=== PATIENT | male | born 1965 | race Caucasian/White ===

== ENCOUNTER 2022-10-05 07:34 | Outpatient (OUT) | payer OTHER, SELFPAY ==
--- NOTE | 2022-10-05 08:23 | CA_ITS ---
Patient: CONOR LEE Exam Date: 10/05/2022 : 1965 Gender:M Ordering : JESSICA ALLAN Admission #: [id number] Family : DR. HARPREET LIM . 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 DESCRIPTION: COMPLETE ECHOCARDIOGRAM Real-time transthoracic echocardiography with 2D, M-mode, spectral and color flow Doppler performed. QUALITY: Technical quality was good. LEFT VENTRICLE: Normal chamber size. Moderate concentric left ventricular hypertrophy. LV EF: Normal left ventricular ejection fraction, (>55%). DIASTOLIC: Diastolic function is indeterminate. ATRIAL SEPTUM: Visually appears intact. LEFT ATRIUM: Normal chamber size. RIGHT ATRIUM: Normal chamber size. RIGHT VENTRICLE: Normal chamber size. Normal right ventricular systolic function. TRICUSPID VALVE: Normal mobility and thickness. No stenosis with no regurgitation. MITRAL VALVE: Mildly thickened with normal mobility. Mild mitral annular calcification. Mild mitral regurgitation. AORTIC VALVE: Bio-Prosthetic valve appears well seated in the aortic position with abnormal Doppler flow. Severe, prostatic aortic valve stenosis. Severely restricted valve leaflet motion. DVI 0.17. Moderately calcified aortic valve. No aortic regurgitation. AORTIC ROOT: Normal diameter and appearance. PULMONIC VALVE: Normal thickness and mobility. No stenosis. No regurgitation. PERICARDIUM: No evidence of pericardial effusion. IVC: Collapses with inspirations. CONCLUSION: 1. Global left ventricular systolic function is normal; visually estimated ejection fraction is 60 to 65%. No significant wall motion abnormalities. 2. Moderate left ventricular hypertrophy. 3. Diastolic function is indeterminate. 4. The right ventricle is normal in size and systolic function. 5. Mild mitral regurgitation. 6. 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 DVI is 0.17 Adult Echocardiography Procedure Report Left Ventricle LVEDD (3.7 - 5.6 cm): 5.02 cm LVESD (2.2 - 4.0 cm): 3.71 cm LVIVS thickness (0.6 - 1.2 cm): 1.16 cm LVPW thickness (0.5 - 1.0 cm): 1.15 cm e': 0.08 m/s E - e': 14.68 LVOT Max Gradient: 2.77 mm[Hg] LVOT Area (cm2): 0.83 m/s Peak Velocity (LVOT): 0.83 m/s Mean Velocity (LVOT): 0.60 m/s LVOT Diameter 1.75 cm Left Atrium LA Volume Index (2D A2C): 32.18 ml/m2 Left Atrium Systolic Dimension: 5.42 cm Mitral Valve MV E to A Ratio: 1.36 Mitral Valve A-Wave Peak Velocity: 0.83 m/s Mitral Valve E-Wave Peak Velocity: 1.13 m/s Right Ventricle Aorta AO Root Diam: 3.31 cm Aortic Valve AoV Area (Peak Jairo): 0.42 cm2, 0.42 cm2 AoV Area (VTI): 0.50 cm2, 0.50 cm2 Peak Velocity(Antegrade Flow): 4.71 m/s Peak Gradient(Antegrade Flow): 88.66 mm[Hg] Mean Velocity(Antegrade Flow): 3.50 m/s Mean Gradient(Antegrade Flow): 53.90 mm[Hg] Velocity Time Integral: 115.79 cm Tricuspid Valve Pulmonic Valve Mean Gradient: 2.05 mm[Hg], 1.76 mm[Hg], 2.43 mm[Hg] Mean Velocity: 0.68 m/s, 0.63 m/s, 0.73 m/s Peak Velocity: 0.94 m/s Peak Gradient: 3.47 mm[Hg], 2.90 mm[Hg], 4.39 mm[Hg] Right Atrium Right Atrium Systolic Pressure: 48.45 ml, 48.45 ml Dictated by: Arvin Ledesma M.D. on 10/05/2022 at 12:43 Approved by: Arvin Ledesma M.D. on 10/05/2022 at 12:54
== END 2022-10-05 07:35 | disposition home or self-care (01) ==
LOC: CARD 07:36
PROVIDERS: PCP Family Medicine; Visit Provider Nurse Practitioner
DX: I35.0 Nonrheumatic aortic (valve) stenosis (principal)
CPT/HCPCS: 93306

== ENCOUNTER 2022-10-11 09:08 | Outpatient (OUT) | payer OTHER, SELFPAY ==
[2022-10-11 09:33] LABS: Basophils Absolute Auto 0.1 10^3/uL (0.0-0.1); Basophils Percent Auto 1.1 % (0.2-2.0); Eosinophils Absolute Auto 0.4 10^3/uL (0.0-0.7); Eosinophils Percent Auto 3.2 % (0.9-7.0); Hematocrit 53.9 % (42.0-54.0); Hemoglobin 19.1 g/dL (14.0-18.0); Immature Granulocytes Abs Auto 0.03 10^3/uL (0.00-0.03); Immature Granulocytes Pct Auto 0.3 % (0.0-0.5); Lymphocytes Percent Auto 17.9 % (20.5-60.0); Mean Corpuscular HGB Conc 35.4 g/dL (29.9-35.2); Mean Corpuscular Hemoglobin 37.2 pg (25.9-34.0); Mean Platelet Volume 10.5 fL (9.5-13.5); Monocytes Absolute Auto 0.7 10^3/uL (0.3-0.8); Monocytes Percent Auto 6.8 % (1.7-12.0); Neutrophils Absolute Auto 7.7 10^3/uL (1.4-6.5); Neutrophils Percent Auto 70.7 % (43.0-75.0); Platelet Count 157 10^3/uL (150-450); Red Blood Count 5.13 10^6/uL (4.70-6.10); Red Cell Distribution Width 13.6 % (11.0-15.0); White Blood Count 10.9 10^3/uL (4.0-11.0)
[2022-10-11 09:52] LABS: Mean Corpuscular Volume 105.1 fL (80.0-94.0)
[2022-10-11 12:02] LABS: Alanine Aminotransferase 29 U/L (16-63); Albumin Globulin Ratio 0.9; Albumin Level 3.7 g/dL (3.4-5.0); Alkaline Phosphatase 74 U/L (46-116); Anion Gap 15.2; Aspartate Amino Transferase 22 U/L (15-37); BUN Creatinine Ratio 11.8; Calcium 9.5 mg/dL (8.5-10.1); Carbon Dioxide 28.8 mmol/L (21.0-32.0); Chloride 98 mmol/L (98-107); Chol HDL Ratio 6.8; Cholesterol 266 mg/dL (<=200); Estimated GFR (African America >60 (>=60); Estimated GFR (Non-African Ame >60 (>=60); Globulin 4.3 g/dL; Glucose 136 mg/dL (74-106); HDL Cholesterol 39 mg/dL (40-60); Sodium 138 mmol/L (136-145); Triglycerides 331 mg/dL (<=150); VLDL CHOLESTEROL 66.2 mg/dL
== END 2022-10-11 09:09 | disposition home or self-care (01) ==
LOC: LAB 09:10
PROVIDERS: PCP Family Medicine; Visit Provider Nurse Practitioner
DX: I73.9 Peripheral vascular disease, unspecified (principal); I11.9 Hypertensive heart disease without heart failure; I35.9 Nonrheumatic aortic valve disorder, unspecified
CPT/HCPCS: 36415; 80053; 80061; 85025

== ENCOUNTER 2022-11-12 21:24 | Emergency (ER) | payer OTHER, SELFPAY ==
[2022-11-12] VITALS (17 sets, daily range): BP systolic 91–130; BP diastolic 56–89; PULSE 64–77; RESP 16–30; TEMP 36.6; O2SAT 92–100; BMI 27.5
--- NOTE | 2022-11-12 21:45 | XR_ITS ---
The [address] [address] Patient Name: CONOR LEE MRN: [id number] date: 1965 Sex: M Assigned Patient Location: ER Current Patient Location: ER Accession/Order Number: [id number] Exam Date: 11/12/2022 22:00 Report Date: 11/12/2022 22:52 At the request of: JESSICA MARKER Procedure: XR chest 1V EXAM: XR chest 1V HISTORY: SOB COMPARISON: Chest radiographs dated 05/22/2021. TECHNIQUE: One view of the chest was obtained. FINDINGS: There are postsurgical changes of the chest with median sternotomy wires in place. The cardiac silhouette is stable in size. There is stable nonspecific elevation of the left hemidiaphragm with likely left basilar atelectasis. There is a possible small left pleural effusion. There is no significant pneumothorax or right pleural effusion. No acute osseous abnormality is seen. XR/XR chest 1V IMPRESSION: 1. Stable nonspecific elevation of the left hemidiaphragm with a small left pleural effusion and likely left basilar atelectasis. Electronically authenticated by: Royce TRAN Date: 11/12/2022 22:52
--- NOTE | 2022-11-12 21:48 | ED.SOB1 ---
HPI - SOB/Dyspnea General Chief Complaint: Shortness of Breath/Dyspnea Stated Complaint: shortness of breath Time Seen by Provider: 11/12/22 21:32 History of Present Illness HPI Narrative: This 57-year-old male with a history of hypertension, coronary artery disease, likely chronic obstructive pulmonary disease as he has a 2 pack per day smoker and daily use presents for evaluation of shortness of breath. The patient states that he typically takes his blood pressure medication after waking up. He drinks to help him sleep. He states that today he thinks he took his blood pressure medication before he took a nap and then again after he woke up. 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 He denies any chest pain. He was feeling short of breath prior to arrival but denies any particular shortness of breath at this time. He denies any dizziness or syncope. He denies any chest pain. He has not passed out. He has no abdominal pain or back pain. He denies any lower extremity pain or swelling. Related Data Home Medications Medication Instructions Recorded Confirmed aspirin 81 mg tablet,delayed 81 mg PO DAILY 11/12/22 11/12/22 release carvedilol 25 mg tablet 37.5 mg PO BID 11/12/22 11/12/22 lisinopril 20 mg tablet 20 mg PO BID 11/12/22 11/12/22 Allergies Allergy/AdvReac Type Severity Reaction Status Date / Time No Known Drug Allergies Allergy Verified 11/12/22 21:36 Review of Systems ROS Status of ROS 10 or more systems reviewed and unremarkable except as noted in history and below Exam Narrative Exam Narrative: Nurses note and vital signs reviewed and patient is not hypoxic. General: Mildly intoxicated adult male, he is speaking in complete sentences, no respiratory distress noted Skin: Warm, dry, no pallor noted. There is no rash noted. Head: Normocephalic, atraumatic Eye: Normal conjunctiva, no drainage, EOMI. PERRL. No scleral icterus noted Ears, Nose, Mouth, and Throat: oral mucosa is moist. Cardiovascular: Regular Rate and RhythmS1 and S2 with occasional PVCs Respiratory: Patient is in no distress, no accessory muscle use, Bilateral expiratory wheezing noted, there is no accessory muscle use, patient speaking in complete sentences no rhonchi or rales appreciated Back: non-tender, no CVA tenderness bilaterally to percussion. GI: Normal bowel sounds, no tenderness to palpation, no masses appreciated. No rebound, guarding, or rigidity noted. Healed midline abdominal wall incision with non-tender, soft umbilical hernia Musculoskeletal: The patient has no evidence of calf tenderness, no pitting edema, symmetrical pulses noted bilaterally Neurological: A&O x4, normal speech, mildly intoxicated but cooperative Psychiatric: Cooperative Constitutional Vital Signs, click to edit/add: Last Vital Signs Temp 97.9 F 11/12/22 21:28 Pulse 64 11/12/22 22:13 Resp 18 11/12/22 22:13 BP 107/70 11/12/22 21:28 Pulse Ox 95 11/12/22 22:13 O2 Del Method Room Air 11/12/22 22:13 Course Vital Signs Vital signs: Vital Signs Temperature 97.9 F 11/12/22 21:28 Pulse Rate 77 11/12/22 21:28 Respiratory Rate 16 11/12/22 21:28 Blood Pressure 107/70 11/12/22 21:28 Pulse Oximetry 95 11/12/22 21:28 Temperature 97.9 F 11/12/22 21:28 Pulse Rate 64 11/12/22 22:13 Respiratory Rate 18 11/12/22 22:13 Blood Pressure 107/70 11/12/22 21:28 Pulse Oximetry 95 11/12/22 22:13 Oxygen Delivery Method Room Air 11/12/22 22:13 MDM - SOB/Dyspnea MDM Narrative Medical decision making narrative: This 57-year-old male with a history of tobacco use as much as 2 packs per day according to his female partner/ as well as daily alcohol use and a history of cardiac disease including bypass surgery in the past results for evaluation of shortness of breath. The patient typically takes his nighttime medications after waking up from a nap but earlier today he took his nighttime medications after having several cocktails. He states that when he woke up he does not remember if he had taken his medications so he took them again. He then somewhat remembered that he had taken them early. His blood pressure was low and he was feeling short of breath. He denies any chest pain dizziness or syncope. His blood pressure was moderately low upon arrival. He had bilateral expiratory wheezing without any rhonchi or rales. He was not hypoxic with pulse ox of 95 percent on room air.EKG done upon arrival was a sinus rhythm with occasional PVCs and left ventricular hypertrophy with strain. An IV was placed and he was given IV fluids and a nebulizer treatment was 125 mg of IV Solu-Medrol. Routine labs are reviewed. He has a normal white count and hemoglobin is concentrated likely related to his tobacco use, MCV And MCH is high consistent with his chronic alcohol use. He has a normal troponin and a mildly elevated BNP without signs of heart failure on his CXR or EKG. On re-evaluation, he is feeling better, his lungs are now clear. He declined to stay for a second troponin. He is hemodynamically stable for discharge and will be discharged home with his female four corner stayer machine operator/. Encouraged to drink in moderation so that he does not forget when he takes his medications as well as try to smoke less than an attempt to discontinue smoking. Medical Records Medical records narrative: CONOR FLOODSu Exam Date: 10/05/2022 : 1965 Gender :M Ordering : LILLI ALLAN Admission # : [id number] Family : DR. HARPREET LIM . Order # : [id number] CLICK HERE TO VIEW EXAM ECHOCARDIOGRAM REPORT PROCEDURE: CA ECHO DOPPLER COMPLETE INDICATIONS: Nonrheumatic aortic valve stenosis - 23mm Magna pericardial valve, hypertension, smoker COMPARISON: None. DESCRIPTION: COMPLETE ECHOCARDIOGRAM Real-time transthoracic echocardiography with 2D, M-mode, spectral and color flow Doppler performed. QUALITY: Technical quality was good. LEFT VENTRICLE: Normal chamber size. Moderate concentric left ventricular hypertrophy. LV EF: Normal left ventricular ejection fraction, (>55%). DIASTOLIC: Diastolic function is indeterminate. ATRIAL SEPTUM: Visually appears intact. LEFT ATRIUM: Normal chamber size. RIGHT ATRIUM: Normal chamber size. RIGHT VENTRICLE: Normal chamber size. Normal right ventricular systolic function. TRICUSPID VALVE: Normal mobility and thickness. No stenosis with no regurgitation. MITRAL VALVE: Mildly thickened with normal mobility. Mild mitral annular calcification. Mild mitral regurgitation. AORTIC VALVE: Bio-Prosthetic valve appears well seated in the aortic position with abnormal Doppler flow. Severe, prostatic aortic valve stenosis. Severely restricted valve leaflet motion. DVI 0.17. Moderately calcified aortic valve. No aortic regurgitation. AORTIC ROOT: Normal diameter and appearance. PULMONIC VALVE: Normal thickness and mobility. No stenosis. No regurgitation. PERICARDIUM: No evidence of pericardial effusion. IVC: Collapses with inspirations. CONCLUSION: 1. Global left ventricular systolic function is normal; visually estimated ejection fraction is 60 to 65%. No significant wall motion abnormalities. 2. Moderate left ventricular hypertrophy. 3. Diastolic function is indeterminate. 4. The right ventricle is normal in size and systolic function. 5. Mild mitral regurgitation. [email or web address] Continued Report - Page 2 of 2 Patient: CONOR LEE Exam Date: 10/05/2022 : 1965 Gender :M Ordering : LILLI ALLAN Admission # : [id number] Family : DR. HAPRREET LIM . Order # : [id number] CLICK HERE TO VIEW EXAM 6. 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 DVI is 0.17 Adult Echocardiography Procedure Report Left Ventricle LVEDD (3.7 - 5.6 cm): 5.02 cm LVESD (2.2 - 4.0 cm): 3.71 cm LVIVS thickness (0.6 - 1.2 cm): 1.16 cm LVPW thickness (0.5 - 1.0 cm): 1.15 cm e': 0.08 m/s E - e': 14.68 LVOT Max Gradient: 2.77 mm[Hg] LVOT Area (cm2): 0.83 m/s Peak Velocity (LVOT): 0.83 m/s Mean Velocity (LVOT): 0.60 m/s LVOT Diameter 1.75 cm Left Atrium LA Volume Index (2D A2C): 32.18 ml/m2 Left Atrium Systolic Dimension: 5.42 cm Mitral Valve MV E to A Ratio: 1.36 Mitral Valve A-Wave Peak Velocity: 0.83 m/s Mitral Valve E-Wave Peak Velocity: 1.13 m/s Right Ventricle Aorta AO Root Diam: 3.31 cm Aortic Valve AoV Area (Peak Jairo): 0.42 cm2, 0.42 cm2 AoV Area (VTI): 0.50 cm2, 0.50 cm2 Peak Velocity(Antegrade Flow): 4.71 m/s Peak Gradient(Antegrade Flow): 88.66 mm[Hg] Mean Velocity(Antegrade Flow): 3.50 m/s Mean Gradient(Antegrade Flow): 53.90 mm[Hg] Velocity Time Integral: 115.79 cm Tricuspid Valve Pulmonic Valve Mean Gradient: 2.05 mm[Hg], 1.76 mm[Hg], 2.43 mm[Hg] Mean Velocity: 0.68 m/s, 0.63 m/s, 0.73 m/s Peak Velocity: 0.94 m/s Peak Gradient: 3.47 mm[Hg], 2.90 mm[Hg], 4.39 mm[Hg] Right Atrium Right Atrium Systolic Pressure: 48.45 ml, 48.45 ml Dictated by: Arvin Ledesma M.D. on 10/05/2022 at 12:43 Approved by: Arvin Ledesma M.D. on 10/05/2022 at 12:54 Lab Data Labs: Lab Results 11/12/22 Range/Units 21:54 WBC 7.8 (4.0-11.0) 10^3/uL RBC 4.49 L (4.70-6.10) 10^6/uL Hgb 16.9 (14.0-18.0) g/dL Hct 48.3 (42.0-54.0) % MCV 107.6 H (80.0-94.0) fL MCH 37.6 H (25.9-34.0) pg MCHC 35.0 (29.9-35.2) g/dL RDW 12.2 (11.0-15.0) % Plt Count 175 (150-450) 10^3/uL MPV 10.5 (9.5-13.5) fL Neut % (Auto) 52.3 (43.0-75.0) % Lymph % (Auto) 34.8 (20.5-60.0) % Keith % (Auto) 6.4 (1.7-12.0) % Eos % (Auto) 5.0 (0.9-7.0) % Baso % (Auto) 1.2 (0.2-2.0) % Neut # (Auto) 4.1 (1.4-6.5) 10^3/uL Lymph # (Auto) 2.7 (1.2-3.8) 10^3/uL Keith # (Auto) 0.5 (0.3-0.8) 10^3/uL Eos # (Auto) 0.4 (0.0-0.7) 10^3/uL Baso # (Auto) 0.1 (0.0-0.1) 10^3/uL Abs Immat Gran (auto) 0.02 (0.00-0.03) 10^3/uL Imm/Tot Granulo (auto) 0.3 (0.0-0.5) % Sodium 134 L (136-145) mmol/L Potassium 3.3 L (3.5-5.1) mmol/L Chloride 98 (98-107) mmol/L Carbon Dioxide 29.9 (21.0-32.0) mmol/L Anion Gap 9.4 BUN 13.0 (7.0-18.0) mg/dL Creatinine 1.27 (0.70-1.30) mg/dL Est GFR ( Amer) >60 (>=60) Est GFR (Non-Af Amer) 59 L (>=60) BUN/Creatinine Ratio 10.2 Glucose 138 H (74-106) mg/dL Lactate 1.3 (0.4-2.0) mmol/L Calcium 8.2 L (8.5-10.1) mg/dL Total Bilirubin 0.4 (0.2-1.0) mg/dL AST 18 (15-37) U/L ALT 31 (16-63) U/L Alkaline Phosphatase 72 (46-116) U/L Troponin I High Sens 28.7 (4.0-76.1) pg/mL NT-Pro-B Natriuret Pep 1303.0 H* (<=900.0) pg/mL Total Protein 7.0 (6.4-8.2) g/dL Albumin 3.3 L (3.4-5.0) g/dL Globulin 3.7 g/dL Albumin/Globulin Ratio 0.9 ABG Data Interpretation: The [address] [address] XRay Report Signed Patient: CONOR LEE MR#: [id number] : 1965 Acct:[id number] Age/Sex: 57 / M ADM Date: 11/12/22 Loc: ER Attending Dr: Ordering Physician: Lilli David Date of Service: 11/12/22 Procedure(s): XR chest 1V Accession Number(s): [id number] cc: Lilli David; HARPREET LIM ~ The [address] [address] Patient Name: CONOR LEE MRN: [facility]:[id number] date: 1965 Sex: M Assigned Patient Location: ER Current Patient Location: ER Accession/Order Number: [id number] Exam Date: 11/12/2022 22:00 Report Date: 11/12/2022 22:52 At the request of: LILLI DAVID Procedure: XR chest 1V EXAM: XR chest 1V HISTORY: SOB COMPARISON: Chest radiographs dated 05/22/2021. TECHNIQUE: One view of the chest was obtained. FINDINGS: There are postsurgical changes of the chest with median sternotomy wires in place. The cardiac silhouette is stable in size. There is stable nonspecific elevation of the left hemidiaphragm with likely left basilar atelectasis. There is a possible small left pleural effusion. There is no significant pneumothorax or right pleural effusion. No acute osseous abnormality is seen. XR/XR chest 1V IMPRESSION: 1. Stable nonspecific elevation of the left hemidiaphragm with a small left pleural effusion and likely left basilar atelectasis. ECG Data Attestation: I personally reviewed and interpreted this ECG as follows: (Sinus rhythm at 72 bpm with occasional PVCs, left ventricular hypertrophy with strain pattern, no acute ST segment elevation, inverted T waves are noted in leads one, 2, aVL, V4 V5 and V6) Prior ECG tracings: not available for review Discharge Plan Discharge Chief Complaint: Shortness of Breath/Dyspnea Clinical Impression: Shortness of breath, Medication administered in error Patient Disposition: Home, Self-Care Time of Disposition Decision: 23:26 Prescriptions / Home Meds: No Action aspirin 81 mg tablet,delayed release (DR/EC) 81 mg PO DAILY carvedilol 25 mg tablet 37.5 mg PO BID lisinopril 20 mg tablet 20 mg PO BID Instructions: How to Use a Metered-Dose Inhaler and a Spacer (ED), Wheezing (ED), Shortness of Breath (ED) Stand Alone Forms: Portal Instructions Referrals: HARPREET LIM [Primary Care Provider] - 1 week
[2022-11-12 22:04] LABS: Basophils Absolute Auto 0.1 10^3/uL (0.0-0.1); Basophils Percent Auto 1.2 % (0.2-2.0); Eosinophils Absolute Auto 0.4 10^3/uL (0.0-0.7); Hematocrit 48.3 % (42.0-54.0); Hemoglobin 16.9 g/dL (14.0-18.0); Immature Granulocytes Abs Auto 0.02 10^3/uL (0.00-0.03); Immature Granulocytes Pct Auto 0.3 % (0.0-0.5); Lymphocytes Absolute Auto 2.7 10^3/uL (1.2-3.8); Lymphocytes Percent Auto 34.8 % (20.5-60.0); Mean Corpuscular Hemoglobin 37.6 pg (25.9-34.0); Mean Corpuscular Volume 107.6 fL (80.0-94.0); Mean Platelet Volume 10.5 fL (9.5-13.5); Monocytes Absolute Auto 0.5 10^3/uL (0.3-0.8); Monocytes Percent Auto 6.4 % (1.7-12.0); Neutrophils Absolute Auto 4.1 10^3/uL (1.4-6.5); Neutrophils Percent Auto 52.3 % (43.0-75.0); Platelet Count 175 10^3/uL (150-450); Red Blood Count 4.49 10^6/uL (4.70-6.10); Red Cell Distribution Width 12.2 % (11.0-15.0); White Blood Count 7.8 10^3/uL (4.0-11.0)
[2022-11-12] MEDS: METHYLPREDNISOLONE SOD SUCC PF 125 MG/2 ML VIAL IVP (22:05)
[2022-11-12] MEDS: 0.9 % SODIUM CHLORIDE 1,000 ML 1000 ML IV (22:05)
[2022-11-12] MEDS: IPRATROPIUM/ALBUTEROL SULFATE 3 ML AMPUL.NEB IH (22:13)
[2022-11-12 22:15] LABS: Alanine Aminotransferase 31 U/L (16-63); Albumin Globulin Ratio 0.9; Albumin Level 3.3 g/dL (3.4-5.0); Alkaline Phosphatase 72 U/L (46-116); Anion Gap 9.4; Aspartate Amino Transferase 18 U/L (15-37); BUN Creatinine Ratio 10.2; Bilirubin Total 0.4 mg/dL (0.2-1.0); Calcium 8.2 mg/dL (8.5-10.1); Carbon Dioxide 29.9 mmol/L (21.0-32.0); Chloride 98 mmol/L (98-107); Estimated GFR (African America >60 (>=60); Estimated GFR (Non-African Ame 59 (>=60); Globulin 3.7 g/dL; Glucose 138 mg/dL (74-106); Potassium 3.3 mmol/L (3.5-5.1); Sodium 134 mmol/L (136-145)
[2022-11-12 22:17] LABS: Lactate/Lactic Acid 1.3 mmol/L (0.4-2.0)
[2022-11-12 22:23] LABS: Troponin I High Sensitivity 28.7 pg/mL (4.0-76.1)
--- NOTE | 2022-11-13 21:34 | ECG_ITS ---
The [facility] Test Date: 2022-11-12 Pat Name: CONOR LEE Department: Room: - Gender: Male Occup Ther: : 1965 Requested By: [id number] Order Number: [id number] Reading MD: TUYET SURESH Measurements Intervals [place] Rate: 72 P: 40 NH: 148 QRS: -4 QRSD: 104 T: 177 QT: 416 QTc: 440 Interpretive Statements 1100 Sinus rhythm 00319 with occasional ventricular premature complexes (Unreliable analysis due to noise) Incomplete LBBB 5234 Left ventricular hypertrophy with repolarization abnormality 0102 ARTIFACT PRESENT 9150 abnormal ECG No previous ECG available for comparison Electronically Signed On 11-13-2022 7:08:11 EDT by TUYET SURESH
== END 2022-11-12 23:38 | disposition home or self-care (01) ==
PROVIDERS: Emergency Provider Emergency Medicine; PCP Family Medicine
DX: R06.02 Shortness of breath (principal); Z91.148 Patient's other noncompliance with medication regimen for other reason; I10 Essential (primary) hypertension; I25.10 Atherosclerotic heart disease of native coronary artery without angina pectoris; F17.210 Nicotine dependence, cigarettes, uncomplicated; Z79.82 Long term (current) use of aspirin; Z79.899 Other long term (current) drug therapy; F10.90 Alcohol use, unspecified, uncomplicated
CPT/HCPCS: 36415; 71045; 80053; 83605; 83880; 84484; 85025; 93005; 94640; 96374; 99285; J2930

== ENCOUNTER 2023-02-06 07:38 | Emergency (ER) | payer OTHER, SELFPAY ==
[2023-02-06] VITALS (18 sets, daily range): BP systolic 91–121; BP diastolic 57–65; PULSE 71–77; RESP 17–26; O2SAT 48–100; BMI 32.9
--- NOTE | 2023-02-06 07:56 | ECG_ITS ---
The [facility] Test Date: 2023-02-06 Pat Name: CONOR LEE Department: Room: - Gender: Male Manual Tester: : 1965 Requested By: HARPREET LIM Order Number: [id number] Reading MD: TUYET SURESH Measurements Intervals [place] Rate: 72 P: 32 DE: 156 QRS: -1 QRSD: 104 T: 166 QT: 400 QTc: 424 Interpretive Statements 1100 Sinus rhythm 5234 Left ventricular hypertrophy with repolarization abnormality 9150 abnormal ECG Compared to ECG 11/12/2022 no change Electronically Signed On 02-07-2023 6:49:17 EST by TUYET SURESH
--- NOTE | 2023-02-06 07:58 | CT_ITS ---
The [address] [address] Patient Name: CONOR LEE MRN: [id number] date: 1965 Sex: M Assigned Patient Location: ER Current Patient Location: Accession/Order Number: [id number] Exam Date: 02/06/2023 08:20 Report Date: 02/06/2023 08:54 At the request of: JUAN CHATMAN Procedure: CT angio chest EXAM: CT angio chest HISTORY: Shortness of breath. Recent diagnosis of a lung mass 3 weeks ago at [facility]. That exam is not available for comparison. COMPARISON: Chest x-ray dated 11/12/2022. TECHNIQUE: A contrast-enhanced CTA protocol scan was performed. Sagittal and coronal reformatted images were produced. Shaded 3-D surface map rotating images were also produced. Dose reduction techniques were achieved by using automated exposure control and/or adjustment of mA and/or kV according to patient size and/or use of iterative reconstruction technique. FINDINGS: The thyroid gland is normal. There are number of nonenlarged nodes in the mediastinum and eliud. There is a right hilar mass showing at least mild spiculation of the margins. This shows relatively uniform enhancement. The mass measures approximately 3 cm in diameter. The heart and great vessels are normal in size and configuration. There are surgical changes in the aortic valve. Calcified plaque is seen in the aorta and coronary arteries. Evaluation of lungs is limited due to breathing motion artifact. The lungs show mild chronic changes. There is a large left diaphragmatic hernia. No endobronchial or endotracheal lesions are seen. No suspicious or destructive bone lesions are seen. Limited evaluation of the upper abdomen is unremarkable. CT/CT angio chest IMPRESSION: Suspicious 3 cm mass at the right hilum. This is large enough to be amenable to further evaluation with PET/CT the No clear evidence of an acute process in the lungs, although evaluation of lungs is limited due to breathing motion artifact. There are mild chronic changes in the lungs, and there is a large left diaphragmatic hernia. Atherosclerotic disease and coronary artery disease with surgical changes at the aortic valve. Electronically authenticated by: LAZARO GARRETT Date: 02/06/2023 08:54
[2023-02-06 08:04] LABS: Basophils Absolute Auto 0.2 10^3/uL (0.0-0.1); Basophils Percent Auto 1.6 % (0.2-2.0); Eosinophils Absolute Auto 0.6 10^3/uL (0.0-0.7); Eosinophils Percent Auto 4.9 % (0.9-7.0); Hematocrit 44.1 % (42.0-54.0); Hemoglobin 15.1 g/dL (14.0-18.0); Immature Granulocytes Abs Auto 0.04 10^3/uL (0.00-0.03); Immature Granulocytes Pct Auto 0.3 % (0.0-0.5); Lymphocytes Absolute Auto 2.8 10^3/uL (1.2-3.8); Mean Corpuscular HGB Conc 34.2 g/dL (29.9-35.2); Mean Corpuscular Hemoglobin 36.7 pg (25.9-34.0); Mean Platelet Volume 10.2 fL (9.5-13.5); Monocytes Absolute Auto 0.8 10^3/uL (0.3-0.8); Monocytes Percent Auto 6.9 % (1.7-12.0); Neutrophils Absolute Auto 7.2 10^3/uL (1.4-6.5); Neutrophils Percent Auto 62.3 % (43.0-75.0); Platelet Count 281 10^3/uL (150-450); Red Blood Count 4.12 10^6/uL (4.70-6.10); Red Cell Distribution Width 13.2 % (11.0-15.0); White Blood Count 11.5 10^3/uL (4.0-11.0)
[2023-02-06 08:27] LABS: Alanine Aminotransferase 27 U/L (16-63); Albumin Globulin Ratio 0.9; Albumin Level 3.5 g/dL (3.4-5.0); Alkaline Phosphatase 65 U/L (46-116); Anion Gap 12.6; Aspartate Amino Transferase 17 U/L (15-37); BUN Creatinine Ratio 20.6; Bilirubin Total 0.3 mg/dL (0.2-1.0); Calcium 9.8 mg/dL (8.5-10.1); Carbon Dioxide 28.6 mmol/L (21.0-32.0); Chloride 94 mmol/L (98-107); Estimated GFR (African America >60 (>=60); Estimated GFR (Non-African Ame >60 (>=60); Glucose 127 mg/dL (74-106); Potassium 4.2 mmol/L (3.5-5.1); Sodium 131 mmol/L (136-145); Total Protein 7.5 g/dL (6.4-8.2); Troponin I High Sensitivity 23.7 pg/mL (4.0-76.1)
--- NOTE | 2023-02-06 08:44 | ED_ITS ---
HPI - General Adult General Chief complaint: Shortness of Breath/Dyspnea Stated complaint: GENERAL WEAKNESS Time Seen by Provider: 02/06/23 07:57 Source: patient Mode of arrival: walk-in History of Present Illness HPI narrative: Patient is a 57-year-old male who is presenting to the Emergency Room today with chief complaint of shortness of breath, chest tightness, cough that has resolved. Patient was just in the [facility] for large workup. Patient was found to have a right lung mass, patient currently and middle of getting biopsy and further testing. Patient also has a leaky valve in his heart and has to blockages in his heart that he needs to have surgery and to be fixed before they can do anything with his right lung base of undergoing right lung treatment as well. Patient was admitted to the hospital at the [facility]. Patient's had PET scans, CAT scans of his heart similar testing. Patient was smoking 2 packs a day for a long time. Patient is under one pack a day. Patient was on Trelegy but he was in the hospital, his insurance, pain for this is currently not using it. Patient has no history of VT or PE that is aware of. Patient's fianc?e is at bedside. . All systems are negative except as noted/marked. All systems reviewed and otherwise negative. . Nurses note and vital signs reviewed and patient is not hypoxic. General: The patient appears well and in no apparent distress. Patient is resting comfortably on cart. Patient is not toxic, lethargic, or listless. Patient slightly agitated with testing it was recommended to be done because he just had a lot of tests in the [facility], education was done . Patient smells of tobacco products. Skin: Warm, dry, no pallor noted. There is no rash noted. No petechiae, purpura. Head: Normocephalic, atraumatic Eye: Normal conjunctiva, no drainage, EOMI. PERRL Ears, Nose, Mouth, and Throat: oral mucosa is moist. Nares patent. Mouth without vesicles. Cardiovascular: Regular Rate and Rhythm, Positive holosystolic murmur, gallop, rub Respiratory: Patient is in no distress, no accessory muscle use, lungs are clear to auscultation, no wheezing, rales or rhonchi Back: non-tender, no CVA tenderness bilaterally to percussion. No CT LS midline pain GI: soft, no tenderness to palpation, no masses appreciated. No rebound, guarding, or rigidity noted. No flank pain bilateral, No distention Musculoskeletal: Patient has full range of motion of all of the extremities, no motor, sensory, or focal neurological deficits Neurological: A&O x3, normal speech Psychiatric: Cooperative Related Data Home Medications Medication Instructions Recorded Confirmed aspirin 81 mg tablet,delayed 81 mg PO DAILY 11/12/22 11/12/22 release carvedilol 25 mg tablet 37.5 mg PO BID 11/12/22 11/12/22 lisinopril 20 mg tablet 20 mg PO BID 11/12/22 11/12/22 Allergies Allergy/AdvReac Type Severity Reaction Status Date / Time No Known Drug Allergies Allergy Verified 11/12/22 21:36 PFSH [facility] Social History Smoking status: Current every day smoker Exam Constitutional Vital Signs, click to edit/add: Last Vital Signs Pulse 71 02/06/23 09:30 Resp 26 H 02/06/23 08:10 BP 91/59 02/06/23 09:30 Pulse Ox 99 02/06/23 09:30 O2 Del Method Room Air 02/06/23 07:52 Course Vital Signs Vital signs: Vital Signs Pulse Rate 77 02/06/23 07:41 Respiratory Rate 18 02/06/23 07:41 Blood Pressure 121/65 02/06/23 07:41 Pulse Oximetry 88 L 02/06/23 07:41 Oxygen Delivery Method Room Air 02/06/23 07:41 Pulse Rate 71 02/06/23 09:30 Respiratory Rate 26 H 02/06/23 08:10 Blood Pressure 91/59 02/06/23 09:30 Pulse Oximetry 99 02/06/23 09:30 Oxygen Delivery Method Room Air 02/06/23 07:52 Medical Decision Making [facility] Narrative Medical decision making narrative: Patient CTA of the chest showed no PE, pneumonia, edema, no other acute findings besides the 3 cm mass to the right upper hilum. Patient is aware of this. Patient will continue falling up with his oncologist, housing counselor and director of food and nutrition services from the [facility].Patient will conntinue medications. Patient has been asymptomatic since he has been in the Emergency Room. No chest pain or shortness of breath at discharge. Patient does not want to be admitted to the hospital for any reason at this time, especially since he was just in the hospital recently the [facility]. Education on smoking done as well, no questions at discharge. Lab Data Labs: Lab Results 02/06/23 Range/Units 07:50 WBC 11.5 H (4.0-11.0) 10^3/uL RBC 4.12 L (4.70-6.10) 10^6/uL Hgb 15.1 (14.0-18.0) g/dL Hct 44.1 (42.0-54.0) % MCV 107.0 H (80.0-94.0) fL MCH 36.7 H (25.9-34.0) pg MCHC 34.2 (29.9-35.2) g/dL RDW 13.2 (11.0-15.0) % Plt Count 281 (150-450) 10^3/uL MPV 10.2 (9.5-13.5) fL Neut % (Auto) 62.3 (43.0-75.0) % Lymph % (Auto) 24.0 (20.5-60.0) % Hardin % (Auto) 6.9 (1.7-12.0) % Eos % (Auto) 4.9 (0.9-7.0) % Baso % (Auto) 1.6 (0.2-2.0) % Neut # (Auto) 7.2 H (1.4-6.5) 10^3/uL Lymph # (Auto) 2.8 (1.2-3.8) 10^3/uL Hardin # (Auto) 0.8 (0.3-0.8) 10^3/uL Eos # (Auto) 0.6 (0.0-0.7) 10^3/uL Baso # (Auto) 0.2 H (0.0-0.1) 10^3/uL Abs Immat Gran (auto) 0.04 H (0.00-0.03) 10^3/uL Imm/Tot Granulo (auto) 0.3 (0.0-0.5) % Sodium 131 L (136-145) mmol/L Potassium 4.2 (3.5-5.1) mmol/L Chloride 94 L (98-107) mmol/L Carbon Dioxide 28.6 (21.0-32.0) mmol/L Anion Gap 12.6 BUN 20.0 H (7.0-18.0) mg/dL Creatinine 0.97 (0.70-1.30) mg/dL Est GFR ( Amer) >60 (>=60) Est GFR (Non-Af Amer) >60 (>=60) BUN/Creatinine Ratio 20.6 Glucose 127 H (74-106) mg/dL Calcium 9.8 (8.5-10.1) mg/dL Total Bilirubin 0.3 (0.2-1.0) mg/dL AST 17 (15-37) U/L ALT 27 (16-63) U/L Alkaline Phosphatase 65 (46-116) U/L Troponin I High Sens 23.7 (4.0-76.1) pg/mL NT-Pro-B Natriuret Pep 1508.0 H* (<=900.0) pg/mL Total Protein 7.5 (6.4-8.2) g/dL Albumin 3.5 (3.4-5.0) g/dL Globulin 4.0 g/dL Albumin/Globulin Ratio 0.9 ECG Data Attestation: I personally reviewed and interpreted this ECG as follows: (EKG interpretation.I normal sinus rhythm at 72 beats a minute. Normal axis deviation. Left ventricular hypertrophy noted. Diffuse T-wave inversion, nonspecific ST changes. No acute ST elevation. Compared to EKG in 11/12/2022, patient has similar changes on today's EKG.) Discharge Plan Discharge Chief Complaint: Shortness of Breath/Dyspnea Clinical Impression: Shortness of breath, Continuous tobacco abuse, Lung mass Patient Disposition: Home, Self-Care Condition: Fair Prescriptions / Home Meds: No Action aspirin 81 mg tablet,delayed release (DR/EC) 81 mg PO DAILY carvedilol 25 mg tablet 37.5 mg PO BID lisinopril 20 mg tablet 20 mg PO BID Instructions: Chest Pain (ED), How to Stop Smoking (ED), Dyspnea (ED) Additional Instructions: . Patient is to follow-up and continue with treatment to his housing counselor and director of food and nutrition services and oncologist to the [facility]. A copy of her CAT scan report has been given to you Continue trying to quit smoking. Stand Alone Forms: Portal Instructions Referrals: HARPREET LIM [Primary Care Provider] - 1 week Discharge Date/Time: 02/06/23 09:43
== END 2023-02-06 09:43 | disposition home or self-care (01) ==
PROVIDERS: Emergency Provider Emergency Medicine; PCP Family Medicine
DX: R06.02 Shortness of breath (principal); R91.8 Other nonspecific abnormal finding of lung field; F17.210 Nicotine dependence, cigarettes, uncomplicated; Z79.82 Long term (current) use of aspirin; Z79.899 Other long term (current) drug therapy
CPT/HCPCS: 36415; 71275; 80053; 83880; 84484; 85025; 93005; 99285; Q9967

== ENCOUNTER 2023-02-07 00:19 | Emergency (ER) | payer OTHER, SELFPAY ==
[2023-02-07] VITALS (8 sets, daily range): BP systolic 125; BP diastolic 67; PULSE 71–73; RESP 18–20; TEMP 36.6; O2SAT 97–100
[2023-02-07] MEDS: LORAZEPAM 0.5 MG TABLET 1 MG PO ×2 (01:13→02:45)
--- NOTE | 2023-02-07 01:46 | ED_ITS ---
HPI - SOB/Dyspnea General Chief Complaint: Shortness of Breath/Dyspnea Stated Complaint: shortness of breath Time Seen by Provider: 02/07/23 00:27 Source: patient Mode of arrival: walk-in Limitations: no limitations History of Present Illness HPI Narrative: This 57-year-old male who was recently diagnosed with a lung mass and also has cardiac issues and had an extensive workup at [facility] and was seen here earlier today for shortness of breath returns for evaluation of shortness of breath. The patient states that he has episodes when he tries to lay down where he feels like he is choking. He has a follow-up appointment later today with his family physician for oxygen. He is not having any chest pain or fever. There is been no recent change in his symptoms. He does admit that when he was at [facility] and [facility] for his workup he had to have Ativan at times for anxiety and shortness of breath. He does continue to smoke. Is adamant that he needs oxygen. Related Data Home Medications Medication Instructions Recorded Confirmed aspirin 81 mg tablet,delayed 81 mg PO DAILY 11/12/22 02/07/23 release carvedilol 25 mg tablet 37.5 mg PO BID 11/12/22 02/07/23 lisinopril 20 mg tablet 20 mg PO BID 11/12/22 02/07/23 Allergies Allergy/AdvReac Type Severity Reaction Status Date / Time No Known Drug Allergies Allergy Verified 02/07/23 00:31 Review of Systems ROS Status of ROS 10 or more systems reviewed and unremark able except as noted in history and below [facility] Social History Smoking status: Current every day smoker Exam Narrative Exam Narrative: Vital signs reviewed, the patient is afebrile with a normal pulse, normal blood pressure, he is not hypoxic with pulse ox of 99 percent on room air General: Alert, pale, nontoxic male, he appears anxious, no respirato ry distress, he is speaking in complete sentences Skin: Pale, [place] Head: Normocephalic, atraumatic Eye: Normal conjunctiva, no drainage, EOMI. PERRL Ears, Nose, Mouth, and Throat: oral mucosa is moist. Lung of the tongue, uvula or pharyngeal soft tissues Cardiovascular: Regular Rate and Rhythm S1 and S2, no murmurs rubs or gallops appreciated Respiratory: Coarse breath sounds with right upper lobe rhonchi, no rales appreciated, no accessory muscle use, Back: non-tender, no CVA tenderness bilaterally to percussion. GI: Normal bowel sounds, no tenderness to palpation, no masses appreciated. No rebound, guarding, or rigidity noted. Musculoskeletal: The patient has no evidence of calf tenderness, no pitting edema, symmetrical pulses noted bilaterally Neurological: A&O x4, normal speech Psychiatric: Cooperative Constitutional Vital Signs, click to edit/add: Last Vital Signs Temp 97.8 F 02/07/23 00:27 Pulse 71 02/07/23 01:33 Resp 18 02/07/23 01:33 BP 125/67 02/07/23 00:27 Pulse Ox 99 02/07/23 02:30 O2 Del Method Nasal Cannula 02/07/23 00:51 O2 Flow Rate 1 02/07/23 00:51 Course Vital Signs Vital signs: Vital Signs Temperature 97.8 F 02/07/23 00:27 Pulse Rate 73 02/07/23 00:27 Respiratory Rate 20 02/07/23 00:27 Blood Pressure 125/67 02/07/23 00:27 Pulse Oximetry 99 02/07/23 00:27 Oxygen Delivery Method Room Air 02/07/23 00:27 Temperature 97.8 F 02/07/23 00:27 Pulse Rate 71 02/07/23 01:33 Respiratory Rate 18 02/07/23 01:33 Blood Pressure 125/67 02/07/23 00:27 Pulse Oximetry 99 02/07/23 02:30 Oxygen Delivery Method Nasal Cannula 02/07/23 00:51 Oxygen Delivery Flow Rate 1 02/07/23 00:51 MDM - SOB/Dyspnea MDM Narrative Medical decision making narrative: 57-year-old male with a history of tobacco use, alcohol use, congestive heart failure and a recent diagnosis of a lung mass presents for evaluation of shortness of breath. The patient states when he tries to lie down at night he is having episodes of shortness of breath. He is scheduled to see his family physician tomorrow morning. The patient was seen here yesterday for similar symptoms and had a CT scan done of the chest that did not show any new findings or fluid overload. Labs were performed. He did have a mild elevation in his BNP. He is not having any lower extremity swelling at this time. Upon arrival the patient appeared very anxious and demanded that oxygen be placed on his nose to help him breathe. His pulse ox was normal despite his demand for supplemental oxygen. He was put on 1 L nasal cannula to help relax him and given a dose of Ativan. His physical exam is fairly normal with rhonchi in the right upper lobe. The patient states that he is supposed to get his lung tumor biopsy but they feel that he needs to be put to sleep for that and he needs a valve replacement or cardiac surgery prior to being put to sleep for the lung surgery or biopsy. He was also recently admitted to [facility] in [facility] for congestive heart failure exacerbation. He was placed on Lasix and diuresis. He was also recently at [facility] and had an extensive workup. He is scheduled for follow-up with [facility], oncology and his family physician. He does admit that when he was a [facility] he had to have Ativan for anxiety. He states this helps him quite a bit. I reviewed his labs and CT scan from yesterday's Emergency Room visit. I did not repeat any of these labs. After the Ativan he was calm, was able to lie it is approximately 45 degree angle which is where he states he lies at home with 3 pillows behind his head and was comfortable without dyspnea or anxiety. He was continually monitor and the pulse ox during this period of time and his pulse ox did not get to low 98 percent. The patient has /girlfriend was in the room for this and saw that his pulse ox did not drop and he did not become dyspneic or anxious and feels comfortable taking him home. I did send him home with an additional dose of ativan and Rx for a short course of Ativan to use as needed for ongoing anxiety. Medical Records Medical records narrative: [place] [address] CT Scan Report Signed Patient: CONOR LEE MR#: [id number] : 1965 Acct:[id number] Age/Sex: 57 / M ADM Date: 02/06/23 Loc: ER Attending Dr: Ordering Physician: Juan Valeznuela Date of Service: 02/06/23 Procedure(s): CT angio chest Accession Number(s): [id number] cc: HARPREET LIM ~ The [address] [address] Patient Name: CONOR LEE MRN: [id number] date: 1965 Sex: M Assigned Patient Location: ER Current Patient Location: ER Accession/Order Number: [id number] Exam Date: 02/06/2023 08:20 Report Date: 02/06/2023 08:54 At the request of: JUAN VALENZUELA Procedure: CT angio chest EXAM: CT angio chest HISTORY: Shortness of breath. Recent diagnosis of a lung mass 3 weeks ago at [facility]. That exam is not available for comparison. COMPARISON: Chest x-ray dated 11/12/2022. TECHNIQUE: A contrast-enhanced CTA protocol scan was performed. Sagittal and coronal reformatted images were produced. Shaded 3-D surface map rotating images were also produced. Dose reduction techniques were achieved by using automated exposure control and/or adjustment of mA and/or kV according to patient size and/or use of iterative reconstruction technique. FINDINGS: The thyroid gland is normal. There are number of nonenlarged nodes in the mediastinum and eliud. There is a right hilar mass showing at least mild spiculation of the margins. This shows relatively uniform enhancement. The mass measures approximately 3 cm in diameter. The heart and great vessels are normal in size and configuration. There are surgical changes in the aortic valve. Calcified plaque is seen in the aorta and coronary arteries. Evaluation of lungs is limited due to breathing motion artifact. The lungs show mild chronic changes. There is a large left diaphragmatic hernia. No endobronchial or endotracheal lesions are seen. No suspicious or destructive bone lesions are seen. Limited evaluation of the upper abdomen is unremarkable. CT/CT angio chest IMPRESSION: Suspicious 3 cm mass at the right hilum. This is large enough to be amenable to further evaluation with PET/CT the No clear evidence of an acute process in the lungs, although evaluation of lungs is limited due to breathing motion artifact. There are mild chronic changes in the lungs, and there is a large left diaphragmatic hernia. Atherosclerotic disease and coronary artery disease with surgical changes at the aortic valve. Electronically authenticated by: LAZARO GARRETT Date: 02/06/2023 08:54 Discharge Plan Discharge Chief Complaint: Shortness of Breath/Dyspnea Clinical Impression: Situational anxiety, Lung mass Patient Disposition: Home, Self-Care Time of Disposition Decision: 02:36 Condition: Good Prescriptions / Home Meds: No Action aspirin 81 mg tablet,delayed release (DR/EC) 81 mg PO DAILY carvedilol 25 mg tablet 37.5 mg PO BID lisinopril 20 mg tablet 20 mg PO BID Instructions: Panic Disorder (ED) Stand Alone Forms: Portal Instructions Referrals: HARPREET LIM [Primary Care Provider] - 1 week
--- OUTSIDE RECORDS SUMMARY | 2023-02-07 10:20 | XMS_ITS | CCD ---
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 Rfl: chlorthalidone (HYGROTON) 25 mg tabletTake 1 tablet by mouth once daily.Disp: Rfl: metoprolol tartrate, short acting, (LOPRESSOR) 25 mg tabletTake 1 tablet by mouth every 12 hours.Disp: Rfl: ALLERGIES No Known Allergies Review of the Systems: (positives in bold) Constitutional: denies fevers, chills, fatigue, loss of appetite Head: denies headache Ears: tinnitus Eyes: denies blurry vision, diplopia Mouth: denies sore throat Nose: denies congestion, rhinorrhea CV: denies CP, palpitations, leg swelling, orthopnea Pulm: denies dyspnea, cough, wheezing GI: denies nausea, vomiting, diarrhea, constipation, abdominal pain, hematochezia : denies dysuria, hematuria MSK: denies arthralgias Neuro: denies numbness, paresthesias Psych: denies depression, anxiety OBJECTIVE: VITALS: BP 126/64 Pulse 62 Temp 36.4 ?C (97.5 ?F) (Oral) Resp 16 Ht 177.8 cm (5' 10 ) Wt 84.6 kg (186 lb 8 oz) SpO2 97% BMI 26.76 kg/m? PHYSICAL EXAM: General: Appears in no acute distress, resting comfortably in bed Neuro: Alert and oriented x3. Skin: No jaundice, rash or skin breakdown. Eyes: No conjunctivitis. No scleral icterus. HENT: Atraumatic and normocephalic. Neck: Grossly normal. Lungs: Clear to auscultation in all lobes. CV: RRR. 3/6 systolic ejection murmur at right and left upper sternal border Abd: No tenderness to palpation MSK: No gross deformity. Extremitites: No edema. Radial pulses +2 bilaterally. Psych: Well groomed, affect congruent with mood and good eye contact Recent lab studies: Reviewed in Chart. I/Os: Int (more content not included)... Normal [facility] HbA1c (Bld) [Mass fraction]O rdered By: Aracely Foote on 01-17-2023 Average glucose Estimated from glycated hemoglobin (Bld) [Mass/Vol] 123 mg/dL High 68 - 114 mg/dL [facility] Interpretation and review of laboratory results Abnormal [facility] Normal: 4.0% - 5.6% Increased risk for diabetes: 5.7% - 6.4% Diabetes: >= 6.5% Pediatrics: No established reference range Estimated average glucose: 68-114 mg/dL [facility] Hemoglobin [id number] By: Ashley Foote on 01-17-2023 HbA1c (Bld) [Mass fraction] 5.9 % High 4.0 - 5.6 % [facility] Magnesiumon 01-17-2023 Magnesium [Mass/Vol] 2.6 mg/dL High 1.6 - 2.4 mg/dL [facility] No Panel Informationon 01-17 Interpretation and review of laboratory results Abnormal [facility] Renal function 2000 panelon 01-17-2023 Albumin [Mass/Vol] 3.2 g/dL 3.2 - 5.2 g/dL [facility] Anion gap [Moles/Vol] 9 mmol/L Low 10 - 20 mmol/L [facility] Calcium [Mass/Vol] 9.0 mg/dL 8.4 - 10.2 mg/dL [facility] Chloride [Moles/Vol] 101 mmol/L 98 - 108 mmol/L [facility] Creatinine [Mass/Vol] 0.86 mg/dL 0.50 - 1.30 mg/dL [facility] GFR/1.73 sq M.predicted CKD-EPI (S/P/Bld) [Vol rate/Area] 102 - PINF [facility] Comment on above: Estimated GFR was ca lculated using the 2020 CKD-EPI creatinine equation. Glucose [Mass/Vol] 167 mg/dL High 65 - 99 mg/dL [facility] HCO3 [Moles/Vol] 32 mmol/L 21 - 32 mmol/L [facility] Phosphate [Mass/Vol] 5.2 mg/dL High 2.7 - 4.5 mg/dL [facility] Potassium [Moles/Vol] 4.5 mmol/L 3.5 - 5.1 mmol/L [facility] Sodium [Moles/Vol] 137 mmol/L 135 - 145 mmol/L [facility] Urea nitrogen [Mass/Vol] 16 mg/dL 8 - 25 mg/dL [facility] Urea nitrogen/Creatinine [Mass ratio] 18.6 mg/mg 10.0 - 20.0 [facility] Laborator y Services has implemented the eGFR calculation approach that does not have a coefficient for race that conforms to the NKF-ASN Task Force Recommendations. [facility] TSH DL <= 0.005 mIU/L Qnon 1 03-19-2022 Interpretation and review of laboratory results Normal [facility] TSH Qn 0.28 m[IU]/L [facility] ECG 12 Leadon 01-16-2023 Wilmer Davidson Jr., PA-C 01/16/2023 3:44 AM ECG 12 Lead Date/Time: 01/16/2023 3:43 AM Performed by: Wilmer Davidson Jr., PA-C Authorized by: Sharon Madrid MD Interpreted by ED attending physician Rhythm: sinus rhythm BPM: 93 Conduction: incomplete LBBB MS Interval: 144 QRS Interval: 110 QT Interval: 370 Other findings: LVH and LAE Clinical impression: non-specific ECG Comments: No STEMI [facility] EKGon 01-16-2023 [facility] CBC Auto Differentialon 12-20 Basophils (Bld) [#/Vol] 0.17 10*3/uL [facility] Basophils/100 WBC (Bld) 1.4 % [facility] Eosinophils (Bld) [#/Vol] 0.30 10*3/uL [facility] Eosinophils/100 WBC (Bld) 2.4 % [facility] Erythrocyte distribution width (RBC) [Entitic vol] 15.0 % High 11.6 - 14.8 % [facility] Hematocrit (Bld) [Volume fraction] 49.5 % 41.0 - 53.0 % [facility] Hemoglobin (Bld) [Mass/Vol] 16.9 g/dL 13.5 - 17.5 g/dL [facility] Immature granulocytes (Bld) [#/Vol] 0.06 10*3/uL [facility] Immature granulocytes/100 WBC (Bld) 0.50 % [facility] Comment on above: The IG parameter is the percentage of metamyelocytes, myelocytes and promyelocytes. An immature granulocyte count (IG) of 1% or more suggests the possibility of infection, an IG count of 3% is very likely related to an infection. Interpretation and review of laboratory results Abnormal [facility] Lymphocytes (Bld) [#/Vol] 2.11 10*3/uL [facility] Lymphocytes/100 WBC (Bld) 17.1 % [facility] MCH (RBC) [Entitic mass] 37.4 pg High 26.0 - 34.0 pg [facility] MCHC (RBC) [Mass/Vol] 34.1 g/dL 31.0 - 37.0 g/dL [facility] MCV (RBC) [Entitic vol] 109.5 fL High 80.0 - 100.0 fL [facility] Monocytes (Bld) [#/Vol] 0.49 10*3/uL [facility] Monocytes/100 WBC (Bld) 4.0 % [facility] Neutrophils (Bld) [#/Vol] 9.21 10*3/uL High [facility] Neutrophils/100 WBC (Bld) 74.6 % [facility] Nucleated RBC (Bld) [#/Vol] 0.00 10*3/uL [facility] Nucleated RBC/100 WBC (Bld) [Ratio] 0.0 % [facility] Platelet mean volume (Bld) [Entitic vol] 10.3 fL 9.4 - 12.4 fL [facility] Platelets (Bld) [#/Vol] 178 10*3/uL [facility] RBC (Bld) [#/Vol] 4.52 10*6/uL [facility] WBC (Bld) [#/Vol] 12.34 10*3/uL [facility] COVID-19/INFLUENZA A,B MOLEC ARon 01-15-2023 SARS-CoV-2 (COVID-19) Ab IA Ql SARS-COV-2 (MAG): Not Detected INFLUENZA A (MAG): Not Detected INFLUENZA B (MAG): Not Detected Normal Not Detected [facility] Comment on above: Order Comment: This test was performed under the FDA's Emergency Use Authorization (EUA). Testing was performed using the [employer] SARS-CoV-2 RT-PCR AND Influenza A/B Nucleic Acid Test on the Semaj Mag System. This test has not been approved for use in asymptomatic patients and its performance in this patient population has not been evaluated. Negative results do not rule out the presence of SARS-CoV-2, influenza A, and/or influenza B. Fact sheets for the EUA can be found at the following links: For Healthcare Providers: https://www.fda.gov/media/684451/download For Patients: https://www.fda.gov/media/224784/download Performed By: #### L [id number] #### [facility] [address], [place] [address] Gamal Garcia M.D. [id number] CT PULMONARY ARTERIESon 12-20 CT PULMONARY ARTERIES EXAMINATION: CT SCAN OF THE CHEST WITH CONTRAST FOR CT PULMONARY ANGIOGRAPHY, 01/15/2023 COMPARISON: None. HISTORY: Injury/Trauma or Illness?:Injury/Traum a How long have you had these symptoms (acute/chronic)?:Acut e Pulmonary embolism (PE) suspected, high prob TECHNIQUE: 2.5 mm axial images performed through the chest following the intravenous administration of 75 mL of Isovue-370. 3 mm sagittal and coronal MPR reconstructions. 10 mm coronal and sagittal MIP (maximum intensity projection) CTA reconstructions performed through the chest. Dose reduction techniques were achieved by using automated exposure control and/or adjustment of mA and/or kV according to patient size and/or use of iterative reconstruction technique. FINDINGS: No acute PE is identified. Main pulmonary artery slightly distended measuring 3.3 cm in largest diameter (image number 54, series 301). Mild cardiomegaly with some left ventricular hypertrophy. Severe atherosclerotic ossific changes of coronary arterial vasculature. Patient has had aortic valvular replacement. Ectasia of the ascending aorta measuring 4.1 cm in largest diameter. 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 Some scattered nonenlarged and mildly enlarged mediastinal adenopathy. Two of the largest in the right paratracheal region measures 1.4 cm and in the subcarinal region measuring 1.7 cm in short axis diameter (image number 48 and 55, series 301). Anterior segment of the right upper lobe bronchus appears to be obstructed by right anterior suprahilar masslike opacity measuring approximately 3.6 x 2.3 x 3.7 cm (image number 52, series 602 and image number 48-51, series 302). The more distal bronchi are also occluded (image number 38-45, series 302). Bronchial wall thickening seen bilaterally. Small left pleural effusion with partial consolidation of the left lower lobe. Elevation of the left hemidiaphragm. Tiny right pleural effusion with minimal atelectasis in the right lung base. Some mild mosaic perfusion seen bilaterally. Prior splenectomy. Some prominent splenules in the anterior aspect of the left upper abdomen ranging in size from 3 cm to 5.6 cm (image number 112-125, series 301). No adrenal mass. Nonenhanced upper abdomen is otherwise unremarkable. No acute osseous abnormality. Degenerative changes of the visualized spine. IMPRESSION: 1. No acute PE is identified. Main pulmonary artery is slightly distended raising possibility of pulmonary arterial hypertension. 2. The anterior segment of the right upper lobe bronchus appears obstructed by right anterior suprahilar masslike opacity measuring 3.6 x 2.3 x 3.7 cm. The more distal bronchi also occluded and may be due to some mucoid impaction or some additional soft tissue. Malignancy cannot be excluded and further correlation with bronchoscopy recommended. 3. Some mild nonenlarged and mildly enlarged mediastinal lymph nodes may be reactive or metastatic. 4. Small left pleural effusion with mild atelectasis in the left lower lobe with elevation of the left hemidiaphragm. 5. Some mosaic perfusion seen bilaterally may be due to some mild air trapping in conjunction with some small airway disease. Some bronchial wall thickening is also seen bilaterally image may be bronchitis/reactive airway disease. Tiny right pleural effusion minimal atelectasis in the right lung base. 6. Cardiomegaly with left ventricular hypertrophy severe atherosclerotic ossific changes of coronary arterial vasculature. Patient has had aortic valvular replacement. 7. 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 8. 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 GJT/mjr Workstation ID: [id number] Dictated by: WILVER KERR on SatJan 15, 2023 8:11:32 PM EST Transcribed by: KHURRAM MACEDO on SatJan 15, 2023 8:30:10 PM EST Finalized by: WILVER KERR on SatJan 15, 2023 10:01:24 PM EST Normal [facility] Comment on above: Order Comment: Injur y/Trauma or Illness?:Injury/Trauma How long have you had these symptoms (acute/chronic)?:Acute Reason for exam?:sudden onset chest tightness that started while driving, sob Type of Exam?:Initial Mechanism of injury?:. CT Pulmonary arteries for pu lmonary emboluson 01-15-2023 1. No acute PE is identified. Main pulmonary artery is slightly distended raising possibility of pulmonary arterial hypertension. 2. The anterior segment of the right upper lobe bronchus appears obstructed by right anterior suprahilar masslike opacity measuring 3.6 x 2.3 x 3.7 cm. The more distal bronchi also occluded and may be due to some mucoid impaction or some additional soft tissue. Malignancy cannot be excluded and further correlation with bronchoscopy recommended. 3. Some mild nonenlarged and mildly enlarged mediastinal lymph nodes may be reactive or metastatic. 4. Small left pleural effusion with mild atelectasis in the left lower lobe with elevation of the left hemidiaphragm. 5. Some mosaic perfusion seen bilaterally may be due to some mild air trapping in conjunction with some small airway disease. Some bronchial wall thickening is also seen bilaterally image may be bronchitis/reactive airway disease. Tiny right pleural effusion minimal atelectasis in the right lung base. 6. Cardiomegaly with left ventricular hypertrophy severe atherosclerotic ossific changes of coronary arterial vasculature. Patient has had aortic valvular replacement. 7. 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 8. 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 [employer] Workstation ID: [id number] [employer] [facility] EXAMINATION: CT SCAN OF THE CHEST WITH CONTRAST FOR CT PULMONARY ANGIOGRAPHY, 01/15/2023 COMPARISON: None. HISTORY: Injury/Trauma or Illness?:Injury/Traum a How long have you had these symptoms (acute/chronic)?:Acut e Pulmonary embolism (PE) suspected, high prob TECHNIQUE: 2.5 mm axial images performed through the chest following the intravenous administration of 75 mL of Isovue-370. 3 mm sagittal and coronal MPR reconstructions. 10 mm coronal and sagittal MIP (maximum intensity projection) CTA reconstructions performed through the chest. Dose reduction techniques were achieved by using automated exposure control and/or adjustment of mA and/or kV according to patient size and/or use of iterative reconstruction technique. FINDINGS: No acute PE is identified. Main pulmonary artery slightly distended measuring 3.3 cm in largest diameter (image number 54, series 301). Mild cardiomegaly with some left ventricular hypertrophy. Severe atherosclerotic ossific changes of coronary arterial vasculature. Patient has had aortic valvular replacement. Ectasia of the ascending aorta measuring 4.1 cm in largest diameter. 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 Some scattered nonenlarged and mildly enlarged mediastinal adenopathy. Two of the largest in the right paratracheal region measures 1.4 cm and in the subcarinal region measuring 1.7 cm in short axis diameter (image number 48 and 55, series 301). Anterior segment of the right upper lobe bronchus appears to be obstructed by right anterior suprahilar masslike opacity measuring approximately 3.6 x 2.3 x 3.7 cm (image number 52, series 602 and image number 48-51, series 302). The more distal bronchi are also occluded (image number 38-45, series 302). Bronchial wall thickening seen bilaterally. Small left pleural effusion with partial consolidation of the left lower lobe. Elevation of the left hemidiaphragm. Tiny right pleural effusion with minimal atelectasis in the right lung base. Some mild mosaic perfusion seen bilaterally. Prior splenectomy. Some prominent splenules in the anterior aspect of the left upper abdomen ranging in size from 3 cm to 5.6 cm (image number 112-125, series 301). No adrenal mass. Nonenhanced upper abdomen is otherwise unremarkable. No acute osseous abnormality. Degenerative changes of the visualized spine. [employer] Wilver Morfin MD - 01/15/2023 EXAMINATION: CT SCAN OF THE CHEST WITH CONTRAST FOR CT PULMONARY ANGIOGRAPHY, 01/15/2023 COMPARISON: None. HISTORY: Injury/Trauma or Illness?:Injury/Traum a How long have you had these symptoms (acute/chronic)?:Acut e Pulmonary embolism (PE) suspected, high prob TECHNIQUE: 2.5 mm axial images performed through the chest following the intravenous administration of 75 mL of Isovue-370. 3 mm sagittal and coronal MPR reconstructions. 10 mm coronal and sagittal MIP (maximum intensity projection) CTA reconstructions performed through the chest. Dose reduction techniques were achieved by using automated exposure control and/or adjustment of mA and/or kV according to patient size and/or use of iterative reconstruction technique. FINDINGS: No acute PE is identified. Main pulmonary artery slightly distended measuring 3.3 cm in largest diameter (image number 54, series 301). Mild cardiomegaly with some left ventricular hypertrophy. Severe atherosclerotic ossific changes of coronary arterial vasculature. Patient has had aortic valvular replacement. Ectasia of the ascending aorta measuring 4.1 cm in largest diameter. 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 Some scattered nonenlarged and mildly enlarged mediastinal adenopathy. Two of the largest in the right paratracheal region measures 1.4 cm and in the subcarinal region measuring 1.7 cm in short axis diameter (image number 48 and 55, series 301). Anterior segment of the right upper lobe bronchus appears to be obstructed by right anterior suprahilar masslike opacity measuring approximately 3.6 x 2.3 x 3.7 cm (image number 52, series 602 and image number 48-51, series 302). The more distal bronchi are also occluded (image number 38-45, series 302). Bronchial wall thickening seen bilaterally. Small left pleural effusion with partial consolidation of the left lower lobe. Elevation of the left hemidiaphragm. Tiny right pleural effusion with minimal atelectasis in the right lung base. Some mild mosaic perfusion seen bilaterally. Prior splenectomy. Some prominent splenules in the anterior aspect of the left upper abdomen ranging in size from 3 cm to 5.6 cm (image number 112-125, series 301). No adrenal mass. Nonenhanced upper abdomen is otherwise unremarkable. No acute osseous abnormality. Degenerative changes of the visualized spine. IMPRESSION: 1. No acute PE is identified. Main pulmonary artery is slightly distended raising possibility of pulmonary arterial hypertension. 2. The anterior segment of the right upper lobe bronchus appears obstructed by right anterior suprahilar masslike opacity measuring 3.6 x 2.3 x 3.7 cm. The more distal bronchi also occluded and may be due to some mucoid impaction or some additional soft tissue. Malignancy cannot be excluded and further correlation with bronchoscopy recommended. 3. Some mild nonenlarged and mildly enlarged mediastinal lymph nodes may be reactive or metastatic. 4. Small left pleural effusion with mild atelectasis in the left lower lobe with elevation of the left hemidiaphragm. 5. Some mosaic perfusion seen bilaterally may be due to some mild air trapping in conjunction with some small airway disease. Some bronchial wall thickening is also seen bilaterally image may be bronchitis/reactive airway disease. Tiny right pleural effusion minimal atelectasis in the right lung base. 6. Cardiomegaly with left ventricular hypertrophy severe atherosclerotic ossific changes of coronary arterial vasculature. Patient has had aortic valvular replacement. 7. 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 8. 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 GJT/mjr Workstation ID: [id number] [facility] Radiology Study observation (narrative) [facility] CT Pulmonary arteries for pu lmonary embolusOrdered By: Wilver Kerr on 01-15-2023 [facility] Work Phone: Comprehensive metabolic 2000 panelon 01-15-2023 Albumin [Mass/Vol] 3.9 g/dL 3.2 - 5.2 g/dL [facility] ALP [Catalytic activity/Vol] 92 U/L 40 - 150 U/L [facility] ALT [Catalytic activity/Vol] 26 U/L 14 - 65 U/L [facility] Anion gap [Moles/Vol] 9 mmol/L Low 10 - 20 mmol/L [facility] AST [Catalytic activity/Vol] 22 U/L 0-50 U/L [facility] Bilirubin [Mass/Vol] 1.2 mg/dL 0.0 - 1.3 mg/dL [facility] Calcium [Mass/Vol] 8.9 mg/dL 8.4 - 10.2 mg/dL [facility] Chloride [Moles/Vol] 103 mmol/L 98 - 108 mmol/L [facility] Creatinine [Mass/Vol] 1.05 mg/dL 0.50 - 1.30 mg/dL [facility] GFR/1.73 sq M.predicted CKD-EPI (S/P/Bld) [Vol rate/Area] 83 - PINF [facility] Comment on above: Estimated GFR was ca lculated using the 2020 CKD-EPI creatinine equation. Glucose [Mass/Vol] 184 mg/dL High 65 - 99 mg/dL [facility] HCO3 [Moles/Vol] 29 mmol/L 21 - 32 mmol/L [facility] Potassium [Moles/Vol] 3.8 mmol/L 3.5 - 5.1 mmol/L [facility] Protein [Mass/Vol] 8.2 g/dL High 6.0 - 8.0 g/dL [facility] Sodium [Moles/Vol] 137 mmol/L 135 - 145 mmol/L [facility] Urea nitrogen [Mass/Vol] 12 mg/dL 8 - 25 mg/dL [facility] Urea nitrogen/Creatinine [Mass ratio] 11.4 mg/mg 10.0 - 20.0 [facility] has implemented the eGFR calculation approach that does not have a coefficient for race that conforms to the NKF-ASN Task Force Recommendations. [facility] EKG 12-leadon 01-15-2023 Atrial Rate 93 BPM [facility] P [place] 41 degrees [facility] P-R Interval 144 ms [facility] Q-T Interval 370 ms [facility] QRS Duration 110 ms [facility] QTC Calculation (Bezet) 460 ms [facility] R [place] 15 degrees [facility] T [place] -167 degrees [facility] Ventricular Rate 93 BPM [facility] sinus rhythm Possible Left atrial enlargement Incomplete left bundle branch block Left ventricular hypertrophy with repolarization abnormality ( R in aVL , Sokolow-Shannon , [place] product , Romhilt-Costa ) Abnormal ECG ECG Cart Interpretation see physician note for interpretation. Confirmed by Zee Maria ([id number]) on 01/15/2023 8:06:58 PM MUSE [facility] Allan Topon 01-15-2023 Extra Tube Hold for add-ons. [facility] Comment on above: Auto resulted. [facility] Influenza virus A and B RNA and SARS-CoV-2 (COVID-19) N gene panel JARROD+probe (Resp)Ordered By: Rut Zabala on 01-15-2023 FLUAV RNA JARROD+probe Ql (Unsp spec) Not detected Not Detected [facility] FLUBV RNA JARROD+probe Ql (Unsp spec) Not detected Not Detected [facility] Interpretation and review of laboratory results Normal [facility] SARS-CoV-2 (COVID-19) RNA JARROD+probe Ql (Resp) Not detected Not Detected [facility] This test was performed under the FDA's Emergency Use Authorization (EUA). Testing was performed using the [employer] SARS-CoV-2 RT-PCR & Influenza A/B Nucleic Acid Test on the [employer] Mag System. This test has not been approved for use in asymptomatic patients and its performance in this patient population has not been evaluated. Negative results do not rule out the presence of SARS-CoV-2, influenza A, and/or influenza B. Fact sheets for the EUA can be found at the following links: For Healthcare Providers: https://www.fda.gov/m edia/463857/download For Patients: https://www.fda.gov/m edia/942379/download [facility] Lipaseon 01-15-2023 Lipase [Catalytic activity/Vol] 52 U/L 13-75 U/L [facility] Lipase [Catalytic activity/V ol]on 01-15-2023 Interpretation and review of laboratory results Normal [facility] NT Pro BNPon 01-15-2023 Natriuretic peptide.B prohormone N-Terminal [Mass/Vol] 5377 pg/mL High 0 - 300 pg/mL [facility] Natriuretic peptide.B prohor scotty N-Terminal [Mass/Vol]on 01-15-2023 Pride Study Cut-offs Rule In: < /= 50 Years >450 pg/mL 51 Years - 75 Years >900 pg/mL 76 Years - 99 Years >1800 pg/mL Rule Out: All patients <300 pg/mL [facility] No Panel Informationon 01-15 Extra Tube Hold for add-ons. [facility] Comment on above: Auto resulted. [facility] Interpretation and review of laboratory results Abnormal [facility] Troponinon 01-15-2023 Troponin I 42 ng/L NINF - 59 ng/L [facility] Troponin I Interpretation Normal [facility] XR CHEST PA/APon 01-15-2023 XR CHEST PA/AP EXAMINATION: XR CHEST PA/AP 01/15/2023 6:28 pm HISTORY: ORDERING SYSTEM PROVIDED HISTORY: chest pain, TECHNOLOGIST PROVIDED HISTORY: Illness/Other Reason for exam: chest pain Cancer History: n Surgery, RadiationHistory: n Encounter Type: Initial Additional signs and symptoms: n ORDERING SYSTEM PROVIDED DIAGNOSIS CODES: COMPARISON: Portable chest from 11/12/2022. FINDINGS: Trachea is midline. Mediastinum is not widened. Heart size is mildly prominent. Sternal wires indicate prior surgery. There is aoec-rq-[id number] elevation of left hemidiaphragm. Chronic markings noted bilaterally perhaps with slight interstitial congestion. Mild bibasilar atelectasis is noted. IMPRESSION: 1. Mild cardiomegaly. 2. Chronic lung markings perhaps with slight interstitial congestion. Mild bibasilar atelectasis noted. Workstation ID: [id number] Dictated by: JHONNY TORRES on SatJan 15, 2023 7:06:27 PM EST Transcribed by: JHONNY TORRES on SatJan 15, 2023 7:06:27 PM EST Finalized by: JHONNY TORRES on SatJan 15, 2023 7:06:27 PM EST Normal [facility] Comment on above: Order Comment: Injur y/Trauma or Illness?:Illness/Other How long have you had these symptoms (acute/chronic)?:Acute Reason for exam?:chest pain History of cancer?:n Surgeries, chemotherapy, or radiation?:n Type of Exam?:Initial Additional signs and symptoms?:n XR Chest PA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 mild FDG uptake, likely splenules. The largest is measuring 5.5 x 4.7 cm with max SUV 3.2. Extremities/Skeleton: No evidence of focal uptake to suggest FDG avid neoplastic process. Degenerative arthritic change. IMPRESSION: 1. HEAD and NECK: No evidence of focal uptake to suggest FDG avid neoplastic process.. 2. CHEST: FDG avid right upper lobe lung masses consistent with neoplastic process. Mediastinal and right hilar metastatic lymphadenopathy. 3. ABDOMEN/PELVIS: No evidence of focal uptake to suggest FDG avid neoplastic process. Multiple splenules. 4. EXTREMITIES/SKELETON: No evidence of focal uptake to suggest FDG avid neoplastic process.. Transcribe Date/Time: Jan 01 2023 9:05P Dictated by: GEETA RUSSELL MD This examination was interpreted and the report reviewed and electronically signed by: GEETA RUSSELL MD on Jan 01 2023 9:18PM EST Thank you for allowing us to participate in the care of your patient. Should there be any questions regarding this interpretation, please call [phone]. If you are unable to reach us at the number above, please feel free to contact [facility] at [phone]. [id number] [id number] YANCYCONOR LEE ([id number]) 1965 M Date Time Provider Department 12/14/22 ARIANA BREWER [id number] During your visit today, we recorded the following information about you: Ariana Brewer RN 12/17/2022 1:55 PM Addendum New Patient Consult Request PATIENT HAS BEEN IDENTIFED BY NAME AND Patient Name: Conor Lee Patient : 1965 PREVISIT INFO SOURCE: CHART CHIEF COMPLAINT: CARD PRE-OP CLEARANCE PREVIOUS CARE/FILMS/RECORDS: [facility] [place],[facility] [place], [place], [place], HISTORY OF CANCER: NO RADIOLOGY RESULTS: 10/18/22 EKG [facility]: Abnormal ECG When compared with ECG of 06-APR-2019 08:02, ST now depressed in Lateral T wave inversion more evident in Lateral Confirmed by Wolfgang Ramirez ([id number]) on 10/18/2022 11:57:15 AM CXR: CT: YES 12/06/22 CTA CHEST OK There is a well defined soft tissue density mass lesion, with irregular spiculated margins, seen in the right perihilar region. It measures approximately 2.8 x 2.7 cm (anteroposterior x transverse) with a cranio-caudal span of 3.1 cm. -SPLENECTOMY NM: NO PET: NO ORDERED PER OK DR. MEAD PFTs: YES 12/05/22 LUNG BIOPSY: NO CHEST SURGERY: YES HEART VALVE Heme/RAD Onc: NO ANTI-COAGULANTS: YES ASA 81mg DAILY PULMONARY HX: YES SMOKER LUNG NODULES LUNG MASS GERD PULMONARY MEDS: NO PEPCID 40mg DAILY FAMILY MALIGNANCY: NONE NOTED ARIANA BREWER RN December 14, 2022 4:33 PM Allergies As of Date: 12/14/2022 (No Known Allergies) Date Reviewed: 12/06/2022 Reviewed by: Eileen Rose RN - Fully Assessed Reason for Visit: PV HX PULM PRE-OP CONSULT [Other] Prescriptions as of 12/17/2022 - aspirin, enteric coated (ASPIRIN, ENTERIC COATED) 81 mg EC tablet Take 1 tablet by mouth once daily. - famotidine (PEPCID) 40 mg tablet Take 1 tablet by mouth once daily. - cyclobenzaprine (FLEXERIL) 10 mg tablet Take 10 mg by mouth. - lisinopril (ZESTRIL) 40 mg tablet Take 1 tablet by mouth once daily. - spironolactone (ALDACTONE) 25 mg tablet Take 1 tablet by mouth every morning. - chlorthalidone (HYGROTON) 25 mg tablet Take 1 tablet by mouth once daily. - metoprolol tartrate, short acting, (LOPRESSOR) 25 mg tablet Take 1 tablet by mouth every 12 hours. Problem List As Of Date: 12/14/2022 (None) Encounter Status:Closed by ARIANA BREWER on 12/17/22 [facility] [facility] Ambulatory Visit Summaryon 1 Ambulatory Visit Summary CONOR LEE :1965 Visit Date:12/11/2022 Ambulatory Visit Instructions Your Diagnosis Cough Acute URI Heart murmur Lung nodule Overweight BMI 28.0-28.9,adult Your Care Team Attending Physician - Harpreet Lim MD Primary Care Physician - Harpreet Lim MD This Is Your Medications List azithromycin (Azithromycin 3 Day Dose Pack 500 mg oral tablet) methylPREDNISolone (Medrol Dosepack 4 mg Tab) Contact prescribing physician if questions or concerns albuterol (albuterol 90 mcg/inh inhalation powder) aspirin (aspirin 81 mg Oral EC Tab) cyclobenzaprine (cyclobenzaprine 10 mg Tab) famotidine (famotidine 40 mg Tab) lisinopril (lisinopril 20 mg Tab) metoprolol (Metoprolol tartrate 25 mg Tab) spironolactone (spironolactone 25 mg Tab) Procedures Performed Aortic valve replacement and replacement of ascending aorta (09/07/2011), Phlebectomy, Splenectomy. Discharge Vitals Temperature (Temporal Artery) 37.0 ?C Heart Rate (Peripheral) 66 Respiratory Rate 16 Blood Pressure 138/80 Height 175.2 cm Height 69 in Weight 87.2 kg Weight 191.84 lb BMI 28.41 What to do next Scheduled Follow-Up Appointments Saturday 4:40 PM EST With: Harpreet Lim MD Where: [address] \.br\ Medications\.br\ What How Much When Why Instructions\.br\ New azithromycin (Azithromycin 3 Day Dose Pack 500 mg oral tablet) 1 Tablets By Mouth Every day BMI 28.0-28.9,adult Overweight Pickup at [facility]\.br\ New methylPREDNISolone (Medrol Dosepack 4 mg Tab) 1 Packets By Mouth As Directed BMI 28.0-28.9,adult Overweight Duration: 6 Days as directed on package labeling Pickup at [facility]\.br\ Unchanged albuterol (albuterol 90 mcg/ inh inhalation powder) 2 Puffs Inhalation Every 4 hours as needed for for wheezing or SOB Contact prescribing physician if questions or concerns \.br\ Unchanged aspirin (aspirin 81 mg Oral EC Tab) 1 Tablets By Mouth Every day Contact prescribing physician if questions or concerns \.br\ Unchanged cyclobenzaprine (cyclobenzaprine 10 mg Tab) 1 Tablets By Mouth Once a day (in the evening) as needed for for spasm Contact prescribing physician if questions or concerns \.br\ Unchanged famotidine (famotidine 40 mg Tab) 1 Tablets By Mouth Every day Contact prescribing physician if questions or concerns \.br\ Unchanged lisinopril (lisinopril 20 mg Tab) See instructions TAKE 1 TABLET BY MOUTH TWICE DAILY Contact prescribing physician if questions or concerns \.br\ Unchanged metoprolol (Metoprolol tartrate 25 mg Tab) 1 Tablets By Mouth 2 times a day Contact prescribing physician if questions or concerns \.br\ Unchanged spironolactone (spironolactone 25 mg Tab) 1 Tablets By Mouth Every day Contact prescribing physician if questions or concerns \.br\ Pharmacy Information\.br\ [facility]: [address] [place], [place] [id number] [phone]\.br\ Allergies\.br\ No Known Allergies\.br\ Problems\.br\ Ongoing - Any problem that you are currently receiving treatment for.\.br\ Acute URI\.br\ Atherosclerosis of [place] artery of extremity\.br\ Carpal tunnel syndrome\.br\ Chronic obstructive bronchitis\.br\ Disorder of diaphragm\.br\ Endocarditis\.br\ Essential hypertension\.br\ Heart murmur\.br\ Hemiparesis\.br\ Illiteracy\.br\ Lumbosacral spondylosis without myelopathy\.br\ Lung nodule\.br\ Neuralgia\.br\ Neuritis\.br\ Peripheral vascular disease\.br\ Primary hypercholesterolemi a\.br\ PVD (pulmonary valve disease)\.br\ Spasm of back muscles\.br\ Thoracic spondylosis without myelopathy\.br\ Patient Survey\.br\ You may receive a survey via text or e-mail asking about your office visit. Please share your experience with us by completing your survey. We appreciate your feedback and thank you for choosing us for your care.\.br\ \.br\ [facility] Auth for Release of Medical Recordson 12-11-2022 Auth for Release of Medical Records [id number] .00TIFF Normal [facility] Family Medicine Office/Clini c Noteon 12-11-2022 Family Medicine Office/Clinic Note HPI Staff Conor is a 57 year old male presenting for acute visit Acute: sinus congestion _Respiratory C/O: Duration: couple weeks Body aches: yes Chest congestion: yes Chills: no Cough: yes Ear complaints: no Eye itching/watering: no Fever: no Headache: yes Nasal congestion: yes Nasal discharge: yes Poor appetite: no Reduced activity: yes Sinus pain/pressure: no Sneezing: no Sputum production: no Wheezing: yes Ill contacts: no Remedies tried: nothing _ _ flu: refused for the season questions/concerns: needs his inhaler refilled At [facility] had labs, EKGs, US, MRI, segmental pressures lots of things, we do not have any of those results, will need Conro to sign a release. Ended up finding a mass in middle right lung just shy of the size of a golf ball. Did a scope and has a valve that needs replaced and bypass History of Present Illness See staff HPI. Review of Systems PHQ Score Initial Depression Screen Score: 0 Physical Exam Vitals & Measurements T: 37.0 ?C(Temporal Artery) HR: 66(Peripheral) RR: 16 BP: 138/80 SpO2: 98% HT: 69 in HT: 175.2 cm WT: 87.2 kg WT: 191.84 lb BMI: 28.41 General: alert, no acute distress ENMT: oral mucosa moist, Cardiovascular: regular rate and rhythm, normal peripheral perfusion, Loud systolic murmur present Respiratory: Lungs CTA, respirations non labored, Very Diminished Extremities: no deformity, no trauma Neurological: oriented x 4, LOC appropriate for age, CN II-XII intact, motor strength equal & normal bilaterally, speech normal Abdomen: Soft, Nontender, Non-distended, + BS Assessment/Plan 1. Cough (R05.9: Cough, unspecified) - Covid is Negative - Flue Negative - Possible allergic - Will do medrol/Azithromycin Ordered: Rapid COVID POC 05411 2. Acute URI (J06.9: Acute upper respiratory infection, unspecified) - As above 3. Heart murmur (R01.1: Cardiac murmur, unspecified) - Seeing [facility] - Needs a valve replacement 4. CAD in [place] artery (I25.10: Atherosclerotic heart disease of [place] coronary artery without angina pectoris) - Seeing [facility] - Needs Bypass 5. Lung nodule (R91.1: Solitary pulmonary nodule) - Seeing [facility] 6. Overweight (E66.3: Overweight) - Diet and exercise advised. Ordered: azithromycin, 500 mg = 1 tab(s), Oral, Daily, # 3 tab(s), Refills(s) 0, Pharmacy: [facility], 175.2, cm, 12/11/22 13:15:00 EDT, Height/Length Dosing, 87.2, kg, 12/11/22 13:15:00 EDT, Weight Dosing methylPREDNISolone, = 1 packet(s), Oral, As Directed, as directed on package labeling, X 6 day(s), # 21 tab(s), Refills(s) 0, Pharmacy: [facility], 175.2, cm, 12/11/22 13:15:00 EDT, Height/Length Dosing, 87.2, kg, 12/11/22 13:15:00 EDT, Weight Dosing Influenza Type A&B POC 82434 Rapid COVID POC 03393 7. BMI 28.0-28.9,adult (Z68.28: Body mass index [BMI] 28.0-28.9, adult) - BMI education given Ordered: azithromycin, 500 mg = 1 tab(s), Oral, Daily, # 3 tab(s), Refills(s) 0, Pharmacy: [facility], 175.2, cm, 12/11/22 13:15:00 EDT, Height/Length Dosing, 87.2, kg, 12/11/22 13:15:00 EDT, Weight Dosing methylPREDNISolone, = 1 packet(s), Oral, As Directed, as directed on package labeling, X 6 day(s), # 21 tab(s), Refills(s) 0, Pharmacy: [facility], 175.2, cm, 12/11/22 13:15:00 EDT, Height/Length Dosing, 87.2, kg, 12/11/22 13:15:00 EDT, Weight Dosing Influenza Type A&B POC 92040 Rapid COVID POC 33202 8. Smoking (F17.200: Nicotine dependence, unspecified, uncomplicated) - Please stop smoking. - Pt states he is trying. - If patient needs any smoking cessation aids, Please reach out. Follow-up No qualifying data available Problem List/Past Medical History Ongoing Acute URI Atherosclerosis of [place] artery of extremity CAD in [place] artery Carpal tunnel syndrome Chronic obstructive bronchitis Disorder of diaphragm Endocarditis Essential hypertension Heart murmur Hemiparesis Illiteracy Lumbosacral spondylosis without myelopathy Lung nodule Neuralgia Neuritis Peripheral vascular disease Primary hypercholesterolemia PVD (pulmonary valve disease) Smoking Spasm of back muscles Thoracic spondylosis without myelopathy Historical No qualifying data Procedure/Surgical History Aortic valve replacement and replacement of ascending aorta (09/07/2011), Phlebectomy, Splenectomy. Medications albuterol 90 mcg/inh inhalation powder, 180 mcg= 2 puff(s), Inhalation, q4hr, PRN, 11 refills aspirin 81 mg Oral EC Tab, 81 mg= 1 tab(s), Oral, Daily, 3 refills Azithromycin 3 Day Dose Pack 500 mg oral tablet, 500 mg= 1 tab(s), Oral, Daily cyclobenzaprine 10 mg Tab, 10 mg= 1 tab(s), Oral, qPM, PRN, 1 refills famotidine 40 mg Tab, 40 mg= 1 tab(s), Oral, Daily, 3 refills lisinopril 20 mg Tab, See Instructions Medrol Dosepack 4 mg Tab, 1 packet(s), Oral, As Directed Metoprolol tartrate 25 mg Tab, 25 mg= 1 tab(s), Oral, BID, 3 refills spironolact (more content not included)... Normal [facility] Comment on above: Result Comment: Elec tronically Signed By: Brandon MOMIN, Harpreet Payan.[email or web address]\Date and Time Signed: 12/11/22 14:09 EDT Shahana 12-07-2022 [facility] Telephone ([facility]) COONR LEE ([id number]) 1965 M Date Time Provider Department 12/07/[address] [facility] During your visit today, we recorded the following information about you: Shu Morataya RN 12/07/2022 7:14 AM Signed Expedite evals -Needs Pulm (Dr. Mead) and [facility] Surgery Needs Pulmonology (Dr. Rmia Mead) and Vascular Surgery consults Dr. Mckinney met with patient and would like him referred to Dr. Mead in Pulmonology for his R Hilar region mass. He also needs a referral to Vascular surgery for PVD. Shu Morataya RN Allergies As of Date: 12/07/2022 (No Known Allergies) Date Reviewed: 12/06/2022 Reviewed by: Eileen Rose RN - Fully Assessed Reason for Visit: Consult [173] Primary Visit Diagnosis:Lung mass [R91.8] Other Visit Diagnosis:PVD (peripheral vascular disease) (HCC) [I73.9] Order(s):CONSULT TO PULM/CRITICAL CARE [725718] Order #: [id number]: 1 FUTURE CONSULT TO VASCULAR SURGERY [9042] Order #: [id number]: 1 FUTURE Prescriptions as of 12/07/2022 - aspirin, enteric coated (ASPIRIN, ENTERIC COATED) 81 mg EC tablet Take 1 tablet by mouth once daily. - famotidine (PEPCID) 40 mg tablet Take 1 tablet by mouth once daily. - cyclobenzaprine (FLEXERIL) 10 mg tablet Take 10 mg by mouth. - lisinopril (ZESTRIL) 40 mg tablet Take 1 tablet by mouth once daily. - spironolactone (ALDACTONE) 25 mg tablet Take 1 tablet by mouth every morning. - chlorthalidone (HYGROTON) 25 mg tablet Take 1 tablet by mouth once daily. - metoprolol tartrate, short acting, (LOPRESSOR) 25 mg tablet Take 1 tablet by mouth every 12 hours. Problem List As Of Date: 12/07/2022 (None) Encounter Status:Closed by SHU MORATAYA RN on 12/07/22 [facility] CNOVon 12-06-2022 [facility] CONOR LEE ([id number]) 1965 M Date Time Provider Department 12/06/22 11:00 AM MIMI MCKINNEY [facility] During your visit today, we recorded the following information about you: Mimi Mckinney MD 12/11/2022 6:23 PM Signed [facility] [place] DEPARTMENT OF CARDIAC SURGERY OUTPATIENT VISIT DATE December 06, 2022 OUTPATIENT VISIT SERVICE DATE: 12/06/2022 SERVICE TIME: 11:59 AM PCP: Naomie Bermudez [address] [place] [address] Referring Physician: Mimi Mckinney [id number] [facility] [address] Patient Type: New Visit to Determine Surgery: Yes HPI: Mr. Conor Lee is a 57 year old male seen regarding candidacy for cardiac surgery. He is currently symptomatic and complains of shortness of breath and decrease exercise capacity. Comorbidities include HTN and ETOH abuse, smoking 60 pack years. I have personally reviewed and analyzed all records that pertain to the patient's prior course in addition to the following studies: CT scan. Last CT Result Conclusion CTA CHEST (GATED) W IVCON Exam End: 12/06/2022 8:53 AM (Final result) Impression: IMPRESSION: - Well seated bioprosthetic valve with severe leaflet calcification consistent with prosthetic aortic valve stenosis. - The thoracic aorta is normal in course and caliber. There is no acute aortic pathology, such as dissection, intramural hematoma, or contained rupture. - Spiculated well defined heterogenously enhancing soft tissue density mass lesion in the right perihilar region with associated abrupt narrowing of caliber of right upper lobe bronchus, encasement of the right upper lobe segmental pulmonary arteries with reduced caliber and abutment of adjacent pulmonary veins as described. Additionally, multiple discrete cluster of small sub-6mm nodules in right upper lobe as well as significant mediastinal lymphadenopathy. Overall constellation of findings represent a neoplastic etiology which warrants clinical correlation, dedicated imaging for further evaluation and definitive management. - S/p Splenectomy - Raised left hemidiaphragm. Patent Searcher: NAVEEN Transcribe Date/Time: Dec 06 2022 9:20A Dictated by : ZELALEM VACA MD This examination was interpreted and the report reviewed and electronically signed by: NILAY SEARS MD on Dec 06 2022 11:36AM EST Last ECHO Result Conclusion ECHO Collected: 12/05/2022 12:38 PM (Final result) Impression: CONCLUSIONS: - Exam indication: Initial postoperative evaluation of prosthetic valve (baseline) - The left ventricle is mildly dilated. There is mild left ventricular hypertrophy. Left ventricular systolic function is mildly decreased. EF = 48 ? 5% (2D 4-ch.) Grade I left ventricular diastolic dysfunction. - The right ventricle is small. Right ventricular systolic function is normal. - Magna prosthetic aortic valve (size #23). There is trace aortic valve regurgitation. There is severe aortic valve stenosis caused by prosthetic thickening/calcificat ion. The peak gradient is 87 mmHg, the mean gradient is 55 mmHg and the dimensionless valve index is 0.21. - The patient has not had a prior CC echocardiographic exam for comparison. * * * Final * * * Impression: Prosthetic valve stenosis, cad, PVD. CT today revealed a right hilar lesion suspicious for lung cancer. His FEV1 is 38% predicted. Plan: Operative: will send to pulmonary medicine for evaluation of the lung mass prior to establishing treatment plan and timing for redo avr. The risks, benefits and anticipated outcomes of the procedure, the risks and benefits of the alternatives to the procedure, and the roles and tasks of the personnel to be involved, were discussed with the patient, and the patient consents to the procedure and agrees to proceed. We discussed the possibility that there could be two patients undergoing surgery in two separate rooms (concurrent surgery) and that I would be present for the critical components of all operations. We also discussed that in an emergency situation, a qualified backup surgeon is available and in the rare event of such a serious situation, that colleague might take over the operation. These findings will be communicated back to the requesting physician via electronic medical record Mimi Mckinney MD Referring Provider: MIMI MCKINNEY [[id number]] Allergies As of Date: 12/06/2022 (No Known Allergies) Date Reviewed: 12/06/2022 Reviewed by: Eileen Rose RN - Fully Assessed Visit Diagnoses:Encounter for preprocedural cardiovascular examination [Z01.810] Aortic valve disorder [I35.9] Atherosclerosis of [place] coronary artery of [place] heart with other form of angina pec (more content not included)... Normal [facility] CTA CHEST (GATED) W IVCONon 12-06-2022 CTA CHEST (GATED) W IVCON * * *Final Report* * * DATE OF EXAM: Dec 06 2022 8:53AM JQC 0125 - CTA CHEST (GATED) W IVCON / PROCEDURE REASON: multiple diagnoses * * * * Physician Interpretation * * * * CTA Aorta chest Direct Image Comparison: HISTORY: 57 years old Male with h/o: - BAV severe : s/p ?AVR #23 Magna pericardial [09/07/11] Complains of :?PASTRANA, intermittent CP, 3 pillow orthopnea, B/L LE claudication? -PMHx of :?significant PAD/PVD-occluded Right SFA and bypass, HTN, HLD, Chronic Obstructive Bronchitis ? Evaluation for interval change. There is request to define thoracic and aortic anatomy TECHNIQUE: SCANNER: out-patient Siemens Naeotom Alpha photon-counting dual-source scanner PROTOCOL: Prospectively triggered helical high-pitch acquisitions ( triggered Flash-mode ) was performed following the intravenous administration of contrast material. Scan Range: thoracic inlet to the diaphragm CT Dose-Length Product (DLP): 169 mGy*cm CT Dose Reduction Employed: Automated exposure control(AEC) and iterative recon CONTRAST: IV administration of 80 ml Omnipaque 350 Scan acquisition: uncomplicated Macro Version: MQ:[id number]_2 For optimization of anatomic evaluation, advanced 3-D off-line postprocessing was performed on a dedicated workstation by the interpreting physician. STUDY LIMITATIONS: None.. RESULT: LINES, TUBES and DEVICES: None CHEST: Chest wall anatomy: evidence of median sternotomy with sternal wires in place. Raised left hemidiaphragm. LUNGS: - There is a well defined soft tissue density mass lesion, with irregular spiculated margins, seen in the right perihilar region. It measures approximately 2.8 x 2.7 cm (anteroposterior x transverse) with a cranio-caudal span of 3.1 cm. It shows heterogenous enhancement with a few non-enhancing areas within (which may represent a necrotic component). No evidence of calcification or cavitation is seen within. There is associated abrupt narrowing of caliber of right upper lobe bronchus. Additionally, the mass lesion is encasing few of the right upper lobe segmental pulmonary arteries, causing attenuation in their caliber, as well as abutting the adjacent pulmonary veins, which show normal contrast opacification. - Multiple discrete cluster of small sub-6mm nodules is seen in right upper lobe. - Linear atelectasis/ scars seen in right upper, middle lobe as well as lingula. - Nodular pleural thickening of left diaphragmatic pleura. MEDIASTINUM: mildly enlarged mediastinal lymph nodes (particularly right paratracheal, paraesophageal). Clinical correlation is recommended. Small hiatal hernia PERICARDIUM: Suspicion of retrosternal tethering anteriorly, otherwise unremarkable CENTRAL PULMONARY ARTERY: normal dimensions, assessment is limited due to limited contrast enhancement CARDIAC CHAMBERS: LEFT VENTRICLE: normal size Right ventricle: normal size Left atrium: normal size. Small linear structure at the interatrial septum, most consistent with the foramen ovale or a left atrial septal pouch. KAT: normal Right atrium: normal size CENTRAL VENOUS and PULMONARY VENOUS RETURN: normal veno-atrial connections. Rest as described above. Coronary Sinus: normal size MITRAL and TRICUSPID VALVE: assessment is limited in the current study - no leaflet calcification. Minimal mitral annular calcification PULMONIC VALVE: assessment is limited in the current study. No leaflet calcification CORONARY ANATOMY: Normal origin of the coronary arteries. Diffuse, calcified atherosclerotic changes of the coronary arteries, precluding precise assessment with CT. AORTIC VALVE: AVR with BIOPROSTHETIC VALVE. Severe leaflet calcification. AORTA: Size: Normal size thoracic aorta. Pathology: No acute aortic pathology. Intervention: None STJ: maintained Wall Changes: scattered mild predominantly calcified wall changes. Mild predominantly calcified wall changes ascending aorta and arch. Mild predominantly calcified wall changes aortic arch. Mild partially calcified wall changes descending thoracic aorta. Arch Branch Vessels: Patent, normal size proximal segments of the arch branch vessels, with mild proximal calcification. Separate origin of the left vertebral artery. AORTIC DIMENSIONS: AORTIC ROOT: 3 cm measured [id number] mid ASCENDING THORACIC AORTA: 3.7 cm mid AORTIC ARCH: 2.6 cm mid DESCENDING THORACIC AORTA: 2.7 cm limited upper ABDOMEN: s/p Splenectomy. BONES: degenerative changes of the thoracic spine [employer] (topogram) images: No additional findings. 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 - The thoracic aorta is normal in course and caliber. There is no acute aortic pathology, such as dissection, intramural hematoma, or contained rupture. - Spiculated well defined heterogenously enhancing soft tissue (more content not included)... Normal [facility] CBC W Auto Differential pane l (Bld)on 12-05-2022 Basophils (Bld) [#/Vol] 0.13 10*3/uL High <0.11 [facility] Comment on above: Order Comment: Speci men Type: BLOOD SPECIMENOrdering Facility: [facility] Address: [address] [place] [address] Performed By: #### 5 7021-8 ####[facility] LABCLIA [id number] [place] [address] [place] Basophils/100 WBC (Bld) 1.2 % Normal [facility] Comment on above: Order Comment: Speci men Type: BLOOD SPECIMENOrdering Facility: [facility] Address: [address] [place] [address] Performed By: #### 5 7021-8 ####[facility] LABCLIA [id number] [place] [address] [place] Differential cell count method Nom (Bld) Auto Normal [facility] Comment on above: Order Comment: Speci men Type: BLOOD SPECIMENOrdering Facility: [facility] Address: [address] [place] [address] Performed By: #### 5 7021-8 ####[facility] LABCLIA [id number] [place] [address] [place] Eosinophils (Bld) [#/Vol] 0.69 10*3/uL High <0.46 [facility] Comment on above: Order Comment: Speci men Type: BLOOD SPECIMENOrdering Facility: [facility] Address: [address] [place] [address] Performed By: #### 5 7021-8 ####[facility] LABCLIA [id number] [place] [address] [place] Eosinophils/100 WBC (Bld) 6.2 % Normal [facility] Comment on above: Order Comment: Speci men Type: BLOOD SPECIMENOrdering Facility: [facility] Address: [address] [place] [address] Performed By: #### 5 7021-8 ####[facility] LABCLIA [id number] [place] [address] [place] Erythrocyte distribution width (RBC) [Ratio] 11.7 % Normal 11.5-15.0 [facility] Comment on above: Order Comment: Speci men Type: BLOOD SPECIMENOrdering Facility: [facility] Address: [address] [place] [address] Performed By: #### 5 7021-8 ####[facility] LABCLIA [id number] [place] [address] [place] Hematocrit (Bld) [Volume fraction] 49.3 % Normal 39.0-51.0 [facility] Comment on above: Order Comment: Speci men Type: BLOOD SPECIMENOrdering Facility: [facility] Address: [address] [place] [address] Performed By: #### 5 7021-8 ####[facility] LABCLIA [id number] [place] [address] [place] Hemoglobin (Bld) [Mass/Vol] 17.3 g/dL High 13.0-17.0 [facility] Comment on above: Order Comment: Speci men Type: BLOOD SPECIMENOrdering Facility: [facility] Address: [address] [place] [address] Performed By: #### 5 7021-8 ####[facility] LABCLIA [id number] [place] [address] [place] Immature granulocytes (Bld) [#/Vol] 0.05 10*3/uL Normal <0.10 [facility] Comment on above: Order Comment: Speci men Type: BLOOD SPECIMENOrdering Facility: [facility] Address: [address] [place] [address] Performed By: #### 5 7021-8 ####[facility] LABCLIA [id number] [place] [address] [place] Immature granulocytes/100 WBC (Bld) 0.4 % Normal [facility] [facility] Comment on above: Order Comment: Speci men Type: BLOOD SPECIMENOrdering Facility: [facility] Address: [address] [place] [address] Performed By: #### 5 7021-8 ####[facility] LABIA [id number] [place] [address] [place] Lymphocytes (Bld) [#/Vol] 1.97 10*3/uL Normal 1.00-4.00 [facility] Comment on above: Order Comment: Speci men Type: BLOOD SPECIMENOrdering Facility: [facility] Address: [address] [place] [address] Performed By: #### 5 7021-8 ####[facility] LABCLIA [id number] [place] [address] [place] Lymphocytes/100 WBC (Bld) 17.6 % Normal [facility] Comment on above: Order Comment: Speci men Type: BLOOD SPECIMENOrdering Facility: [facility] Address: [address] [place] [address] Performed By: #### 5 7021-8 ####[facility] LABCLIA [id number] [place] [address] [place] MCH (RBC) [Entitic mass] 36.8 pg High 26.0-34.0 [facility] Comment on above: Order Comment: Speci men Type: BLOOD SPECIMENOrdering Facility: [facility] Address: [address] [place] [address] Performed By: #### 5 7021-8 ####[facility] LABCLIA [id number] [place] [address] [place] MCHC (RBC) [Mass/Vol] 35.1 g/dL Normal 30.5-36.0 [facility] Comment on above: Order Comment: Speci men Type: BLOOD SPECIMENOrdering Facility: [facility] Address: [address] [place] [address] Performed By: #### 5 7021-8 ####[facility] LABCLIA [id number] [place] [address] [place] MCV (RBC) [Entitic vol] 104.9 fL High 80.0-100.0 [facility] Comment on above: Order Comment: Speci men Type: BLOOD SPECIMENOrdering Facility: [facility] Address: [address] [place] [address] Performed By: #### 5 7021-8 ####[facility] LABIA [id number] [place] [address] [place] Monocytes (Bld) [#/Vol] 0.70 10*3/uL Normal <0.87 [facility] Comment on above: Order Comment: Speci men Type: BLOOD SPECIMENOrdering Facility: [facility] Address: [address] [place] [address] Performed By: #### 5 7021-8 ####[facility] LABIA [id number] [place] [address] [place] Monocytes/100 WBC (Bld) 6.3 % Normal [facility] Comment on above: Order Comment: Speci men Type: BLOOD SPECIMENOrdering Facility: [facility] Address: [address] [place] [address] Performed By: #### 5 7021-8 ####[facility] LABCLIA [id number] [place] [address] [place] Neutrophils (Bld) [#/Vol] 7.63 10*3/uL High 1.45-7.50 [facility] Comment on above: Order Comment: Speci men Type: BLOOD SPECIMENOrdering Facility: [facility] Address: [address] [place] [address] Performed By: #### 5 7021-8 ####[facility] LABIA [id number] [place] [address] [place] Neutrophils/100 WBC (Bld) 68.3 % Normal [facility] Comment on above: Order Comment: Speci men Type: BLOOD SPECIMENOrdering Facility: [facility] Address: [address] [place] [address] Performed By: #### 5 7021-8 ####[facility] LABIA [id number] [place] [address] [place] Nucleated RBC (Bld) [#/Vol] 10*3/uL Normal <0.01 [facility] Comment on above: Order Comment: Speci men Type: BLOOD SPECIMENOrdering Facility: [facility] Address: [address] [place] [address] Performed By: #### 5 7021-8 ####[facility] LABIA [id number] [place] [address] [place] Nucleated RBC/100 WBC (Bld) [Ratio] 0.0 /100 WBC Normal [facility] Comment on above: Order Comment: Speci men Type: BLOOD SPECIMENOrdering Facility: [facility] Address: [address] [place] [address] Performed By: #### 5 7021-8 ####[facility] LABIA [id number] [place] [address] [place] Platelet mean volume (Bld) [Entitic vol] 10.2 fL Normal 9.0-12.7 [facility] Comment on above: Order Comment: Speci men Type: BLOOD SPECIMENOrdering Facility: [facility] Address: [address] [place] [address] Performed By: #### 5 7021-8 ####[facility] LABCLIA [id number] [place] [address] [place] Platelets (Bld) [#/Vol] 191 10*3/uL Normal 150-400 [facility] Comment on above: Order Comment: Speci men Type: BLOOD SPECIMENOrdering Facility: [facility] Address: [address] [place] [address] Performed By: #### 5 7021-8 ####[facility] LABIA [id number] [place] [address] [place] RBC (Bld) [#/Vol] 4.70 10*6/uL Normal 4.20-6.00 [facility] Comment on above: Order Comment: Speci men Type: BLOOD SPECIMENOrdering Facility: [facility] Address: [address] [place] [address] Performed By: #### 5 7021-8 ####[facility] LABIA [id number] [place] [address] [place] WBC (Bld) [#/Vol] 11.17 10*3/uL High 3.70-11.00 [facility] Comment on above: Order Comment: Speci men Type: BLOOD SPECIMENOrdering Facility: [facility] Address: [address] [place] [address] Performed By: #### 5 7021-8 ####[facility] LABIA [id number] [place] [address] [place] CNOVon 12-05-2022 CNOV Office Visit (CARCMN ) CONOR LEE ([id number]) 1965 M Date Time Provider Department 12/05/22 8:45 AM LEX ANDERSON CARCMARLENE During your visit today, we recorded the following information about you: Pulse Respiration Blood pressure Weight 67/minute 12/minute 165/96 84.8 kg Height 1.778 m Lex Anderson MD 12/20/2022 6:54 AM [facility] [place] Christelle Rodriguez Department of Cardiovascular Medicine SECTION OF CLINICAL CARDIOLOGY OUTPATIENT VISIT DATE December 05, 2022 OUTPATIENT VISIT TYPE NEW PRIMARY CARE PHYSICIAN: Naomie Bermudez [address] [place] [address] REFERRING PHYSICIAN: Mimi Mckinney [address] [facility] [address] CHIEF COMPLAINT: Preopertive cardiac evaluation HISTORY OF PRESENT ILLNESS: NURSING INTAKE: Mr. Lee is a 57 year old male from [place], [place] here today for preop evaluation. Patient following with Dr. Mckinney for consideration of aortic valve surgery in his setting of bicuspid aortic valve. Conor has a significant medical history of AoV stenosis (bicuspid aortic valve) s/p Bioprosthetic aortic valve, HTN, Current Smoker, CAD. He reports the following symptoms not much different from baseline ; though thinks a bit more than usual baseline more recently -[place] -chest pain -palpitations -lightheadedness/dizz iness Echocardiogram performed by new chief engineer research reported severe prosthetic AV prompting evaluation for a redo AVR. Source Note - Jessica Shook MA - 10/08/2022 9:15 AM EDT Images from the original note were not included. [facility] Cardiology Clinic Note Chief Complaint: Patient here for 6 mo follow up aortic valve disorder, PVD, and hypertension. Had echo last week. Lab work ordered at last visit was not completed. Sera Allan CNP increased his carvedilol to 37.5mg bid at last visit in Mar 2022. Says his symptoms remain unchanged - still has chest pain, SOB, and claudication. Continues to smoke about 1 PPD. HPI: Conor Lee is a 57 y.o. male with h/o AoV stenosis s/p Bioprosthetic aortic valve approximately 11 years ago; at that time, the decision to avoid the mechanical valve was related to the desire to avoid anticoagulation given drop requirements. He has been having exertional shortness of breath and chest pain for the past several months. He has significant lightheadedness and dizziness but denies syncope. No orthopnea, no paroxysmal external dyspnea. He has longstanding, chronic, bilateral lower extremity discomfort with ambulation and walking. This is related to severe peripheral arterial disease with a history of prior surgical bypass. He has had a failed attempt at peripheral revascularization in the past. He admits to me that he drinks excessively Assessment: History of aortic valve stenosis s/p bioprosthetic aortic valve replacement #23 magna pericardial valve Severe, bioprosthetic aortic valve stenosis Essential hypertension - Uncontrolled Chest pain Dyspnea on exertion Bilateral claudication with history of peripheral arterial disease History of surgical bypass; 100% occluded right SFA with collaterals Lower back pain Plan: I emphasized the importance of abstinence from alcohol and the associated cardiovascular problems related to alcohol including cardiomyopathy He is to restart medications he has stopped; optimal medical therapy should include aspirin, beta-beryl, and angiotensin-convertin g enzyme inhibitor and for resistant hypertension he was on diuretics Given his echocardiogram results, and his symptoms I recommended proceeding with cardiac catheterization including right heart catheterization, coronary angiography, and aortic valve study If this confirms the presence of severe bioprosthetic aortic valve stenosis, will refer to CT surgery to discuss a potential redo valve surgery. Given his age, a mechanical valve would be highly recommended. I would not recommend proceeding transcatheter aortic valve implantation given the lifespan of bioprosthetic valves. Further recommendations pending the above Arvin Ledesma MD, MPH, [facility], [facility], [facility] Interventional Cardiology Pager Email: [email or web address] FINAL IMPRESSIONS: Severe, bioprosthetic, aortic valve stenosis by invasive hemodynamic study Severe, two-vessel coronary artery disease including a chronic total occlusion ([place]) of the right coronary artery Normal global left ventricular systolic function by noninvasive imaging Moderately elevated right-sided heart pressures and mildly elevated pulmonary capillary wedge pressure Elevated transpulmonary gradient along with the mildly elevated wedge consistent with pre- and postcapillary pulmonary hypertensi (more content not included)... Normal [facility] metabolic 2000 panelon 10-18-2023 Albumin [Mass/Vol] 4.2 g/dL Normal 3.9-4.9 [facility] Comment on above: Order Comment: Speci men Type: BLOOD SPECIMENOrdering Facility: [facility] Address: [address] [place] [address] Performed By: #### 2 4323-8, 2531-0 ####[facility] LABCLIA [id number] [place] [address] [place] ALP [Catalytic activity/Vol] 72 U/L Normal 38-113 [facility] Comment on above: Order Comment: Speci men Type: BLOOD SPECIMENOrdering Facility: [facility] Address: [address] [place] [address] Performed By: #### 2 4323-8, 2531-0 ####[facility] LABCLIA [id number] [place] [address] [place] ALT [Catalytic activity/Vol] 27 U/L Normal 10-54 [facility] Comment on above: Order Comment: Speci men Type: BLOOD SPECIMENOrdering Facility: [facility] Address: [address] [place] [address] Performed By: #### 2 432-8, 2531-0 ####[facility] LABCLIA [id number] [place] [address] [place] Anion gap [Moles/Vol] 12 mmol/L Normal 9-18 [facility] Comment on above: Order Comment: Speci men Type: BLOOD SPECIMENOrdering Facility: [facility] Address: [address] [place] [address] Performed By: #### 2 4323-8, 253-0 ####[facility] LABCLIA [id number] [place] [address] [place] AST [Catalytic activity/Vol] 20 U/L Normal 14-40 [facility] Comment on above: Order Comment: Speci men Type: BLOOD SPECIMENOrdering Facility: [facility] Address: [address] [place] [address] Performed By: #### 2 4328, 2531-0 ####[facility] LABCLIA [id number] [place] [address] [place] Bilirubin [Mass/Vol] 0.6 mg/dL Normal 0.2-1.3 [facility] Comment on above: Order Comment: Speci men Type: BLOOD SPECIMENOrdering Facility: [facility] Address: [address] [place] [address] Performed By: #### 2 4328, 2531-0 ####[facility] LABCLIA [id number] [place] [address] [place] Calcium [Mass/Vol] 9.3 mg/dL Normal 8.5-10.2 [facility] Comment on above: Order Comment: Speci men Type: BLOOD SPECIMENOrdering Facility: [facility] Address: [address] [place] [address] Performed By: #### 2 43204-25, 0 ####[facility] LABCLIA [id number] [place] [address] [place] Chloride [Moles/Vol] 98 mmol/L Normal 97-105 [facility] Comment on above: Order Comment: Speci men Type: BLOOD SPECIMENOrdering Facility: [facility] Address: [address] [place] [id number] Performed By: #### 2 43204-25, 0 ####[facility] LABCLIA [id number] [place] [address] [place] CO2 [Moles/Vol] 28 mmol/L Normal 22-30 [facility] Comment on above: Order Comment: Speci men Type: BLOOD SPECIMENOrdering Facility: [facility] Address: [address] [place] [id number] Performed By: #### 2 4328, 2531-0 ####[facility] LABCLIA [id number] [address] [place] [facility] Creatinine [Mass/Vol] 0.90 mg/dL Normal 0.73-1.22 [facility] Comment on above: Order Comment: Sylvie hammer Type: BLOOD SPECIMENOrdering Facility: [facility] Address: [address] [place] [address] Performed By: #### 2 4323-8, 253-0 ####[facility] [id number] [address] Creatinine and Glomerular filtration rate.predicted panel (S/P/Bld) 100 mL/min/1.73m??? Normal >=60 [facility] Comment on above: Order Comment: Sylvie hammer Type: BLOOD SPECIMENOrdering Facility: [facility] Address: [address] [place] [address] Result Comment: Aditi mated Glomerular Filtration Rate (eGFR) is calculated using the 2020 CKD-EPI creatinine equation. This equation utilizes serum creatinine, sex, and age as parameters. The creatinine assay has traceable calibration to isotope dilution-mass spectrometry. Refer to KDIGO guidelines for clinical interpretation. In patients with unstable renal function, e.g. those with acute kidney injury, the eGFR may not accurately reflect actual GFR. Performed By: #### 2 4323-8, 2531-0 ####[facility] LABIA [id number] [place] [address] [place] Glucose [Mass/Vol] 113 mg/dL High 74-99 [facility] Comment on above: Order Comment: Sylvie hammer Type: BLOOD SPECIMENOrdering Facility: [facility] Address: [address] [place] [address] Result Comment: The [place] Diabetes Association (ADA) provides guidance for cutoff values for fasting glucose and random glucose. The ADA defines fasting as no caloric intake for at least 8 hours. Fasting plasma glucose results between 100 to 125 mg/dL indicate increased risk for diabetes (prediabetes). Fasting plasma glucose results greater than or equal to 126 mg/dL meet the criteria for diagnosis of diabetes. In the absence of unequivocal hyperglycemia, results should be confirmed by repeat testing. In a patient with classic symptoms of hyperglycemia or hyperglycemic crisis, random plasma glucose results greater than or equal to 200 mg/dL meet the criteria for diagnosis of diabetes. Reference: Standards of Medical Care in Diabetes 2016, [place] [employer] Association. Diabetes Care. 2016.39(Suppl 1). Performed By: #### 2 43204-25, ####[facility] LABCLIA [id number] [place] [address] [place] Potassium [Moles/Vol] 4.6 mmol/L Normal 3.7-5.1 [facility] Comment on above: Order Comment: Speci men Type: BLOOD SPECIMENOrdering Facility: [facility] Address: [address] [place] [address] Performed By: #### 2 43204-25, ####[facility] LABCLIA [id number] [place] [address] [place] Protein [Mass/Vol] 6.8 g/dL Normal 6.3-8.0 [facility] Comment on above: Order Comment: Speci men Type: BLOOD SPECIMENOrdering Facility: [facility] Address: [address] [place] [address] Performed By: #### 2 43204-25, ####[facility] LABCLIA [id number] [place] [address] [place] Sodium [Moles/Vol] 138 mmol/L Normal 136-144 [facility] Comment on above: Order Comment: Speci men Type: BLOOD SPECIMENOrdering Facility: [facility] Address: [address] [place] [address] Performed By: #### 2 43204-25, 0 ####[facility] LABCLIA [id number] [place] [address] [place] Urea nitrogen [Mass/Vol] 8 mg/dL Low 9-24 [facility] Comment on above: Order Comment: Speci men Type: BLOOD SPECIMENOrdering Facility: [facility] Address: [address] [place] [address] Performed By: #### 2 4323-8, 2532-0 ####[facility] LABDARYA [id number] [facility] [id number] [id number] [place] ECG COMPLETEon 12-05-2022 ECG COMPLETE Ventricular Rate : 7 2 BPM Atrial Rate : 72 BPM P-R Interval : 146 ms QRS Duration : 102 ms Q-T Interval : 404 ms QTC Calculation(Bazett) : 442 ms Calculated P [place] : 30 degrees Calculated R [place] : -9 degrees Calculated T [place] : 148 degrees NORMAL SINUS RHYTHM LEFT VENTRICULAR HYPERTROPHY WITH REPOLARIZATION ABNORMALITY ABNORMAL ECG Confirmed by MD DANIA, PhD, LUL ([id number]) on 12/14/2022 5:15:54 AM NAME : CONOR LEE PID : [id number] : 1965 Gender : Male Race : ORD : [id number] Procedure Date : Dec 05 2022 08:48:34 Edit Date : Dec 14 2022 05:15:59 Diagnosis: NORMAL SINUS RHYTHM LEFT VENTRICULAR HYPERTROPHY WITH REPOLARIZATION ABNORMALITY ABNORMAL ECG Confirmed by MD DANIA, PhD, LUL ([id number]) on 12/14/2022 5:15:54 AM Test Reason : Location : 314 : J14 Overread By : MD DANIA, PhD,LUL Edited By : MD DANIA, PhD,LUL Referred By : MIMI MCKINNEY Acquired by : LIANA GIPSON [facility] ECHOon 12-05-2022 Echocardiography Echocardiography Report: Transthoracic Echo [facility] J35 Date of service: 12/05/2022 12:38:16 PM MANAGER Ordering physician: MIMI MCKINNEY Indication: Initial postoperative evaluation of prosthetic valve (baseline) Technologist: Mercy Vargas Interpreting physician: Himanshu Guillory MD PATIENT: Name: CONOR LEE : 1965 Age: 57 years Gender: M Primary rhythm: sinus. Height: 177.80 cm BSA: 2.06 m Weight: 85.73 kg BMI: 27.1 kg/m Heart rate 75 bpm Blood pressure 165/96 mmHg Color Doppler was utilized to interrogate the cardiac valves assessed and spectral Doppler was utilized to determine the flow velocities and pressure gradients reported in this exam. MEASUREMENTS: Value Indexed Normal Max aortic dimension 3.5 cm Ao < 3.8 Left atrial volume 56 ml (biplane A-L) 27 ml/m Pura <= 34 LV ID (diastole) 4.5 cm (2D) 2.17 cm/m LV ID (systole) 3.4 cm (2D) 1.65 cm/m IVS, leaflet tips 0.8 cm (2D) Posterior wall thickness 1.4 cm (2D) Left ventricular mass 175 g (2D) 85 g/m LV stroke volume 75 ml (2D 4-ch.) LV end diastolic volume 156 ml (2D 4-ch.) 75.8 ml/m 34<=EDVi<75 LV end systolic volume 81 ml (2D 4-ch.) 39.3 ml/m Ejection Fraction 48 % (2D 4-ch.) EF > 52 FINDINGS: LEFT VENTRICLE The left ventricle is mildly dilated. There is mild left ventricular hypertrophy. Left ventricular systolic function is mildly decreased. Grade I left ventricular diastolic dysfunction. Mitral annular lateral E/e': 13.9. Mitral annular septal E/e': 16.7. Wall Motion: The basal inferior segment and basal inferoseptal segment are mildly hypokinetic. All remaining scored segments are normal. RIGHT VENTRICLE The right ventricle is small. Right ventricular systolic function is normal. RV systolic tissue Doppler velocity is 8.0 cm/s. Tricuspid annular displacement is 1.4 cm. Estimated right ventricular systolic pressure is not reported due to an insufficient tricuspid regurgitation signal. Estimated right atrial pressure is 3 mmHg based on IVC assessment. LEFT ATRIUM The left atrial cavity is normal in size. RIGHT ATRIUM The right atrial cavity is normal in size. Inferior Vena Cava: The inferior vena cava appears normal measuring 2.0 cm. The vessel decreases greater than 50 percent with inspiration. MITRAL VALVE There is trace mitral valve regurgitation. There is mild thickening. The pressure half time is 94 msec. The peak mitral E/A ratio is 0.77. The average mitral E/e' ratio is 15.3. The mitral flow deceleration time is 323 msec. TRICUSPID VALVE There is trace tricuspid valve regurgitation. There is no thickening. AORTIC VALVE Magna prosthetic valve size #23. There is severe aortic valve stenosis caused by prosthetic thickening/calcificat ion. There is trace aortic valve regurgitation. The peak gradient is 87 mmHg (peak velocity = 465.3 cm/s). The mean gradient is 55 mmHg. The LVOT mean velocity is 66.4 cm/s. The aortic VTI is 104.1 cm. The mean velocity in the aortic valve is 350.8 cm/s. The dimensionless valve index is 0.21. PULMONIC VALVE The pulmonic valve cusps are structurally normal. There is no pulmonic valve regurgitation. There is no thickening. AORTA The visualized aorta is normal in size. Measurements - Mid ascending aorta 3.5 cm. PULMONARY ARTERIES The pulmonary arteries are normal. INTERATRIAL SEPTUM There is no evidence of intracardiac shunting as detected by Doppler. INTERVENTRICULAR SEPTUM There is no flow through the interventricular septum as detected by Doppler. PERICARDIUM There is no pericardial effusion. There is an epicardial fat pad. CONCLUSIONS: - Exam indication: Initial postoperative evaluation of prosthetic valve (baseline) - The left ventricle is mildly dilated. There is mild left ventricular hypertrophy. Left ventricular systolic function is mildly decreased. EF = 48 5% (2D 4-ch.) Grade I left ventricular diastolic dysfunction. - The right ventricle is small. Right ventricular systolic function is normal. - Magna prosthetic aortic valve (size #23). There is trace aortic valve regurgitation. There is severe aortic valve stenosis caused by prosthetic thickening/calcificat ion. The peak gradient is 87 mmHg, the mean gradient is 55 mmHg and the dimensionless valve index is 0.21. - The patient has not had a prior CC echocardiographic exam for comparison. * * * Final * * * [facility] [employer] [facility] : [id number] [id number] Normal [facility] LDH SerPl-cCncon 12-05-2022 LDH [Catalytic activity/Vol] 294 U/L High 135-225 [facility] Comment on above: Order Comment: Speci men Type: BLOOD SPECIMENOrdering Facility: [facility] Address: [address] [place] [address] Performed By: #### 2 4323-8, 2532-0 ####[facility] LABCLIA [id number] [place] [address] [place] PT panel Coag (PPP)on 2022 INR Coag (PPP) [Relative time] 1.0 {INR} Normal 0.9-1.3 [facility] Comment on above: Order Comment: Speci men Type: BLOOD SPECIMENOrdering Facility: [facility] Address: [address] [place] [address] Result Comment: Brianna min K Antagonist (VKA) Therapeutic Range: INR 2 to 3 (Target INR of 2.5) Note: For patients treated with VKA drugs, such as warfarin, the [employer] 2012 Guideline recommends a therapeutic INR range of 2 to 3 (target INR of 2.5). This recommendation includes high-risk patients with antiphospholipid syndrome with previous arterial or venous thromboembolism, current-generation mechanical or bioprosthetic aortic heart valve replacement. Note: Patients with mechanical aortic valve replacement and additional risk factors for thromboembolic events (atrial fibrillation, previous thromboembolism, LV dysfunction, hypercoagulable conditions) or an older generation mechanical AVR (i.e., ball in-Cage) or any mechanical MVR should have a INR therapeutic range of 2.5 to 3.5 (target INR of 3). Ria GH, et al. Chest 2012, 141:7S-47S Pat RA et al. [facility] 2017, 70: 252-289 Performed By: #### 3 4528-0, 01935-2 ####[facility] LABCLIA [id number] [place] [id number] [place] PT Coag (PPP) [Time] 10.3 s Normal 9.7-13.0 [facility] Comment on above: Order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 Neurological: oriented x 4, LOC appropriate for age, CN II-XII intact, motor strength equal & normal bilaterally, speech normal. Skin: surgical scar noted from his sternum down to his mid abdomen. Assessment/Plan 1. Essential hypertension (I10: Essential (primary) hypertension) The patient is at goal. Patient is on lisinopril and metoprolol. There are some questions about his medications, so I have reached out to [facility] to see if they can give me clarification on this. 2. Heart murmur (R01.1: Cardiac murmur, unspecified) There is no heart murmur at this time. He has had an aortic valve replacement back in 2011. No other issues at this time. 3. Endocarditis (I38: Endocarditis, valve unspecified) This is all documented on the patient's chart, but I do not see, and the patient is unsure about this. We will again get records from [facility] cardiology. 4. Illiteracy (Z55.0: Illiteracy and low-level literacy) See no issues. No further issues with this. 5. Chronic obstructive bronchitis (J44.9: Chronic obstructive pulmonary disease, unspecified) Patients use an inhaler as needed. Encouraged the patient to stop smoking. 6. Peripheral vascular disease (I73.9: Peripheral vascular disease, unspecified) Sees cardiology for this as well. Patient is not wanting to get his right side fixed at this time. Patient states he handles the pain well. 7. Primary hypercholesterolemia (E78.00: Pure hypercholesterolemia, unspecified) Please continue on a statin. 8. BMI 29.0-29.9,adult (Z68.29: Body mass index [BMI] 29.0-29.9, adult) BMI education given. 9. Overweight (E66.3: Overweight) As above. 10. Smoker (F17.200: Nicotine dependence, unspecified, uncomplicated) I encouraged the patient to stop smoking. We will look at ordering a CT lung cancer screening at the next visit and move forward with the screening for cancer. We will see the patient back in 5 months. Portions of this record may have been created with voice recognition artificial intelligence software, specifically [employer], [employer] and or [employer]. Substitutions may have occurred due to the inherent limitations of voice recognition and artificial intelligence software. ATTESTATION: Documentation services were performed after patient or guardian consented to allow flatev to record this visit. CHAN audio specialist and provider reviewed before signing. CHAN: Chary Tomas Follow-up No qualifying data available Problem List/Past Medical History Ongoing Atherosclerosis of [place] artery of extremity Carpal tunnel syndrome Chronic obstructive bronchitis Disorder of diaphragm Endocarditis Essential hypertension Heart murmur Hemiparesis Illiteracy Lumbosacral spondylosis without myelopathy Neuralgia Neuritis Peripheral vascular disease Primary hypercholesterolemia PVD (pulmonary valve disease) Spasm of back muscles Thoracic spondylosis without myelopathy Historical No qualifying data Procedure/Surgical History Aortic valve replacement and replacement of ascending aorta ( (more content not included)... Normal [facility] Comment on above: Result Comment: Elec tronically Signed By: Harpreet Lim MD\.br\Date and Time Signed: 09/10/22 11:15 EDT\.br\Electronically Co-Signed By: Chary Tomas B\.br\Date and Time Co-Signed: 09/06/22 14:37 EDT Ambulatory Visit Summaryon 0 09-06-2022 Ambulatory Visit Summary CONOR LEE :1965 Visit Date:09/06/2022 Ambulatory Visit Instructions Your Diagnosis Essential hypertension Heart murmur Endocarditis Illiteracy Chronic obstructive bronchitis Peripheral vascular disease Primary hypercholesterolemia BMI 29.0-29.9,adult Overweight Smoker Your Care Team Attending Physician - Harpreet Lim MD Primary Care Physician - Harpreet Lim MD This Is Your Medications List albuterol (albuterol 90 mcg/inh inhalation powder) aspirin (aspirin 81 mg Oral EC Tab) carvedilol (carvedilol 25 mg Tab) cilostazol (cilostazol 50 mg Tab) cyclobenzaprine (cyclobenzaprine 10 mg Tab) famotidine (famotidine 40 mg Tab) lisinopril (lisinopril 20 mg Tab) metoprolol (Metoprolol tartrate 25 mg Tab) spironolactone (spironolactone 25 mg Tab) Procedures Performed Aortic valve replacement and replacement of ascending aorta (09/07/2011), Phlebectomy, Splenectomy. Discharge Vitals Temperature (Oral) 36.8 ?C Heart Rate (Peripheral) 68 Respiratory Rate 16 Blood Pressure 128/82 Height 175.20 cm Height 69 in Weight 89.5 kg Weight 196.9 lb BMI 29.16 What to do next Scheduled Follow-Up Appointments 2022 7:40 AM EST With: Brandon MOMIN, Harpreet Roland Where: [facility] Family Medicine Office/Clini c Noteon 09-06-2022 Family Medicine Office/Clinic Note Chief Complaint establish care, meds check HPI Staff establish care, check up and refills Establish Care: History: HTN, neuralgia, endocarditis,PVD Last provider: Aidan Any recent labs: none Health Maintenance UTD: Colonoscopy: never, refuses PSA: none covid: (2) Acute: Current issues/complaints: needs refills cyclobenzaprine History of Present Illness Conor Lee is a 57-year-old male who presents today for a well-adult examination and medication refills. The patient has a history of hypertension. He is prescribed with lisinopril 40 mg for his hypertension. He is currently taking lisinopril 20 mg, one tablet in the morning and evening. He states that he feels a lot better when he is taking 20 mg tablet in the morning and evening, than taking 40 mg in the morning. The patient has a history of endocarditis. He takes aspirin daily. The patient has a history of peripheral vascular disease. He had stents placed on his left leg by Dr. Ledesma. He states that his right leg is blocked. He states that he does not want to do anything about it. He states that the pain gets worse when he walks and moves. The patient has a history of aortic valve replacement in 2011 at [facility]. The patient smokes about a pack of cigarettes a day. He has tried quitting in the past. He quit for 8 months when he had his surgery, but then started back up again. He does not have a correctional treatment specialist. Review of Systems PHQ Score Initial Depression Screen Score: 0 Physical Exam Vitals & Measurements T: 36.8 ?C(Oral) HR: 68(Peripheral) RR: 16 BP: 128/82 SpO2: 97% HT: 69 in HT: 175.20 cm WT: 89.5 kg WT: 196.9 lb BMI: 29.16 General: alert, no acute distress Cardiovascular: regular rate and rhythm, normal peripheral perfusion. Respiratory: diminished breath sounds bilaterally, no wheezing. Extremities: no deformity, no trauma. Neurological: oriented x 4, LOC appropriate for age, CN II-XII intact, motor strength equal & normal bilaterally, speech normal. Skin: surgical scar noted from his sternum down to his mid abdomen. Assessment/Plan 1. Essential hypertension (I10: Essential (primary) hypertension) The patient is at goal. Patient is on lisinopril and metoprolol. There are some questions about his medications, so I have reached out to [facility] to see if they can give me clarification on this. 2. Heart murmur (R01.1: Cardiac murmur, unspecified) There is no heart murmur at this time. He has had an aortic valve replacement back in 2011. No other issues at this time. 3. Endocarditis (I38: Endocarditis, valve unspecified) his is all documented on the patient's chart, but I do not see and the patient is unsure about this. We will again get records from [facility] cardiology. 4. Illiteracy (Z55.0: Illiteracy and low-level literacy) See no issues. No further issues with this. 5. Chronic obstructive bronchitis (J44.9: Chronic obstructive pulmonary disease, unspecified) Patients use an inhaler as needed. Encouraged the patient to stop smoking 6. Peripheral vascular disease (I73.9: Peripheral vascular disease, unspecified) Sees cardiology for this as well. Patient is not wanting to get his right side fixed at this time. Patient states he handles the pain well. 7. Primary hypercholesterolemia (E78.00: Pure hypercholesterolemia, unspecified) Please continue on a statin 8. BMI 29.0-29.9,adult (Z68.29: Body mass index [BMI] 29.0-29.9, adult) BMI education given. 9. Overweight (E66.3: Overweight) As above. 10. Smoker (F17.200: Nicotine dependence, unspecified, uncomplicated) I encouraged the patient to stop smoking. We will look at ordering a CT lung cancer screening at the next visit and move forward with the screening for cancer. We will see the patient back in 5 months. Portions of this record may have been created with voice recognition artificial intelligence software, specifically [employer], [employer] and or [employer]. Substitutions may have occurred due to the inherent limitations of voice recognition and artificial intelligence software. ATTESTATION: Documentation services were performed after patient or guardian consented to allow flatev to record this visit. CHAN audio specialist and provider reviewed before signing. CHAN: Chary Tomas Follow-up No qualifying data available Problem List/Past Medical History Ongoing Atherosclerosis of [place] artery of extremity Carpal tunnel syndrome Chronic obstructive bronchitis Disorder of diaphragm Endocarditis Essential hypertension Heart murmur Hemiparesis Illiteracy Lumbosacral spondylosis without myelopathy Neuralgia Neuritis Peripheral vascular disease Primary hypercholesterolemia PVD (pulmonary valve disease) Spasm of back muscles Thoracic spondylosis without myelopathy Historical No qualifying data Procedure/Surgical History Aortic valve replacement and replacement of ascending aorta (09/06 (more content not included)... Normal [facility] Comment on above: Result Comment: Elec tronically Signed By: Chary Tomas\.br\Date and Time Signed: 09/06/22 11:27 EDT\.br\Electronically Co-Signed By: Chary Tomas\.br\Date and Time Co-Signed: 09/06/22 12:04 EDT\.br\Electronically Co-Signed By: Harpreet Lim MD Ambulatory Visit Summaryon 0 06-13-2022 Ambulatory Visit Summary CONOR LEE :1965 Visit Date:06/13/2022 Ambulatory Visit Instructions Your Diagnosis Atherosclerosis of [place] artery of extremity Carpal tunnel syndrome Chronic obstructive bronchitis Disorder of diaphragm Endocarditis Essential hypertension Hemiparesis Illiteracy Lumbosacral spondylosis without myelopathy Neuralgia, Neuritis Peripheral vascular disease Primary hypercholesterolemia Spasm of back muscles Thoracic spondylosis without myelopathy Heart murmur PVD (pulmonary valve disease) BMI 29.0-29.9,adult Over weight Smoker Your Care Team Attending Physician - NAOMIE BERMUDEZ MD Primary Care Physician - Harpreet Lim MD This Is Your Medications List albuterol (albuterol 90 mcg/inh inhalation powder) aspirin (aspirin 81 mg Oral EC Tab) cilostazol (cilostazol 50 mg Tab) cyclobenzaprine (cyclobenzaprine 10 mg Tab) famotidine (famotidine 40 mg Tab) lisinopril (lisinopril 10 mg Tab) metoprolol (Metoprolol tartrate 25 mg Tab) [Image Removed: STOP]Stop taking these medications lansoprazole (lansoprazole 30 mg Cap-DR) spironolactone (spironolactone 25 mg Tab) sucralfate (sucralfate 1 g Tab) Procedures Performed Aortic valve replacement and replacement of ascending aorta (09/07/2011), Phlebectomy, Splenectomy. Discharge Vitals Heart Rate (Peripheral) 66 Respiratory Rate 20 Blood Pressure 138/80 Height 175.20 cm Height 69 in Weight 91.6 kg Weight 201.52 lb BMI 29.84 Medications What How Much When Instructions Changed albuterol (albuterol 90 mcg/ inh inhalation powder) 2 Puffs Inhalation Every 4 hours as needed for for wheezing or SOB Pickup at [facility] Changed aspirin (aspirin 81 mg Oral EC Tab) 1 Tablets By Mouth Every day Pickup at [facility] Changed cilostazol (cilostazol 50 mg Tab) 1 Tablets By Mouth 2 times a day Pickup at [facility] Changed cyclobenzaprine (cyclobenzaprine 10 mg Tab) 1 Tablets By Mouth Once a day (in the evening) as needed for for spasm Pickup at [facility] Changed famotidine (famotidine 40 mg Tab) 1 Tablets By Mouth Every day Pickup at [facility] Changed lisinopril (lisinopril 10 mg Tab) 1 Tablets By Mouth 2 times a day Pickup at [facility] Changed metoprolol (Metoprolol tartrate 25 mg Tab) 1 Tablets By Mouth 2 times a day Pickup at [facility] Pharmacy Information [facility]: [address] [place], [place] [id number] [phone] What How Much When Comments Stop Taking lansoprazole (lansoprazole 30 mg Cap-DR) 1 Capsules By Mouth Every day Duration: 30 Days Stop Taking spironolactone (spironolactone 25 mg Tab) 1 Tablets By Mouth Every day Duration: 30 Days Stop Taking sucralfate (sucralfate 1 g Tab) 1 Tablets By Mouth 4 times a day Duration: 30 Days Allergies No Known Allergies Problems Ongoing - Any problem that you are currently receiving treatment for. Atherosclerosis of [place] artery of extremity Carpal tunnel syndrome Chronic obstructive bronchitis Disorder of diaphragm Endocarditis Essential hypertension Heart murmur Hemiparesis Illiteracy Lumbosacral spondylosis without myelopathy Neuralgia Neuritis Peripheral vascular disease Primary hypercholesterolemia PVD (pulmonary valve disease) Spasm of back muscles Thoracic spondylosis without myelopathy Normal [facility] Medicine Office/Clini c Noteon 06-13-2022 Family Medicine Office/Clinic Note Chief Complaint med refill HPI Staff Here for chronic follow up and meds check Health Maintenance: Colonoscopy: never refused PSA: due Last Labs: 6 mos ago covid: UTD (2) questions/concerns: needs his omeprazole refilled hasn't had any for a month and been eating alot of tums History of Present Illness HTN PVD HYEPRCHOLESTEROLEMIA SMOKER Review of Systems PHQ Score Initial Depression Screen Score: 0 Constitutional: no fever, no chills, no sweats, no weakness Respiratory: no shortness of breath, no cough, no orthopnea, no wheezing Cardiovascular: no chest pain, no palpitations, no edema Additional ROS info: Except as noted in the above Review of Systems and in the History of Present Illness all other systems have been reviewed and are negative or noncontributory. Physical Exam Vitals & Measurements HR: 66(Peripheral) RR: 20 BP: 138/80 SpO2: 90% HT: 69 in HT: 175.20 cm WT: 91.6 kg WT: 201.52 lb BMI: 29.84 General: alert, no acute distress Skin: warm, dry Head: no trauma, normocephalic Neck: Trachea midline, no adenopathy, no tenderness Eye: normal conjunctiva, sclera clear ENMT: TM's clear, oral mucosa moist, no pharyngeal erythema or exudate Cardiovascular: regular rate and rhythm, POOR PULSES IN LEGS, MURUMUR OF 2/6\ \ Respiratory: Lungs CTA, respirations non labored Chest wall: no deformity. Gastrointestinal: soft, non distended, no tenderness, no guarding. Back: No tenderness, Normal ROM, Normal alignment. Extremities: no deformity, no trauma Neurological: oriented x 4, LOC appropriate for age, CN II-XII intact, motor strength equal & normal bilaterally, sensation equal & normal bilaterally, speech normal Psychiatric: cooperative, affect appropriate for age, normal judgement, normal psychiatric thoughts. Assessment/Plan DOING WELL MEDS REVIEWD AND EXPLAINED DIET AND EXERCISE EXPLAINED RTO PRN EXPLAINED. 1. Atherosclerosis of [place] artery of extremity (I70.209: Unspecified atherosclerosis of [place] arteries of extremities, unspecified extremity) 2. Carpal tunnel syndrome (G56.00: Carpal tunnel syndrome, unspecified upper limb) 3. Chronic obstructive bronchitis (J44.9: Chronic obstructive pulmonary disease, unspecified) 4. 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 Endocarditis (I38: Endocarditis, valve unspecified) 6. Essential hypertension (I10: Essential (primary) hypertension) 7. Hemiparesis (G81.90: Hemiplegia, unspecified affecting unspecified side) 8. Illiteracy (Z55.0: Illiteracy and low-level literacy) 9. Lumbosacral spondylosis without myelopathy (M47.817: Spondylosis without myelopathy or radiculopathy, lumbosacral region) 10. Neuralgia, (M79.2: Neuralgia and neuritis, unspecified)Neuritis 12. Peripheral vascular disease (I73.9: Peripheral vascular disease, unspecified) 13. Primary hypercholesterolemia (E78.00: Pure hypercholesterolemia, unspecified) 14. Spasm of back muscles (M62.830: Muscle spasm of back) 15. Thoracic spondylosis without myelopathy (M47.814: Spondylosis without myelopathy or radiculopathy, thoracic region) 16. Heart murmur (R01.1: Cardiac murmur, unspecified) 17. PVD (pulmonary valve disease) (I37.9: Nonrheumatic pulmonary valve disorder, unspecified) 18. BMI 29.0-29.9,adult (Z68.29: Body mass index [BMI] 29.0-29.9, adult) 19. Over weight (E66.3: Overweight) 20. Smoker (F17.200: Nicotine dependence, unspecified, uncomplicated) Orders: albuterol, 180 mcg, 2 puff(s), Inhalation, q4hr for wheezing or SOB, 1 EA, Refill(s) 11, [facility], 175.2, cm, 06/13/22 14:44:00 EDT, Height/Length Dosing, 91.6, kg, 06/13/22 14:44:00 EDT, Weight Dosing aspirin, 81 mg = 1 tab(s), Oral, Daily, # 90 tab(s), Refills(s) 3, Pharmacy: [facility], 175.2, cm, 06/13/22 14:44:00 EDT, Height/Length Dosing, 91.6, kg, 06/13/22 14:44:00 EDT, Weight Dosing cilostazol, 50 mg = 1 tab(s), Oral, BID, # 180 tab(s), Refills(s) 3, Pharmacy: [facility], 175.2, cm, 06/13/22 14:44:00 EDT, Height/Length Dosing, 91.6, kg, 06/13/22 14:44:00 EDT, Weight Dosing cyclobenzaprine, 10 mg = 1 tab(s), Oral, qPM, PRN for spasm, # 30 tab(s), Refills(s) 11, Pharmacy: [facility], 175.2, cm, 06/13/22 14:44:00 EDT, Height/Length Dosing, 91.6, kg, 06/13/22 14:44:00 EDT, Weight Dosing famotidine, 40 mg = 1 tab(s), Oral, Daily, # 9 tab(s), Refills(s) 3, Pharmacy: [facility], 175.2, cm, 06/13/22 14:44:00 EDT, Height/Length Dosing, 91.6, kg, 06/13/22 14:44:00 EDT, Weight Dosing lisinopril, 10 mg = 1 tab(s), Oral, BID, # 180 tab(s), Refills(s) 3, Pharmacy: [facility], 175.2, cm, 06/13/22 14:44:00 EDT, Height/Length Dosing, 91.6, kg, 06/13/22 14:44:00 EDT, Weight Dosing metoprolol, 25 mg = 1 tab(s), Oral, BID, # 180 tab(s), Refills(s) 3, Pharmacy: [facility], 175.2, cm, 06/13/22 14:44:00 EDT, Height/Length Dosing, 91.6, kg, 06/13/22 14:44:00 EDT, Weight Dosing Follow- (more content not included)... Normal [facility] Comment on above: Result Comment: Elec tronically Signed By: AIDAN MOMIN, NAOMIE Hanna\.br\Date and Time Signed: 06/13/22 15:13 EDT 37on 04-13-2022 37 Increase Coreg/Carvedilol to 37.5 mg twice daily for blood pressure Normal [facility] Office Visiton 04-13-2022 Follow-up visit [id number] Conor Lee 1965 M Date Provider Department Center 04/13/2022 JESSICA CHOU [facility] Family History Problem Relation Age of Onset Diabetes Other Hypertension Other Family Status - Relation Status Age at Other Level of Service:24520 MS OFFICE/OUTPATIENT ESTABLISHED MOD MDM 30-39 MIN Reason for Visit and Comments: Valve Disorder [3372] Hypertension [652391] Peripheral Vascular Disease [458] Normal [facility] ECHOCARDIO M/2D COMPLETEon 1 ECHOCARDIO M/2D COMPLETE Patient: CONOR LEE Exam Date: 12/06/2021 : 1965 Gender:M Ordering : DR ARVIN LEDESMA M.D. Admission #: [id number] Family : DR NAOMIE BERMUDEZ . Order #: [id number] CLICK HERE TO VIEW EXAM ECHOCARDIOGRAM REPORT PROCEDURE: CARDIO PULMONARY ECHOCARDIO M/2D COMP INDICATIONS: Aortic valve disorder, H/O AVR: 23 mm Magna Bovine pericardial, Smoker COMPARISON: None. DESCRIPTION: COMPLETE ECHOCARDIOGRAM Real-time transthoracic echocardiography with 2D, M-mode, spectral and color flow Doppler performed. QUALITY: Technical quality was adequate. 70 208# HR 74 190/118 - asymptomatic, to take BP meds w/ breakfast LEFT VENTRICLE: Normal chamber size. Proximal septal hypertrophy (sigmoid septum). LV EF: Global left ventricular systolic function is normal. Visual estimation of left ventricular ejection fraction is 65%. No regional wall motion abnormality. Mild left ventricular hypertrophy. DIASTOLIC: Diastolic function is indeterminate. ATRIAL SEPTUM: Inadequately seen. LEFT ATRIUM: Normal chamber size. RIGHT ATRIUM: Normal chamber size. RIGHT VENTRICLE: Normal chamber size. Normal right ventricular systolic function. TRICUSPID VALVE: Normal mobility and thickness. No stenosis with trivial regurgitation. No evidence of pulmonary hypertension. RVSP 19 mmHg MITRAL VALVE: Normal mobility and thickness. No evidence of mitral valve stenosis. Moderate mitral annular calcification. Trivial mitral regurgitation. AORTIC VALVE: Bioprosthetic valve appears well seated in the aortic position with abnormally high Doppler flows. DVI 0.41. Moderate focal aortic valve calcification. No aortic regurgitation. AORTIC ROOT: Normal diameter and appearance. Ascending aorta is at upper normal limits in size. PULMONIC VALVE: Normal thickness and mobility. No stenosis. Trivial regurgitation. PERICARDIUM: No evidence of pericardial effusion. IVC: Collapses with inspirations. IVC is normal in size. CONCLUSION: Global left ventricular systolic function is normal; visually estimated ejection fraction is 60 to 65%. No significant wall motion abnormalities. Mild left ventriculography. Diastolic function is indeterminate. The right ventricle is normal in size and systolic function. A bioprosthetic aortic valve is seen; flows across the valve are mildly elevated. Adult Echocardiography Procedure Report Left Ventricle Left Atrium Mitral Valve Right Ventricle Aorta Aortic Valve Tricuspid Valve Pulmonic Valve Right Atrium Dictated by: Arvin Ledesma M.D. on 12/11/2021 at 11:53 Approved by: Arvin Ledesma M.D. on 12/11/2021 at 11:58 Normal [facility] PROF CHEM 8 (BAS METB)on Anion gap [Moles/Vol] 9.7 mmol/L Normal [facility] Comment on above: Performed By: #### B MP #### [facility] [address] [place], [place] [address] Dr. Flavio Horn Calcium [Mass/Vol] 8.7 mg/dL Normal 8.5-10.1 [facility] Comment on above: Performed By: #### B MP #### [facility] [address] [place], [place] [address] Dr. Flavio Horn Chloride [Moles/Vol] 103 mmol/L Normal 98-107 [facility] Comment on above: Performed By: #### B MP #### [facility] [address] [place] [address] [address] Flavio Horn CO2 [Moles/Vol] 31.3 mmol/L Normal 21.0-32.0 [facility] Comment on above: Performed By: #### B MP #### [facility] [address] [place] [address] [address] Flavio Hron Creatinine [Mass/Vol] 0.97 mg/dL Normal 0.70-1.30 [facility] Comment on above: Performed By: #### B MP #### [facility] [address] [place] [address] [address] Flavio Horn EGFR-AF NIGERIAN >60 Normal >=60 [facility] Comment on above: Performed By: #### B MP #### [facility] [address] [place] [address] [address] Flavio Horn EGFR-NON AF NIGERIAN >60 Normal >=60 [facility] Comment on above: Performed By: #### B MP #### [facility] [address] [place] [address] [address] Flavio Horn Glucose [Mass/Vol] 112 mg/dL Critically high 74-106 [facility] Comment on above: Performed By: #### B MP #### [facility] [address] [place] [address] Dr. Flavio Horn Potassium [Moles/Vol] 3.6 mmol/L Normal 3.5-5.1 [facility] Comment on above: Performed By: #### B MP #### [facility] [address] [place] [address] [address] Flavio Horn Sodium [Moles/Vol] 141 mmol/L Normal 136-145 [facility] Comment on above: Performed By: #### B MP #### [facility] [address] [place] [address] [address] Flavio Horn Urea nitrogen [Mass/Vol] 10.0 mg/dL Normal 7.0-18.0 [facility] Comment on above: Performed By: #### B MP #### [facility] [address] [place] [address] [address] Flavio Horn Urea nitrogen/Creatinine [Mass ratio] 10.3 mg/mg Normal [facility] Comment on above: Performed By: #### B MP #### [facility] [address] [address] [address] Flavio Horn PROF CHEM 8 (BAS METB)on Anion gap [Moles/Vol] 10.7 mmol/L Normal [facility] Comment on above: Performed By: #### B MP #### [facility] [address] [address] [address] Flavio Horn Calcium [Mass/Vol] 9.3 mg/dL Normal 8.5-10.1 [facility] Comment on above: Performed By: #### B MP #### [facility] [address] [place] [address] Dr. Flavio Horn Chloride [Moles/Vol] 101 mmol/L Normal 98-107 [facility] Comment on above: Performed By: #### B MP #### [facility] [address] [address] [address] Flavio Horn CO2 [Moles/Vol] 31.8 mmol/L Normal 21.0-32.0 [facility] Comment on above: Performed By: #### B MP #### [facility] [address] [address] [address] Flavio Horn Creatinine [Mass/Vol] 1.03 mg/dL Normal 0.70-1.30 [facility] Comment on above: Performed By: #### B MP #### [facility] [address] [address] [address] Flavio Horn EGFR-AF NIGERIAN >60 Normal >=60 [facility] Comment on above: Performed By: #### B MP #### [facility] [address] [address] [address] Flavio Horn EGFR-NON AF NIGERIAN >60 Normal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 cardiovascular examination Aortic valve disorder 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) Expected: 11/20/2022, Expires: 01/20/2023 [facility] Work Phone: Comment on above: Expected: 11/20/2022 , Expires: 01/20/2023 Start: 11-20-2022 End: 01-20-2023 Comprehensive metabolic 2000 panel - Serum or Plasma COMP METABOLIC PANEL Lab Routine Encounter for preprocedural cardiovascular examination Aortic valve disorder 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) Expected: 11/20/2022, Expires: 01/20/2023 [facility] Work Phone: Comment on above: Expected: 11/20/2022 , Expires: 01/20/2023 Start: 11-20-2022 End: 01-20-2023 Lactate dehydrogenase [Enzymatic activity/volume] in Serum or Plasma LD LACTATE DEHYDRO Lab Routine Encounter for preprocedural cardiovascular examination Aortic valve disorder 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) Expected: 11/20/2022, Expires: 01/20/2023 [facility] Work Phone: Comment on above: Expected: 11/20/2022 , Expires: 01/20/2023 Start: 11-20-2022 End: 01-20-2023 PT panel - Platelet poor plasma by Coagulation assay PROTHROMBIN TIME/PT Lab Routine Encounter for preprocedural cardiovascular examination Aortic valve disorder 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) Expected: 11/20/2022 (Approximate), Expires: 01/20/2023 [facility] Work Phone: Comment on above: Expected: 11/20/2022 (Approximate), Expires: 01/20/2023 Start: 10-19-2022 Covid-19 Vaccine () Covid-19 Vaccine () [facility] Start: 10-19-2022 Influenza vaccination Influenza Vacc ine (#1) [facility] Start: 02-18-2022 Depression Assessment Depression Ass essment [facility] Start: 2021 Prostate Cancer Scre ening Discussion Prostate Cancer Screening Discussion [facility] Start: 2021 Prostate specific an tigen measurement Prostate Cancer Screening Discussion [facility] Start: 10-20-2019 Influenza vaccinatio n given Sequential Influenza Vaccine (#1) [facility] Start: 2016 Administration of he rpes zoster vaccine Zoster Vaccines (1 of 2) [facility] Start: 2016 Screening for malign ant neoplasm of colon [facility] Start: 2016 Shingrix Vaccine (1 of 2) Acuna grix Vaccine (1 of 2) [facility] Start: 05-20-2011 Cologuard (FIT-DNA) Cologuard (FIT-D NA) [facility] Start: 05-20-2011 Colonoscopy Colonoscopy [facility] Start: 05-20-2011 Colorectal Cancer Screening Colorectal Cancer Screening [facility] Start: 05-20-[address] COLONOGRAPHY [facility] Start: 05-20-2011 Diabetes Screening Diabetes Screenin g [facility] Start: 05-20-2011 Fecal Occult Blood Fecal Occult Bloo d [facility] Start: 05-20-2011 Screening for malign ant neoplasm of colon [facility] Start: 05-20-2011 SIGMOIDOSCOPY [facility] Start: 2001 Lipid 1996 panel - S yusuf or Plasma Lipid Screening [facility] Start: 2001 Lipid panel Lipid Screening [facility] Start: 1996 Zoledronic acid therapy Alpha- 1 Antitrypsin Deficiency Screening [facility] Start: 1985 Urine microalbumin profile DTaP,Tdap,Td Vaccine (1 - Tdap) [facility] Start: 1984 Annual PCP Team [employer] jannette Disease Visit Annual PCP Team Chronic Disease Visit [facility] Start: 1984 BP Controlled (<130/80) BP Controlle d (<130/80) [facility] Start: 1984 Hepatitis B surface antibody level LDL Cholesterol [facility] Start: 1984 Hepatitis C antibody , confirmatory test Hepatitis C Screening [facility] Start: 1984 Hepatitis C Screening Hepatitis C [facility] Start: 1984 Hepatitis C screening Hepatitis C [facility] Start: 1984 HIV Screening HIV Screening [facility] Start: 1984 HIV screening HIV Screening [facility] Start: 1982 COVID-19 Vaccine (1 of 2) COVI D-19 Vaccine (1 of 2) [facility] Start: 1981 HIV screening HIV Screening [facility] Start: 1978 Adolescent depressio n screening assessment Depression Screening (PHQ9) [facility] Start: 1972 Pneumococcal vaccination [facility] Start: 1969 History and physical examination, annual for health maintenance Wellness Visit [facility] Start: 1966 Covid-19 Vaccine (#1) Covid-19 Vacci ne (#1) [facility] Start: 1966 Hepatitis B Vaccine (1 of 3 - 3-dose series) Hepatitis B Vaccine (1 of 3 - 3-dose series) [facility] Start: 1966 Prostate specific an tigen measurement PSA Level [facility] Start: 1966 Tetanus vaccination Tetanus: Every 1 0yrs [facility] End: 12-20-2023 Ct angiography chest w/contrast/noncontrast CTA CHEST (GATED) W IVCON Radiology Routine Encounter for preprocedural cardiovascular examination Aortic valve disorder 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) 1 Occurrences starting 11/20/2022 until 12/20/2023 [facility] Work Phone: Comment on above: 1 Occurrences starti ng 11/20/2022 until 12/20/2023 End: 02-01-2024 CTA CHEST/ABD/PEL (GATED) W IVCON CTA CHEST/ABD/PEL (GATED) W IVCON Radiology Routine Stenosis of prosthetic aortic valve, subsequent encounter Encounter for preprocedural cardiovascular examination Aortic valve disorder 1 Occurrences starting 01/02/2023 until 02/01/2024 [facility] Work Phone: Comment on above: 1 Occurrences starti ng 01/02/2023 until 02/01/2024 CTA CHEST/ABD/PEL (G ATED) W IVCON CTA CHEST/ABD/PEL (GATED) W IVCON Radiology Routine Stenosis of prosthetic aortic valve, subsequent encounter Encounter for preprocedural cardiovascular examination Aortic valve disorder 02/01/2023 1:00 PM EST [facility] Work Phone: End: 11-21-2023 ECG COMPLETE ECG COMPLETE ECG Routine Encounter for preprocedural cardiovascular examination Aortic valve disorder 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) 1 Occurrences starting 11/20/2022 until 11/21/2023 [facility] Work Phone: Comment on above: 1 Occurrences starti ng 11/20/2022 until 11/21/2023 End: 01-03-2024 ECG COMPLETE ECG COMPLETE ECG Routine Stenosis of prosthetic aortic valve, subsequent encounter Encounter for preprocedural cardiovascular examination Aortic valve disorder 1 Occurrences starting 01/02/2023 until 01/03/2024 [facility] Work Phone: Comment on above: 1 Occurrences starti ng 01/02/2023 until 01/03/2024 End: 11-21-2023 Echocardiography ECHO Cardiology Routine Encounter for preprocedural cardiovascular examination Aortic valve disorder 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) 1 Occurrences starting 11/20/2022 until 11/21/2023 [facility] Work Phone: Comment on above: 1 Occurrences starti ng 11/20/2022 until 11/21/2023 End: 12-20-2023 LUNG DIFFUSION CAPACITY (DLCO) LUNG DIFFUSION CAPACITY (DLCO) PFT Routine Encounter for preprocedural cardiovascular examination Aortic valve disorder 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) 1 Occurrences starting 11/20/2022 until 12/20/2023 [facility] Work Phone: Comment on above: 1 Occurrences starti ng 11/20/2022 until 12/20/2023 LUNG DIFFUSION CAPAC ITY (DLCO) LUNG DIFFUSION CAPACITY (DLCO) PFT Routine Encounter for preprocedural cardiovascular examination Aortic valve disorder 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) 12/05/2022 2:49 PM EDT [facility] Work Phone: End: 01-16-[address] attenuation skull base mid-thigh NM PET/CT SKULL-THIGH INITIAL Radiology Routine Lung mass Mediastinal adenopathy 1 Occurrences starting 12/17/2022 until 01/16/2024 [facility] Work Phone: Comment on above: 1 Occurrences starti ng 12/17/2022 until 01/16/2024 PVR ANK PRESS [facility] PVR AN K PRESS [facility] Vascular Lab Routine Encounter for preprocedural cardiovascular examination Aortic valve disorder 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) Ordered: 11/20/2022 [facility] Work Phone: Comment on above: Ordered: 11/20/2022 End: 12-05-2023 PVR ANK PRESS [facility] PVR ANK PRESS [facility] Vascular Lab Routine PAD (peripheral artery disease) (HCC) 1 Occurrences starting 12/04/2022 until 12/05/2023 [facility] Work Phone: Comment on above: 1 Occurrences starti ng 12/04/2022 until 12/05/2023 PVR LEG [facility] PVR LEG [facility] Vascular Lab Routine PVD (peripheral vascular disease) (HCC) Ordered: 12/07/2022 [facility] Work Phone: Comment on above: Ordered: 12/07/2022 End: 02-01-2024 Radiologic exam chest 2 views XR CHEST 2V FRONTAL/LAT Radiology Routine Stenosis of prosthetic aortic valve, subsequent encounter Encounter for preprocedural cardiovascular examination Aortic valve disorder 1 Occurrences starting 01/02/2023 until 02/01/2024 [facility] Work Phone: Comment on above: 1 Occurrences starti ng 01/02/2023 until 02/01/2024 Radiologic exam ches t 2 views XR CHEST 2V FRONTAL/LAT Radiology Routine Stenosis of prosthetic aortic valve, subsequent encounter Encounter for preprocedural cardiovascular examination Aortic valve disorder 02/01/2023 12:11 PM EST [facility] Work Phone: End: 12-20-2023 SPIROMETRY BASELINE ONLY SPIROMETRY BASELINE ONLY PFT Routine Encounter for preprocedural cardiovascular examination Aortic valve disorder 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) 1 Occurrences starting 11/20/2022 until 12/20/2023 [facility] Work Phone: Comment on above: 1 Occurrences starti ng 11/20/2022 until 12/20/2023 SPIROMETRY BASELINE ONLY SPIROME TRY BASELINE ONLY PFT Routine Encounter for preprocedural cardiovascular examination Aortic valve disorder 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) 12/05/2022 2:49 PM EDT [facility] Work Phone: End: 12-20-2023 US ABDOMEN COMPLETE US ABDOMEN COMPLETE Radiology Routine Encounter for preprocedural cardiovascular examination Aortic valve disorder 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) 1 Occurrences starting 11/20/2022 until 12/20/2023 [facility] Work Phone: Comment on above: 1 Occurrences starti ng 11/20/2022 until 12/20/2023 End: 12-05-2023 US CAROTID ARTERIES [facility] US CAROTID ARTERIES [facility] Vascular Lab Routine Bilateral carotid bruits 1 Occurrences starting 12/04/2022 until 12/05/2023 [facility] Work Phone: Comment on above: 1 Occurrences starti ng 12/04/2022 until 12/05/2023 End: 12-05-2023 US LEG ARTERIAL PERIPH [facility] US LEG ARTERIAL PERIPH [facility] Vascular Lab Routine PAD (peripheral artery disease) (HCC) 1 Occurrences starting 12/04/2022 until 12/05/2023 [facility] Work Phone: Comment on above: 1 Occurrences starti ng 12/04/2022 until 12/05/2023 [facility] Payers Date Payer Category Payer Medicaid [id number] 2013 Medicaid [id number] 2013 Medicaid [id number] 1966 Unknown [id number] 2.16.84 [id number] 1966 Unknown [id number] 2.16.84 [id number] 1966 Unknown [id number] 2.16.84 [id number] 1966 Unknown [id number] 2.16.84 [id number] 1966 Unknown [id number] 2.16.84 [id number] 1966 Unknown [id number] 2.16. [id number] 1966 Unknown [id number] 2.16.8 [id number] 1966 Unknown [id number] 2.16.8 [id number] 1966 Unknown [id number] 2.16.8 [id number] 1966 Unknown [id number] 2.16.8 [id number] 1966 Unknown [id number] 2.16.8 [id number] 1966 Unknown [id number] 2.16.8 [id number] 1959 Unknown [id number] Medicaid [id number] 1. [id number] Social History Date Type Detail Facility Tobacco smoking stat [facility] Unknown if ever smoked [facility] Start: 1965 Sex Assigned At Not on file [facility] Tobacco smoking stat [facility] Tobacco smoking consumption unknown [facility] Start: 12-04-2022 End: 01-18-2023 Gender identity Not on file [facility] Start: 12-04-2022 End: 02-01-2023 Tobacco smoking status NHIS Smokes tobacco daily [facility] History of tobacco use Cigarette Smoker C [facility] Start: 12-04-2022 End: 01-18-2023 Cigarettes smoked current (pack per day) - Reported 1.5 [facility] Start: 12-04-2022 End: 02-01-2023 Tobacco use and exposure Smokeless tobacco non-user [facility] National Score (1-10 0), lower number is lower risk 78 [facility] Start: 12-05-2022 End: 01-03-2023 Alcohol intake Current drinker of alcohol (finding) [facility] Start: 01-15-2023 Alcohol Comment daily [facility] Start: 07-18-2017 Gender identity Identifies as male gender (finding) [facility] Start: 07-18-2017 Sexual orientation Heterosexual (fin ding) [facility] How hard is it for y ou to pay for the very basics like food, housing, medical care, and heating Somewhat hard [facility] (I/We) worried wheth er (my/our) food would run out before (I/we) got money to buy more. Never true [facility] In the past 12 month s, was there a time when you were not able to pay the mortgage or rent on time? No [facility] Start: 02-01-2023 Alcohol intake Ex-drinker (finding) [facility] Start: 02-01-2023 Tobacco Comment Smoking 3/4-1 pack per day [facility] Start: 02-01-2023 Alcohol Comment hx of ETOH abu se, stopped drinking 3 weeks ago [facility] Clinical Notes 04-13-2022 to 02-04-2023 Patient InstructionsNatividad Moore APRN.AISSATOU - 02/01/2023 1:15 PM Pretty Posadas RN - 02/01/2023 12:45 PM Jennie Bill, RT(R) - 02/01/2023 12:45 PM EST Note Date & Type Note Facility 02-04-2023 Note HNO ID: [id number] Author: Natividad Moore APRN.CNP Service: ? Author Type: Nurse Practitioner Type: Progress Notes Filed: 02/04/2023 3:59 PM Note Text: After further discussion, will proceed with L TF TAVR as surgery is not an option. Will consult to vascular surgery for extensive PAD prior to valve intervention. Consult order placed. I spoke with patient on the phone about above plan. He verbalized understanding. He also stated that he has a dentist appointment this week and will follow up with us after. Natividad Moore APRN.CNP [facility] 02-04-2023 Note HNO ID: [id number] Author: Natividad Moore APRN.CNP Service: ? Author Type: Nurse Practitioner Type: Progress Notes Filed: 02/04/2023 3:49 PM Note Text: [facility] [place] [facility] Department of Cardiovascular Medicine SECTION OF INTERVENTIONAL CARDIOLOGY Date February 04, 2023 MULTI DISCIPLINARY TAVR TEAM MEETING [employer] Teams Meeting Team members: Dr. Guerra, Dr. Loya, Dr. Vaughan, Dr. Schuster, Dr. Aviles, Dr. Banda, Dr. Strickland, Dr. Bo, Dr. Khan, Dr. Quiroz, Dr. Rodas, Dr. Cox, Dr. Tejada, Shay Moore CNP, Roel Kapadia CNP, Roel Earl [facility], Marnie Barnes CNP and Rosana Whitlock RN PATIENT NAME: Conor Lee DATE: 02/04/2023 Presenting Physician: Dr. Schuster Outcome: Conor Lee history and imaging were reviewed by the physicians in attendance. CT reviewed. Magna23 prosthetic valve. Stenosed. R lung mass, CAD. Difficult access, L side with angioplasty to facilitate. Would have to consider basilica or stephanie. Could cause torrential AR with stephanie. Cath reviewed. The collaborative recommendation: rediscuss with Dr. Mckinney regarding surgical options as TAVR is not straight forward. Natividad Moore APRN.CNP [facility] 02-01-2023 Note HNO ID: [id number] Author: Natividad Moore APRN.CNP Service: ? Author Type: Nurse Practitioner Type: Progress Notes Filed: 02/01/2023 3:44 PM Note Text: [facility] [place] [facility] Department of Cardiovascular Medicine SECTION OF INTERVENTIONAL CARDIOLOGY OUTPATIENT VISIT DATE February 01, 2023 OUTPATIENT VISIT TYPE ESTABLISHED FOLLOW UP Primary Care Physician: Harpreet Lim MD Chief Complaint: Patient is here today for cardiac evaluation follow up. History of Present Illness: Conor Lee is a 57 year old male who presents for follow up visit today to discuss the evaluation process for aortic valve disease and treatment options which include TAVR. Conor Lee was last seen by Dr. Schuster and saw Dr. Mckinney back in November. Conor Lee is from [place] where he lives with his significant other. He reports shortness of breath but states he feels that he has had this since his AVR in 2011. Also endorses chest tightness on exertion for the past 5 years. He is independent in his ADLs and maintaining his home. He is still driving. Denies orthopnea, PND, palpitations, lightheadedness, syncope, and leg swelling CARDIOVASCULAR MEDICINE TESTING: Echocardiogram 01/18/2023: The left ventricle is mildly dilated. There is mild concentric left ventricular hypertrophy. Left ventricular systolic function is mildly decreased. EF = 49 ? 5% (2D biplane) Grade II left ventricular diastolic dysfunction. The right ventricle is normal in size. Right ventricular systolic function is normal. MITRAL VALVE There is mild mitral annular calcification observed anterior. There is trace mitral valve regurgitation. There is mild thickening. The pressure half time is 57 msec. The peak mitral E/A ratio is 1.13. The average mitral E/e' ratio is 8.0. The mitral flow deceleration time is 197 msec. TRICUSPID VALVE The tricuspid valve leaflets are structurally normal. There is trace tricuspid valve regurgitation. AORTIC VALVE Magna prosthetic valve size #23. There is severe aortic valve stenosis caused by prosthetic thickening/calcification. There is trace aortic valve regurgitation. The peak gradient is 96 mmHg (peak velocity = 489.0 cm/s). The mean gradient is 57 mmHg. The LVOT mean velocity is 70.5 cm/s. The aortic VTI is 128.0 cm. The mean velocity in the aortic valve is 355.0 cm/s. The dimensionless valve index is 0.21. [facility] Cardiac Catheterization 10/18/2022: Images in [facility] FINAL IMPRESSIONS: Severe, bioprosthetic, aortic valve stenosis by invasive hemodynamic study Severe, two-vessel coronary artery disease including a chronic total occlusion ([place]) of the right coronary artery Normal global left ventricular systolic function by noninvasive imaging Moderately elevated right-sided heart pressures and mildly elevated pulmonary capillary wedge pressure Elevated transpulmonary gradient along with the mildly elevated wedge consistent with pre- and postcapillary pulmonary hypertension High normal cardiac output/cardiac index Resting arterial hypoxemia Severe peripheral arterial disease evidenced angiographically Hemoglobin (g/dL) Date Value 02/01/2023 15.9 Hematocrit (%) Date Value 02/01/2023 46.1 WBC (k/uL) Date Value 02/01/2023 11.73 Glucose (mg/dL) Date Value 02/01/2023 120 Potassium (mmol/L) Date Value 02/01/2023 5.0 Sodium (mmol/L) Date Value 02/01/2023 132 Chloride (mmol/L) Date Value 02/01/2023 97 CO2 (mmol/L) Date Value 02/01/2023 27 Creatinine (mg/dL) Date Value 02/01/2023 0.99 BUN (mg/dL) Date Value 02/01/2023 18 Anion Gap (mmol/L) Date Value 02/01/2023 8 Calcium, Total (mg/dL) Date Value 02/01/2023 10.0 Protein, Total (g/dL) Date Value 02/01/2023 7.0 Albumin (g/dL) Date Value 02/01/2023 4.2 Bilirubin, Total (mg/dL) Date Value 02/01/2023 0.3 Alkaline Phosphatase (U/L) Date Value 02/01/2023 67 AST (U/L) Date Value 02/01/2023 17 ALT (U/L) Date Value 02/01/2023 25 I have personally reviewed all of the above testing. [place] CARDIOMYOPATHY QUESTIONNAIRE (KCCQ-12) Activity: A. Showering/bathing: Extremely limited Quite a bit limited Moderately limited Slightly limited Not at all limited Limited for other reasons or did not do the activity B. Walking 1 block on level ground: Extremely limited Quite a bit limited Moderately limited Slightly limited Not at all limited Limited for other reasons or did not do the activity C.Hurrying or jogging (as if to catch a bus): Extremely limited Quite a bit limited Moderately limited Slightly limited Not at all limited Limited for other reasons or did not do the activity 2. Over the past 2 weeks, how many times did you have swelling in your feet, ankles or legs when you woke up in the morning? Every morning 3 or more times per week but not every day 1-2 times per w (more content not included)... [facility] 02-01-2023 Note HNO ID: [id number] Author: Jennie Mayes RT(R) Service: Radiology Author Type: Technologist Type: Progress Notes Filed: 02/01/2023 1:01 PM Note Text: Radiology Service Progress Note PATIENT NAME: Conor Lee DATE OF SERVICE: February 01, 2023 TIME: 1:00 PM PATIENT IDENTITY VERIFICATION COMPLETED USING TWO (2) IDENTIFIERS: Name and Date of confirmed by patient verbally and Name and Date of confirmed by identification band. FALL SCREENING: Has the patient had 2 falls in the last year or 1 fall with injury or currently using an Ambulatory Assistive Device (Walker, Cane, Wheelchair, Crutches, etc.)? No PATIENT GENDER DATA: Male PATIENT RELEVANT IMPLANT DATA REVIEWED: Yes RADIOLOGY DEPARTMENT: CT; Exam(s) Completed: Cardiac PERIPHERAL IV DATA: Site assessment: Clean,Dry and Intact, Site disposition Discontinued SIGNED BY: RT Nicol(R) February 01, 2023 1:00 PM [facility] 02-01-2023 Note HNO ID: [id number] Author: Pretty Schafer RN Service: ? Author Type: Registered Nurse Type: Progress Notes Filed: 02/01/2023 12:35 PM Note Text: Radiology Service Progress Note DATE OF SERVICE: February 01, 2023 TIME: 12:06 PM PATIENT WEIGHT: 185LBS PATIENT IDENTITY VERIFICATION COMPLETED USING TWO (2) STANDARD IDENTIFIERS: Name and Date of confirmed by patient verbally and Name and Date of confirmed by identification band. FALL SCREENING: Has the patient had 2 falls in the last year or 1 fall with injury or currently using an Ambulatory Assistive Device (Walker, Cane, Wheelchair, Crutches, etc.)? No PATIENT GENDER DATA: Male ALLERGIES: Reviewed and unchanged CONTRAST ALLERGY: No EXAM: CT -CONTRAST INDUCED NEPHROPATHY RISK FACTORS: Congestive Heart Failure (CHF) CREATININE: Creatinine Date Value Ref Range Status 01/28/2023 1.06 0.73 - 1.22 mg/dL Final 01/20/2023 1.01 0.73 - 1.22 mg/dL Final 01/19/2023 1.07 0.73 - 1.22 mg/dL Final Estimated Glomerular Filtration Rate Date Value Ref Range Status 01/28/2023 82 >=60 mL/min/1.73m? Final Comment: Estimated Glomerular Filtration Rate (eGFR) is calculated using the 2020 CKD-EPI creatinine equation. This equation utilizes serum creatinine, sex, and age as parameters. The creatinine assay has traceable calibration to isotope dilution-mass spectrometry. Refer to KDIGO guidelines for clinical interpretation. In patients with unstable renal function, e.g. those with acute kidney injury, the eGFR may not accurately reflect actual GFR. P.O.C.T. RESULTS: N/A February 01, 2023 TREATMENT: No Hydration needed. IV SITE: Ambulatory: A peripheral IV was started in the Right forearm with a Angio cath: 20 gauge. and A Saline lock was inserted per protocol IV SITE APPEARANCE: Clean,Dry and Intact SIGNATURE: Pretty Schafer RN PATIENT NAME: Conor Lee DATE: February 01, 2023 TIME: 12:06 PM [facility] 02-01-2023 Instructions Natividad Moore APRN.POWERHOUSE ATTENDANT - 02/01/2023 1:50 PM EST Your case will be discussed with the valve team on Saturday02/04/2023. You will be contacted in about 2-3 weeks after the meeting to discuss the recommendations. If you have not heard from our office after that time, please feel free to contact Dr. Loya office: [phone] Reminder: Please obtain dental clearance [place]. Have the completed form faxed to our office. Keep the hard copy with you and bring it to your next appointment. We discussed pre-op planning which includes the need to come 1-2 days prior to surgery to have the following: An updated H&P with a provider in our office; pre-surgical labs/testing and to meet with anesthesia. The duration of the procedure is about 2 hours. Hospital stay following TF-TAVR is generally 1 day. Some patients may even be discharged the same day. Discharge time around 10:00 AM. Activity restriction is no heavy lifting of more than 10 pounds for 1 week following TAVR and no extensive walking. Also, post procedure no driving for up to 1-2 weeks. Additional information for post TAVR care: Activity Restrictions post procedure. Do not strain during bowel movements for 3 to 4 days after the procedure. This helps prevent bleeding from the catheter-insertion site. Do not lift anything that weighs more than 10 pounds or push or pull heavy objects for the first 10 to 14 days after the procedure. Do not do any strenuous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 and EMS noted that oxygen saturation was in the 70s. Patient was given 4 aspirin and nitro tab which helped a little bit but patient states that he continued to be significantly short of breath and having some chest pressure. Patient also explains that he has a history of lower extremity vascular occlusions and is not currently on a blood thinner. He also was recently rohini gnosed with a lung mass in the last couple weeks and has been following up with [facility] pulmonology group. Past Medical History Past Medical History: Diagnosis Date COPD (chronic obstructive pulmonary disease) (HCC) Hyperlipidemia Hypertension Past Surgical History Past Surgical History: Procedure Laterality Date ABDOMINAL SURGERY CARDIAC SURGERY Family History History reviewed. No pertinent family history. Social History Social History Tobacco Use Smoking Status Every Day Packs/day: 2 Types: Cigarettes Smokeless Tobacco Never Social History Substance and Sexual Activity Alcohol Use Yes Comment: daily Social History Substance and Sexual Activity Drug Use Never Allergy Information I have reviewed the patient's allergies. Patient has no known allergies. Home Medications Home medications were reviewed. Review Of Systems All relevant systems have been reviewed and are negative except as noted in HPI or below Physical Examination BP (!) 127/94 Pulse 76 Temp 97.6 F (36.4 C) Resp (!) 23 Ht 5' 10 Wt 87.5 kg (193 lb) SpO2 93% BMI 27.69 kg/m General Appearance: alert; acutely ill appearing; in no acute distress HEENT: Head- normocephalic; Eyes- EOMI, sclera anicteric; Throat- mucous membranes moist Cardiovascular: regular rate and rhythm; normal S1, S2; no murmurs, rubs, clicks or gallops; peripheral edema absent Respiratory: Decreased air entry to the right side to auscultation; without wheezes, rales or rhonchi; on nasal cannula Abdomen: soft, non-tender, non-distended Neurological: oriented x 3; normal speech; no focal findings or movement disorder noted Musculoskeletal: no significant deformity or tenderness to palpation Skin: normal coloration Psych: normal mood and affect documented in this [id number] Emergency department Note* Carmel Murphy RN - 01/16/2023 3:00 PM EST Hourly rounding assessment completed on the patient. [] Patient updated on plan of care [x] All comfort needs addressed [] Patient updated on duration of visit All questions answered, patient denies further needs. Call light within reach. [id number] Emergency department Note* Carmel Murphy RN - 01/16/2023 3:00 PM EST Hourly rounding assessment completed on the patient. [] Patient updated on plan of care [x] All comfort needs addressed [] Patient updated on duration of visit All questions answered, patient denies further needs. Call light within reach. * Carmel Murphy RN - 01/16/2023 2:04 PM EST Hourly rounding assessment completed on the patient. [x] Patient updated on plan of care [x] All comfort needs addressed [x] Patient updated on duration of visit All questions answered, patient denies further needs. Call light within reach. * Carmel Murphy RN - 01/16/2023 1:38 PM EST Meal tray delivered * Carmel Murphy RN - 01/16/2023 12:41 PM EST Hourly rounding assessment completed on the patient. [x] Patient updated on plan of care [x] All comfort needs addressed [x] Patient updated on duration of visit All questions answered, meal tray ordered by PSA, patient denies further needs. Call light within reach. * Carmel Murphy RN - 01/16/2023 11:45 AM EST Hourly rounding assessment completed on the patient. [] Patient updated on plan of care [x] All comfort needs addressed [] Patient updated on duration of visit All questions answered, pt given menu per request, patient denies further needs. Call light within reach. * Ronda Owens RN - 01/16/2023 11:31 AM EST Bed: 36 Expected date: Expected time: Means of arrival: Comments: [id number] * Dang Pierce RN - 01/16/2023 7:12 AM EST Report given to NADEEM Altamirano. * Dang Pierce RN - 01/16/2023 6:48 AM EST PT PROVIDED WITH NEW CUP OF WATER PER REQUEST, O2 TURNED TO 6L NC D/T O2 BEING 89%. PT DENIES ANY FURTHER NEEDS AT THIS TIME, CALL LIGHT WITHIN REACH. * Dang Pierce RN - 01/16/2023 5:37 AM EST Hourly rounding assessment completed on the patient. [] Patient updated on plan of care [x] All comfort needs addressed [] Patient updated on duration of visit All questions answered, patient denies further needs. Call light within reach. * Dang Pierce RN - 01/16/2023 4:16 AM EST Hourly rounding assessment completed on the patient. [] Patient updated on plan of care [x] All comfort needs addressed [] Patient updated on duration of visit All questions answered, patient denies further needs. Call light within reach. * Dang Pierce RN - 01/16/2023 3:57 AM EST RN answered pts call light. Pt stating he overfilled his bedside urinal. RN emptied urinal and cleaned floor up. Pt provided 2 new bedside urinals. RN readjusted pts bed to pts likings. Pt denies further needs at this time, call light within reach. * Wilmer Davidson Jr., PA-C - 01/16/2023 3:35 AM EST [facility] [place] NOTE: NAME: Conor Lee CSN: [id number] 57 y.o. PCP: No, Physician History: Chief Complaint: Chest Pain HPI: The history was obtained from the patient. Conor is a 57 y.o. male who presents with a chief complaint of Chest Pain. Patient comes the emergency room with chief complaint of shortness of breathand chest pain that started suddenly today. He did call EMS and EMS noted that oxygen saturation was in the 70s. Patient was given 4 aspirin and nitro tab which helped a little bit but patient statesthat he continued to be significantly short of breath and having some chest pressure. Patient also explains that he has a history of lower extremity vascular occlusions and is not currently on a blood thinner. He also was recently diagnosed with a lung mass in the last couple weeks and has been foll owing up with [facility] pulmonology group. PMHx: Past Medical History: Diagnosis Date COPD (chronic obstructive pulmonary disease) (HCC) Hyperlipidemia Hypertension PMSx: Past Surgical History: Procedure Laterality Date ABDOMINAL SURGERY CARDIAC SURGERY FAM. Hx: History reviewed. No pertinent family history. SOC. Hx: Social History Socioeconomic History Marital status: Tobacco Use Smoking status: Every Day Packs/day: 2 Types: Cigarettes Smokeless tobacco: Never Substance and Sexual Activity Alcohol use: Yes Comment: daily Drug use: Never MEDs: No current outpatient medications on file prior to encounter. ALL: No Known Allergies ROS: Review of Systems Constitutional: Negative. HENT: Negative. Respiratory: Positive for shortness of breath. Negative for choking and stridor. Cardiovascular: Positive for chest pain. Negative for palpitations and leg swelling. Gastrointestinal: Negative for abdominal pain, nausea and vomiting. Skin: Negative. Negative for rash. Neurological: Negative. All other systems reviewed and are negative. Positives and pertinent negatives as per HPI. All other systems were reviewed and are negative. Physical Exam: Patient Vitals for the past 24 hrs: BP Temp Pulse Resp SpO2 Height Weight 01/16/23 0100 (!) 156/80 -- 69 (!) 22 92 % -- -- 01/15/23 2315 (!) 154/90 -- 70 (!) 22 91 % -- -- 01/15/23 2200 138/79 -- 74 (!) 21 92 % -- -- 01/15/23 2030 (!) 176/99 -- 93 (!) 22 (!) 89 % -- -- 01/15/23 1900 (!) 173/96 -- 93 (!) 25 90 % -- -- 01/15/23 1831 -- 97.6 F (36.4 C) -- -- -- -- -- 01/15/23 1827 (!) 183/112 -- -- -- -- -- -- 01/15/23 1823 -- -- 95 (!) 30 91 % 5' 10 87.5 kg (193 lb) Physical Exam Vitals and nursing note reviewed. Constitutional: General: He is in acute distress. Appearance: He is well-developed. He is not toxic-appearing. HENT: Head: Normocephalic and atraumatic. Eyes: Extraocular Movements: Extraocular movements intact. Pupils: Pupils are equal, round, and reactive to light. Cardiovascular: Rate and Rhythm: Tachycardia present. Heart sounds: Normal heart sounds. Musculoskeletal: Right lower leg: Tenderness present. Left lower leg: Tenderness present. Pulmonary: Effort: Tachypnea present. No accessory muscle usage or respiratory distress. Breath sounds: Decreased breath sounds present. No wheezing or rhonchi. Chest: Chest wall: No mass or tenderness. Abdominal: General: Bowel sounds are normal. Palpations: Abdomen is soft. Skin: General: Skin is warm. Capillary Refill: Capillary refill takes less than 2 seconds. Coloration: Skin is not cyanotic or pale. Findings: No erythema. Neurological: General: No focal deficit present. Mental Status: He is alert and oriented to person, place, and time. Laboratory & Radiological Imaging (if done): Labs Reviewed COMPREHENSIVE METABOLIC PANEL - Abnormal; Notable for the following components: Result Value Anion Gap 9 (*) Glucose 184 (*) Total Protein 8.2 (*) All other components within normal limits Narrative: [facility] has implemented the eGFR calculation approach that does not have a coefficient for race that conforms to the NKF-ASN Task Force Recommendations. NT PRO BNP - Abnormal; Notable for the following components: NT-Pro BNP 5,377 (*) All other components within normal limits Narrative: Pride Study Cut-offs Rule In: < /= 50 Years >450 pg/mL 51 Years - 75 Years >900 pg/mL 76 Years - 99 Years >1800 pg/mL Rule Out: All patients <300 pg/mL CBC WITH AUTO DIFFERENTIAL - Abnormal; Notable for the following components: WBC 12.34 (*) MCV 109.5 (*) MCH 37.4 (*) RDW - CV 15.0 (*) Neutrophils Abs 9.21 (*) All other components within normal limits COVID-19/INFLUENZA A,B MOLECULAR - Normal Narrative: This test was performed under the FDA's Emergency Use Authorization (EUA). Testing was performed using the [employer] SARS-CoV-2 RT-PCR & Influenza A/B Nucleic Acid Teston the [employer] Mag System. This test has not been approved for use in asymptomatic patients and its performance in this patient population has not been evaluated. Negative results do not rule out the presence of SARS-CoV-2, influenza A, and/or influenza B. Fact sheets for the EUA can be found at the following links: For Healthcare Providers: https://www.fda.gov/media/250978/download For Patients: https://www.fda.gov/media/365503/download LIPASE - Normal TROPONIN CBC AND DIFFERENTIAL Narrative: The following orders were created for panel order CBC w/ Diff. Procedure Abnormality Status --------- ------ CBC Auto Differential[[id number]] Abnormal Final result Please view results for these tests on the individual orders. CT Pulmonary Arteries Final Result 1. No acute PE is identified. Main pulmonary artery is slightly distended raising possibility of pulmonary arterial hypertension. 2. The anterior segment of the right upper lobe bronchus appears obstructed by right anterior suprahilar masslike opacity measuring 3.6 x 2.3 x 3.7 cm. The more distal bronchi also occluded and may be due to some mucoid impaction or some additional soft tissue. Malignancy cannot be excluded and further correlation with bronchoscopy recommended. 3. Some mild nonenlarged and mildly enlarged mediastinal lymph nodes may be reactive or metastatic. 4. Small left pleural effusion with mild atelectasis in the left lower lobe with elevation of the left hemidiaphragm. 5. Some mosaic perfusion seen bilaterally may be due to some mild air trapping in conjunction with some small airway disease. Some bronchial wall thickening is also seen bilaterally image may be bronchitis/reactive airway disease. Tiny right pleural effusion minimal atelectasis in the right lung base. 6. Cardiomegaly with left ventricular hypertrophy severe atherosclerotic ossific changes of coronary arterial vasculature. Patient has had aortic valvular replacement. 7. 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 8. 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 GJT/r Workstation ID: [id number] XR Chest 1 View Final Result 1. Mild cardiomegaly. 2. Chronic lung markings perhaps with slight interstitial congestion. Mild bibasilar atelectasis noted. Workstation ID: [id number] ED Course / Medical Decision Making: I did personally review Conor's past medical history, surgical history, social history, as well as family history (when relevant). In this case, I also oversaw the his drug management by reviewing his medication list, allergy list, as well as the medications that I prescribed during the ED course and/or recommended as an out-patient (including possible OTC medications such as acetaminophen, NSAIDs , etc). His past medical problem list included: Active Ambulatory Problems Diagnosis Date Noted No Active Ambulatory Problems Resolved Ambulatory Problems Diagnosis Date Noted No Resolved Ambulatory Problems Past Medical History: Diagnosis Date COPD (chronic obstructive pulmonary disease) (HCC) Hyperlipidemia Hypertension ED MEDICATIONS GIVEN: Medications lisinopriL (PRINIVIL,ZESTRIL) tablet 20 mg (20 mg Oral Given 01/15/232047) carvediloL (COREG) tablet 37.5 mg (37.5 mg Oral Given 01/15/232047) diazePAM (VALIUM) tablet 5-15 mg (has no administration in time range) Or LORazepam (ATIVAN) injection 4 mg (has no administration in time range) Or LORazepam (ATIVAN) tablet 4 mg (has no administration in time range) Or LORazepam (ATIVAN) injection 4 mg (has no administration in time range) sodium chloride (PF) (NS) 0.9 % contrast line flush 10 mL (10 mL Intravenous Given 01/15/231941) And sodium chloride (PF) (NS) 0.9 % contrast line flush 80 mL (80 mL Intravenous Given 01/15/231940) iopamidoL (ISOVUE-370) 370 mg iodine /mL (76 %) injection 75 mL (75 mL Intravenous Contrast Administered 01/15/231940) dexAMETHasone (DECADRON) injection 10 mg (10 mg Intravenous Given 01/15/232046) racEPINEPHrine 2.25 % nebulizer solution 0.5 mL (0.5 mL Nebulization Given 01/15/232157) furosemide (LASIX) injection 40 mg (40 mg Intravenous Given 01/16/23212) After reviewing the items above, I did look at previous medical documentation, such as recent hospitalizations, office visits, and/or recent consultations with PCP/specialist. SDOH: Another factor that I considered in Conor's care was his Social Determinants of Health (SDOH). During this ED encounter, he did NOT appear to have any significant issues identified. LAB TESTING: Ancillary lab testing: BNP of 5300. Troponin of 42. White blood cell count of 12.3. RADIOLOGY: I did consider radiological studies for Conor's care today: CT scan demonstrates right anterior suprahilar mass is obstructing right upper lobe bronchus. No acute infiltration is seen. Small left-sided pleural effusion with atelectasis on the left lower lobe. Mild aneurysmal dilation of the aortic arch measuring 3.2. No pulmonary embolism seen on image study. ED COURSE: Patient evaluated emergency room for chest pain and shortness of breath. Patient was hypoxic upon EMS arrival into the 70s. Patient also very uncomfortable with laying flat as this will exacerbate his shortness of breath. He was placed on 5 L of nasal cannula oxygen which is brought oxygen saturation between 89 to 92%. Patient troponin is within normal limits. Image study demonstrates no acute pulmonary embolism however he does have a masslike lesion that is causing obstruction to the right upper lobe bronchus. I spoke with the hospitalist who is advised the patient should be transferred to [facility] as we do not have interventional pulmonology and because the patient already follows with pulmonology in their services. I spoke with who has excepted the patient to pulmonary and is currently awaiting bed placement. . Clinical Impression: 1. Lung mass 2. Hypoxia 3. Chest pain, unspecified type Disposition: ED Disposition ED Disposition Transfer to Another Facility Condition -- Comment Conor Lee to be transferred to [facility]. Wilmer Davidson Jr., PA-C ED Advanced Practice Provider [facility] Wilmer Davidson Jr., PA-C 01/16/23 0342 * Dang Pierce RN - 01/16/2023 3:03 AM EST Report received from NADEEM Santos. Care resumed at this time. * Jennifer Adames - 01/16/2023 12:43 AM EST Called [facility] and spoke to Suzanne. Per Adriana Alaniz accepting pt. Still waiting onthe bed assignment at this time. States unlikely for bed placement tonight, but possibly tomorrow. * Ronal Cordero - 01/15/2023 8:52 PM EST Called [facility] transfer center and gave info for possible transfer. Faxed face sheet. Berny pires Dr call and talk with our provider. * Danielle Werner RN - 01/15/2023 6:20 PM EST Pt arrives to ED c/o sudden onset chest tightness that started while driving. Associated shortness of breath. Per EMS O2 sats in 70s upon their arrival, improved with nasal cannula. Pt received 4ASA and Nitrotab which helped pain. RR are labored. Skin warm and dry. PA in room during triage * Soledad Guevara RN - 01/15/2023 6:13 PM EST Bed: 11 Expected date: Expected time: Means of arrival: Comments: INCOMING EMS documented in this [id number] Emergency department Note* Carmel Murphy RN - 01/16/2023 2:04 PM EST Hourly rounding assessment completed on the patient. [x] Patient updated on plan of care [x] All comfort needs addressed [x] Patient updated on duration of visit All questions answered, patient denies further needs. Call light within reach. [id number] Emergency department Note* Carmel Murphy RN - 01/16/2023 1:38 PM EST Meal tray delivered [id number] Emergency department Note* Carmel Murphy RN - 01/16/2023 12:41 PM EST Hourly rounding assessment completed on the patient. [x] Patient updated on plan of care [x] All comfort needs addressed [x] Patient updated on duration of visit All questions answered, meal tray ordered by PSA, patient denies further needs. Call light within reach. [id number] Emergency department Note* Carmel Murphy RN - 01/16/2023 11:45 AM EST Hourly rounding assessment completed on the patient. [] Patient updated on plan of care [x] All comfort needs addressed [] Patient updated on duration of visit All questions answered, pt given menu per request, patient denies further needs. Call light within reach. [address]2023 Emergency department Note* Ronda Owens RN - 01/16/2023 11:31 AM EST Bed: 36 Expected date: Expected time: Means of arrival: Comments: RM11 [id number] Emergency department Note* Dang Pierce RN - 01/16/2023 7:12 AM EST Report given to NADEEM Altamirano. [id number] Emergency department Note* Dang Pierce RN - 01/16/2023 6:48 AM EST PT PROVIDED WITH NEW CUP OF WATER PER REQUEST, O2 TURNED TO 6L NC D/T O2 BEING 89%. PT DENIES ANY FURTHER NEEDS AT THIS TIME, CALL LIGHT WITHIN REACH. [id number] Emergency department Note* Dang Pierce RN - 01/16/2023 5:37 AM EST Hourly rounding assessment completed on the patient. [] Patient updated on plan of care [x] All comfort needs addressed [] Patient updated on duration of visit All questions answered, patient denies further needs. Call light within reach. [address]2023 Emergency department Note* Dang Pierce RN - 01/16/2023 4:16 AM EST Hourly rounding assessment completed on the patient. [] Patient updated on plan of care [x] All comfort needs addressed [] Patient updated on duration of visit All questions answered, patient denies further needs. Call light within reach. [id number] Emergency department Note* Dang Pierce RN - 01/16/2023 3:57 AM EST RN answered pts call light. Pt stating he overfilled his bedside urinal. RN emptied urinal and cleaned floor up. Pt provided 2 new bedside urinals. RN readjusted pts bed to pts likings. Pt denies further needs at this time, call light within reach. [id number] Note* ED Procedure Note - Wilmer Davidson Jr., PA- C - 01/16/2023 3:42 AM ESTAssociated Order(s): ECG 12 Lead ECG 12 Lead Date/Time: 01/16/2023 3:43 AM Performed by: Wilmer Davidson Jr., PA-C Authorized by: Sharon Madrid MD Interpreted by ED attending physician Rhythm: sinus rhythm BPM: 93 Conduction: incomplete LBBB MS Interval: 144 QRS Interval: 110 QT Interval: 370 Other findings: LVH and LAE Clinical impression: non-specific ECG Comments: No STEMI [id number] Physician Emergency department Note* Wilmer Davidson Jr., PA-C - 01/16/2023 3:35 AM EST [facility] GEOVANNI NOTE: NAME: Conor Lee CSN: [id number] 57 y.o. PCP: No, Physician History: Chief Complaint: Chest Pain HPI: The history was obtained from the patient. Conor is a 57 y.o. male who presents with a chief complaint of Chest Pain. Patient comes the emergency room with chief complaint of shortness of breathand chest pain that started suddenly today. He did call EMS and EMS noted that oxygen saturation was in the 70s. Patient was given 4 aspirin and nitro tab which helped a little bit but patient statesthat he continued to be significantly short of breath and having some chest pressure. Patient also explains that he has a history of lower extremity vascular occlusions and is not currently on a blood thinner. He also was recently diagnosed with a lung mass in the last couple weeks and has been foll owing up with [facility] pulmonology group. PMHx: Past Medical History: Diagnosis Date COPD (chronic obstructive pulmonary disease) (HCC) Hyperlipidemia Hypertension PMSx: Past Surgical History: Procedure Laterality Date ABDOMINAL SURGERY CARDIAC SURGERY FAM. Hx: History reviewed. No pertinent family history. SOC. Hx: Social History Socioeconomic History Marital status: Tobacco Use Smoking status: Every Day Packs/day: 2 Types: Cigarettes Smokeless tobacco: Never Substance and Sexual Activity Alcohol use: Yes Comment: daily Drug use: Never MEDs: No current outpatient medications on file prior to encounter. ALL: No Known Allergies ROS: Review of Systems Constitutional: Negative. HENT: Negative. Respiratory: Positive for shortness of breath. Negative for choking and stridor. Cardiovascular: Positive for chest pain. Negative for palpitations and leg swelling. Gastrointestinal: Negative for abdominal pain, nausea and vomiting. Skin: Negative. Negative for rash. Neurological: Negative. All other systems reviewed and are negative. Positives and pertinent negatives as per HPI. All other systems were reviewed and are negative. Physical Exam: Patient Vitals for the past 24 hrs: BP Temp Pulse Resp SpO2 Height Weight 01/16/23 0100 (!) 156/80 -- 69 (!) 22 92 % -- -- 01/15/23 2315 (!) 154/90 -- 70 (!) 22 91 % -- -- 01/15/23 2200 138/79 -- 74 (!) 21 92 % -- -- 01/15/23 2030 (!) 176/99 -- 93 (!) 22 (!) 89 % -- -- 01/15/23 1900 (!) 173/96 -- 93 (!) 25 90 % -- -- 01/15/23 1831 -- 97.6 F (36.4 C) -- -- -- -- -- 01/15/23 1827 (!) 183/112 -- -- -- -- -- -- 01/15/23 1823 -- -- 95 (!) 30 91 % 5' 10 87.5 kg (193 lb) Physical Exam Vitals and nursing note reviewed. Constitutional: General: He is in acute distress. Appearance: He is well-developed. He is not toxic-appearing. HENT: Head: Normocephalic and atraumatic. Eyes: Extraocular Movements: Extraocular movements intact. Pupils: Pupils are equal, round, and reactive to light. Cardiovascular: Rate and Rhythm: Tachycardia present. Heart sounds: Normal heart sounds. Musculoskeletal: Right lower leg: Tenderness present. Left lower leg: Tenderness present. Pulmonary: Effort: Tachypnea present. No accessory muscle usage or respiratory distress. Breath sounds: Decreased breath sounds present. No wheezing or rhonchi. Chest: Chest wall: No mass or tenderness. Abdominal: General: Bowel sounds are normal. Palpations: Abdomen is soft. Skin: General: Skin is warm. Capillary Refill: Capillary refill takes less than 2 seconds. Coloration: Skin is not cyanotic or pale. Findings: No erythema. Neurological: General: No focal deficit present. Mental Status: He is alert and oriented to person, place, and time. Laboratory & Radiological Imaging (if done): Labs Reviewed COMPREHENSIVE METABOLIC PANEL - Abnormal; Notable for the following components: Result Value Anion Gap 9 (*) Glucose 184 (*) Total Protein 8.2 (*) All other components within normal limits Narrative: [facility] has implemented the eGFR calculation approach that does not have a coefficient for race that conforms to the NKF-ASN Task Force Recommendations. NT PRO BNP - Abnormal; Notable for the following components: NT-Pro BNP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 valve (size #23). There is trace aortic valve regurgitation. There is severe aortic valve stenosis caused by prosthetic thickening/calcification. The peak gradient is 87 mmHg, the mean gradient is 55 mmHg and the dimensionless valve index is 0.21. - The patient has not had a prior CC echocardiographic exam for comparison. * * * Final * * * Impression: Prosthetic valve stenosis, cad, PVD. CT today revealed a right hilar lesion suspicious for lung cancer. His FEV1 is 38% predicted. Plan: Operative: will send to pulmonary medicine for evaluation of the lung mass prior to establishing treatment plan and timing for redo avr. The risks, benefits and anticipated outcomes of the procedure, the risks and benefits of the alternatives to the procedure, and the roles and tasks of the personnel to be involved, were discussed with the patient, and the patient consents to the procedure and agrees to proceed. We discussed the possibility that there could be two patients undergoing surgery in two separate rooms (concurrent surgery) and that I would be present for the critical components of all operations. We also discussed that in an emergency situation, a qualified backup surgeon is available and in the rare event of such a serious situation, that colleague might take over the operation. These findings will be communicated back to the requesting physician via electronic medical record Mimi Mckinney, [facility]10-19-2023 History of Present illness Narrative* Mimi Mckinney MD - 12/06/2022 11:59 AM EDT Images from the original note were not included. Heart, V[facility] [place] DEPARTMENT OF CARDIAC SURGERY OUTPATIENT VISIT DATE December 06, 2022 OUTPATIENT VISIT SERVICE DATE: 12/06/2022 SERVICE TIME: 11:59 AM PCP: Naomie Constantino[address] [place] [address] Referring Physician: Mimi Mckinney [facility] [id number] Patient Type: New Visit to Determine Surgery: Yes HPI: Mr. Conor Lee is a 57 year old male seen regarding candidacy for cardiac surgery. He is currently symptomatic and complains of shortness of breath and decrease exercise capacity. Comorbidities include HTN and ETOH abuse, smoking 60 pack years. I have personally reviewed and analyzed all records that pertain to the patient's prior course in addition to the following studies: CT scan. Last CT Result Conclusion CTA CHEST (GATED) W IVCON Exam End: 12/06/2022 8:53 AM (Final result) Impression: IMPRESSION: - Well seated bioprosthetic valve with severe leaflet calcification consistent with prosthetic aortic valve stenosis. - The thoracic aorta is normal in course and caliber. There is no acute aortic pathology, such as dissection, intramural hematoma, or contained rupture. - Spiculated well defined heterogenously enhancing soft tissue density mass lesion in the right perihilar region with associated abrupt narrowing of caliber of right upper lobe bronchus, encasement of the right upper lobe segmental pulmonary arteries with reduced caliber and abutment of adjacent pulmonary veins as described. Additionally, multiple discrete cluster of small sub-6mm nodules in right upper lobe as well as significant mediastinal lymphadenopathy. Overall constellation of findings represent a neoplastic etiology which warrants clinical correlation, dedicated imaging for further evaluation and definitive management. - S/p Splenectomy - Raised left hemidiaphragm. Patent Searcher: [facility]ITAL[facility] Marie Transcribe Date/Time: Dec 06 2022 9:20A Dictated by : ZELALEM VACA MD This examination was interpreted and the report reviewed and electronically signed by: NILAY SEARS MD on Dec 06 2022 11:36AM EST Last ECHO Result Conclusion ECHO Collected: 12/05/2022 12:38 PM (Final result) Impression: CONCLUSIONS: - Exam indication: Initial postoperative evaluation of prosthetic valve (baseline) - The left ventricle is mildly dilated. There is mild left ventricular hypertrophy. Left ventricular systolic function is mildly decreased. EF = 48 5% (2D 4-ch.) Grade I left ventricular diastolic dysfunction. - The right ventricle is small. Right ventricular systolic function is normal. - Magna prosthetic aortic valve (size #23). There is trace aortic valve regurgitation. There is severe aortic valve stenosis caused by prosthetic thickening/calcification. The peak gradient is 87 mmHg, the mean gradient is 55 mmHg and the dimensionless valve index is 0.21. - The patient has not had a prior CC echocardiographic exam for comparison. * * * Final * * * Impression: Prosthetic valve stenosis, cad, PVD. CT today revealed a right hilar lesion suspicious for lung cancer. His FEV1 is 38% predicted. Plan: Operative: will send to pulmonary medicine for evaluation of the lung mass prior to establishing treatment plan and timing for redo avr. The risks, benefits and anticipated outcomes of the procedure, the risks and benefits of the alternatives to the procedure, and the roles and tasks of the personnel to be involved, were discussed with the patient, and the patient consents to the procedure and agrees to proceed. We discussed the possibility that there could be two patients undergoing surgery in two separate rooms (concurrent surgery) and that I would be present for the critical components of all operations. We also discussed that in an emergency situation, a qualified backup surgeon is available and in the rare event of such aserious situation, that colleague might take over the operation. These findings will be communicated back to the requesting physician via electronic medical record Mimi Mckinney MD documented in this encounterUk [facility]10-19-2023 NoteHNO ID: [id number] Author: Noble Ferguson RT(R) Service: Radiology Author Type: Technologist Type: Progress Notes Filed: 12/06/2022 9:09 AM Note Text: Radiology Service Progress Note PATIENT NAME: Conor Lee DATE OF SERVICE: December 06, 2022 TIME: 8:48 AM PATIENT IDENTITY VERIFICATION COMPLETED USING TWO (2) IDENTIFIERS: Name and Date of confirmed by patient verbally and Name and Date of confirmed by identification band. FALL SCREENING: Has the patient had 2 falls in the last year or 1 fall with injury or currently using an Ambulatory Assistive Device (Walker, Cane, Wheelchair, Crutches, etc.)? No PATIENT GENDER DATA: Male PATIENT RELEVANT IMPLANT DATA REVIEWED: Yes RADIOLOGY DEPARTMENT: CT; Exam(s) Completed: Cardiac PERIPHERAL IV DATA: Site assessment: Clean,Dry and Intact, Site disposition Discontinued SIGNED BY: RT Altagracia(R) December 06, 2022 8:48 [facility]10-19-2023 NoteHNO ID: [id number] Author: Eileen Rose RN Service: Radiology Author Type: Registered Nurse Type: Progress Notes Filed: 12/06/2022 8:32 AM Note Text: Radiology Service Progress Note DATE OF SERVICE: December 06, 2022 TIME: 8:29 AM PATIENT WEIGHT: 195 LBS PATIENT IDENTITY VERIFICATION COMPLETED USING TWO (2) STANDARD IDENTIFIERS: Name and Date of confirmed by patient verbally and Name and Date of confirmed by identification band. FALL SCREENING: Has the patient had 2 falls in the last year or 1 fall with injury or currently using an Ambulatory Assistive Device (Walker, Cane, Wheelchair, Crutches, etc.)? No PATIENT GENDER DATA: Male ALLERGIES: Reviewed and unchanged CONTRAST ALLERGY: No EXAM: CT -CONTRAST INDUCED NEPHROPATHY RISK FACTORS: Not applicable CREATININE: Creatinine Date Value Ref Range Status 12/05/2022 0.90 0.73 - 1.22 mg/dL Final Estimated Glomerular Filtration Rate Date Value Ref Range Status 12/05/2022 100 >=60 mL/min/1.73m? Final Comment: Estimated Glomerular Filtration Rate (eGFR) is calculated using the 2020 CKD-EPI creatinine equation. This equation utilizes serum creatinine, sex, and age as parameters. The creatinine assay has traceable calibration to isotope dilution-mass spectrometry. Refer to KDIGO guidelines for clinical interpretation. In patients with unstable renal function, e.g. those with acute kidney injury, the eGFR may not accurately reflect actual GFR. P.O.C.T. RESULTS: N/A December 06, 2022 TREATMENT: No Hydration needed. IV SITE: Ambulatory: A peripheral IV was started in the Right forearm with a Angio cath: 20 gauge. and A Saline lock was inserted per protocol IV SITE APPEARANCE: Clean,Dry and Intact SIGNATURE: Eileen Rose RN PATIENT NAME: Conor Lee DATE: December 06, 2022 TIME: 8:29 [facility]10-18-2023 NoteHNO ID: [id number] Author: Conor Devi Tech Service: ? Author Type: Receptionist Nurse Type: Progress Notes Filed: 12/05/2022 3:21 PM Note Text: PULM FUNCTION SMARTBLOCK: Provider: Mimi Mckinney MD Spirometry: 1 DLCO: 1 [facility] History of Present illness Narrative * Conor Devi Tech - 12/05/2022 3:07 PM EDT PULM FUNCTION SMARTBLOCK: Provider: Mimi Mckinney MD Spirometry: 1 DLCO: 1 Jlab-1 documented in this encounterUk Healthcare10-18-2023 NoteHNO ID: [id number] Author: Lex Anderson MD Service: ? Author Type: Physician Type: Progress Notes Filed: 12/20/2022 6:54 AM Note Text: [facility] [place] [facility] Department of Cardiovascular Medicine SECTION OF CLINICAL CARDIOLOGY OUTPATIENT VISIT DATE December 05, 2022 OUTPATIENT VISIT TYPE NEW PRIMARY CARE PHYSICIAN: Naomie Bermudez [address] [place] [address] REFERRING PHYSICIAN: Mimi Mckinney [address] [facility] [address] CHIEF COMPLAINT: Preopertive cardiac evaluation HISTORY OF PRESENT ILLNESS: NURSING INTAKE: Mr. Lee is a 57 year old male from [place], [place] here today for preop evaluation. Patient following with Dr. Mckinney for consideration of aortic valve surgery in his setting of bicuspid aortic valve. Conor has a significant medical history of AoV stenosis (bicuspid aortic valve) s/p Bioprosthetic aortic valve, HTN, Current Smoker, CAD. He reports the following symptoms not much different from baseline ; though thinks a bit more than usual baseline more recently -PASTRANA -chest pain -palpitations -lightheadedness/dizziness Echocardiogram performed by new chief engineer research reported severe prosthetic AV prompting evaluation for a redo AVR. Source Note - Jessica Shook MA - 10/08/2022 9:15 AM EDT Images from the original note were not included. [facility] Cardiology Clinic Note Chief Complaint: Patient here for 6 mo follow up aortic valve disorder, PVD, and hypertension. Had echo last week. Lab work ordered at last visit was not completed. Sera Allan CNP increased his carvedilol to 37.5mg bid at last visit in Mar 2022. Says his symptoms remain unchanged - still has chest pain, SOB, and claudication. Continues to smoke about 1 PPD. HPI: Conor Lee is a 57 y.o. male with h/o AoV stenosis s/p Bioprosthetic aortic valve approximately 11 years ago; at that time, the decision to avoid the mechanical valve was related to the desire to avoid anticoagulation given drop requirements. He has been having exertional shortness of breath and chest pain for the past several months. He has significant lightheadedness and dizziness but denies syncope. No orthopnea, no paroxysmal external dyspnea. He has longstanding, chronic, bilateral lower extremity discomfort with ambulation and walking. This is related to severe peripheral arterial disease with a history of prior surgical bypass. He has had a failed attempt at peripheral revascularization in the past. He admits to me that he drinks excessively Assessment: History of aortic valve stenosis s/p bioprosthetic aortic valve replacement #23 magna pericardial valve Severe, bioprosthetic aortic valve stenosis Essential hypertension - Uncontrolled Chest pain Dyspnea on exertion Bilateral claudication with history of peripheral arterial disease History of surgical bypass; 100% occluded right SFA with collaterals Lower back pain Plan: I emphasized the importance of abstinence from alcohol and the associated cardiovascular problems related to alcohol including cardiomyopathy He is to restart medications he has stopped; optimal medical therapy should include aspirin, beta-beryl, and angiotensin-converting enzyme inhibitor and for resistant hypertension he was on diuretics Given his echocardiogram results, and his symptoms I recommended proceeding with cardiac catheterization including right heart catheterization, coronary angiography, and aortic valve study If this confirms the presence of severe bioprosthetic aortic valve stenosis, will refer to CT surgery to discuss a potential redo valve surgery. Given his age, a mechanical valve would be highly recommended. I would not recommend proceeding transcatheter aortic valve implantation given the lifespan of bioprosthetic valves. Further recommendations pending the above Arvin Ledesma MD, MPH, FACC, [facility], [facility] Interventional Cardiology Pager Email: [email or web address] IMPRESSIONS: Severe, bioprosthetic, aortic valve stenosis by invasive hemodynamic study Severe, two-vessel coronary artery disease including a chronic total occlusion ([place]) of the right coronary artery Normal global left ventricular systolic function by noninvasive imaging Moderately elevated right-sided heart pressures and mildly elevated pulmonary capillary wedge pressure Elevated transpulmonary gradient along with the mildly elevated wedge consistent with pre- and postcapillary pulmonary hypertension High normal cardiac output/cardiac index Resting arterial hypoxemia Severe peripheral arterial disease evidenced angiographically RECOMMENDATIONS: Consult cardiothoracic surgery for redo open heart surgery including an aortic valve replacement and coronary artery bypass graft (more content not included)...[facility]10-18-2023 History of Present illness Narrative* Lex Anderson MD - 12/05/2022 10:24 AM EDT Images from the original note were not included. [facility] [place] Department of Cardiovascular Medicine SECTION OF CLINICAL CARDIOLOGY OUTPATIENT VISIT DATE December 05, 2022 OUTPATIENT VISIT TYPE NEW PRIMARY CARE PHYSICIAN: Naomie Bermudez [address] [place] [address] REFERRING PHYSICIAN: Mimi Mckinney [address] [facility] [address] CHIEF COMPLAINT: Preopertive cardiac evaluation HISTORY OF PRESENT ILLNESS: NURSING INTAKE: Mr. Lee is a 57 year old male from [place], [place] here today for preop evaluation. Patient following with Dr. Mckinney for consideration of aortic valve surgery in his setting of bicuspid aortic valve. Conor has a significant medical history of AoV stenosis (bicuspid aortic valve) s/p Bioprosthetic aortic valve, HTN, Current Smoker, CAD. He reports the following symptoms not much different from baseline ; though thinks a bit more than usual baseline more recently -PASTRANA -chest pain -palpitations -lightheadedness/dizziness Echocardiogram performed by new chief engineer research reported severe prosthetic AV prompting evaluation fora redo AVR. Source Note - Jessica Shook MA - 10/08/2022 9:15 AM EDT Images from the original note were not included. [facility] Cardiology Clinic Note Chief Complaint: Patient here for 6 mo follow up aortic valve disorder, PVD, and hypertension. Had echo last week. Lab work ordered at last visit was not completed. Sera AISSATOU Allan increased his carvedilol to 37.5mg bid at last visit in Mar 2022. Says his symptoms remain unchanged - still has chest pain, SOB, and claudication. Continues to smoke about 1 PPD. HPI: Conor Lee is a 57 y.o. male with h/o AoV stenosis s/p Bioprosthetic aortic valve approximately 11 years ago; at that time, the decision to avoid the mechanical valve was related to the desire to avoid anticoagulation given drop requirements. He has been having exertional shortness of breath and chest pain for the past several months. He has significant lightheadedness and dizziness but denies syncope. No orthopnea, no paroxysmal externaldyspnea. He has longstanding, chronic, bilateral lower extremity discomfort with ambulation and walking. This is related to severe peripheral arterial disease with a history of prior surgical bypass. He has had a failed attempt at peripheral revascularization in the past. He admits to me that he drinks excessively Assessment: History of aortic valve stenosis s/p bioprosthetic aortic valve replacement #23 magna pericardial valve Severe, bioprosthetic aortic valve stenosis Essential hypertension - Uncontrolled Chest pain Dyspnea on exertion Bilateral claudication with history of peripheral arterial disease History of surgical bypass; 100% occluded right SFA with collaterals Lower back pain Plan: I emphasized the importance of abstinence from alcohol and the associated cardiovascular problems related to alcohol including cardiomyopathy He is to restart medications he has stopped; optimal medical therapy should include aspirin, beta-beryl, and angiotensin-converting enzyme inhibitor and for resistant hypertension he was on diuretics Given his echocardiogram results, and his symptoms I recommended proceeding with cardiac catheterization including right heart catheterization, coronary angiography, and aortic valve study If this confirms the presence of severe bioprosthetic aortic valve stenosis, will refer to CT surgery to discuss a potential redo valve surgery. Given his age, a mechanical valve would be highly recommended. I would not recommend proceeding transcatheter aortic valve implantation given the lifespanof bioprosthetic valves. Further recommendations pending the above Arvin Ledesma MD, MPH, FACC, [facility], [facility] Interventional Cardiology Pager Email: [email or web address] [email or web address] IMPRESSIONS: Severe, bioprosthetic, aortic valve stenosis by invasive hemodynamic study Severe, two-vessel coronary artery disease including a chronic total occlusion ([place] [place]) of the right coronary artery Normal global left ventricular systolic function by noninvasive imaging Moderately elevated right-sided heart pressures and mildly elevated pulmonary capillary wedge pressure Elevated transpulmonary gradient along with the mildly elevated wedge consistent with pre- and postcapillary pulmonary hypertension High normal cardiac output/cardiac index Resting arterial hypoxemia Severe peripheral arterial disease evidenced angiographically RECOMMENDATIONS: Consult cardiothoracic surgery for redo open heart surgery including an aortic valve replacement and coronary artery bypass graft surgery as feasible Aggressive cardiovascular factor modification Optimal medical therapy for coronary artery disease should include aspirin, high intensity statin therapy, a beta-beryl and an angiotensin-converting enzyme inhibitor/receptor beryl Given severe coronary and peripheral arterial disease, consider Eliquis 2.5 mg p.o. twice daily based on the COMPASS trial. Further investigations and management for the resting hypoxemia with his PCP and/or correctional treatment specialist as clinically appropriate Further investigations and management of his peripheral arterial disease as clinically indicated Follow-up with Dr. Ledesma in the next 2 to 3 months he denies CARDIAC I/C ROS: chest pain, shortness of breath, orthopnea, cough, edema, palpitations, PND, lightheadedness or syncope at this time. Occupation: not working Diet: regular Exercise: none PAST MEDICAL HISTORY Diagnosis Date Coronary artery disease ETOH abuse Hypertension PAD (peripheral artery disease) ([facility]) Bilat LE claudication Peripheral vascular disease ([facility]) Prosthetic aortic valve stenosis s/p AVR #23 Magna pericardial 09/07/11 [place] Smoker PAST SURGICAL HISTORY Procedure Laterality Date HEART VALVE REPLACEMENT 2011 [facility] SOCIAL HISTORY Social History Tobacco Use Smoking status: Every Day Packs/day: 1.5 Types: Cigarettes Smokeless tobacco: Never Vaping Use Vaping Use: Never used Substance Use Topics Alcohol use: Yes Alcohol/week: 10.0 standard drinks of alcohol Types: 10 Standard drinks or equivalent per week Drug use: Never FAMILY HISTORY Problem Relation Age of Onset Hypertension Mother Hyperlipidemia Mother Diabetes Mother Stroke Mother Hypertension Father Hyperlipidemia Father Diabetes Father ALLERGIES: ALLERGIES No Known Allergies MEDICATIONS: aspirin, enteric coated (ASPIRIN, ENTERIC COATED) 81 mg EC tablet Take 1 tablet by mouth once daily. famotidine (PEPCID) 40 mg tablet Take 1 tablet by mouth once daily. cyclobenzaprine (FLEXERIL) 10 mg tablet Take 10 mg by mouth. lisinopril (ZESTRIL) 40 mg tablet Take 1 tablet by mouth once daily. spironolactone (ALDACTONE) 25 mg tablet Take 1 tablet by mouth every morning. chlorthalidone (HYGROTON) 25 mg tablet Take 1 tablet by mouth once daily. metoprolol tartrate, short acting, (LOPRESSOR) 25 mg tablet Take 1 tablet by mouth every 12 hours. REVIEW OF SYSTEMS: GENERAL: Negative for: Weight loss or gain, Fever or Chills, Weakness and Sleep difficulties. HEENT: Negative for: Headache, Impaired Vision, Glasses, Hearing Impairment, Ringing in Ears, Nosebleeds, Poor dental care, Bleeding Gums, Dentures NECK: Negative for: Swelling, Pain, Stiffness RESPIRATORY: Negative for: Cough, Blood in Sputum, Shortness of breath, Wheezing, Apnea GASTROINTESTINAL: Negative for: Trouble swallowing, Heartburn, Change in bowel habits, Blood in stool, Dark black stools MUSCULOSKELETAL: Negative for: Muscle or joint pain, Stiffness , Joint swelling NEUROLOGIC/PSYCHIATRIC: Negative for: Weakness, Paralysis, Numbness, Tingling, Tremor, Nervousness,Depressed mood, Memory loss SKIN: Negative for: Rashes, Itching HEMATOLOGICAL/LYMPHATIC: Negative for: Easy bruising , Easy bleeding ENDOCRINE: Negative for: Heat or cold intolerance, Excessive sweating, Frequent urination, Frequentthirst PHYSICAL EXAMINATION: BP 148/91 (BP Site: Left Arm) Pulse 67 Resp 12 Ht 177.8 cm (5' 10 ) Wt 84.8 kg (187 lb) SpO2 97% BMI 26.83 kg/m General: Well appearing, in no acute distress. Skin: No clubbing, no cyanosis. Eyes: Extra ocular movements intact Oropharynx: Teeth in good repair. Neck: No jugular venous distention, no carotid bruits, carotids have a normal upstroke, no palpablethyromegaly. Lungs: Clear to auscultation bilaterally,+ rhonchi. Heart: Regular rhythm, PMI not displaced, S1, S2 normal, no S3, no S4, no heaves, no rub and+systolic murmur Abdomen: Soft, nontender, bowel sounds normal, no palpable organomegaly, no bruits. Extremities: No peripheral edema . Grade 2/4 distal pulses bilaterally. Neuro: Oriented to person, place and time, alert, cooperative, gait coordinated. CARDIOVASCULAR MEDICINE TESTING: Electrocardiogram: [facility] CARDIAC CATH 10/18/2022 FINAL IMPRESSIONS: Severe, bioprosthetic, aortic valve stenosis by invasive hemodynamic study Severe, two-vessel coronary artery disease including a chronic total occlusion ([place] [place]) of the right coronary artery Normal global left ventricular systolic function by noninvasive imaging Moderately elevated right-sided heart pressures and mildly elevated pulmonary capillary wedge pressure Elevated transpulmonary gradient along with the mildly elevated wedge consistent with pre- and postcapillary pulmonary hypertension High normal cardiac output/cardiac index Resting arterial hypoxemia Severe peripheral arterial disease evidenced angiographically IMPRESSION: Mr. Lee is a 57 year old male from [place], [place] here today for preop evaluation. Patient following with Dr. Mckinney for consideration of aortic valve surgery in his setting of bicuspid aortic valve. Conor has a significant medical history of AoV stenosis (bicuspid aortic valve) s/p Bioprosthetic aortic valve, HTN, Current Smoker, CAD. He reports the following symptoms not much different from baseline ; though thinks a bit more than usual baseline more recently -PASTRANA -chest pain -palpitations -lightheadedness/dizziness Echocardiogram performed by new chief engineer research reported severe prosthetic AV prompting evaluation fora redo AVR. PLAN AND RECOMMENDATIONS: Severe, bioprosthetic, aortic valve stenosis by invasive hemodynamic study Severe, two-vessel coronary artery disease including a chronic total occlusion ([place]) of the right coronary artery Patient is hemodynamically stable with no evidence of decompensated HF. He will benefit from redo AVR and CABG. He meets with CTS Dr Mckinney today. I personally interviewed, confirmed and edited the above information as obtained by others. CONTACT INFORMATION: Lex Anderson M.D, MPH, [facility] Christelle Rodriguez Department of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 IMAGING CT ATTENUATION SKULL BASE MID-THIGH Rima Mead MD [address] [place] [id number] Molecular & Functional Imaging [address] [place] [address] Referral ID Status Reason Start Date Expiration Date Visits Requested Visits Authorized [id number] Pending Review Auto-Generat ed Referral 3 01/16/2024 1 1 [facility] for referral (narrative)* Outpatient Procedure (Routine) - Pending Review Specialty Diagnoses / Procedures Referred By Archie t Referred To Contact [facility] Diagnoses Stenosis of prosthetic aortic valve, subsequent encounter Encounter for preprocedural cardiovascular examination Aortic valve disorder Procedures ECG COMPLETE ECG ROUTINE ECG W/LEAST 12 LDS W/I&R Mayra Kapadia APRN.POWERHOUSE ATTENDANT [address] [place] [address] [place] [address] Referral ID Status Reason Start Date Expiration Date Visits Requested Visits Authorized [id number] Pending Review Auto-Generat ed Referral 3 01/02/2024 1 1 * MRI/CT (Routine) - Pending Review Specialty Diagnoses / Procedures Referred By Archie higgins Referred To Contact CT IMAGING Diagnoses Stenosis of prosthetic aortic valve, subsequent encounter Encounter for preprocedural cardiovascular examination Aortic valve disorder Procedures CTA CHEST/ABD/PEL (GATED) W IVCON CT ANGIOGRAPHY CHEST W/CONTRAST/NONCONTRAST CT ANGIO ABD&PLVIS CNTRST MTRL W/WO CNTRST Mayra Flor APRN.CNP [address] [place] [address] Ct Imaging [place] [address] Referral ID Status Reason Start Date Expiration Date Visits Requested Visits Authorized [id number] Pending Review Auto-Generat ed Referral 3 02/01/2024 1 1 [facility] for visit Narrative* Diagnostic Procedure Only (Routine) - Closed Specialty Diagnoses / Procedures Referred By Archie higgins Referred To Contact US IMAGING Diagnoses Encounter for preprocedural cardiovascular examination Aortic valve disorder 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) Procedures US ABDOMEN COMPLETE US ABDOMINAL REAL TIME W/IMAGE DOCUMENTATION Mimi Mckinney MD [address] [place] [phone] [place] [address] Referral ID Status Reason Start Date Expiration Date V isits Requested Visits Authorized [id number] Closed Auto-Generate d Referral 11/20/2022 12/20/2023 1 1 [facility] Summary Purpose Family History No Family History Records FoundNo Family History Records FoundNo Family History Records FoundNo Family History Records FoundNo Family History Records FoundNo Family History Records Found Advance Directives No Advanced Directives Records FoundLatest Code Status on File Code Status Date Activated Date Inactivated Comments Full Code - Unverified 01/16/2023 3:13 PM 01/17/2023 3 :27 PM Reason for Referral Specialty Diagnoses / Procedures Referred By Contac t Referred To Contact Vascular Surgery Diagnoses PVD (peripheral vascular disease) (HCC) Procedures CONSULT TO VASCULAR SURGERY OFFICE/OUTPATIENT [facility] 60-[place] [address] [place] [address] Referral ID Status Reason Start Date Expiration Date Visits Requested Visits Authorized [id number] Authorized PCP Requested Referral 3 12/07/2023 1 1 Specialty Diagnoses / Procedures Referred By Contac t Referred To Contact Pulmonary and Critical Care Medicine Diagnoses Lung mass Procedures CONSULT TO PULM/CRITICAL CARE OFFICE/OUTPATIENT [facility] 60-74 MINUTES Mimi Mckinney MD [address] [place] [address] Referral ID Status Reason Start Date Expiration Date Visits Requested Visits Authorized [id number] Authorized PCP Requested Referral 3 12/07/2023 1 1 Specialty Diagnoses / Procedures Referred By Contac t Referred To Contact Procedures CARDIOVASCULAR MEDICINE OP FOLLOW UP APPT ORDER Lex Anderson MD [address] [place] [address] Referral ID Status Reason Start Date Expiration Date Visits Requested Visits Authorized [id number] Ref Not Required PCP Requested Referral 12/20/2022 12/20/2023 1 1 Specialty Diagnoses / Procedures Referred By Contac t Referred To Contact Rima Mead MD [address] [place] [address] Referral ID Status Reason Start Date Expiration Date V isits Requested Visits Authorized [id number] Pending Review 1 1 Specialty Diagnoses / Procedures Referred By Contac t Referred To Contact Procedures CARDIOVASCULAR MEDICINE OP FOLLOW UP APPT ORDER Cyndi Schuster MD [address] [place] [id number] Referral ID Status Reason Start Date Expiration Date Visits Requested Visits Authorized [id number] Ref Not Required PCP Requested Referral 3 02/01/2024 1 1 Specialty Diagnoses / Procedures Referred By Contac t Referred To Contact Procedures CARDIOVASCULAR MEDICINE OP FOLLOW UP APPT ORDER Natividad Moore APRN.CNP [address] [place] [id number] Referral ID Status Reason Start Date Expiration Date Visits Requested Visits Authorized [id number] Ref Not Required PCP Requested Referral 3 02/01/2024 1 1 Additional Source Comments (unrecognized sect ion and content) No Status Records FoundNo Status Records FoundNo Status Records FoundNo Status Records FoundNo Status Records FoundNo Status Records Found INFORMATION SOURCE (unrecogn ized section and content) DATE CREATED AUTHOR 12/03/2019 [facility] DATE CREATED AUTHOR AUTHOR'S ORGANIZ ATION 12/12/2021 [facility] DATE CREATED AUTHOR AUTHOR'S ORGANIZ ATION 11/04/2022 [facility] DATE CREATED AUTHOR AUTHOR'S ORGANIZ ATION 01/17/2023 [facility] DATE CREATED AUTHOR AUTHOR'S ORGANIZ ATION 02/05/2023 [facility] DATE CREATED AUTHOR AUTHOR'S ORGANIZ ATION 02/06/2023 [facility] Source Comments (unrecognize d section and content) In the event this informatio n is protected by the Federal Confidentiality of Alcohol and Drug Abuse Patient Records regulations: The Federal rules restrict any use of the information to criminally investigate or prosecute any alcohol or drug abuse patient.[facility] HealthcareIn the event this information is protected by the Federal Confidentiality of Alcohol and Drug Abuse Patient Records regulations: The Federal rules restrict any use of the information to criminally investigate or prosecute any alcohol or drug abuse patient.[facility] HealthcareIn the event this information is protected by the Federal Confidentiality of Alcohol and Drug Abuse Patient Records regulations: The Federal rules restrict any use of the information to criminally investigate or prosecute any alcohol or drug abuse patient.[facility] HealthcareIn the event this information is protected by the Federal Confidentiality of Alcohol and Drug Abuse Patient Records regulations: The Federal rules restrict any use of the information to criminally investigate or prosecute any alcohol or drug abuse patient.[facility] HealthcareIn the event this information is protected by the Federal Confidentiality of Alcohol and Drug Abuse Patient Records regulations: The Federal rules restrict any use of the information to criminally investigate or prosecute any alcohol or drug abuse patient.[facility] HealthcareIn the event this information is protected by the Federal Confidentiality of Alcohol and Drug Abuse Patient Records regulations: The Federal rules restrict any use of the information to criminally investigate or prosecute any alcohol or drug abuse patient.[facility] HealthcareIn the event this information is protected by the Federal Confidentiality of Alcohol and Drug Abuse Patient Records regulations: The Federal rules restrict any use of the information to criminally investigate or prosecute any alcohol or drug abuse patient.[facility] HealthcareIn the event this information is protected by the Federal Confidentiality of Alcohol and Drug Abuse Patient Records regulations: The Federal rules restrict any use of the information to criminally investigate or prosecute any alcohol or drug abuse patient.[facility] HealthcareIn the event this information is protected by the Federal Confidentiality of Alcohol and Drug Abuse Patient Records regulations: The Federal rules restrict any use of the information to criminally investigate or prosecute any alcohol or drug abuse patient.[facility] HealthcareIn the event this information is protected by the Federal Confidentiality of Alcohol and Drug Abuse Patient Records regulations: The Federal rules restrict any use of the information to criminally investigate or prosecute any alcohol or drug abuse patient.[facility] HealthcareIn the event this information is protected by the Federal Confidentiality of Alcohol and Drug Abuse Patient Records regulations: The Federal rules restrict any use of the information to criminally investigate or prosecute any alcohol or drug abuse patient.[facility] HealthcareIn the event this information is protected by the Federal Confidentiality of Alcohol and Drug Abuse Patient Records regulations: The Federal rules restrict any use of the information to criminally investigate or prosecute any alcohol or drug abuse patient.[facility] HealthcareIn the event this information is protected by the Federal Confidentiality of Alcohol and Drug Abuse Patient Records regulations: The Federal rules restrict any use of the information to criminally investigate or prosecute any alcohol or drug abuse patient.[facility] HealthcareIn the event this information is protected by the Federal Confidentiality of Alcohol and Drug Abuse Patient Records regulations: The Federal rules restrict any use of the information to criminally investigate or prosecute any alcohol or drug abuse patient.[facility] HealthcareIn the event this information is protected by the Federal Confidentiality of Alcohol and Drug Abuse Patient Records regulations: The Federal rules restrict any use of the information to criminally investigate or prosecute any alcohol or drug abuse patient.[facility] HealthcareIn the event this information is protected by the Federal Confidentiality of Alcohol and Drug Abuse Patient Records regulations: The Federal rules restrict any use of the information to criminally investigate or prosecute any alcohol or drug abuse patient.[facility] HealthcareIn the event this information is protected by the Federal Confidentiality of Alcohol and Drug Abuse Patient Records regulations: The Federal rules restrict any use of the information to criminally investigate or prosecute any alcohol or drug abuse patient.[facility] HealthcareIn the event this information is protected by the Federal Confidentiality of Alcohol and Drug Abuse Patient Records regulations: The Federal rules restrict any use of the information to criminally investigate or prosecute any alcohol or drug abuse patient.[facility] HealthcareIn the event this information is protected by the Federal Confidentiality of Alcohol and Drug Abuse Patient Records regulations: The Federal rules restrict any use of the information to criminally investigate or prosecute any alcohol or drug abuse patient.[facility] Reason for Visit (unrecogniz ed section and content) Reason Comments Insurance Inquiry Reason Comments Referral Information Initial Consult Reason Comments New Patient Reason Comments Spirometry Specialty Diagnoses / Procedures Referred By Contac t Referred To Contact [facility] Diagnoses Encounter for preprocedural cardiovascular examination Aortic valve disorder 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) Procedures LUNG DIFFUSION CAPACITY (DLCO) DIFFUSING CAPACITY Mimi Mckinney MD [address] [place] [address] [place] [address] Referral ID Status Reason Start Date Expiration Date V isits Requested Visits Authorized [id number] Closed Auto-Generate d Referral 11/20/2022 12/20/2023 1 1 Specialty Diagnoses / Procedures Referred By Contac t Referred To Contact [facility] Diagnoses Encounter for preprocedural cardiovascular examination Aortic valve disorder 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) Procedures SPIROMETRY BASELINE ONLY SPMTRY W/VC EXPIRATORY HARESH W/WO MXML VOL VNTJ Mimi Mckinney MD [address] [place] [address] [place] [address] Referral ID Status Reason Start Date Expiration Date V isits Requested Visits Authorized [id number] Closed Auto-Generate d Referral 11/20/2022 12/20/2023 1 1 Reason Comments Consult Specialty Diagnoses / Procedures Referred By Contac t Referred To Contact Cardiac Surg Diagnoses Encounter for preprocedural cardiovascular examination Aortic valve disorder 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) Procedures CARDIOTHORACIC PREOP EVALUATION OFFICE/OUTPATIENT [facility] 60-[place] [address] [place] [address] Referral ID Status Reason Start Date Expiration Date V isits Requested Visits Authorized [id number] Closed PCP Requested Referral 11/20/2022 11/20/2023 1 1 Reason Comments TAVR Consult Reason Comments Consult Specialty Diagnoses / Procedures Referred By Contac t Referred To Contact Vascular Surgery Diagnoses PVD (peripheral vascular disease) (HCC) Procedures CONSULT TO VASCULAR SURGERY OFFICE/OUTPATIENT [facility] MDM 60-[place] [address] [place], [place] [id number] Referral ID Status Reason Start Date Expiration Date V isits Requested Visits Authorized [id number] Closed PCP Requested Referral 12/07/2022 12/07/2023 1 1 Reason Comments Lung Mass Specialty Diagnoses / Procedures Referred By Contac t Referred To Contact Pulmonary and Critical Care Medicine Diagnoses Lung mass Procedures CONSULT TO PULM/CRITICAL CARE OFFICE/OUTPATIENT [facility] 60-74 MINUTES Mimi Mckinney MD [address] [place] [address] Referral ID Status Reason Start Date Expiration Date V isits Requested Visits Authorized [id number] Closed PCP Requested Referral 12/07/2022 12/07/2023 1 1 Reason Comments Chest Pain Specialty Diagnoses / Procedures Referred By Contac t Referred To Contact Diagnoses Lung mass Hypoxia Chest pain, unspecified type Referral ID Status Reason Start Date Expiration Date Visits Re quested Visits Authorized [id number] 1 1 Reason Comments Benefits Authorization Reason Comments New Patient Reason Comments Aortic Stenosis Reason Comments Radiology CT Specialty Diagnoses / Procedures Referred By Contac t Referred To Contact CT IMAGING Diagnoses Stenosis of prosthetic aortic valve, subsequent encounter Encounter for preprocedural cardiovascular examination Aortic valve disorder Procedures CTA CHEST/ABD/PEL (GATED) W IVCON CT ANGIOGRAPHY CHEST W/CONTRAST/NONCONTRAST CT ANGIO ABD&PLVIS CNTRST MTRL W/WO CNTRST Mayra Flor, JERROD.POWERHOUSE ATTENDANT [facility] [place] [address] [facility] [place] [address] Referral ID Status Reason Start Date Expiration Date V isits Requested Visits Authorized [id number] Closed Auto-Generate d Referral 01/04/2023 03/05/2023 1 1 Reason Comments Radio Main J1 Care Teams (unrecognized sec tion and content) Head Of Research & Insights Relationship Specialty Start Date End Date Naomie Bermudez MD [address] [place] [address] PCP - General Family Medicine 07/18/11 Mimi Mckinney MD [address] [place] [id number] Surgeon Cardiac Surg 11/07/22 Head Of Research & Insights Relationship Specialty Start Date End Date Naomie Bermudez MD [address] [place] [address] PCP - General Family Medicine 07/18/11 Mimi Mckinney MD [address] [place] [address] Surgeon Cardiac Surg 11/07/22 Head Of Research & Insights Relationship Specialty Start Date End Date Naomie Bermudez MD [address] [place] [address] PCP - General [facility] Medicine 07/18/11 Mimi Mckinney MD [address] [place] [address] Surgeon Cardiac Surg 11/07/22 Lex Anderson MD [address] [place] [address] Aircraft Refueller Cardiology 11/22/22 Head Of Research & Insights Relationship Specialty Start Date End Date Naomie Bermudez MD [address] [place] [address] PCP - General Family Medicine 07/18/11 Mimi Mckinney MD [address] [place] [address] Surgeon Cardiac Surg 11/07/22 Lex Anderson MD [address] [place] [address] Aircraft Refueller Cardiology 11/22/22 Lex Anderson MD [address] [place] [address] Primary Staff Physician Cardiology 12/05/22 Head Of Research & Insights Relationship Specialty Start Date End Date Naomie Bermudez MD [address] [place] [address] PCP - General Family Medicine 07/18/11 Mimi Mckinney MD [address] [place] [address] Surgeon Cardiac Surg 11/07/22 Lex Anderson MD [address] [place] [address] Aircraft Refueller Cardiology 11/22/22 Lex Anderson MD [address] [place] [address] Primary Staff Physician Cardiology 12/05/22 Head Of Research & Insights Relationship Specialty Start Date End Date Naomie Bermudez MD [address] [place] [address] PCP - General Family Medicine 07/18/11 Mimi Mckinney MD [address] [place] [address] Surgeon Cardiac Surg 11/07/22 Lex Anderson MD [address] [place] [address] Aircraft Refueller Cardiology 11/22/22 Lex Anderson MD [address] [place] [address] Primary Staff Physician Cardiology 12/05/22 Head Of Research & Insights Relationship Specialty Start Date End Date Naomie Bermudez MD [address] [place] [address] PCP - General Family Medicine 07/18/11 Mimi Mckinney MD [address] [place] [address] Surgeon Cardiac Surg 11/07/22 Lex Anderson MD [address] [place] [address] Aircraft Refueller Cardiology 11/22/22 Lex Anderson MD [address] [place] [address] Primary Staff Physician Cardiology 12/05/22 Head Of Research & Insights Relationship Specialty Start Date End Date Naomie Bermudez MD [address] [place] [address] PCP - General Family Medicine 07/18/11 Mimi Mckinney MD [address] [place] [address] Surgeon Cardiac Surg 11/07/22 Lex Anderson MD [address] [place] [address] Aircraft Refueller Cardiology 11/22/22 Lex Anderson MD [address] [place] [address] Primary Staff Physician Cardiology 12/05/22 Head Of Research & Insights Relationship Specialty Start Date End Date Naomie Bermudez MD [address] [place] [address] PCP - General Family Medicine 07/18/11 Mimi Mckinney MD [address] [place] [address] Surgeon Cardiac Surg 11/07/22 Lex Anderson MD [address] [place] [address] Aircraft Refueller Cardiology 11/22/22 Lex Anderson MD [address] [place] [address] Primary Staff Physician Cardiology 12/05/22 Head Of Research & Insights Relationship Specialty Start Date End Date Naomie Bermudez MD [address] [place] [address] PCP - General Family Medicine 07/18/11 Mimi Mckinney MD [address] [place] [address] Surgeon Cardiac Surg 11/07/22 Lex Anderson MD [address] [place] [address] Aircraft Refueller Cardiology 11/22/22 Lex Anderson MD [address] [place] [address] Primary Staff Physician Cardiology 12/05/22 Head Of Research & Insights Relationship Specialty Start Date End Date Harpreet Lim MD [address] [place] [address] PCP - General Family Medicine 01/01/23 Mimi Mckinney MD [address] [place] [address] Surgeon Cardiac Surg 11/07/22 Lex Anderson MD [address] [place] [address] Aircraft Refueller Cardiology 11/22/22 Lex Anderson MD [address] [place] [address] Primary Staff Physician Cardiology 12/05/22 Head Of Research & Insights Relationship Specialty Start Date End Date Harpreet Lim MD [address] [place] [id number] PCP - General Family Medicine 01/01/23 Mimi Mckinney MD [address] [place] [address] Surgeon Cardiac Surg 11/07/22 Lex Anderson MD [address] [place] [address] Aircraft Refueller Cardiology 11/22/22 Lex Anderson MD [address] [place] [address] Primary Staff Physician Cardiology 12/05/22 Head Of Research & Insights Relationship Specialty Start Date End Date Harpreet Lim MD [address] [place] [address] PCP - General Family Medicine 01/01/23 Mimi Mckinney MD [address] [place] [address] Surgeon Cardiac Surg 11/07/22 Lex Anderson MD [address] [place] [address] Aircraft Refueller Cardiology 11/22/22 Lex Anderson MD [address] [place] [address] Primary Staff Physician Cardiology 12/05/22 Head Of Research & Insights Relationship Specialty Start Date End Date No, Physician [facility] PCP - General 01/15/23 Head Of Research & Insights Relationship Specialty Start Date End Date Harpreet Lim MD [address] [place] [address] PCP - General Family Medicine 01/01/23 Mimi Mckinney MD [address] [place] [address] Surgeon Cardiac Surg 11/07/22 Lex Anderson MD [address] [place] [address] Aircraft Refueller Cardiology 11/22/22 eLx Anderson MD [address] [place] [address] Primary Staff Physician Cardiology 12/05/22 Head Of Research & Insights Relationship Specialty Start Date End Date Harpreet Lim MD [address] [place] [address] PCP - General Family Medicine 01/01/23 Mimi Mckinney MD [address] [place] [address] Surgeon Cardiac Surg 11/07/22 Lex Anderson MD [address] [place] [address] Aircraft Refueller Cardiology 11/22/22 Lex Anderson MD [address] [place] [address] Primary Staff Physician Cardiology 12/05/22 Head Of Research & Insights Relationship Specialty Start Date End Date Harpreet Lim MD [address] [place] [id number] PCP - General Family Medicine 01/01/23 Mimi Mckinney MD [address] [place] [address] Surgeon Cardiac Surg 11/07/22 Lex Anderson MD [address] [place] [address] Aircraft Refueller Cardiology 11/22/22 Lex Anderson MD [address] [place] [address] Primary Staff Physician Cardiology 12/05/22 Head Of Research & Insights Relationship Specialty Start Date End Date Harpreet Lim MD [address] [place] [address] PCP - General Family Medicine 01/01/23 Mimi Mckinney MD [address] [place] [address] Surgeon Cardiac Surg 11/07/22 Lex Anderson MD [address] [place] [address] Aircraft Refueller Cardiology 11/22/22 eLx Anderson MD [address] [place] [address] Primary Staff Physician Cardiology 12/05/22 Scheduled Active and Recently Administ ered Medications (unrecognized section and content) Medication Order 01/15/2023 01/16/2023 01/17/2023 aspirin EC tablet 81 mg 81 mg, Oral, Daily, First dose on Sat01/17/23 at 0900, DO NOT CRUSH OR CHEW. 0903 (Given - Provider: Wendy Culp RN) carvediloL (COREG) tablet 37.5 mg (CANCELED) 37.5 mg, Oral, 2 times daily with meals, First dose on Sat01/15/23 at 2040, Give carvedilol with food to reduce risk of hypotension / dizziness. Separate from admin of SAMANTHA inhibitors by two hours. 2047 (Given - Provider: Danielle Werner RN) 111 (Given - Provider: Indy Nicolas RN)1700 (Canceled Entry - Provider: Wendy Culp RN) carvediloL (COREG) tablet 37.5 mg 37.5 mg, Oral, 2 times daily, First dose on Sat01/16/23 at 2100, Give carvedilol with food to reduce risk of hypotension / dizziness. Separate from admin of SAMANTHA inhibitors by two hours. 2100 (Given - Provider: Salud Rasmussen RN) 902 (Given - Provider: Wendy Culp, RN) chlorthalidone (HYGROTON) tablet 25 mg 25 mg, Oral, Daily, First dose on Sat01/16/23 at 1900 1950 (Given - Provider: Salud Rasmussen RN) 902 (Given - Provider: Wendy Culp, RN) dexAMETHasone (DECADRON) injection 10 mg (COMPLETED) 10 mg, Intravenous, Once, On Sat01/15/23 at 2030, For 1 dose 2046 (Given - Provider: Danielle Werner, NADEEM) furosemide (LASIX) injection 40 mg (COMPLETED) 40 mg, Intravenous, Once, On Sat01/16/23 at 0140, For 1 dose, Administer IV push at 20 mg per minute (doses higher than 100 mg require IVPB) 212 (Given - Provider: Danielle Werner, NADEEM) heparin (porcine) injection 5,000 Units 5,000 Units, Subcutaneous, Every 8 hours scheduled, First dose on Sat01/16/23 at 2200, Notify physician if patient refuses. 2100 (Given - Provider: Salud Rasmussen RN) 0548 (Given - Provider: Salud Rasmussen RN) ipratropium-albuteroL (DUO-NEB) 0.5-2.5 mg/3 ml nebulizer solution 3 mL 3 mL, Inhalation, Every 4 hours scheduled (RT), First dose on Sat01/16/23 at 1600 1626 (Given - Provider: Tahira Larkin, SECTION GANG)1958 (Given - Provider: Sonia Madrid, TONY) 0000 (Not Given - Provider: Sonia Madrid RRT - Reason: Patient/family refused - Comment: Pt request not to be woken up for treatment)0416 (Not Given - Provider: Sonia Madrid RRT - Reason: Patient/family refused - Comment: Pt request not to be woken up)0828 (Given - Provider: Kristina Florence, TONY)1251 (Given - Provider: Kristina Ludivina, SECTION GANG) lisinopriL (PRINIVIL,ZESTRIL) tablet 20 mg 20 mg, Oral, 2 times daily, First dose on Sat01/15/23 at 2100 2048 (Given - Provider: Danielle Wenrer, NADEEM) 1111 (Given - Provider: Indy Nicolas RN)210 (Given - Provider: Salud Rasmussen, NADEEM) 0903 (Given - Provider: Wendy Culp, RN) methylPREDNISolone sod suc(PF) (SOLU-medrol) 40 mg 40 mg, Intravenous, Every 6 hours, First dose on Sat01/16/23 at 1530 1550 (Given - Provider: Carmel Murphy, RN)2100 (Given - Provider: Salud Rasmussen, NADEEM) 033 (Given - Provider: Salud Rasmussen RN)09 (Given - Provider: Wendy Culp, RN) racEPINEPHrine 2.25 % nebulizer solution 0.5 mL (COMPLETED) 0.5 mL, Nebulization, Once, On Sat01/15/23 at 2045, For 1 dose, Dilute to 3 mL NS. If using handheld rubber bulb nebulizer, dilution is not required 2157 (Given - Provider: Danielle Werner, NADEEM) sodium chloride (PF) (NS) flush 5 mL(Linked Group 1) 5 mL, Intravenous, Every 8 hours scheduled, First dose on Sat01/16/23 at 2200, Saline lock 2100 (Given - Provider: Salud Rasmussen RN) 0548 (Given - Provider: Salud Rasmussen, NADEEM) spironolactone (ALDACTONE) tablet 25 mg 25 mg, Oral, Daily, First dose on Sat01/16/23 at 1900, CATEGORY C HAZARDOUS DRUG use safe handling precautions. Use reference link to view PPE guidelines. Minimize crushing/splitting only to situations where clinically necessary. 1950 (Given - Provider: Salud Rasmussen RN) 905 (Given - Provider: Wendy Culp, RN) PRN Medication Order 01/15/2023 01/16/2023 01/17/2023 diazePAM (VALIUM) tablet 5-15 mg(Linked Group 2) 5-15 mg, Oral, Every 1 hour prn, CIWA score 8-25. See admin instructions for dosing details., Starting on Sat01/16/23 at 0221, CIWA less than 8: No medical intervention: Assess Vital Signs/Pulse Oximeter/CIWA in 4 hours. CIWA 8-10: Give diazepam (VALIUM) 5 mg orally: Assess Vital Signs/Pulse Oximeter/CIWA in 4 hours. CIWA 11-14: Give diazepam (VALIUM) 10 mg orally: Assess Vital Signs/Pulse Oximeter/CIWA in 2 hours. CIWA 15-25: Give diazepam (VALIUM) 15 mg orally: Assess Vital Signs/Pulse Oximeter/CIWA in 1 hour. CIWA greater than 25: Give LORazepam (ATIVAN) 4 mg PO/IV/IM and notify Physician. Assess Vital Signs/Pulse Oximeter/CIWA in 15 minutes. [] Discontinue CIWA protocol if patient is started on IV infusion of Benzodiazepines, Dexmedetomidine or Propofol. iopamidoL (ISOVUE-370) 370 mg iodine /mL (76 %) injection 75 mL (COMPLETED) 75 mL, Intravenous, Once in imaging, contrast, Starting on Sat01/15/23 at 1923, For 1 dose 1941 (Contrast Administered - Provider: Maria Elena Hammer, TECHNOLOGIST) ipratropium-albuteroL (DUO-NEB) 0.5-2.5 mg/3 ml nebulizer solution 3 mL 3 mL, Inhalation, Every 3 hours PRN (RT), shortness of breath, Starting on Sat01/16/23 at 1523 LORazepam (ATIVAN) injection 4 mg(Linked Group 2) 4 mg, Intravenous, Every 15 min PRN, For CIWA score greater than 25, Starting on Sat01/16/23 at 0221, Notify physician after administering dose. Assess Vital Signs/Pulse Oximeter/CIWA in 15 minutes. Give oral route if tolerated. If oral not tolerated give IV. If IV route not available give IM. [] Discontinue CIWA protocol if patient is started on IV infusion of Benzodiazepines, Dexmedetomidine or Propofol. VESICANT LORazepam (ATIVAN) injection 4 mg(Linked Group 2) 4 mg, Intramuscular, Every 15 min PRN, For CIWA score greater than 25., Starting on Sat01/16/23 at 0221, Notify physician after administering dose. Assess Vital Signs/Pulse Oximeter/CIWA in 15 minutes. Give oral route if tolerated. If oral not tolerated give IV. If IV route not available give IM. [] Discontinue CIWA protocol if patient is started on IV infusion of Benzodiazepines, Dexmedetomidine or Propofol. VESICANT LORazepam (ATIVAN) tablet 4 mg(Linked Group 2) 4 mg, Oral, Every 15 min PRN, For CIWA score Greater than 25., Starting on Sat01/16/23 at 0221, Notify physician after administering dose. Assess Vital Signs/Pulse Oximeter/CIWA in 15 minutes. Give oral route if tolerated. If oral not tolerated give IV. If IV route not available give IM. [] Discontinue CIWA protocol if patient is started on IV infusion of Benzodiazepines, Dexmedetomidine or Propofol. ondansetron (ZOFRAN) injection 4 mg(Linked Group 3) 4 mg, Intravenous, Every 6 hours PRN, nausea, vomiting, Starting on Sat01/16/23 at 1730, Use oral route first, if tolerated. ondansetron (ZOFRAN-ODT) disintegrating tablet 4 mg(Linked Group 3) 4 mg, Oral, Every 6 hours PRN, nausea, vomiting, Starting on Sat01/16/23 at 1730, Use oral route first, if tolerated. Formulation requires tablet remain in sealed package until immediately prior to dose being administered. sodium chloride (PF) (NS) 0.9 % contrast line flush 10 mL (COMPLETED)(Linked Group 4) 10 mL, Intravenous, Once in imaging, contrast, Per rotary engraver (Radiology) for line patency check prior to contrast administration, Starting on Sat01/15/23 at 1923, For 1 dose 1941 (Given - Provider: Maria Elena Hammer, TECHNOLOGIST) sodium chloride (PF) (NS) 0.9 % contrast line flush 80 mL (COMPLETED)(Linked Group 4) 80 mL, Intravenous, Once in imaging, contrast, Per rotary engraver (Radiology), Starting on Sat01/15/23 at 1923, For 1 dose, 30 mL BEFORE contrast administration 50 mL AFTER contrast administration 1940 (Given - Provider: Maria Elena Hammer, TECHNOLOGIST) sodium chloride (PF) (NS) flush 5 mL(Linked Group 1) 5 mL, Intravenous, As needed, line care, Starting on Sat01/16/23 at 1730 sodium chloride 0.9% (NS)(Linked Group 1) 0-150 mL/hr, Intravenous, As needed, To flush line after IV infusions when no maintenance IV ordered or a compatibility issue. Infuse 20ml at the same rate as the secondary infusion, Starting on Sat01/16/23 at 1730, Run as Primary IV. NOT intended for KVO. Linked Groups Order Group 1: Saline lock IV (CANCELED) Routine, Continuous, Starting on Sat01/16/23 at 1731, Until Specified And sodium chloride (PF) (NS) flush 5 mLJump to med 5 mL, Intravenous, As needed, line care, Starting on Sat01/16/23 at 1730 And sodium chloride (PF) (NS) flush 5 mLJump to med 5 mL, Intravenous, Every 8 hours scheduled, First dose on Sat01/16/23 at 2200
Saline lock
And sodium chloride 0.9% (NS)Jump to med 0-150 mL/hr, Intravenous, As needed, To flush line after IV infusions when no maintenance IV ordered or a compatibility issue. Infuse 20ml at the same rate as the secondary infusion, Starting on Sat01/16/23 at 1730
Run as Primary IV. NOT intended for KVO.
Group 2: diazePAM (VALIUM) tablet 5-15 mgJump to med 5-15 mg, Oral, Every 1 hour prn, CIWA score 8-25. See admin instructions for dosing details., Starting on Sat01/16/23 at 0221
CIWA less than 8: No medical intervention: Assess Vital Signs/Pulse Oximeter/CIWA in 4 hours. CIWA 8-10: Give diazepam (VALIUM) 5 mg orally: Assess Vital Signs/Pulse Oximeter/CIWA in 4 hours. CIWA 11-14: Give diazepam (VALIUM) 10 mg orally: Assess Vital Signs/Pulse Oximeter/CIWA in 2 hours. CIWA 15-25: Give diazepam (VALIUM) 15 mg orally: Assess Vital Signs/Pulse Oximeter/CIWA in 1 hour. CIWA greater than 25: Give LORazepam (ATIVAN) 4 mg PO/IV/IM and notify Physician. Assess Vital Signs/Pulse Oximeter/CIWA in 15 minutes. [] Discontinue CIWA protocol if patient is started on IV infusion of Benzodiazepines, Dexmedetomidine or Propofol.
Or LORazepam (ATIVAN) injection 4 mgJump to med 4 mg, Intravenous, Every 15 min PRN, For CIWA score greater than 25, Starting on Sat01/16/23 at 0221
Notify physician after administering dose. Assess Vital Signs/Pulse Oximeter/CIWA in 15 minutes. Give oral route if tolerated. If oral not tolerated give IV. If IV route not available give IM. [] Discontinue CIWA protocol if patient is started on IV infusion of Benzodiazepines, Dexmedetomidine or Propofol. VESICANT
Or LORazepam (ATIVAN) tablet 4 mgJump to med 4 mg, Oral, Every 15 min PRN, For CIWA score Greater than 25., Starting on Sat01/16/23 at 0221
Notify physician after administering dose. Assess Vital Signs/Pulse Oximeter/CIWA in 15 minutes. Give oral route if tolerated. If oral not tolerated give IV. If IV route not available give IM. [] Discontinue CIWA protocol if patient is started on IV infusion of Benzodiazepines, Dexmedetomidine or Propofol.
Or LORazepam (ATIVAN) injection 4 mgJump to med 4 mg, Intramuscular, Every 15 min PRN, For CIWA score greater than 25., Starting on Sat01/16/23 at 0221
Notify physician after administering dose. Assess Vital Signs/Pulse Oximeter/CIWA in 15 minutes. Give oral route if tolerated. If oral not tolerated give IV. If IV route not available give IM. [] Discontinue CIWA protocol if patient is started on IV infusion of Benzodiazepines, Dexmedetomidine or Propofol. VESICANT
Group 3: ondansetron (ZOFRAN-ODT) disintegrating tablet 4 mgJump to med 4 mg, Oral, Every 6 hours PRN, nausea, vomiting, Starting on Sat01/16/23 at 1730
Use oral route first, if tolerated. Formulation requires tablet remain in sealed package until immediately prior to dose being administered.
Or ondansetron (ZOFRAN) injection 4 mgJump to med 4 mg, Intravenous, Every 6 hours PRN, nausea, vomiting, Starting on Sat01/16/23 at 1730
Use oral route first, if tolerated.
Group 4: sodium chloride (PF) (NS) 0.9 % contrast line flush 10 mL (COMPLETED)Jump to med 10 mL, Intravenous, Once in imaging, contrast, Per rotary engraver (Radiology) for line patency check prior to contrast administration, Starting on Sat01/15/23 at 1923, For 1 dose And sodium chloride (PF) (NS) 0.9 % contrast line flush 80 mL (COMPLETED)Jump to med 80 mL, Intravenous, Once in imaging, contrast, Per rotary engraver (Radiology), Starting on Sat01/15/23 at 1923, For 1 dose
30 mL BEFORE contrast administration 50 mL AFTER contrast administration
FOR RECORDS PERTAINING TO PATIENTS WHO ARE OR HAVE BEEN ENROLLED IN A CHEMICAL DEPENDENCY/SUBSTANCEABUSE PROGRAM, SOME INFORMATION MAY BE OMITTED. This clinical summary was aggregated from multiple sources. Caution should be exercised in using it in the provision of clinical care. This summary normalizes information from multiple sources, and as a consequence, information in this document may materially change the coding, format and clinical context of patient data. In addition, data may be omitted in some cases. CLINICAL DECISIONS SHOULD BE BASED ON THE PRIMARY CLINICAL RECORDS. [employer] [facility]. provides no warranty or guarantee of the accuracy or completeness of information in this document.
== END 2023-02-07 03:01 | disposition home or self-care (01) ==
PROVIDERS: Emergency Provider Emergency Medicine; PCP Family Medicine
DX: F41.8 Other specified anxiety disorders (principal); R91.8 Other nonspecific abnormal finding of lung field; F17.200 Nicotine dependence, unspecified, uncomplicated; I50.9 Heart failure, unspecified
CPT/HCPCS: 99283

== ENCOUNTER 2023-02-07 22:27 | Inpatient (IN) | payer OTHER, SELFPAY ==
[2023-02-07] VITALS (11 sets, daily range): BP systolic 120; BP diastolic 78; PULSE 80–103; RESP 18–25; TEMP 36.6; O2SAT 92–98; BMI 26.8
--- OUTSIDE RECORDS SUMMARY | 2023-02-07 22:35 | XMS_ITS | CCD ---
Author Name Unknown Address [address] [place] [address] Organization [facility] Care Team Providers Care Greeter Guest Services Name Role Phone Naomie Bermudez Primary Care Provider AIDAN, DR NAOMIE Hanna Admitting Unavailable AIDAN, DR NAOMIE Hanna Attending Unavailable AIDAN, DR NAOMIE Hanna Consulting Unavailable [place], DR FÉLIX Garcia Consulting Unavailable [place], DR [...] Attending Unavailable JESSICA ALLAN Attending Unavailable BRE LOTT Attending Unavailable [place], [facility]AB Referring Unavailable Naomie Bermudez MD Primary Care Provider [phone] Ghulam MOMIN, Mimi Amador Unavailable [phone] Lex Anderson MD Unavailable [phone] Monica MOMIN, Lex Unavailable Harpreet Lim MD Primary Care Provider No, Physician Primary Care Provider UnavailCHANDA Anderson Attending Unavailable [facility] Consulting [place] NO, PHYSICIAN Primary Care Unavailable AURY GARCIA Admitting Unavail able MIMI MCKINNEY Referring Unavailable BERMUDEZ, NAOMIE EDWARD Primary Care Unavailable MIMI MCKINNEY Referring Unavailable MIMI MCKINNEY Attending Unavailable BERMUDEZ, NAOMIE EDWARD Primary Care Unavailable STEFFI, MAYRA Referring Unavailable ROSS, HARPREET E Primary Care Unavailable STEFFI MAYRA Referring Unavailable ROSS, HARPREET E Primary Care Unavailable MIMI MCKINNEY Referring Unavailable BERMUDEZ, NAOMIE EDWARD Primary Care Unavailable STEFFI, MAYRA Referring Unavailable ROSS, HARPREET E Primary Care Unavailable BERMUDEZ, NAOMIE EDWARD Primary Care Unavailable RIMA MEAD Referring Unavailable STEFFI, MAYRA Referring Unavailable ROSS, HARPREET E Primary Care Unavailable STEFFI MAYRA Referring Unavailable ROSS, HARPREET E Primary [...] Unavailable BERMUDEZ, NAOMIE EDWARD Primary Care Unavailable Cyndi SCHUSTER Attending Unavailable CARINA, HARPREET E Primary Care Unavailable MD Harpreet Lim Attending Unavailable BERMUDEZ, NAOMIE E Attending MD Harpreet Hill Admitting MD Harpreet Hill Attending MD Harpreet Hill Attending Unavailable MD Harpreet Lim Attending Unavailable MD Harpreet Lim Attending Unavailable MD Harpreet Lim Attending MD Harpreet Hill Attending Unavailable Medications Current Medications Medication Drug Class(es) [...] on above: Take 1 tablet by kell once daily. 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 [...] Name Value Interpretation Reference Range Facil ity Ambulatory Visit Summaryon 1 04-10-2022 Ambulatory Visit Summary CONOR LEE :1965 Visit Date:02/07/2023 Ambulatory Visit Instructions Your Diagnosis Primary lung cancer Shortness of breath History of endocarditis Chronic obstructive bronchitis Contact dermatitis Primary hypercholesterolemia Essential hypertension BMI 28.0-28.9,adult Smoker Your Care Team Attending Physician - Harpreet Lim MD Primary Care Physician - Harpreet Lim MD This Is Your Medications List hydrOXYzine (hydrOXYzine hydrochloride 10 mg Tab) methylPREDNISolone (Medrol 4 mg Tab) Contact prescribing physician if questions or concerns albuterol (albuterol 90 mcg/inh inhalation powder) aspirin (aspirin 81 mg Oral EC Tab) chlorthalidone cyclobenzaprine (cyclobenzaprine 10 mg Tab) famotidine (famotidine 40 mg Tab) lisinopril (lisinopril 20 mg Tab) metoprolol (Metoprolol tartrate 25 mg Tab) spironolactone (spironolactone 25 mg Tab) [Image Removed: STOP]Stop taking these medications carvedilol Procedures Performed Aortic valve replacement and replacement of ascending aorta (09/07/2011), Phlebectomy, Splenectomy. Discharge Vitals Temperature (Temporal Artery) 36.5 ?C Heart Rate (Peripheral) 66 Respiratory Rate 16 Blood Pressure 136/82 Height 175.2 cm Height 69 in Weight 86.3 kg Weight 189.86 lb BMI 28.12 What to do next Scheduled Follow-Up Appointments 2023 8:00 AM EST With: Harpreet Lim MD Where: [facility] 02-07-2023 Family Medicine Office/Clinic Note HPI Staff Conor is a 57 year old male presenting for medication check htn At [facility] yesterday morning, sent home and went back later same day and sent him home but narrowed it down to panic attacks Patient is here for follow up on hypertension. How often are you checking your blood pressure? Daily What are your average readings? 111/64 this am_ Yearly BMP: brought labs with him 02/06 cannot get a pulse ox on him, fingers are very cold flu: refused Acute: rash arms and legs, sides started 5 days ago and itches like crazy questions/concerns: Scheduled Mar 25 to fix his valve. and his 2 blockages History of Present Illness Patient presents for follow-up. Patient was recently diagnosed with primary lung cancer. Patient is also having issues with his valve and 2 blockages found by cardiology. Patient is planned for valve replacement and stenting in March. If the valve replacement does not go well patient will undergo open heart surgery. Patient states about that time he will also have biopsy of the lung nodule. Patient also has developed a rash. Please see staff HPI for more. Review of Systems PHQ Score Initial Depression Screen Score: 0 SCORE Physical Exam Vitals & Measurements T: 36.5 ?C(Temporal Artery) HR: 66(Peripheral) RR: 16 BP: 136/82 SpO2: 95% HT: 69 in HT: 175.2 cm WT: 86.3 kg WT: 189.86 lb BMI: 28.12 General: alert, no acute distress ENMT: oral mucosa moist, Cardiovascular: regular rate and rhythm, normal peripheral perfusion, cardiac murmur present however I cannot remember if it was systolic or diastolic. Murmur heard diffusely. Respiratory: Lungs CTA, respirations non labored, very diminished Extremities: no deformity, no trauma Neurological: oriented x 4, LOC appropriate for age, CN II-XII intact, motor strength equal & normal bilaterally, speech normal Abdomen: Soft, Nontender, Non-distended, + BS A diffuse macular papular rash is noted on the patient's arms and underneath his armpits. There are some areas that are so scratched from itching they have some scabbing on them. Assessment/Plan 1. Primary lung cancer (C34.90: Malignant neoplasm of unspecified part of unspecified bronchus or lung) Patient should continue to follow-up with [facility]. Concerned that this rash may be caused by the cancer as patient states he has no other contacts or associations that he believes because this rash. 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 Reviewed records from [facility] and the patient's recent visit to the [place] [facility]. Ordered: Body Mass Index (BMI) documented 3008F Current tobacco smoker 1034F Depression Screening Negative 3352F Influenza immunization status assessed 1030F Most recent diastolic blood pressure 80-89 mm Hg 3079F Systolic BP 130-139 mm Hg (Most Recent) 3075F 2. Shortness of breath (R06.02: Shortness of breath) Patient is feeling better today. Patient was diagnosed with anxiety inducing shortness of breath. Will do hydroxyzine to help. Ordered: Body Mass Index (BMI) documented 3008F Current tobacco smoker 1034F Depression Screening Negative 3352F Influenza immunization status assessed 1030F Most recent diastolic blood pressure 80-89 mm Hg 3079F Systolic BP 130-139 mm Hg (Most Recent) 3075F 3. History of endocarditis (Z86.79: Personal history of other diseases of the circulatory system) Documented for history sake. No symptoms of endocarditis. Ordered: Body Mass Index (BMI) documented 3008F Current tobacco smoker 1034F Depression Screening Negative 3352F Influenza immunization status assessed 1030F Most recent diastolic blood pressure 80-89 mm Hg 3079F Systolic BP 130-139 mm Hg (Most Recent) 3075F 4. Chronic obstructive bronchitis (J44.89: Other specified chronic obstructive pulmonary disease) Patient is struggling to get his Trelegy. We do not have samples today. Will have pulmonary continue to follow patient. Ordered: Body Mass Index (BMI) documented 3008F Current tobacco smoker 1034F Depression Screening Negative 3352F Influenza immunization status assessed 1030F Most recent diastolic blood pressure 80-89 mm Hg 3079F Systolic BP 130-139 mm Hg (Most Recent) 3075F 5. Contact dermatitis (L25.9: Unspecified contact dermatitis, unspecified cause) Will use Medrol to help with the dermatitis. Hydroxyzine to help with anxiety and with itching. 6. Primary hypercholesterolemia (E78.00: Pure hypercholesterolemia, unspecified) Continue medication as before. Will do labs as soon as he does not have labs done somewhere else first. Ordered: Body Mass Index (BMI) documented 3008F Current tobacco smoker 1034F Depression Screening Negative 3352F Influenza immunization status assessed 1030F Most recent diastolic blood pressure 80-89 mm Hg 3079F Systolic BP 130-139 mm Hg (Most Recent) 3075F 7. Essential hypertension (I10: Essential (primary) hypertension) Patient blood pressure is (more content not included)... Normal [facility] Comment on above: Result Comment: Elec tronically Signed By: Carina MOMIN, Harpreet Roland\.br\Date and Time Signed: 02/07/23 08:14 EST Patient Educationon 02-08-20 Patient Education Nutrition BMI for Adults What is BMI? Body mass index (BMI) is a number that is calculated from a person's weight and height. BMI can help estimate how much of a person's weight is composed of fat. BMI does not measure body fat directly. Rather, it is an alternative to procedures that directly measure body fat, which can be difficult and expensive. BMI can help identify people who may be at higher risk for certain medical problems. What are BMI measurements used for? BMI is used as a screening tool to identify possible weight problems. It helps determine whether a person is obese, overweight, a healthy weight, or underweight. BMI is useful for: ? Identifying a weight problem that may be related to a medical condition or may increase the risk for medical problems. ? Promoting changes, such as changes in diet and exercise, to help reach a healthy weight. BMI screening can be repeated to see if these changes are working. How is BMI calculated? BMI involves measuring your weight in relation to your height. Both height and weight are measured, and the BMI is calculated from those numbers. This can be done either in [place] or metric measurements. Note that charts and online BMI calculators are available to help you find your BMI quickly and easily without having to do these calculations yourself. To calculate your BMI in [place] measurements: 1. Measure your weight in pounds (lb). 2. Multiply the number of pounds by 703. ? For example, for a person who weighs 180 lb, multiply that number by 703, which equals 126,540. 3. Measure your height in inches. Then multiply that number by itself to get a measurement called inches squared. ? For example, for a person who is 70 inches tall, the inches squared measurement is 70 inches x 70 inches, which equals 4,900 inches squared. 4. Divide the total from step 2 (number of lb x 703) by the total from step 3 (inches squared): 126,540 ? 4,900 = 25.8. This is your BMI. To calculate your BMI in metric measurements: 1. Measure your weight in kilograms (kg). 2. Measure your height in meters (m). Then multiply that number by itself to get a measurement called meters squared. ? For example, for a person who is 1.75 m tall, the meters squared measurement is 1.75 m x 1.75 m, which is equal to 3.1 meters squared. 3. Divide the number of kilograms (your weight) by the meters squared number. In this example: 70 ? 3.1 = 22.6. This is your BMI. What do the results mean? BMI charts are used to identify whether you are underweight, normal weight, overweight, or obese. The following guidelines will be used: ? Underweight: BMI less than 18.5. ? Normal weight: BMI between 18.5 and 24.9. ? Overweight: BMI between 25 and 29.9. ? Obese: BMI of 30 or above. Keep these notes in mind: ? Weight includes both fat and muscle, so someone with a muscular build, such as an athlete, may have a BMI that is higher than 24.9. In cases like these, BMI is not an accurate measure of body fat. ? To determine if excess body fat is the cause of a BMI of 25 or higher, further assessments may need to be done by a health care provider. ? BMI is usually interpreted in the same way for men and women. Where to find more information For more information about BMI, including tools to quickly calculate your BMI, go to these websites: ? Centers for Disease Control and Prevention: www.cdc.gov ? [place] Heart Association: www.heart.org ? National Heart, Lung, and Blood [place]: www.nhlbi.nih.gov Summary ? Body mass index (BMI) is a number that is calculated from a person's weight and height. ? BMI may help estimate how much of a person's weight is composed of fat. BMI can help identify those who may be at higher risk for certain medical problems. ? BMI can be measured using [place] measurements or metric measurements. ? BMI charts are used to identify whether you are underweight, normal weight, overweight, or obese. This information is not intended to replace advice given to you by your health care provider. Make sure you discuss any questions you have with your health care provider. Document Revised: 10/28/2019 Document Reviewed: 09/04/2019 [employer] Shot Therapy Patient Education ? 2022 [employer]. Pulmonary Medicine Steps to Quit Smoking Smoking tobacco is the leading cause of preventable . It can affect almost every organ in the body. Smoking puts you and those around you at risk for developing many serious chronic diseases. Quitting smoking can be very challenging. Do not get discouraged if you are not successful the first time. Some people need to make many attempts to quit before they achieve long-term success. Do your best to stick to your quit plan, and talk with your health care provider if you have any questions or concerns. How do I get ready to quit? When you decide to quit smoking, create a plan to help you succeed. Before you quit: ? Pick a date to quit. (more content not included)... [facility] Consultation Noteon 02-07-20 Consultation Note [id number] .00TIFF [facility] ED Note-Physicianon 02-07-20 ED Note-Physician [id number] .00TIFF [facility] Case Information Case Priority: None Programs: -- Referral Source: Rigger Supervisor Referral Reason: Care coordination Case Type: High Risk Adult Risk Score: -- Case Status: Enrolled (January 22, 2023) Date Assigned: January 21, 2023 Assigned By: Andres Damico Date Enrolled: January 22, 2023 Assigned Primary Personnel: Andres Damico Assigned Secondary Personnel: -- Case Physician: Harpreet Lim MD Problems Ongoing Acute URI 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 Patient states his pulse ox was very low when he arrived and inquiring on O2 rx (message sent to PCP). Patient states albuterol inhaler does not help with SOB and he is taking medications as prescribed. Patient is now home and states doing much better. Patient does not have a pulse ox at home, states it broke. Patient reports wgt today 185 lbs up from 180 a few days ago. Patient denies any swelling in LE or SOB when laying flat, or lightheadedness/dizzi ness. Patient is scheduled for TAVR procedure on 03/25 with [facility], and will follow up with pulmonary for lung mass after TAVR. Patient has hospital follow up 02/07/[address] Lim at 0740. Patient denies any further questions or concerns. Communication Events Date: February 06, 2023 Method: Phone call Type: Outbound Duration (min): 7 Outcome: Case discussion Contact Type: payroll coordinator Contact Name: Andres Damico Notes: CONTENT MANAGER#4- Returned patient call for CONTENT MANAGER status update, see ft summary note. Created By: Andres Damico Date: February 01, 2023 Method: Phone call Type: Outbound Duration (min): 1 Outcome: Left message-voicemail Contact Type: payroll coordinator Contact Name: Andres Damico Notes: CONTENT MANAGER#3-wgt- Attemtped to reach pt no answer, left vm for return call. Created By: Andres Damico Date: January 29, 2023 Method: Phone call Type: Outbound Duration (min): 1 Outcome: Left message-voicemail Contact Type: payroll coordinator Contact Name: Andres Damico Notes: CONTENT MANAGER#2 and wgt- Attempted to reach pt for CONTENT MANAGER program call status update and wgt check, no answer, left vm for return call. Created By: Andres Damico Date: January 22, 2023 Method: Phone call Type: Outbound Duration (min): 14 Outcome: Case discussion Contact Type: payroll coordinator Contact Name: Andres Damico Notes: CONTENT MANAGER#1- Spoke with patient for initial CONTENT MANAGER program call status update, see ft summary note. Created By: Andres Damico Date: January 21, 2023 Method: Phone call Type: Outbound Duration (min): 1 Outcome: Left message-voicemail Contact Type: payroll coordinator Contact Name: Andres Damico Notes: CONTENT MANAGER#1- Attemtped to contact patient for initial CONTENT MANAGER call status update, no answer, left vm for return call. Created By: Andres Damico Normal [facility] RAD - CT Reporton 02-06-2023 RAD - CT Report [id number] .00TIFF Normal [facility] CBC W Auto Differential pane l (Bld)on 02-01-2023 Basophils (Bld) [#/Vol] 0.17 10*3/uL High <0.11 [facility] Comment on above: Order Comment: Speci men Type: BLOOD SPECIMENOrdering Facility: [facility] Address: [address] [place] [address] Performed By: #### 5 7021-8 ####[facility] LABCLIA [id number] [place] [address] [place] Basophils/100 WBC (Bld) 1.4 % Normal [facility] Comment on above: Order Comment: Speci men Type: BLOOD SPECIMENOrdering Facility: [facility] Address: [address] [place] [address] Performed By: #### 5 7021-8 ####[facility] LABCLIA [id number] [place] [address] [place] Differential cell count method Nom (Bld) Auto Normal [facility] Comment on above: Order Comment: Speci men Type: BLOOD SPECIMENOrdering Facility: [facility] Address: [address] [place] [address] Performed By: #### 5 7021-8 ####[facility] LABCLIA [id number] [place] [address] [place] Eosinophils (Bld) [#/Vol] 0.35 10*3/uL Normal <0.46 [facility] Comment on above: Order Comment: Speci men Type: BLOOD SPECIMENOrdering Facility: [facility] Address: [address] [place] [address] Performed By: #### 5 7021-8 ####[facility] LABCLIA [id number] [place] [address] [place] Eosinophils/100 WBC (Bld) 3.0 % Normal [facility] Comment on above: Order Comment: Speci men Type: BLOOD SPECIMENOrdering Facility: [facility] Address: [address] [place] [address] Performed By: #### 5 7021-8 ####[facility] LABCLIA [id number] [place] [address] [place] Erythrocyte distribution width (RBC) [Ratio] 13.6 % Normal 11.5-15.0 [facility] Comment on above: Order Comment: Speci men Type: BLOOD SPECIMENOrdering Facility: [facility] Address: [address] [place] [address] Performed By: #### 5 7021-8 ####[facility] LABCLIA [id number] [place] [address] [place] Hematocrit (Bld) [Volume fraction] 46.1 % Normal 39.0-51.0 [facility] Comment on above: Order Comment: Speci men Type: BLOOD SPECIMENOrdering Facility: [facility] Address: [address] [place] [address] Performed By: #### 5 7021-8 ####[facility] LABCLIA [id number] [place] [address] [place] Hemoglobin (Bld) [Mass/Vol] 15.9 g/dL Normal 13.0-17.0 [facility] Comment on above: Order Comment: Speci men Type: BLOOD SPECIMENOrdering Facility: [facility] Address: [address] [place] [address] Performed By: #### 5 7021-8 ####[facility] LABCLIA [id number] [place] [address] [place] Immature granulocytes (Bld) [#/Vol] 0.04 10*3/uL Normal <0.10 [facility] Comment on above: Order Comment: Speci men Type: BLOOD SPECIMENOrdering Facility: [facility] Address: [address] [place] [address] Performed By: #### 5 7021-8 ####[facility] LABIA [id number] [place] [address] [place] Immature granulocytes/100 WBC (Bld) 0.3 % Normal [facility] Comment on above: Order Comment: Speci men Type: BLOOD SPECIMENOrdering Facility: [facility] Address: [address] [place] [address] Performed By: #### 5 7021-8 ####[facility] LABIA [id number] [place] [address] [place] Lymphocytes (Bld) [#/Vol] 2.28 10*3/uL Normal 1.00-4.00 [facility] Comment on above: Order Comment: Speci men Type: BLOOD SPECIMENOrdering Facility: [facility] Address: [address] [place] [address] Performed By: #### 5 7021-8 ####[facility] LABIA [id number] [place] [address] [place] Lymphocytes/100 WBC (Bld) 19.4 % Normal [facility] Comment on above: Order Comment: Speci men Type: BLOOD SPECIMENOrdering Facility: [facility] Address: [address] [place] [address] Performed By: #### 5 7021-8 ####[facility] LABIA [id number] [place] [address] [place] MCH (RBC) [Entitic mass] 37.0 pg High 26.0-34.0 [facility] Comment on above: Order Comment: Speci men Type: BLOOD SPECIMENOrdering Facility: [facility] Address: [address] [place] [address] Performed By: #### 5 7021-8 ####[facility] LABIA [id number] [place] [address] [place] MCHC (RBC) [Mass/Vol] 34.5 g/dL Normal 30.5-36.0 [facility] Comment on above: Order Comment: Speci men Type: BLOOD SPECIMENOrdering Facility: [facility] Address: [address] [place] [address] Performed By: #### 5 7021-8 ####[facility] LABCLIA [id number] [place] [address] [place] MCV (RBC) [Entitic vol] 107.2 fL High 80.0-100.0 [facility] Comment on above: Order Comment: Speci men Type: BLOOD SPECIMENOrdering Facility: [facility] Address: [address] [place] [address] Performed By: #### 5 7021-8 ####[facility] LABCLIA [id number] [place] [address] [place] Monocytes (Bld) [#/Vol] 0.62 10*3/uL Normal <0.87 [facility] Comment on above: Order Comment: Speci men Type: BLOOD SPECIMENOrdering Facility: [facility] Address: [address] [place] [address] Performed By: #### 5 7021-8 ####[facility] LABCLIA [id number] [place] [address] [place] Monocytes/100 WBC (Bld) 5.3 % Normal [facility] Comment on above: Order Comment: Speci men Type: BLOOD SPECIMENOrdering Facility: [facility] Address: [address] [place] [address] Performed By: #### 5 7021-8 ####[facility] LABCLIA [id number] [place] [address] [place] Neutrophils (Bld) [#/Vol] 8.27 10*3/uL High 1.45-7.50 [facility] Comment on above: Order Comment: Speci men Type: BLOOD SPECIMENOrdering Facility: [facility] Address: [address] [place] [address] Performed By: #### 5 7021-8 ####[facility] LABIA [id number] [place] [address] [place] Neutrophils/100 WBC (Bld) 70.6 % Normal [facility] Comment on above: Order Comment: Speci men Type: BLOOD SPECIMENOrdering Facility: [facility] Address: [address] [place] [address] Performed By: #### 5 7021-8 ####[facility] LABCLIA [id number] [place] [address] [place] Nucleated RBC (Bld) [#/Vol] 10*3/uL Normal <0.01 [facility] Comment on above: Order Comment: Speci men Type: BLOOD SPECIMENOrdering Facility: [facility] Address: [address] [place] [address] Performed By: #### 5 7021-8 ####[facility] LABIA [id number] [place] [address] [place] Nucleated RBC/100 WBC (Bld) [Ratio] 0.0 /100 WBC Normal [facility] Comment on above: Order Comment: Speci men Type: BLOOD SPECIMENOrdering Facility: [facility] Address: [address] [place] [address] Performed By: #### 5 7021-8 ####[facility] LABIA [id number] [place] [address] [place] Platelet mean volume (Bld) [Entitic vol] 10.0 fL Normal 9.0-12.7 [facility] Comment on above: Order Comment: Speci men Type: BLOOD SPECIMENOrdering Facility: [facility] Address: [address] [place] [address] Performed By: #### 5 7021-8 ####[facility] LABIA [id number] [place] [address] [place] Platelets (Bld) [#/Vol] 277 10*3/uL Normal 150-400 [facility] Comment on above: Order Comment: Speci men Type: BLOOD SPECIMENOrdering Facility: [facility] Address: [address] [place] [address] Performed By: #### 5 7021-8 ####[facility] LABCLIA [id number] [place] [address] [place] RBC (Bld) [#/Vol] 4.30 10*6/uL Normal 4.20-6.00 [facility] Comment on above: Order Comment: Speci men Type: BLOOD SPECIMENOrdering Facility: [facility] Address: [address] [place] [address] Performed By: #### 5 7021-8 ####[facility] LABCLIA [id number] [place] [address] [place] WBC (Bld) [#/Vol] 11.73 10*3/uL High 3.70-11.00 [facility] Comment on above: Order Comment: Speci men Type: BLOOD SPECIMENOrdering Facility: [facility] Address: [address] [place] [address] Performed By: #### 5 7021-8 ####[facility] LABCLIA [id number] [place] [address] [place] CNOVon 02-01-2023 CNOV Office Visit (CATHMN ) CONOR LEE ([id number]) 1965 M Date Time Provider Department 02/01/23 2:00 PM [facility] CATHMN During your visit today, we recorded the following information about you: Natividad Moore APRN.AISSATOU 02/01/2023 3:44 PM Signed [facility] Christelle Rodriguez Department of Cardiovascular Medicine SECTION [...] back in November. Conor Lee is from [place] where he lives with his significant other. [...] cm/s. The dimensionless valve index is 0.21. 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 VERNON CARDIOMYOPATHY QUESTIONNAIRE (KCCQ-12) Activity: A. Showering/bathing: Extremely [...] weeks, ho (more content not included)... Normal [facility] CNOV Office Visit (CATHMN ) CONOR LEE ([id number]) 1965 M Date Time Provider Department 02/01/23 9:45 AM Cyndi SCHUSTER CATHMN During your visit today, we recorded the following information about you: Pulse Respiration Blood pressure Weight 72/minute 18/minute 143/97 83.9 kg Height 1.778 m Cyndi Schuster MD 02/01/2023 11:41 AM Signed [facility] Christelle Rodriguez Department of Cardiovascular Medicine SECTION OF INTERVENTIONAL CARDIOLOGY OUTPATIENT VISIT DATE February 01, 2023 OUTPATIENT VISIT TYPE NEW PRIMARY CARE PHYSICIAN: Harpreet [place] [address] REFERRING PHYSICIAN: No referring provider defined for this encounter. CHIEF COMPLAINT: No chief complaint on file. HISTORY OF PRESENT ILLNESS: Mr. Lee is a 57 year-old male who was referred by Dr. Dr. 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 He was admitted on 01/15/2023 with acute respiratory distress and decompensated heart failure and R hilar mass and discharged on 01/17. PMH is significant for Bicuspid aortic valve s/p AVR (Magna prosthetic valve size #23; Dr. Sheriff at [facility]; 08/2011), CAD 10/18/2022 cath at [facility] showed 100% occluded moderate size RCA with [...] Lee is an 57 year old male ([place]) with pmhx of: bicuspid valve s/p AVR (#23 magna pericardial valve, 2011) [facility] HTN PAD s/p right SFA bypass 1979 [...] to doing biopsy. He was admitted to [facility] on 01/17 for COPD exacerbation. He was [...] It show (more content not included)... Normal [facility] CTA C/A/P (GATED) W IVCONon 02-01-2023 CTA [...] the proximal common iliacs segments. AORTIC DIMENSIONS: port lions AORTIC ROOT: 3.0 cm measured rgksy-ot-fjwnp , with postsurgical changes present STJ: 2.6 [...] right lower (more content not included)... Normal [facility] Comprehensive metabolic 2000 panelon 02-01-2023 Albumin [Mass/Vol] 4.2 g/dL Normal 3.9-4.9 [facility] Comment on above: Order Comment: Speci men Type: BLOOD SPECIMENOrdering Facility: [facility] Address: [address] [place] [address] Performed By: #### 2 4323-8, 32048-3, HSTNT ####[facility] LABCLIA [id number] [place] [address] [place] ALP [Catalytic activity/Vol] 67 U/L Normal 38-113 [facility] Comment on above: Order Comment: Speci men Type: BLOOD SPECIMENOrdering Facility: [facility] Address: [address] [place] [address] Performed By: #### 2 4323-8, 90073-6, HSTNT ####[facility] LABCLIA [id number] [place] [address] [place] ALT [Catalytic activity/Vol] 25 U/L Normal 10-54 [facility] Comment on above: Order Comment: Speci men Type: BLOOD SPECIMENOrdering Facility: [facility] Address: [address] [place] [address] Performed By: #### 2 4323-8, 73868-9, HSTNT ####[facility] LABCLIA [id number] [place] [address] [place] Anion gap [Moles/Vol] 8 mmol/L Low 9-18 [facility] Comment on above: Order Comment: Speci men Type: BLOOD SPECIMENOrdering Facility: [facility] Address: [address] [place] [address] Performed By: #### 2 4323-8, 62866-9, HSTNT ####[facility] LABCLIA [id number] [place] [address] [place] AST [Catalytic activity/Vol] 17 U/L Normal 14-40 [facility] Comment on above: Order Comment: Speci men Type: BLOOD SPECIMENOrdering Facility: [facility] Address: [address] [place] [address] Performed By: #### 2 4323-8, 54249-8, HSTNT ####[facility] LABCLIA [id number] [place] [id number] [place] Bilirubin [Mass/Vol] 0.3 mg/dL Normal 0.2-1.3 [facility] Comment on above: Order Comment: Speci men Type: BLOOD SPECIMENOrdering Facility: [facility] Address: [address] [place] [address] Performed By: #### 2 4323-8, 99455-8, HSTNT ####[facility] LABCLIA [id number] [place] [address] [place] Calcium [Mass/Vol] 10.0 mg/dL Normal 8.5-10.2 [facility] Comment on above: Order Comment: Speci men Type: BLOOD SPECIMENOrdering Facility: [facility] Address: [address] [place] [address] Performed By: #### 2 4323-8, 46258-9, HSTNT ####[facility] LABCLIA [id number] [place] [address] [place] Chloride [Moles/Vol] 97 mmol/L Normal 97-105 [facility] Comment on above: Order Comment: Speci men Type: BLOOD SPECIMENOrdering Facility: [facility] Address: [address] [place] [address] Performed By: #### 2 4323-8, 82153-0, HSTNT ####[facility] LABCLIA [id number] [place] [address] [place] CO2 [Moles/Vol] 27 mmol/L Normal 22-30 [facility] Comment on above: Order Comment: Speci men Type: BLOOD SPECIMENOrdering Facility: [facility] Address: [address] [place] [address] Performed By: #### 2 4323-8, 59051-8, HSTNT ####[facility] LABCLIA [id number] [place] [address] [place] Creatinine [Mass/Vol] 0.99 mg/dL Normal 0.73-1.22 [facility] Comment on above: Order Comment: Speci men Type: BLOOD SPECIMENOrdering Facility: [facility] Address: [address] [place] [address] Performed By: #### 2 4323-8, 22856-4, HSTNT ####[facility] LABCLIA [id number] [place] [address] [place] Creatinine and Glomerular filtration rate.predicted panel (S/P/Bld) 89 mL/min/1.73m??? Normal >=60 [facility] Comment on above: Order Comment: Sylvie hammer Type: BLOOD SPECIMENOrdering Facility: [facility] Address: [address] [place] [address] Result Comment: Aditi mated Glomerular Filtration Rate [...] actual GFR. Performed By: #### 2 4323-8, 61753-1, HSTNT ####[facility] LABIA [id number] [place] [address] [place] Glucose [Mass/Vol] 120 mg/dL High 74-99 [facility] Comment on above: Order Comment: Sylvie hammer Type: BLOOD SPECIMENOrdering Facility: [facility] Address: [address] [place] [address] Result Comment: The [place] Diabetes Association (ADA) provides guidance for cutoff [...] Standards of Medical Care in Diabetes 2016, [place] [employer]. Diabetes Care. 2016.39(Suppl 1). Performed By: #### 2 4323-8, 25446-9, HSTNT ####[facility] LABIA [id number] [place] [address] [place] Potassium [Moles/Vol] 5.0 mmol/L Normal 3.7-5.1 [facility] Comment on above: Order Comment: Speci men Type: BLOOD SPECIMENOrdering Facility: [facility] Address: [address] [place] [address] Performed By: #### 2 4323-8, 75911-4, HSTNT ####[facility] LABCLIA [id number] [place] [address] [place] Protein [Mass/Vol] 7.0 g/dL Normal 6.3-8.0 [facility] Comment on above: Order Comment: Speci men Type: BLOOD SPECIMENOrdering Facility: [facility] Address: [address] [place] [address] Performed By: #### 2 4323-8, 34402-8, HSTNT ####[facility] LABCLIA [id number] [place] [address] [place] Sodium [Moles/Vol] 132 mmol/L Low 136-144 [facility] Comment on above: Order Comment: Speci men Type: BLOOD SPECIMENOrdering Facility: [facility] Address: [address] [place] [address] Performed By: #### 2 4323-8, 97684-7, HSTNT ####[facility] LABCLIA [id number] [place] [address] [place] Urea nitrogen [Mass/Vol] 18 mg/dL Normal 9-24 [facility] Comment on above: Order Comment: Speci men Type: BLOOD SPECIMENOrdering Facility: [facility] Address: [address] [place] [address] Performed By: #### 2 4323-8, 04133-1, HSTNT ####[facility] LABCLIA [id number] [place] [address] [place] HIGH SENSITIVITY TROPONIN To n 02-01-2023 Troponin T.cardiac High sensitivity method [Mass/Vol] 17 ng/L High <12 [facility] Comment on above: Order Comment: Speci men Type: BLOOD SPECIMENOrdering Facility: [facility] Address: [address] [place] [address] Result Comment: When assessing risk for acute [...] day MACE. Performed By: #### 2 4323-8, 07694-0, HSTNT ####[facility] LABIA [id number] [place] [address] [place] LPa SerPl-mCncon 02-01-2023 Lipoprotein a [Mass/Vol] 125 mg/dL High <30 [facility] Comment on above: Order Comment: Speci men Type: BLOOD SPECIMENOrdering Facility: [facility] Address: [address] [place] [address] Performed By: #### 1 0835-7 ####[facility] LABIA [id number] [place] [address] [place] NT-proBNP [facility] Natriuretic peptide.B prohormone N-Terminal [Mass/Vol] 1659 pg/mL High <125 [facility] Comment on above: Order Comment: Speci men Type: BLOOD SPECIMENOrdering Facility: [facility] Address: [address] [place] [address] Performed By: #### 2 4323-8, 04000-7, HSTNT ####[facility] [id number] [place] [address] [place] PT panel Coag (PPP)on 2022 INR Coag (PPP) [Relative time] {INR} Low 0.9-1.3 [facility] Comment on above: Order Comment: Speci men Type: BLOOD SPECIMENOrdering Facility: [facility] Address: [address] [place] [address] Result Comment: Resu lt rechecked. Sample checked for clot. Vitamin K Antagonist (VKA) Therapeutic Range: INR 2 to 3 (Target INR of 2.5) Note: For patients treated with VKA drugs, such as warfarin, the [place] [employer] 2012 Guideline recommends [...] ROSALES, et al. Chest 2012, 141:7S-47S Pat SHAW, et al. [facility] 2017, 70: 252-289 Performed By: #### 3 4528-0 ####[facility] [id number] [place] [address] [place] PT Coag (PPP) [Time] 9.9 s Normal 9.7-13.0 [facility] Comment on above: Order Comment: Speci men Type: BLOOD SPECIMENOrdering Facility: [facility] Address: [address] [place] [address] Performed By: #### 3 4528-0 ####[facility] [id number] [place] [address] [place] XR CHEST 2V FRONTAL/LATon XR CHEST 2V FRONTAL/LAT * * *Final Report* * * DATE OF EXAM: Feb 01 2023 12:02PM FISH [id number] - XR CHEST 2V FRONTAL/LAT / [...] soft tissues: Median sternotomy. IMPRESSION: See result Primer Inserting Machine Adjuster: PSCAnne Marie Transcribe Date/Time: Feb 02 2023 2:01P Dictated by : JOSE DIEZ MD This examination was interpreted and the report reviewed and electronically signed by: JOSE DIEZ MD on Feb 02 2023 2:04PM EST [id number] Normal [facility] CNCOon 01-31-2023 CNCO Letter Text Normal [facility] Basic metabolic 2000 panelon 01-28-2023 Anion gap [Moles/Vol] 12 mmol/L Normal 9-18 [facility] Comment on above: Order Comment: Speci men Type: BLOOD SPECIMENOrdering Facility: [facility] Address: [address] [place] [address] Performed By: #### 2 4321-2 ####[facility] LABCLIA [id number] [place] [address] Calcium [Mass/Vol] 9.7 mg/dL Normal 8.5-10.2 [facility] Comment on above: Order Comment: Speci men Type: BLOOD SPECIMENOrdering Facility: [facility] Address: [address] [place] [address] Performed By: #### 2 4321-2 ####[facility] LABCLIA [id number] [place] [address] Chloride [Moles/Vol] 93 mmol/L Low 97-105 [facility] Comment on above: Order Comment: Speci men Type: BLOOD SPECIMENOrdering Facility: [facility] Address: [address] [place] [address] Performed By: #### 2 4321-2 ####[facility] LABCLIA [id number] [place] [address] CO2 [Moles/Vol] 26 mmol/L Normal 22-30 [facility] Comment on above: Order Comment: Speci men Type: BLOOD SPECIMENOrdering Facility: [facility] Address: [address] [place] [address] Performed By: #### 2 4321-2 ####[facility] LABCLIA [id number] [place] [address] Creatinine [Mass/Vol] 1.06 mg/dL Normal 0.73-1.22 [facility] Comment on above: Order Comment: Speci men Type: BLOOD SPECIMENOrdering Facility: [facility] Address: [address] [place] [address] Performed By: #### 2 4321-2 ####[facility] LABCLIA [id number] [place] [address] Creatinine and Glomerular filtration rate.predicted panel (S/P/Bld) 82 mL/min/1.73m??? Normal >=60 [facility] Comment on above: Order Comment: Speci men Type: BLOOD SPECIMENOrdering Facility: [facility] Address: [address] [place] [address] Result Comment: Aditi mated Glomerular Filtration Rate [...] actual GFR. Performed By: #### 2 4321-2 ####[facility] LABCLIA [id number] [place] [address] Glucose [Mass/Vol] 199 mg/dL High 74-99 [facility] Comment on above: Order Comment: Speci men Type: BLOOD SPECIMENOrdering Facility: [facility] Address: [address] [place] [address] Result Comment: The [place] Diabetes Association (ADA) provides guidance for cutoff [...] Standards of Medical Care in Diabetes 2016, [place] [employer]. Diabetes Care. 2016.39(Suppl 1). Performed By: #### 2 4321-2 ####[facility] LABCLIA [id number] [place] [address] Potassium [Moles/Vol] 4.7 mmol/L Normal 3.7-5.1 [facility] Comment on above: Order Comment: Speci men Type: BLOOD SPECIMENOrdering Facility: [facility] Address: [address] [place] [address] Performed By: #### 2 4321-2 ####[facility] LABCLIA [id number] [place] [address] Sodium [Moles/Vol] 131 mmol/L Low 136-144 [facility] Comment on above: Order Comment: Speci men Type: BLOOD SPECIMENOrdering Facility: [facility] Address: [address] [place] [address] Performed By: #### 2 4321-2 ####[facility] LABCLIA [id number] [place] [address] Urea nitrogen [Mass/Vol] 22 mg/dL Normal 9-24 [facility] Comment on above: Order Comment: Speci men Type: BLOOD SPECIMENOrdering Facility: [facility] Address: [address] [place] [address] Performed By: #### 2 4321-2 ####[facility] LABCLIA [id number] [place] [address] [facility] 01-25-20 [facility] Case Information Case Priority: None Programs: -- Referral Source: Rigger Supervisor Referral Reason: Care coordination Case Type: High Risk Adult Risk Score: -- Case Status: Enrolled (January 22, 2023) Date Assigned: January 21, 2023 Assigned By: Andres Damico Date Enrolled: January 22, 2023 Assigned Primary Personnel: Andres Damico Assigned Secondary Personnel: -- Case Physician: Harpreet Lim MD Ongoing Acute URI Atherosclerosis of port lions artery of extremity CAD in port lions artery Carpal tunnel syndrome Chronic obstructive bronchitis [...] name, street address and date of verified Program Enrollment Provides verbal consent for enrollment Goals and Interventions Care Plan Progress Note CONTENT MANAGER- wgt check- Patient reports his weight is holding at 180lbs. Reports BP 124/85 HR 80 SPO2 94-97%. Patient denies any further questions or concerns at this time. Communication Events Date: January 22, 2023 Method: Phone call Type: Outbound Duration (min): 14 Outcome: Case discussion Contact Type: payroll coordinator Contact Name: Andres Damico Notes: CONTENT MANAGER#1- Spoke with patient for initial [facility] program call status update, see ft summary note. Created By: Andres Damico Date: January 21, 2023 Method: Phone call Type: Outbound Duration (min): 1 Outcome: Left message-voicemail Contact Type: payroll coordinator Contact Name: Andres Damico Notes: CONTENT MANAGER#1- Attemtped to contact patient for initial [facility] call status update, no answer, left vm for return call. Created By: Andres Damico [facility] 01-23-20 [facility] Case Information Case Priority: None Programs: -- Referral Source: Rigger Supervisor Referral Reason: Care coordination Case Type: Complex Case Management Risk Score: -- Case Status: Enrolled (January 22, 2023) Date Assigned: January 21, 2023 Assigned By: Andres Damico Date Enrolled: January 22, 2023 Assigned Primary Personnel: Andres Damico Assigned Secondary Personnel: -- Case Physician: Harpreet Lim MD Ongoing Acute URI Atherosclerosis of port lions artery of extremity CAD in port lions artery Carpal tunnel syndrome Chronic obstructive bronchitis [...] not as prescribed: decreased while inpt at [facility] to 10 mg QD, 01/17-01/20 Metoprolol tartrate [...] scheduled? yes, PCP Dr. Lim 02/05 at [facility] Did you understand your discharge instructions? yes [...] (min): 1 Outcome: Left message-voicemail Contact Type: payroll coordinator Contact Name: Andres Damico Notes: CONTENT MANAGER#1- Attemtped to contact patient for initial CONTENT MANAGER call status update, no answer, left vm for return call. Created By: Andres Damico [facility] Admission Noteon 01-21-2023 Admission Note 104.. 2 [id number] .00TIFF [facility] Admission Note 104.170.. 1 [id number] .00TIFF [facility] CBC panel Auto (Bld)on 01-20 Erythrocyte distribution width (RBC) [Ratio] 13.7 % Normal 11.5-15.0 [facility] Comment on above: Order Comment: Speci men Type: BLOOD SPECIMENOrdering Facility: [facility] Address: [address] [place] [address] Performed By: #### 5 8410-2 ####[facility] LABIA [id number] [place] [address] [place] [place] Hematocrit (Bld) [Volume fraction] 49.9 % Normal 39.0-51.0 [facility] Comment on above: Order Comment: Speci men Type: BLOOD SPECIMENOrdering Facility: [facility] Address: [address] [place] [address] Performed By: #### 5 8410-2 ####[facility] LABIA [id number] [place] [address] [place] Hemoglobin (Bld) [Mass/Vol] 17.7 g/dL High 13.0-17.0 [facility] Comment on above: Order Comment: Speci men Type: BLOOD SPECIMENOrdering Facility: [facility] Address: [address] [place] [address] Performed By: #### 5 8410-2 ####[facility] LABIA [id number] [place] [address] [place] MCH (RBC) [Entitic mass] 37.1 pg High 26.0-34.0 [facility] Comment on above: Order Comment: Speci men Type: BLOOD SPECIMENOrdering Facility: [facility] Address: [address] [place] [address] Performed By: #### 5 8410-2 ####[facility] LABIA [id number] [place] [address] [place] MCHC (RBC) [Mass/Vol] 35.5 g/dL Normal 30.5-36.0 [facility] Comment on above: Order Comment: Speci men Type: BLOOD SPECIMENOrdering Facility: [facility] Address: [address] [place] [address] Performed By: #### 5 8410-2 ####[facility] LABIA [id number] [place] [address] [place] MCV (RBC) [Entitic vol] 104.6 fL High 80.0-100.0 [facility] Comment on above: Order Comment: Speci men Type: BLOOD SPECIMENOrdering Facility: [facility] Address: [address] [place] [address] Performed By: #### 5 8410-2 ####[facility] LABIA [id number] [place] [address] [place] Nucleated RBC (Bld) [#/Vol] 10*3/uL Normal <0.01 [facility] Comment on above: Order Comment: Speci men Type: BLOOD SPECIMENOrdering Facility: [facility] Address: [address] [place] [address] Performed By: #### 5 8410-2 ####[facility] LABIA [id number] [place] [address] [place] Platelet mean volume (Bld) [Entitic vol] 11.5 fL Normal 9.0-12.7 [facility] Comment on above: Order Comment: Speci men Type: BLOOD SPECIMENOrdering Facility: [facility] Address: [address] [place] [address] Performed By: #### 5 8410-2 ####[facility] [id number] [place] [address] [place] Platelets (Bld) [#/Vol] 153 10*3/uL Normal 150-400 [facility] Comment on above: Order Comment: Speci men Type: BLOOD SPECIMENOrdering Facility: [facility] Address: [address] [place] [address] Performed By: #### 5 8410-2 ####[facility] LABCLIA [id number] [place] [address] [place] RBC (Bld) [#/Vol] 4.77 10*6/uL Normal 4.20-6.00 [facility] Comment on above: Order Comment: Speci men Type: BLOOD SPECIMENOrdering Facility: [facility] Address: [address] [place] [address] Performed By: #### 5 8410-2 ####[facility] LABCLIA [id number] [place] [address] [place] WBC (Bld) [#/Vol] 10.11 10*3/uL Normal 3.70-11.00 [facility] Comment on above: Order Comment: Speci men Type: BLOOD SPECIMENOrdering Facility: [facility] Address: [address] [place] [address] Performed By: #### 5 8410-2 ####[facility] LABCLIA [id number] [address] OF [place] CNDSon 01-20-2023 CNDS HNO ID: [id number] Author: Farheen Cruz MD Service: Pulmonary Disease [...] Center 02/01/2023 9:45 AM Cyndi Schuster MD [facility] 02/01/2023 11:30 AM LBJ1-4 MAIN LBJ1-4 Mn [facility] 02/01/2023 11:45 AM XR CHEST MAIN J1 RADMNJ [facility] 02/01/2023 12:00 PM EKGJ1-4 MAIN [id number] [facility] 02/01/2023 12:[address] MAIN J (I-STAT) RCTMJ [facility] 02/01/2023 2:00 PM [facility] 02/04/2023 To Be Determined Barbra Nevarez MD [facility] REASON FOR HOSPITALIZATION: Acute Decompensated [...] 12/10), 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 Sheriff at [facility]; 08/2011) c/b severe stenosis d/t prostatic thickening [...] 10/18/22 showed severe bioprosthetic aortic valve stenosis, RANGE EXAMINER RCA and LCX 80% stenosis. Patient following with Dr. Mckinney for consideration of aortic valve surgery. At OSH, patient was treated for COPD exacerbation with dexamethasone, solumedrol, and duonebs, and acute decompensated heart failure with lasix. Patient was diuresed to dry weight (178lbs). [facility] imaging requested for transfer to F ([facility]: [phone]). Plan: -Continue TAVR assessment outpatient -Decrease Coreg 37.5mg BID to 25mg BID -Decrease Lisinopril 20mg BID to 10mg Daily -Start Chlorthalidone 25mg, Spironolactone 25mg -ASA81 (more content not included)... Normal [facility] Renal function 2000 panelon 01-20-2023 Albumin [Mass/Vol] 4.0 g/dL Normal 3.9-4.9 [facility] Comment on above: Order Comment: Speci men Type: BLOOD SPECIMENOrdering Facility: [facility] Address: [address] [place] [address] Performed By: #### 2 4362-6 ####[facility] LABCLIA [id number] [place] [address] [place] Anion gap [Moles/Vol] 15 mmol/L Normal 9-18 [facility] Comment on above: Order Comment: Speci men Type: BLOOD SPECIMENOrdering Facility: [facility] Address: [address] [place] [address] Performed By: #### 2 4362-6 ####[facility] LABCLIA [id number] [place] [address] [place] Calcium [Mass/Vol] 9.0 mg/dL Normal 8.5-10.2 [facility] Comment on above: Order Comment: Speci men Type: BLOOD SPECIMENOrdering Facility: [facility] Address: [address] [place] [address] Performed By: #### 2 4362-6 ####[facility] LABCLIA [id number] [place] [address] [place] Chloride [Moles/Vol] 93 mmol/L Low 97-105 [facility] Comment on above: Order Comment: Speci men Type: BLOOD SPECIMENOrdering Facility: [facility] Address: [address] [place] [address] Performed By: #### 2 4362-6 ####[facility] LABCLIA [id number] [place] [address] [place] CO2 [Moles/Vol] 24 mmol/L Normal 22-30 [facility] Comment on above: Order Comment: Speci men Type: BLOOD SPECIMENOrdering Facility: [facility] Address: [address] [place] [address] Performed By: #### 2 4362-6 ####[facility] LABCLIA [id number] [place] [address] [place] Creatinine [Mass/Vol] 1.01 mg/dL Normal 0.73-1.22 [facility] Comment on above: Order Comment: Speci men Type: BLOOD SPECIMENOrdering Facility: [facility] Address: [address] [place] [address] Performed By: #### 2 4362-6 ####[facility] [id number] [place] [address] [place] Creatinine and Glomerular filtration rate.predicted panel (S/P/Bld) 87 mL/min/1.73m??? Normal >=60 [facility] Comment on above: Order Comment: Speci men Type: BLOOD SPECIMENOrdering Facility: [facility] Address: [address] [place] [address] Result Comment: Aditi mated Glomerular Filtration Rate [...] actual GFR. Performed By: #### 2 4362-6 ####[facility] [id number] [place] [address] [place] Glucose [Mass/Vol] 112 mg/dL High 74-99 [facility] Comment on above: Order Comment: Speci men Type: BLOOD SPECIMENOrdering Facility: [facility] Address: [address] [place] [address] Result Comment: The [place] [employer] (ADA) provides guidance for cutoff [...] Standards of Medical Care in Diabetes 2016, [place] [employer]. Diabetes Care. 2016.39(Suppl 1). Performed By: #### 2 4362-6 ####[facility] LABCLIA [id number] [place] [address] [place] Phosphate [Mass/Vol] 4.0 mg/dL Normal 2.7-4.8 [facility] Comment on above: Order Comment: Speci men Type: BLOOD SPECIMENOrdering Facility: [facility] Address: [address] [place] [address] Performed By: #### 2 4362-6 ####[facility] LABCLIA [id number] [place] [address] [place] Potassium [Moles/Vol] 4.2 mmol/L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 BLOOD SPECIMENOrdering Facility: [facility] Address: [address] [place] [address] Result Comment: Brianna min K Antagonist (VKA) Therapeutic Range: INR 2 to 3 (Target INR of 2.5) Note: For patients treated with VKA drugs, such as warfarin, the [place] [employer]icians 2012 Guideline recommends [...] Chest 2012, 141:7S-47S Pat RA, et al. [facility] 2017, 70: 252-289 Performed By: #### 3 4528-0, 74828-8 ####[facility] LABCLIA [id number] [place] [address] [place] PT Coag (PPP) [Time] 10.3 s Normal 9.7-13.0 [facility] Comment on above: Order Comment: Sylvie hammer Type: BLOOD SPECIMENOrdering Facility: [facility] Address: [address] [place] [address] Performed By: #### 3 4528-0, 09486-2 ####[facility] LABCLIA [id number] [place] [address] [place] PVR ANK PRESS RADAMES VAS LABon 12-05-2022 PVR ANK PRESS RADAMES VAS LAB Non-Invasive Vascular Laboratory [facility] J35 Lower Extremity Arterial Physiology Study Bilateral/Complete Date of service/time: 12/05/2022 1:52:54 PM Name: CONOR LEE Date of : 1965 [...] physician: Judith Michel MD, RPVI Final CC [employer] Medical Image : [id number] REscouroDynamicsSISUID See Link below for Image Normal [facility] US ABDOMEN COMPLETEon 2022 US ABDOMEN COMPLETE [...] spleen, abdominal aorta could not be visualized. Primer Inserting Machine Adjuster: PSCB Transcribe Date/Time: Dec 05 2022 11:36A Dictated by : CHANI CASAS MD This examination was interpreted and the report reviewed and electronically signed by: DEAN CHACON MD on Dec 05 2022 11:56AM EST [id number] Normal [facility] aPTT PPPon 12-05-2022 aPTT Coag (PPP) [Time] 28.5 s Normal 23.0-32.4 [facility] Comment on above: Order Comment: Speci men Type: BLOOD SPECIMENOrdering Facility: [facility] Address: [address] [place] [address] Performed By: #### 3 4528-0, 82327-1 ####[facility] LABCLIA [id number] [address] [place] CNOVon 12-04-2022 CNOV Office Visit (VAMEAV ) CONOR LEE ([id number]) 1965 M Date Time Provider Department 12/04/22 10:45 AM SETH JENKINS During your visit today, we recorded the following information about you: Pulse Blood pressure Weight Height 76/minute 130/80 85.7 kg 1.778 m Seth Jenkins MD 12/04/2022 10:55 AM Signed [facility] Christelle Rodriguez Department of Cardiovascular Medicine SECTION [...] to have extensive CAD. Work-up done at [facility]. Referred to [facility] for surgical evaluation. During his catheterization was [...] ETOH abuse, Hypertension, PAD (peripheral artery disease) ([facility]), Peripheral vascular disease ([facility]), Prosthetic aortic valve stenosis, and Smoker. Past [...] artery disease including a chronic total occlusion (RANGE EXAMINER) of the right coronary artery Normal global [...] medical t (more content not included)... Normal [facility] ED Note-Physicianon 11-15-19 ED Note-Physician [id number] .00CD:127 Normal [facility] RAD - MISCon 11-14-2022 RAD - MISC [id number]. 00CD:127 Normal [facility] CNPNon 11-07-2022 [facility] CONOR [facility] ([id number]) 1965 M Date Time Provider Department 11/07/22 MIMI MCKINNEY [facility] During your visit today, we recorded the following information about you: Maria Guadalupe Lopez 11/07/2022 11:50 AM Signed IN Allergies As of Date: 11/07/2022 (Not on File) Date Reviewed: Never Reviewed Reason for Visit: Insurance Inquiry [1462] Problem List As Of Date: 11/07/2022 (None) Encounter Status:Closed by MARIA GUADALUPE LOPEZ on [facility]07/22 [facility] CONOR LEE ([id number]) 1965 M Date Time Provider Department 11/07/22 MIMI MCKINNEY [facility] During your visit today, [...] for his review/plan of care. Conor Lee [id number] 57 year old Diagnosis: severe Prosthetic mean 53.9, JENNY 0.42 cm2 s/p AVR #23 [place] pericardial 09/07/11 [facility] CAD Secondary Dx: significant PAD/PVD-occluded Right SFA [...] 4:03 PM Signed Expedite. Evaluation only. Cards YVSQI-vpvkwnd-Rdtsasj r medicine consult 12/05/22, Dr. Mckineny consult 11 am 12/06/22 I spoke to [...] for preprocedural cardiovascular examination [Z01.810] 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) [I25.118] PVD (peripheral vascular disease) (HCC) [I73.9] Hyperlipidemia, unspecified hyperlipidemia type [E78.5] S/P AVR (aortic valve replacement) [Z95.2] Essential hypertension [I10] Order(s):CONSULT TO CARDIOLOGY [9003] Order #: [id number]: 1 FUTURE CARDIOTHORACIC PREOP EVALUATION [] Order #: [id number]: 1 FUTURE CONSULT TO VASCULAR MEDICINE [19990525] Order #: [id number]: 1 FUTURE COMP METABOLIC PANEL [SQCMP] Order #: [id number] FUTURE LD LACTATE DEHYDRO [SQLD6] Order #: [id number] FUTURE CBC + DIFF [SQCBCDIF] Order #: [id number] FUTURE PROTHROMBIN TIME/PT [SQPT] Order #: [id number] FUTURE ACTIVATED PTT [SQPTT] Order #: [id number] FUTURE ECG COMPLETE [ECG01] Order #: [id number] FUTURE PVR ANK PRESS RADAMES VAS LAB [3089577] Order #: [id number] ECHO [969873] Order #: [id number]: 1 FUTURE CTA CHEST (GATED) W IVCON [0057237] Order #: [id number] FUTURE SPIROMETRY BASELINE ONLY [8121573] Order #: [id number]: 1 FUTURE LUNG DIFFUSION CAPACITY (DLCO) [8139082] Order #: [id number]: 1 FUTURE US ABDOMEN COMPLETE [2345263] Order #: [id number] FUTURE Problem List As Of Date: 11/07/2022 (None) Encounter Status:Closed by NEIL FORD on 11/20/22 Normal [facility] 36on 11-01-2022 36 Patient made aware. 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 Dr. Ledesma. Redo AVR, Multivessel disease. [facility] 36on 10-19-2022 36 Patient called to make you aware that his BP this morning was 123/86, HR 87. Says he's checked it several times and it's running around those same numbers. FRANCISCO. Thanks [facility] Danielle 10-18-2022 ANES - Attestation signed by Arvin Ledesma MD at 10/18/2022 11:06 AM Arvin Ledesma MD, MPH, [facility], [facility], [facility] Interventional Cardiology Pager Email: [email or web address] Patient: Conor Lee Procedure Information Date/Time: 10/18/22 1130 Procedure: Coronary angiography (Bilateral) Location: [facility] S[facility] BLASTER 3 / [facility] VASCULAR LAB (Cath) Providers: Arvin Ledesma [...] consented to blood products. Additional Equipment Requests [facility] HPon 10-18-2022 HP - Attestation signed by Arvin Ledesma MD at 10/18/2022 11:05 AM Arvin Ledesma MD, MPH, [facility], [facility], [facility] Interventional Cardiology Pager Email: [email or web address] H&P reviewed. The patient was examined and there are no changes to the H&P. Normal [facility] NURSNOTEon 10-18-2022 NURSNOTE Patient states he is [...] is still elevated he is to call [facility]. states patient's BP may be elevated due [...] to the ER with any concerns. Normal [facility] NURSNOTE Head of bed raised - patient sitting up tolerating his diet. Right groin cath site without bleeding or hematoma noted with head of bed raised. Normal [facility] NURSNOTE Head of bed increase d to about 30 degrees, right groin cath site without bleeding or hematoma with head of bed elevated. Normal [facility] NURSNOTE Dr. Ledesma aware o f BP of 198/103. No order at this time. Will monitor BP and notify MD if BP remains high prior to discharge. MD would like BP to be 170/95 prior to discharge and patient needs to be instructed to check his BP 1 hour after discharge and daily. If elevated he will notify his cardiology clinic Normal [facility] Orders Onlyon 10-11-2022 Orders Only [id number] Conor Lee 1965 M Date Provider Department Center 10/11/2022 CARYN CHAVEZ [facility] VASC LAB [place] Heart[facility] Family History Problem Relation Age of Onset Diabetes Other Hypertension Other Family Status - Relation Status Age at Other Normal [facility] HPon 10-08-2022 [facility] Cardiology Clinic Note Chief Complaint: Patient here for 6 mo follow up aortic valve disorder, PVD, and hypertension. Had echo last week. Lab work ordered at last visit was not completed. Sera Alaln CNP increased his carvedilol to 37.5mg bid [...] valve disease, Hypertension, PAD (peripheral artery disease) ([facility]), and PVD (peripheral vascular disease) ([facility]). Surgical History He has a past surgical [...] associated cardiova (more content not included)... Normal [facility] Office Visiton 10-08-2022 Follow-up visit [id number] Conor Lee 1965 M Date Provider Department Center 10/08/2022 Rosy-ARVIN LEDESMA Family History Problem Relation Age of Onset Diabetes Other Hypertension Other Family Status - Relation Status Age at Other Level of Service:47919 [place] OFFICE/OUTPATIENT ESTABLISHED HIGH MDM 40-54 MIN Normal [facility] Orders Onlyon 10-08-2022 Orders Only [id number] Conor Lee 1965 M Date Provider Department Center 10/08/2022 DARCY SULLIVAN [facility] Family History Problem Relation Age of Onset Diabetes Other Hypertension Other Family Status - Relation Status Age at Other Normal [facility] Family Medicine Office/Clini c Noteon 09-10-2022 Family [...] of aortic valve replacement in 2011 at [facility]. The patient smokes about a pack of cigarettes a day. He has tried quitting in the past. He quit for 8 months when he had his surgery, but then started back up again. 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 Review of Systems PHQ Score Initial Depression [...] medications, so I have reached out to [facility] to see if they can give me [...] this. We will again get records from [facility] cardiology. 4. Illiteracy (Z55.0: Illiteracy and low-level [...] with voice recognition artificial intelligence software, specifically [employer], [employer] and or [employer]. Substitutions may have occurred due to the inherent limitations of voice recognition and artificial intelligence software. ATTESTATION: Documentation services were performed after patient or guardian consented to allow Octavio Ge to record this visit. CHAN compound specialist and provider reviewed before signing. CHAN: Chary Tomas Follow-up No qualifying data available Problem List/Past Medical History Ongoing Atherosclerosis of port lions artery of extremity Carpal tunnel syndrome Chronic obstructive bronchitis Disorder of diaphragm Endocarditis Essential hypertension Heart murmur Hemiparesis Illiteracy Lumbosacral spondylosis without myelopathy Neuralgia Neuritis Peripheral vascular disease Primary hypercholesterolemia PVD (pulmonary valve disease) Spasm of back muscles Thoracic spondylosis without myelopathy Historical No qualifying data Procedure/Surgical History Aortic valve replacement and replacement of ascending aorta ( (more content not included)... Normal [facility] Comment on above: Result Comment: Elec tronically Signed By: Harpreet Lim MD\.br\Date and Time Signed: 09/10/22 11:15 EDT\.br\Electronically Co-Signed By: Chary Tomas\.br\Date and Time Co-Signed: 09/06/22 14:37 EDT Ambulatory [...] Follow-Up Appointments 2022 7:40 AM EST With: Carina MOMIN, Harpreet Roland Where: [facility] Medicine Office/Clini c Noteon 09-06-2022 Family Medicine [...] of aortic valve replacement in 2011 at [facility]. The patient smokes about a pack of cigarettes a day. He has tried quitting in the past. He quit for 8 months when he had his surgery, but then started back up again. 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 Review of Systems PHQ Score Initial Depression [...] medications, so I have reached out to [facility] to see if they can give me [...] this. We will again get records from [facility] cardiology. 4. Illiteracy (Z55.0: Illiteracy and low-level [...] with voice recognition artificial intelligence software, specifically [employer], [employer] and or [employer]. Substitutions may have occurred due to the inherent limitations of voice recognition and artificial intelligence software. ATTESTATION: Documentation services were performed after patient or guardian consented to allow Octavio Ge to record this visit. CHAN compound specialist and provider reviewed before signing. CHAN: Chary Tomas Follow-up No qualifying data available Problem List/Past Medical History Ongoing Atherosclerosis of port lions artery of extremity Carpal tunnel syndrome Chronic obstructive bronchitis Disorder of diaphragm Endocarditis Essential hypertension Heart murmur Hemiparesis Illiteracy Lumbosacral spondylosis without myelopathy Neuralgia Neuritis Peripheral vascular disease Primary hypercholesterolemia PVD (pulmonary valve disease) Spasm of back muscles Thoracic spondylosis without myelopathy Historical No qualifying data Procedure/Surgical History Aortic valve replacement and replacement of ascending aorta (09/06 (more content not included)... Normal [facility] Comment on above: Result Comment: Elec tronically Signed By: Chary Tomas\.br\Date and Time Signed: 09/06/22 11:27 EDT\.br\Electronically Co-Signed By: Chary Tomas\.br\Date and Time Co-Signed: 09/06/22 12:04 EDT\.br\Electronically Co-Signed By: Harpreet Lim MD Ambulatory Visit Summaryon 0 06-13-2022 Ambulatory Visit Summary CONOR LEE :1965 Visit Date:06/13/2022 Ambulatory Visit Instructions Your Diagnosis Atherosclerosis of port lions artery of extremity Carpal tunnel syndrome Chronic [...] for for wheezing or SOB Pickup at [facility] Changed aspirin (aspirin 81 mg Oral EC Tab) 1 Tablets By Mouth Every day Pickup at [facility] Changed cilostazol (cilostazol 50 mg Tab) 1 Tablets By Mouth 2 times a day Pickup at [facility] Changed cyclobenzaprine (cyclobenzaprine 10 mg Tab) 1 Tablets By Mouth Once a day (in the evening) as needed for for spasm Pickup at [facility] Changed famotidine (famotidine 40 mg Tab) 1 Tablets By Mouth Every day Pickup at [facility] Changed lisinopril (lisinopril 10 mg Tab) 1 Tablets By Mouth 2 times a day Pickup at [facility] Changed metoprolol (Metoprolol tartrate 25 mg Tab) 1 Tablets By Mouth 2 times a day Pickup at [facility] Pharmacy Information [facility]: [address] [place], [place] [id number] [phone] What How Much When Comments Stop Taking [...] are currently receiving treatment for. Atherosclerosis of port lions artery of extremity Carpal tunnel syndrome Chronic obstructive bronchitis Disorder of diaphragm Endocarditis Essential hypertension Heart murmur Hemiparesis Illiteracy Lumbosacral spondylosis without myelopathy Neuralgia Neuritis Peripheral vascular disease Primary hypercholesterolemia PVD (pulmonary valve disease) Spasm of back muscles Thoracic spondylosis without myelopathy Normal [facility] Medicine Office/Clini c Noteon 06-13-2022 [facility] Medicine Office/Clinic Note Chief Complaint med refill [...] EXPLAINED RTO PRN EXPLAINED. 1. Atherosclerosis of port lions artery of extremity (I70.209: Unspecified atherosclerosis of port lions arteries of extremities, unspecified extremity) 2. Carpal [...] wheezing or SOB, 1 EA, Refill(s) 11, [facility], 175.2, cm, 06/13/22 14:44:00 EDT, Height/Length Dosing, 91.6, kg, 06/13/22 14:44:00 EDT, Weight Dosing aspirin, 81 mg = 1 tab(s), Oral, Daily, # 90 tab(s), Refills(s) 3, Pharmacy: [facility], 175.2, cm, 06/13/22 14:44:00 EDT, Height/Length Dosing, 91.6, kg, 06/13/22 14:44:00 EDT, Weight Dosing cilostazol, 50 mg = 1 tab(s), Oral, BID, # 180 tab(s), Refills(s) 3, Pharmacy: [facility], 175.2, cm, 06/13/22 14:44:00 EDT, Height/Length Dosing, 91.6, kg, 06/13/22 14:44:00 EDT, Weight Dosing cyclobenzaprine, 10 mg = 1 tab(s), Oral, qPM, PRN for spasm, # 30 tab(s), Refills(s) 11, Pharmacy: [facility], 175.2, cm, 06/13/22 14:44:00 EDT, Height/Length Dosing, 91.6, kg, 06/13/22 14:44:00 EDT, Weight Dosing famotidine, 40 mg = 1 tab(s), Oral, Daily, # 9 tab(s), Refills(s) 3, Pharmacy: [facility], 175.2, cm, 06/13/22 14:44:00 EDT, Height/Length Dosing, 91.6, kg, 06/13/22 14:44:00 EDT, Weight Dosing lisinopril, 10 mg = 1 tab(s), Oral, BID, # 180 tab(s), Refills(s) 3, Pharmacy: [facility], 175.2, cm, 06/13/22 14:44:00 EDT, Height/Length Dosing, 91.6, kg, 06/13/22 14:44:00 EDT, Weight Dosing metoprolol, 25 mg = 1 tab(s), Oral, BID, # 180 tab(s), Refills(s) 3, Pharmacy: [facility], 175.2, cm, 06/13/22 14:44:00 EDT, Height/Length Dosing, 91.6, kg, 06/13/22 14:44:00 EDT, Weight Dosing Follow- (more content not included)... Normal [facility] Comment on above: Result Comment: Elec tronically Signed By: AIDAN MOMIN, NAOMIE Hanna\.br\Date and Time Signed: 06/13/22 15:13 EDT 37on 04-13-2022 37 Increase Coreg/Carvedilol to 37.5 mg twice daily for blood pressure Normal [facility] Office Visiton 04-13-2022 Follow-up visit [id number] Conor Lee 1965 M Date Provider Department Center 04/13/2022 Dania-JESSICA ALLAN [facility] Family History Problem Relation Age of Onset Diabetes Other Hypertension Other Family Status - Relation Status Age at Other Level of Service:12531 [place] OFFICE/OUTPATIENT ESTABLISHED MOD MDM 30-39 MIN Reason for Visit and Comments: Valve Disorder [3372] Hypertension [198397] Peripheral Vascular Disease [458] Normal [facility] ECHOCARDIO M/2D COMPLETEon 1 ECHOCARDIO M/2D COMPLETE Patient: CONOR LEE Exam Date: 12/06/2021 : 1965 Gender:M Ordering : DR ARVIN LEDESMA M.D. Admission #: [id number] Family : DR NAOMIE BERMUDEZ . Order #: [id number] CLICK HERE TO VIEW EXAM ECHOCARDIOGRAM REPORT [...] M.D. on 12/11/2021 at 11:58 Normal [facility] PROF CHEM 8 (BAS METB)on Anion gap [Moles/Vol] 9.7 mmol/L Normal [facility] Comment on above: Performed By: #### B MP #### [facility] [address] [place] [address] Dr. Flavio Horn Calcium [Mass/Vol] 8.7 mg/dL Normal 8.5-10.1 [facility] Comment on above: Performed By: #### B MP #### [facility] [address] [address] [address] Flavio Horn Chloride [Moles/Vol] 103 mmol/L Normal 98-107 [facility] Comment on above: Performed By: #### B MP #### [facility] [address] [address] [address] Flavio Horn CO2 [Moles/Vol] 31.3 mmol/L Normal 21.0-32.0 [facility] Comment on above: Performed By: #### B MP #### [facility] [address] [address] [address] Flavio Horn Creatinine [Mass/Vol] 0.97 mg/dL Normal 0.70-1.30 [facility] Comment on above: Performed By: #### B MP #### [facility] [address] [address] [address] Flavio Horn EGFR-AF MOZAMBICAN >60 Normal >=60 [facility] Comment on above: Performed By: #### B MP #### [facility] [address] [address] [address] Flavio Horn EGFR-NON AF MOZAMBICAN >60 Normal >=60 [facility] Comment on above: Performed By: #### B MP #### [facility] [address] [place] [address] Dr. Flavio Horn Glucose [Mass/Vol] 112 mg/dL Critically high 74-106 [facility] Comment on above: Performed By: #### B MP #### [facility] [address] [address] [address] Flavio Horn Potassium [Moles/Vol] 3.6 mmol/L Normal 3.5-5.1 [facility] Comment on above: Performed By: #### B MP #### [facility] [address] [place] [address] Dr. Flavio Horn Sodium [Moles/Vol] 141 mmol/L Normal 136-145 [facility] Comment on above: Performed By: #### B MP #### [facility] [address] [address] [address] Flavio Horn Urea nitrogen [Mass/Vol] 10.0 mg/dL Normal 7.0-18.0 [facility] Comment on above: Performed By: #### B MP #### [facility] [address] [address] [address] Flavio Horn Urea nitrogen/Creatinine [Mass ratio] 10.3 mg/mg Normal [facility] Comment on above: Performed By: #### B MP #### [facility] [address] [address] [address] Flavio Horn PROF CHEM 8 (BAS METB)on Anion gap [Moles/Vol] 10.7 mmol/L Normal [facility] Comment on above: Performed By: #### B MP #### [facility] [address] [place] [address] Dr. Flavio Horn Calcium [Mass/Vol] 9.3 mg/dL Normal 8.5-10.1 [facility] Comment on above: Performed By: #### B MP #### [facility] [address] [place] [address] Dr. Flavio Horn Chloride [Moles/Vol] 101 mmol/L Normal 98-107 [facility] Comment on above: Performed By: #### B MP #### [facility] [address] [place] [address] Dr. Flavio Horn CO2 [Moles/Vol] 31.8 mmol/L Normal 21.0-32.0 [facility] Comment on above: Performed By: #### B MP #### [facility] [address] [place] [address] Dr. Flavio Horn Creatinine [Mass/Vol] 1.03 mg/dL Normal 0.70-1.30 [facility] Comment on above: Performed By: #### B MP #### [facility] [address] [place] [address] Dr. Flavio Horn EGFR-AF MOZAMBICAN >60 Normal >=60 [facility] Comment on above: Performed By: #### B MP #### [facility] [address] [place] [address] Dr. Flavio Horn EGFR-NON AF MOZAMBICAN >60 Normal >=60 [facility] Comment on above: Performed By: #### B MP #### [facility] [address] [place] [address] Dr. Flavio Horn Glucose [Mass/Vol] 132 mg/dL Critically high 74-106 [facility] Comment on above: Performed By: #### B MP #### [facility] [address] [place] [address] Dr. Flavio Horn Potassium [Moles/Vol] 4.5 mmol/L Normal 3.5-5.1 [facility] Comment on above: Performed By: #### B MP #### [facility] [address] [address] [address] Flavio Horn Sodium [Moles/Vol] 139 mmol/L Normal 136-145 [facility] Comment on above: Performed By: #### B MP #### [facility] [address] [address] [address] Flavio Horn Urea nitrogen [Mass/Vol] 11.0 mg/dL Normal 7.0-18.0 [facility] Comment on above: Performed By: #### B MP #### [facility] [address] [address] [address] Flavio Horn Urea nitrogen/Creatinine [Mass ratio] 10.7 mg/mg Normal [facility] Comment on above: Performed By: #### B MP #### [facility] [address] [address] [address] Flavio Horn XR CHEST 2 Von [...] FÉLIX ALBERT Date: 2021-05-22 15:17 Normal [facility] Covid-19 PCR (CVDTB)on SARS-CoV-2 (COVID-19) RNA JARROD+probe Ql (Unsp spec) Not detected Normal NOT DETECTED [facility] Comment on above: Result Comment: This test is not yet approved or cleared by the [place] FDA. When there are no FDA-approved or cleared tests available, and other criteria are met, FDA can make tests available under an emergency access mechanism called an Emergency Use Authorization (EUA). The EUA for this test is supported by the [place] of Health and Human Service's (HHS's) declaration [...] consistent with SARS-CoV-2. Performed By: #### C [facility] #### [facility] [address] [place] [address] Dr. Flavio Horn Cardiovascular Lab Reporton 04-06-2019 Cardiovascular Lab Report [facility] Patient Name: Aminah [facility] E MR #: [id number] Department of Physician: Judi Pemberton M.D. Division of Service Date: 04/06/2019 Cardiology Birthdate: 1965 Adult Cardiovascular Room #: 3CD [id number] [address] Cardiovascular Laboratory Report FINAL IMPRESSIONS: 1. Severe, discrete stenoses in the left superficial femoral artery in the setting of lifestyle limiting claudication successfully treated by balloon angioplasty. 2. 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 3. Whvg-sf-opiwastr disease of the bilateral iliac arteries. RECOMMENDATIONS: [...] performed. This was exchanged out for a 5-Swiss sheath. Angiography of the right lower extremity was performed via hand injection via the side arm of the sheath. Angiography of the iliac system on the right side was performed under digital subtraction. A 5-Swiss Uni-Flush catheter was advanced in and positioned in the abdominal aorta. Abdominal aortography was performed using 20 mL at a concentrate of 10 mL/second. Angiography of the left iliac system was also performed under digital subtraction and power injection. The aortic bifurcation was crossed using a combination of the 5-Swiss Uni-Flush catheter and a stiff angled Glidewire. The Uni- Flush was placed at the level of the left femoral head. Angiography of the left lower extremity was performed. At this juncture, it was elected to proceed with an interventional procedure. The 5-Swiss sheath was upsized to a 6-Swiss Alfredo sheath. A Supracore wire was used to cross the suspect stenoses and positioned distally. Balloon angioplasty was performed using a 4 x 20 mm jet handler balloon. This was repeated over the proximal of the two lesions. Repeat angiography revealed a satisfactory result. The wire was removed. Final angiography showed no evidence of dissection, thrombosis, or dye extravasation. At this point, it was elected to conclude the procedure. The 6-Swiss Alfredo was exchanged out for a 7-Swiss 11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 02/06/2023 [facility] DATE CREATED AUTHOR AUTHOR'S ORGANIZ ATION 02/07/2023 [facility] Source Comments (unrecognize d section and content) In the event this informatio n is protected by the Federal Confidentiality of Alcohol and Drug Abuse Patient Records regulations: The Federal rules restrict any use of the information to criminally investigate or prosecute any alcohol or drug abuse patient.[facility] the event this information is protected by the Federal Confidentiality of Alcohol and Drug Abuse Patient Records regulations: The Federal rules restrict any use of the information to criminally investigate or prosecute any alcohol or drug abuse patient.[facility] the event this information is protected by the Federal Confidentiality of Alcohol and Drug Abuse Patient Records regulations: The Federal rules restrict any use of the information to criminally investigate or prosecute any alcohol or drug abuse patient.[facility] the event this information is protected by the Federal Confidentiality of Alcohol and Drug Abuse Patient Records regulations: The Federal rules restrict any use of the information to criminally investigate or prosecute any alcohol or drug abuse patient.[facility] Hospital[facility] the event this information is protected by the Federal Confidentiality of Alcohol and Drug Abuse Patient Records regulations: The Federal rules restrict any use of the information to criminally investigate or prosecute any alcohol or drug abuse patient.[facility] the event this information is protected by the Federal Confidentiality of Alcohol and Drug Abuse Patient Records regulations: The Federal rules restrict any use of the information to criminally investigate or prosecute any alcohol or drug abuse patient.[facility] Hospital[facility] the event this information is protected by the Federal Confidentiality of Alcohol and Drug Abuse Patient Records regulations: The Federal rules restrict any use of the information to criminally investigate or prosecute any alcohol or drug abuse patient.[facility] Hospital[facility] the event this information is protected by the Federal Confidentiality of Alcohol and Drug Abuse Patient Records regulations: The Federal rules restrict any use of the information to criminally investigate or prosecute any alcohol or drug abuse patient.[facility] Hospital[facility] the event this information is protected by the Federal Confidentiality of Alcohol and Drug Abuse Patient Records regulations: The Federal rules restrict any use of the information to criminally investigate or prosecute any alcohol or drug abuse patient.[facility] Hospital[facility] the event this information is protected by the Federal Confidentiality of Alcohol and Drug Abuse Patient Records regulations: The Federal rules restrict any use of the information to criminally investigate or prosecute any alcohol or drug abuse patient.[facility] Hospital[facility] the event this information is protected by the Federal Confidentiality of Alcohol and Drug Abuse Patient Records regulations: The Federal rules restrict any use of the information to criminally investigate or prosecute any alcohol or drug abuse patient.[facility] Hospital[facility] the event this information is protected by the Federal Confidentiality of Alcohol and Drug Abuse Patient Records regulations: The Federal rules restrict any use of the information to criminally investigate or prosecute any alcohol or drug abuse patient.[facility] Hospital[facility] the event this information is protected by the Federal Confidentiality of Alcohol and Drug Abuse Patient Records regulations: The Federal rules restrict any use of the information to criminally investigate or prosecute any alcohol or drug abuse patient.[facility] Hospital[facility] the event this information is protected by the Federal Confidentiality of Alcohol and Drug Abuse Patient Records regulations: The Federal rules restrict any use of the information to criminally investigate or prosecute any alcohol or drug abuse patient.[facility] HospitalIn the event this information is protected by the Federal Confidentiality of Alcohol and Drug Abuse Patient Records regulations: The Federal rules restrict any use of the information to criminally investigate or prosecute any alcohol or drug abuse patient.[facility] HospitalIn the event this information is protected by the Federal Confidentiality of Alcohol and Drug Abuse Patient Records regulations: The Federal rules restrict any use of the information to criminally investigate or prosecute any alcohol or drug abuse patient.[facility] HospitalIn the event this information is protected by the Federal Confidentiality of Alcohol and Drug Abuse Patient Records regulations: The Federal rules restrict any use of the information to criminally investigate or prosecute any alcohol or drug abuse patient.[facility] HospitalIn the event this information is protected by the Federal Confidentiality of Alcohol and Drug Abuse Patient Records regulations: The Federal rules restrict any use of the information to criminally investigate or prosecute any alcohol or drug abuse patient.[facility] Hospital[facility] the event this information is protected by the Federal Confidentiality of Alcohol and Drug Abuse Patient Records regulations: The Federal rules restrict any use of the information to criminally investigate or prosecute any alcohol or drug abuse patient.[facility] Reason for Visit (unrecogniz ed section and content) Reason Comments Insurance Inquiry Reason Comments Referral Information Initial Consult Reason Comments New Patient Reason Comments Spirometry Specialty Diagnoses / Procedures Referred By Contac t Referred To Contact [facility] Diagnoses Encounter for preprocedural cardiovascular examination Aortic valve disorder 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) Procedures LUNG DIFFUSION CAPACITY (DLCO) DIFFUSING CAPACITY Mimi Mckinney MD [address] [place] [address] [place] [address] Referral ID Status Reason Start Date Expiration Date V isits Requested Visits Authorized [id number] Closed Auto-Generate d Referral 11/20/2022 12/20/2023 1 1 Specialty Diagnoses / Procedures Referred By Contac t Referred To Contact [facility] Diagnoses Encounter for preprocedural cardiovascular examination Aortic valve disorder 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) Procedures SPIROMETRY BASELINE ONLY SPMTRY W/VC EXPIRATORY HARESH W/WO MXML VOL VNTJ Mimi Mckinney MD [address] [place] [address] [place] [address] Referral ID Status Reason Start Date Expiration Date V isits Requested Visits Authorized [id number] Closed Auto-Generate d Referral 11/20/2022 12/20/2023 1 1 Reason Comments Consult Specialty Diagnoses / Procedures Referred By Archie t Referred To Contact Cardiac Surg Diagnoses Encounter for preprocedural cardiovascular examination Aortic valve disorder 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) Procedures CARDIOTHORACIC PREOP EVALUATION OFFICE/OUTPATIENT [facility] 60-[place] [address] [place], [place] [id number] Referral ID Status Reason Start Date Expiration Date V isits Requested Visits Authorized [id number] Closed PCP Requested Referral 11/20/2022 11/20/2023 1 1 Reason Comments TAVR Consult Reason Comments Consult Specialty Diagnoses / Procedures Referred By Contac t Referred To Contact Vascular Surgery Diagnoses PVD (peripheral vascular disease) (HCC) Procedures CONSULT TO VASCULAR SURGERY OFFICE/OUTPATIENT [facility] MDM 60-[place] [address] [place], [place] [address] [phone] Referral ID Status Reason Start Date Expiration Date V isits Requested Visits Authorized [id number] Closed PCP Requested Referral 12/07/2022 12/07/2023 1 1 Reason Comments Lung Mass Specialty Diagnoses / Procedures Referred By Contac t Referred To Contact Pulmonary and Critical Care Medicine Diagnoses Lung mass Procedures CONSULT TO PULM/CRITICAL CARE OFFICE/OUTPATIENT NEW [facility] MDM 60-74 MINUTES Mimi Mckinney MD [address] [place] [address] Referral ID Status Reason Start Date Expiration Date V isits Requested Visits Authorized [id number] Closed PCP Requested Referral 12/07/2022 12/07/2023 1 1 Reason Comments Chest Pain Specialty Diagnoses / Procedures Referred By Contac t Referred To Contact Diagnoses Lung mass Hypoxia Chest pain, unspecified type Referral ID Status Reason Start Date Expiration Date Visits Re quested Visits Authorized [id number] 1 1 Reason Comments Benefits Authorization Reason [...] ABD&PLVIS CNTRST MTRL W/WO CNTRST Mayra Flor, MASTER DYER.DIRECTOR OF HOTEL [address] [place] [address] [address] [facility] [place] [address] Referral ID Status Reason Start Date Expiration Date V isits Requested Visits Authorized [id number] Closed Auto-Generate d Referral 01/04/2023 03/05/2023 1 1 Reason Comments Radio Main J1 Care Teams (unrecognized sec tion and content) Greeter Guest Services Relationship Specialty Start Date End Date Naomie Bermudez MD [address] [place] [phone] PCP - General Family Medicine 07/18/11 Mimi Mckinney MD [facility] [place] [address] Surgeon Cardiac Surg 11/07/22 Greeter Guest Services Relationship Specialty Start Date End Date Naomie Bermudez MD [address] [place] [address] PCP - General Family Medicine 07/18/11 Mimi Mckinney MD [address] [place] [address] Surgeon Cardiac Surg 11/07/22 Greeter Guest Services Relationship Specialty Start Date End Date Naomie Bermudez MD [address] [place] [phone] PCP - General Family Medicine 07/18/11 Mimi Mckinney MD [address] [place] [phone] Surgeon Cardiac Surg 11/07/22 Lex Anderson MD [address] [place] [address] Studio Operations Manager Cardiology 11/22/22 Greeter Guest Services Relationship Specialty Start Date End Date Naomie Bermudez MD [address] [place] [phone] PCP - General Family Medicine 07/18/11 Mimi Mckinney MD [address] [place] [address] Surgeon Cardiac Surg 11/07/22 Lex Anderson MD [address] [place] [address] Studio Operations Manager Cardiology 11/22/22 Lex Anderson MD [address] [place] [address] Primary Staff Physician Cardiology 12/05/22 Greeter Guest Services Relationship Specialty Start Date End Date Naomie Bermudez MD [address] [phone] PCP - General Family Medicine 07/18/11 Mimi Mckinney MD [address] [place] [address] Surgeon Cardiac Surg 11/07/22 Lex Anderson MD [address] [place] [address] Studio Operations Manager Cardiology 11/22/22 Lex Anderson MD [address] [place] [address] Primary Staff Physician Cardiology 12/05/22 Greeter Guest Services Relationship Specialty Start Date End Date Naomie Bermudez MD [address] [place] [address] PCP - General Family Medicine 07/18/11 Mimi Mckinney MD [address] [place], [place] [phone] Surgeon Cardiac Surg 11/07/22 Lex Anderson MD [address] [place], [place] [id number] Studio Operations Manager Cardiology 11/22/22 Lex Anderson MD [address] [place] [address] Primary Staff Physician Cardiology 12/05/22 Greeter Guest Services Relationship Specialty Start Date End Date Naomie Bermudez MD [address] [place] [address] PCP - General Family Medicine 07/18/11 Mimi Mckinney MD [address] [place] [address] Surgeon Cardiac Surg 11/07/22 Lex Anderson MD [address] [place] [address] Studio Operations Manager Cardiology 11/22/22 Lex Anderson MD [address] [place] [address] Primary Staff Physician Cardiology 12/05/22 Greeter Guest Services Relationship Specialty Start Date End Date Naomie Bermudez MD [address] [phone] PCP - General Family Medicine 07/18/11 Mimi Mckinney MD [address] [place] [address] Surgeon Cardiac Surg 11/07/22 Lex Anderson MD [address] [place], [place] [phone] Studio Operations Manager Cardiology 11/22/22 Lex Anderson MD [address] [place] [address] Primary Staff Physician Cardiology 12/05/22 Greeter Guest Services Relationship Specialty Start Date End Date Naomie Bermudez MD [address] [place] [address] PCP - General Family Medicine 07/18/11 Mimi Mckinney MD [address] [place] [address] Surgeon Cardiac Surg 11/07/22 Lex Anderson MD [address] [place] [address] Studio Operations Manager Cardiology 11/22/22 Lex Anderson MD [address] [place] [address] Primary Staff Physician Cardiology 12/05/22 Greeter Guest Services Relationship Specialty Start Date End Date Naomie Bermudez MD [address] [place] [address] PCP - General Family Medicine 07/18/11 Mimi Mckinney MD [address] [place], [place] [phone] Surgeon Cardiac Surg 11/07/22 Lex Anderson MD [address] [place] [address] Studio Operations Manager Cardiology 11/22/22 Lex Anderson MD [address] [place] [address] Primary Staff Physician Cardiology 12/05/22 Greeter Guest Services Relationship Specialty Start Date End Date Harpreet Lim MD [address] [place] [address] PCP - General Family Medicine 01/01/23 Mimi Mckinney MD [address] [place] [address] Surgeon Cardiac Surg 11/07/22 Lex Anderson MD [address] [place] [address] Studio Operations Manager Cardiology 11/22/22 Lex Anderson MD [address] [place] [address] Primary Staff Physician Cardiology 12/05/22 Greeter Guest Services Relationship Specialty Start Date End Date Harpreet Lim MD [address] [place] [address] PCP - General Family Medicine 01/01/23 Mimi Mckinney MD [address] [place], [place] [phone] Surgeon Cardiac Surg 11/07/22 Lex Anderson MD [address] [place], [place] [phone] Studio Operations Manager Cardiology 11/22/22 Lex Anderson MD [address] [place] [address] Primary Staff Physician Cardiology 12/05/22 Greeter Guest Services Relationship Specialty Start Date End Date Harpreet Lim MD [address] [place] [phone] PCP - General Family Medicine 01/01/23 Mimi Mckinney MD [address] [place], [place] [phone] Surgeon Cardiac Surg 11/07/22 Lex Anderson MD [address] [place] [address] Studio Operations Manager Cardiology 11/22/22 Lex Anderson MD [address] [place], [place] [phone] Primary Staff Physician Cardiology 12/05/22 Greeter Guest Services Relationship Specialty Start Date End Date No, Physician [facility] PCP - General 01/15/23 Greeter Guest Services Relationship Specialty Start Date End Date Harpreet Lim MD [address] [place] [phone] PCP - General Family Medicine 01/01/23 Mimi Mckinney MD [address] [place] [address] Surgeon Cardiac Surg 11/07/22 Lex Anderson MD [address] [place], [place] [phone] Studio Operations Manager Cardiology 11/22/22 Lex Anderson MD [address] [place] [address] Primary Staff Physician Cardiology 12/05/22 Greeter Guest Services Relationship Specialty Start Date End Date Harpreet Lim MD [address] [place] [address] PCP - General Family Medicine 01/01/23 Mimi Mckinney MD [address] [place] [address] Surgeon Cardiac Surg 11/07/22 Lex Anderson MD [address] [place] [address] Studio Operations Manager Cardiology 11/22/22 Lex Anderson MD [address] [place] [address] Primary Staff Physician Cardiology 12/05/22 Greeter Guest Services Relationship Specialty Start Date End Date Harpreet Lim MD [address] [place] [phone] PCP - General Family Medicine 01/01/23 Mimi Mckinney MD [address] [place] [address] Surgeon Cardiac Surg 11/07/22 Lex Anderson MD [address] [place] [address] Studio Operations Manager Cardiology 11/22/22 Lex Anderson MD [address] [place], [place] [phone] Primary Staff Physician Cardiology 12/05/22 Greeter Guest Services Relationship Specialty Start Date End Date Harpreet Lim MD [address] [place] [address] PCP - General Family Medicine 01/01/23 Mimi Mckinney MD [address] [place], [place] [phone] Surgeon Cardiac Surg 11/07/22 Lex Anderson MD [address] [place], [place] [phone] Studio Operations Manager Cardiology 11/22/22 Lex Anderson MD [address] [place], [place] [phone] Primary Staff Physician Cardiology 12/05/22 Scheduled Active [...] Nicolas RN)1700 (Canceled Entry - Provider: Wendy Culp, RN) carvediloL (COREG) tablet 37.5 mg 37.5 mg, Oral, 2 times daily, First dose on Sat01/16/23 at 2100, Give carvedilol with food to reduce risk of hypotension / dizziness. Separate from admin of SAMANTHA inhibitors by two hours. 2100 (Given - Provider: Salud Rasmussen RN) 09 (Given - Provider: Wendy Culp, RN) chlorthalidone (HYGROTON) tablet 25 mg 25 mg, Oral, Daily, First dose on Sat01/16/23 at 1900 1950 (Given - Provider: Salud Rasmussen, NADEEM) 09 (Given - Provider: Wendy Culp, RN) dexAMETHasone [...] at 1600 1626 (Given - Provider: Tahira Larkin RRT)1958 (Given - Provider: Sonia Madrid RRT) 0000 (Not Given - Provider: Sonia Madrid RRT - Reason: Patient/family refused - Comment: Pt request not to be woken up for treatment)0416 (Not Given - Provider: Sonia Madrid RRT - Reason: Patient/family refused - Comment: Pt request not to be woken up)0828 (Given - Provider: Kristina Florence RRT)1251 (Given - Provider: Kristina Florence RRT) lisinopriL (PRINIVIL,ZESTRIL) tablet 20 mg 20 mg, Oral, 2 times daily, First dose on Sat01/15/23 at 2100 2048 (Given - Provider: Danielle Werner RN) 1111 (Given - Provider: Indy Nicolas RN)210 (Given - Provider: Salud Rasmussen RN) 0903 (Given - Provider: Wendy Culp, NADEEM) methylPREDNISolone sod suc(PF) (SOLU-medrol) 40 mg 40 mg, Intravenous, Every 6 hours, First dose on Sat01/16/23 at 1530 1550 (Given - Provider: Carmel Murphy RN)210 (Given - Provider: Salud Rasmussen, NADEEM) 0335 (Given - Provider: Salud Rasmussen RN)0903 (Given - Provider: Wendy Culp, NADEEM) racEPINEPHrine 2.25 % nebulizer solution 0.5 mL (COMPLETED) 0.5 mL, Nebulization, Once, On Sat01/15/23 at 204, For 1 dose, Dilute to 3 mL NS. If using handheld rubber bulb nebulizer, dilution is not required 2157 (Given - Provider: Danielle Werner RN) sodium chloride (PF) (NS) flush 5 mL(Linked Group 1) 5 mL, Intravenous, Every 8 hours scheduled, First dose on Sat01/16/23 at 2200, Saline lock 2100 (Given - Provider: Salud Rasmussen RN) 0548 (Given - Provider: Salud Rasmussen RN) spironolactone (ALDACTONE) tablet 25 mg 25 mg, [...] mL, Intravenous, Once in imaging, contrast, Per molded parts inspector (Radiology) for line patency check prior to contrast administration, Starting on Sat01/15/23 at 192, For 1 dose 1941 (Given - Provider: Maria Elena Hammer, TECHNOLOGIST) sodium chloride (PF) (NS) 0.9 % contrast line flush 80 mL (COMPLETED)(Linked Group 4) 80 mL, Intravenous, Once in imaging, contrast, Per molded parts inspector (Radiology), Starting on Sat01/15/23 at 192, For 1 dose, 30 mL BEFORE contrast [...] mL, Intravenous, Once in imaging, contrast, Per molded parts inspector (Radiology) for line patency check prior to contrast administration, Starting on Sat01/15/23 at 1923, For 1 dose And sodium chloride (PF) (NS) 0.9 % contrast line flush 80 mL (COMPLETED)Jump to med 80 mL, Intravenous, Once in imaging, contrast, Per molded parts inspector (Radiology), Starting on Sat01/15/23 at 1923, For [...] BE BASED ON THE PRIMARY CLINICAL RECORDS. [facility]. provides no warranty or guarantee of the accuracy or completeness of information in this document.
--- NOTE | 2023-02-07 22:57 | ECG_ITS ---
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
--- NOTE | 2023-02-07 22:57 | XR_ITS ---
The [address] [address] Patient Name: CONOR LEE MRN: [id number] date: 1965 Sex: M Assigned Patient Location: ER Current Patient Location: ER Accession/Order Number: [id number] Exam Date: 02/07/2023 23:05 Report Date: 02/07/2023 23:23 At the request of: EVENS STEWART Procedure: XR chest 1V EXAM: XR chest 1V HISTORY: chest pain COMPARISON: 11/12/2022 TECHNIQUE: AP portable study FINDINGS: Again, there is relative elevation of the left hemidiaphragm, stable in appearance. There is a mild left basilar infiltrate. The right lung is clear. Cardiac silhouette is stable. Wire sternal sutures are noted. Bony structures are otherwise unremarkable. XR/XR chest 1V IMPRESSION: Relative elevation of the left hemidiaphragm, stable in appearance. Mild left basilar infiltrate. Differential considerations include atelectasis versus early pneumonia. Electronically authenticated by: Shay SALCEDO Date: 02/07/2023 23:23
[2023-02-07 23:04] LABS: Basophils Absolute Auto 0.1 10^3/uL (0.0-0.1); Basophils Percent Auto 0.6 % (0.2-2.0); Eosinophils Absolute Auto 0.1 10^3/uL (0.0-0.7); Eosinophils Percent Auto 0.9 % (0.9-7.0); Hematocrit 41.7 % (42.0-54.0); Hemoglobin 14.5 g/dL (14.0-18.0); Immature Granulocytes Abs Auto 0.03 10^3/uL (0.00-0.03); Immature Granulocytes Pct Auto 0.2 % (0.0-0.5); Lymphocytes Percent Auto 7.8 % (20.5-60.0); Mean Corpuscular HGB Conc 34.8 g/dL (29.9-35.2); Mean Corpuscular Hemoglobin 36.6 pg (25.9-34.0); Mean Corpuscular Volume 105.3 fL (80.0-94.0); Mean Platelet Volume 10.4 fL (9.5-13.5); Monocytes Absolute Auto 0.4 10^3/uL (0.3-0.8); Monocytes Percent Auto 3.4 % (1.7-12.0); Neutrophils Absolute Auto 10.8 10^3/uL (1.4-6.5); Neutrophils Percent Auto 87.1 % (43.0-75.0); Platelet Count 296 10^3/uL (150-450); Red Blood Count 3.96 10^6/uL (4.70-6.10); Red Cell Distribution Width 13.2 % (11.0-15.0); White Blood Count 12.4 10^3/uL (4.0-11.0)
[2023-02-07 23:25] LABS: BUN Creatinine Ratio 21.2; Calcium 9.5 mg/dL (8.5-10.1); Carbon Dioxide 26.5 mmol/L (21.0-32.0); Chloride 94 mmol/L (98-107); Estimated GFR (African America >60 (>=60); Estimated GFR (Non-African Ame >60 (>=60); Glucose 296 mg/dL (74-106); Potassium 4.5 mmol/L (3.5-5.1); Sodium 127 mmol/L (136-145); Troponin I High Sensitivity 14.6 pg/mL (4.0-76.1)
--- NOTE | 2023-02-07 23:35 | ED.CHESTPAI1 ---
HPI - Chest Pain General Chief Complaint: Chest Pain Stated Complaint: CP RADIATING DOWN ARM Time Seen by Provider: 02/07/23 22:28 Source: patient Mode of arrival: walk-in Limitations: no limitations History of Present Illness HPI narrative: 57yr old male smoker with leaky aortic valve and right lung mass presents with left sided chest pain that came on tonight around 9pm but has been intermittent since earlier in the week. He was evaluated twice in our ED and discharged home with diagnosis of anxiety. He even saw his PCP this morning and was given more ativan, told it was anxiety. He does not wear home O2 but each time he comes to the ED he said that the nasal cannula oxygen makes him feel a ton better . Associated symptoms include a mild cough and exertional dyspnea. No fever. No vomiting or diarrhea. No pain with palpation of the left chest wall. Pain went from 5/10 at onset to 1/10 now - he took tylenol for the pain He has been at [facility] getting PET scans, cardiac CT and other tests to prepare for biopsy of a right lung mass. He has tried to cut down on his smoking. He has been diagnosed with a leaky aortic valve =- also beign evaluated for treatment at [facility]. Related Data Home Medications Medication Instructions Recorded Confirmed aspirin 81 mg tablet,delayed 81 mg PO DAILY 11/12/22 02/07/23 release carvedilol 25 mg tablet 37.5 mg PO BID 11/12/22 02/07/23 lisinopril 20 mg tablet 20 mg PO BID 11/12/22 02/07/23 Allergies Allergy/AdvReac Type Severity Reaction Status Date / Time No Known Drug Allergies Allergy Verified 02/07/23 22:45 [facility] Social History Smoking status: Current every day smoker Exam Narrative Exam Narrative: Nurses notes and vital signs reviewed and patient is not hypoxic. Afebrile General: Well-appearing and in no apparent distress. Skin: Warm, dry, no pallor noted. Head: Normocephalic, atraumatic. Eye: Pupils are equal, round and EOMI. No scleral icterus. Ears, Nose, Mouth, and Throat: Oral mucosa is moist Cardiovascular: Tachycardia on initial exam. Respiratory: No accessory muscle use or respiratory distress. Lungs with scattered bibasilar rhonchi Chest Wall: no tenderness on palpation of the left anterolateral chest where the patient localizes pain. No subcutaneous emphysema or crepitus. Musculoskeletal: normal ROM, no calf or popliteal tenderness, no lower extremity edema/swelling GI: Abdomen is soft, non-distended. Normal bowel sounds. No tenderness to palpation. No rebound, guarding, or rigidity noted. Neurological: A&O x4. No cranial nerve dysfunction observed. No truncal ataxia. Moves all extremities. Sensation intact. Psychiatric: Cooperative and interactive. Normal mood and affect. Constitutional Vital Signs, click to edit/add: Last Vital Signs Temp 98 F 02/07/23 22:32 Pulse 103 H 02/07/23 23:20 Resp 21 02/07/23 23:20 BP 120/78 02/07/23 22:32 Pulse Ox 98 02/07/23 23:20 O2 Del Method Room Air 02/07/23 22:32 Course Vital Signs Vital signs: Vital Signs Pulse Oximetry 95 02/07/23 22:31 Temperature 98 F 02/07/23 22:32 Pulse Rate 103 H 02/07/23 23:20 Respiratory Rate 21 02/07/23 23:20 Blood Pressure 120/78 02/07/23 22:32 Pulse Oximetry 98 02/07/23 23:20 Oxygen Delivery Method Room Air 02/07/23 22:32 MDM - Chest Pain MDM Narrative Medical decision making narrative: Patient was placed on cardiac tech and EKG obtained. Blood drawn and sent for evaluation. CXR revealed left basilar infiltrate and his WBC increased to 12.4. He was given IV Rocephin. BUN elevated at 25 - up from 13 in September. Other notable changes include decreased sodium at 127, decreased chloride at 94, elevated glucose at 296, BNP trending up, at 1982 tonight - increased since last visit. The case was discussed with the on-call telehospitalist. The patient was admitted to the stepdown unit for treatment of his acute kidney injury, potential CHF, early left lower lobe pneumonia, exertional dyspnea and electrolyte abnormality. Lab Data Attestation: I reviewed the patient's lab results. Labs: Lab Results 02/07/23 Range/Units 22:40 WBC 12.4 H (4.0-11.0) 10^3/uL RBC 3.96 L (4.70-6.10) 10^6/uL Hgb 14.5 (14.0-18.0) g/dL Hct 41.7 L (42.0-54.0) % MCV 105.3 H (80.0-94.0) fL MCH 36.6 H (25.9-34.0) pg MCHC 34.8 (29.9-35.2) g/dL RDW 13.2 (11.0-15.0) % Plt Count 296 (150-450) 10^3/uL MPV 10.4 (9.5-13.5) fL Neut % (Auto) 87.1 H (43.0-75.0) % Lymph % (Auto) 7.8 L (20.5-60.0) % [place] % (Auto) 3.4 (1.7-12.0) % Eos % (Auto) 0.9 (0.9-7.0) % Baso % (Auto) 0.6 (0.2-2.0) % Neut # (Auto) 10.8 H (1.4-6.5) 10^3/uL Lymph # (Auto) 1.0 L (1.2-3.8) 10^3/uL [place] # (Auto) 0.4 (0.3-0.8) 10^3/uL Eos # (Auto) 0.1 (0.0-0.7) 10^3/uL Baso # (Auto) 0.1 (0.0-0.1) 10^3/uL Abs Immat Gran (auto) 0.03 (0.00-0.03) 10^3/uL Imm/Tot Granulo (auto) 0.2 (0.0-0.5) % Sodium 127 L (136-145) mmol/L Potassium 4.5 (3.5-5.1) mmol/L Chloride 94 L (98-107) mmol/L Carbon Dioxide 26.5 (21.0-32.0) mmol/L Anion Gap 11.0 BUN 25.0 H (7.0-18.0) mg/dL Creatinine 1.18 (0.70-1.30) mg/dL Est GFR ( Amer) >60 (>=60) Est GFR (Non-Af Amer) >60 (>=60) BUN/Creatinine Ratio 21.2 Glucose 296 H (74-106) mg/dL Calcium 9.5 (8.5-10.1) mg/dL Troponin I High Sens 14.6 (4.0-76.1) pg/mL NT-Pro-B Natriuret Pep 1982.0 H* (<=900.0) pg/mL Imaging Data Chest x-ray: Radiologist's impression: Patient Name: CONOR LEE MRN: [id number] date: 1965 Sex: M Assigned Patient Location: ER Current Patient Location: ER Accession/Order Number: [id number] Exam Date: 02/07/2023 23:05 Report Date: 02/07/2023 23:23 At the request of: EVENS STEWART Procedure: XR chest 1V EXAM: XR chest 1V HISTORY: chest pain COMPARISON: 11/12/2022 TECHNIQUE: AP portable study FINDINGS: Again, there is relative elevation of the left hemidiaphragm, stable in appearance. There is a mild left basilar infiltrate. The right lung is clear. Cardiac silhouette is stable. Wire sternal sutures are noted. Bony structures are otherwise unremarkable. IMPRESSION: Relative elevation of the left hemidiaphragm, stable in appearance. Mild left basilar infiltrate. Differential considerations include atelectasis versus early pneumonia. Electronically authenticated by: Shay SALCEDO Date: 02/07/2023 23:23 ECG Data Attestation: I personally reviewed and interpreted this ECG as follows: Interpretation: EKG interpretation: Emergency Department physician interpretation. Normal sinus rhythm at 94bpm. Left ventricular hypertrophy with repolarization abnormality and left atrial enlargement. This is similar to EKGs obtained on both November 12, 2022 and February 06, 2023. Discharge Plan Discharge Chief Complaint: Chest Pain Clinical Impression: Chest pain Patient Disposition: Admitted as Observation Time of Disposition Decision: 00:15 Prescriptions / Home Meds: No Action aspirin 81 mg tablet,delayed release (DR/EC) 81 mg PO DAILY carvedilol 25 mg tablet 37.5 mg PO BID lisinopril 20 mg tablet 20 mg PO BID Additional Instructions: TREVON chamberlain, obs Referrals: HARPREET LIM [Primary Care Provider] - 1 week
[2023-02-08] VITALS (29 sets, daily range): BP systolic 104–143; BP diastolic 53–78; PULSE 64–88; RESP 14–27; TEMP 36.5–36.7; O2SAT 93–100; BMI 26.8
[2023-02-08] MEDS: FUROSEMIDE 40 MG/4 ML VIAL IVP (00:13)
[2023-02-08] MEDS: 0.9 % SODIUM CHLORIDE 500 ML IV (00:13)
[2023-02-08] MEDS: CEFTRIAXONE 1,000 MG in 0.9 % SODIUM CHLORIDE 50 ML 100 MG IV (00:13)
--- OUTSIDE RECORDS SUMMARY | 2023-02-08 00:39 | XMS_ITS | CCD ---
Author Name Unknown Address [address] [place] [address] Organization [facility] Care Team Providers Care Test Inspection Engineer Name Role Phone Naomie Bermudez Primary Care Provider AIDAN, DR NAOMIE Hanna Admitting Unavailable AIDAN, DR NAOMIE Hanna Attending Unavailable AIDAN, DR NAOMIE Hanna Consulting Unavailable [place], DR FÉLIX Garcia Consulting Unavailable [place], DR [...] Unavailable Naomie Bermudez MD Primary Care Provider Ghulam MOMIN, Mimi Amador Unavailable Lex Anderson MD Unavailable Monica MOMIN, Lex Unavailable [phone] Harpreet Lim MD Primary Care Provider No, Physician Primary Care Provider UnavailCHANDA Anderson Attending Unavailable [facility], GENERIC Consulting [place] NO, PHYSICIAN [...] disease (10 sources) Atherosclerotic heart disease of [place] coronary artery with other forms of angina [...] AM EST With: Harpreet Lim MD Where: [facility] Family Medicine [facility] Medicine Office/Clini c Noteon 02-07-2023 Family Medicine Office/Clinic Note HPI Staff Conor is a 57 year old male presenting for medication check htn At [facility] ER yesterday morning, sent home and went [...] lung) Patient should continue to follow-up with [facility]. Concerned that this rash may be caused by the cancer as patient states he has no other contacts or associations that he believes because this rash. 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 Reviewed records from [facility] and the patient's recent visit to the [place] ER. Ordered: Body Mass Index (BMI) documented [...] pressure is (more content not included)... Normal [facility] Comment on above: Result Comment: Elec [...] numbers. This can be done either in [place] ([place] or metric measurements. Note that charts and online BMI calculators are available to help you find your BMI quickly and easily without having to do these calculations yourself. To calculate your BMI in [place] ([place] measurements: 1. Measure your weight in [...] for Disease Control and Prevention: www.cdc.gov ? [place] Heart Association: www.heart.org ? National Heart, Lung, and Blood [place]: www.nhlbi.nih.gov Summary ? Body mass index (BMI) is a number that is calculated from a person's weight and height. ? BMI may help estimate how much of a person's weight is composed of fat. BMI can help identify those who may be at higher risk for certain medical problems. ? BMI can be measured using [place]an measurements or metric measurements. ? BMI charts are used to identify whether you are underweight, normal weight, overweight, or obese. This information is not intended to replace advice given to you by your health care provider. Make sure you discuss any questions you have with your health care provider. Document Revised: 10/28/2019 Document Reviewed: 09/04/2019 Else[employer] Patient Education ? 2022 [employer]. Pulmonary Medicine Steps to Quit Smoking Smoking [...] date to quit. (more content not included)... [facility] Consultation Noteon 02-07-20 Consultation Note [id number] .00TIFF [facility] ED Note-Physicianon 02-07-20 ED Note-Physician [id number] .00TIFF [facility] Case Information Case Priority: None Programs: -- Referral Source: Patternmaker Hand Referral Reason: Care coordination Case Type: High Risk Adult Risk Score: -- Case Status: Enrolled (January 22, 2023) Date Assigned: January 21, 2023 Assigned By: Andres Damico Date Enrolled: January 22, 2023 Assigned Primary Personnel: Andres Damico Assigned Secondary Personnel: -- Case Physician: Harpreet Lim MD Problems Ongoing Acute URI Atherosclerosis of [place] artery of extremity CAD in [place] artery Carpal tunnel syndrome Chronic obstructive bronchitis [...] Goals and Interventions Care Plan Progress Note PANEL INSTALLER#4- spoke with patient states he was seen in [facility] ED today for SOB. Patient states his [...] (min): 7 Outcome: Case discussion Contact Type: mortgage coordinator Contact Name: Andres Damico Notes: PANEL INSTALLER#4- Returned patient call for PANEL INSTALLER status update, see ft summary note. Created By: Andres Damico Date: February 01, 2023 Method: Phone call Type: Outbound Duration (min): 1 Outcome: Left message-voicemail Contact Type: mortgage coordinator Contact Name: Andres Damico Notes: PANEL INSTALLER#3-wgt- Attemtped to reach pt no answer, left vm for return call. Created By: Andres Damico Date: January 29, 2023 Method: Phone call Type: Outbound Duration (min): 1 Outcome: Left message-voicemail Contact Type: mortgage coordinator Contact Name: Andres Damico Notes: PANEL INSTALLER#2 and wgt- Attempted to reach pt for PANEL INSTALLER program call status update and wgt check, no answer, left vm for return call. Created By: Andres Damico Date: January 22, 2023 Method: Phone call Type: Outbound Duration (min): 14 Outcome: Case discussion Contact Type: mortgage coordinator Contact Name: Adnres Damico Notes: PANEL INSTALLER#1- Spoke with patient for initial PANEL INSTALLER program call status update, see ft summary note. Created By: Andres Damico Date: January 21, 2023 Method: Phone call Type: Outbound Duration (min): 1 Outcome: Left message-voicemail Contact Type: mortgage coordinator Contact Name: Andres Damico Notes: PANEL INSTALLER#1- Attemtped to contact patient for initial PANEL INSTALLER call status update, no answer, left vm for return call. Created By: Andres Damico Normal [facility] RAD - CT Reporton 02-06-2023 RAD - CT Report [id number] .00TIFF Normal [facility] CBC W Auto Differential pane l (Bld)on 02-01-2023 Basophils (Bld) [#/Vol] 0.17 10*3/uL High <0.11 [facility] Comment on above: Order Comment: Speci men Type: BLOOD SPECIMENOrdering Facility: [facility] Address: [address] [place] [address] Performed By: #### 5 7021-8 ####[facility] LABCLIA [id number] [place] [address] [place] Basophils/100 WBC (Bld) 1.4 % Normal [facility] Comment on above: Order Comment: Speci men Type: BLOOD SPECIMENOrdering Facility: [facility] Address: [address] [place] [address] Performed By: #### 5 7021-8 ####[facility] LABCLIA [id number] [place] [address] [place] Differential cell count method Nom (Bld) Auto Normal [facility] Comment on above: Order Comment: Speci men Type: BLOOD SPECIMENOrdering Facility: [facility] Address: [address] [place] [address] Performed By: #### 5 7021-8 ####[facility] LABCLIA [id number] [place] [address] [place] Eosinophils (Bld) [#/Vol] 0.35 10*3/uL Normal <0.46 [facility] Comment on above: Order Comment: Speci men Type: BLOOD SPECIMENOrdering Facility: [facility] Address: [address] [place] [address] Performed By: #### 5 7021-8 ####[facility] LABCLIA [id number] [place] [address] [place] Eosinophils/100 WBC (Bld) 3.0 % Normal [facility] Comment on above: Order Comment: Speci men Type: BLOOD SPECIMENOrdering Facility: [facility] Address: [address] [place] [address] Performed By: #### 5 7021-8 ####[facility] LABCLIA [id number] [place] [address] [place] Erythrocyte distribution width (RBC) [Ratio] 13.6 % Normal 11.5-15.0 [facility] Comment on above: Order Comment: Speci men Type: BLOOD SPECIMENOrdering Facility: [facility] Address: [address] [place] [address] Performed By: #### 5 7021-8 ####[facility] LABCLIA [id number] [place] [address] [place] Hematocrit (Bld) [Volume fraction] 46.1 % Normal 39.0-51.0 [facility] Comment on above: Order Comment: Speci men Type: BLOOD SPECIMENOrdering Facility: [facility] Address: [address] [place] [address] Performed By: #### 5 7021-8 ####[facility] LABCLIA [id number] [place] [address] [place] Hemoglobin (Bld) [Mass/Vol] 15.9 g/dL Normal 13.0-17.0 [facility] Comment on above: Order Comment: Speci men Type: BLOOD SPECIMENOrdering Facility: [facility] Address: [address] [place] [address] Performed By: #### 5 7021-8 ####[facility] LABCLIA [id number] [place] [address] [place] Immature granulocytes (Bld) [#/Vol] 0.04 10*3/uL Normal <0.10 [facility] Comment on above: Order Comment: Speci men Type: BLOOD SPECIMENOrdering Facility: [facility] Address: [address] [place] [address] Performed By: #### 5 7021-8 ####[facility] LABIA [id number] [place] [address] [place] Immature granulocytes/100 WBC (Bld) 0.3 % Normal [facility] Comment on above: Order Comment: Speci men Type: BLOOD SPECIMENOrdering Facility: [facility] Address: [address] [place] [address] Performed By: #### 5 7021-8 ####[facility] LABIA [id number] [place] [address] [place] Lymphocytes (Bld) [#/Vol] 2.28 10*3/uL Normal 1.00-4.00 [facility] Comment on above: Order Comment: Speci men Type: BLOOD SPECIMENOrdering Facility: [facility] Address: [address] [place] [address] Performed By: #### 5 7021-8 ####[facility] LABIA [id number] [place] [address] [place] Lymphocytes/100 WBC (Bld) 19.4 % Normal [facility] Comment on above: Order Comment: Speci men Type: BLOOD SPECIMENOrdering Facility: [facility] Address: [address] [place] [address] Performed By: #### 5 7021-8 ####[facility] LABIA [id number] [place] [address] [place] MCH (RBC) [Entitic mass] 37.0 pg High 26.0-34.0 [facility] Comment on above: Order Comment: Speci men Type: BLOOD SPECIMENOrdering Facility: [facility] Address: [address] [place] [address] Performed By: #### 5 7021-8 ####[facility] LABIA [id number] [place] [address] [place] MCHC (RBC) [Mass/Vol] 34.5 g/dL Normal 30.5-36.0 [facility] Comment on above: Order Comment: Speci men Type: BLOOD SPECIMENOrdering Facility: [facility] Address: [address] [place] [address] Performed By: #### 5 7021-8 ####[facility] LABCLIA [id number] [place] [address] [place] MCV (RBC) [Entitic vol] 107.2 fL High 80.0-100.0 [facility] Comment on above: Order Comment: Speci men Type: BLOOD SPECIMENOrdering Facility: [facility] Address: [address] [place] [address] Performed By: #### 5 7021-8 ####[facility] LABCLIA [id number] [place] [address] [place] Monocytes (Bld) [#/Vol] 0.62 10*3/uL Normal <0.87 [facility] Comment on above: Order Comment: Speci men Type: BLOOD SPECIMENOrdering Facility: [facility] Address: [address] [place] [address] Performed By: #### 5 7021-8 ####[facility] LABCLIA [id number] [place] [address] [place] Monocytes/100 WBC (Bld) 5.3 % Normal [facility] Comment on above: Order Comment: Speci men Type: BLOOD SPECIMENOrdering Facility: [facility] Address: [address] [place] [address] Performed By: #### 5 7021-8 ####[facility] LABCLIA [id number] [place] [address] [place] Neutrophils (Bld) [#/Vol] 8.27 10*3/uL High 1.45-7.50 [facility] Comment on above: Order Comment: Speci men Type: BLOOD SPECIMENOrdering Facility: [facility] Address: [address] [place] [address] Performed By: #### 5 7021-8 ####[facility] LABIA [id number] [place] [address] [place] Neutrophils/100 WBC (Bld) 70.6 % Normal [facility] Comment on above: Order Comment: Speci men Type: BLOOD SPECIMENOrdering Facility: [facility] Address: [address] [place] [address] Performed By: #### 5 7021-8 ####[facility] LABCLIA [id number] [place] [address] [place] Nucleated RBC (Bld) [#/Vol] 10*3/uL Normal <0.01 [facility] Comment on above: Order Comment: Speci men Type: BLOOD SPECIMENOrdering Facility: [facility] Address: [address] [place] [address] Performed By: #### 5 7021-8 ####[facility] LABIA [id number] [place] [address] [place] Nucleated RBC/100 WBC (Bld) [Ratio] 0.0 /100 WBC Normal [facility] Comment on above: Order Comment: Speci men Type: BLOOD SPECIMENOrdering Facility: [facility] Address: [address] [place] [address] Performed By: #### 5 7021-8 ####[facility] LABIA [id number] [place] [address] [place] Platelet mean volume (Bld) [Entitic vol] 10.0 fL Normal 9.0-12.7 [facility] Comment on above: Order Comment: Speci men Type: BLOOD SPECIMENOrdering Facility: [facility] Address: [address] [place] [address] Performed By: #### 5 7021-8 ####[facility] LABIA [id number] [place] [address] [place] Platelets (Bld) [#/Vol] 277 10*3/uL Normal 150-400 [facility] Comment on above: Order Comment: Speci men Type: BLOOD SPECIMENOrdering Facility: [facility] Address: [address] [place] [address] Performed By: #### 5 7021-8 ####[facility] LABCLIA [id number] [place] [address] [place] RBC (Bld) [#/Vol] 4.30 10*6/uL Normal 4.20-6.00 [facility] Comment on above: Order Comment: Speci men Type: BLOOD SPECIMENOrdering Facility: [facility] Address: [address] [place] [address] Performed By: #### 5 7021-8 ####[facility] LABCLIA [id number] [place] [address] [place] WBC (Bld) [#/Vol] 11.73 10*3/uL High 3.70-11.[address] [facility] Comment on above: Order Comment: Speci men Type: BLOOD SPECIMENOrdering Facility: [facility] Address: [address] [place] [address] Performed By: #### 5 7021-8 ####[facility] LABCLIA [id number] [place] [address] [place] CNOVon 02-01-2023 CNOV Office Visit (CATHMN ) CONOR LEE ([id number]) 1965 M Date Time Provider Department 02/01/23 2:00 PM [facility] CATHMN During your visit today, we recorded the following information about you: Natividad Moore APRN.AISSATOU 02/01/2023 3:44 PM Signed [facility] Department of Cardiovascular Medicine SECTION [...] back in November. Conor Lee is from [place] where he lives with his significant other. [...] cm/s. The dimensionless valve index is 0.21. 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 [place] CARDIOMYOPATHY QUESTIONNAIRE (KCCQ-12) Activity: A. Showering/bathing: Extremely [...] weeks, ho (more content not included)... Normal [facility] CNOV Office Visit (CATHMN ) CONOR LEE ([id number]) 1965 M Date Time Provider Department 02/01/23 9:45 AM Cyndi SCHUSTER CATHMN During your visit today, we recorded the following information about you: Pulse Respiration Blood pressure Weight 72/minute 18/minute 143/97 83.9 kg Height 1.778 m Cyndi Schuster MD 02/01/2023 11:41 AM Signed [facility] Rodriguez Department of Cardiovascular Medicine SECTION OF INTERVENTIONAL CARDIOLOGY OUTPATIENT VISIT DATE February 01, 2023 OUTPATIENT VISIT TYPE NEW PRIMARY CARE PHYSICIAN: Harpreet Lim [facility] [place] [address] REFERRING PHYSICIAN: No referring provider defined for this encounter. CHIEF COMPLAINT: No chief complaint on file. HISTORY OF PRESENT ILLNESS: Mr. Lee is a 57 year-old male who was referred by Dr. Dr. 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 He was admitted on 01/15/2023 with acute respiratory distress and decompensated heart failure and R hilar mass and discharged on 01/17. PMH is significant for Bicuspid aortic valve s/p AVR (Magna prosthetic valve size #23; Dr. Sheriff at [facility]; 08/2011), CAD 10/18/2022 cath at [facility] showed 100% occluded moderate size RCA [...] Lee is an 57 year old male ([place]) with pmhx of: bicuspid valve s/p AVR (#23 magna pericardial valve, 2011) [facility] HTN PAD s/p right SFA bypass [...] to doing biopsy. He was admitted to [facility] on 01/17 for COPD exacerbation. He [...] It show (more content not included)... Normal [facility] CTA C/A/P (GATED) W IVCONon 02-01-2023 [...] the proximal common iliacs segments. AORTIC DIMENSIONS: [place] AORTIC ROOT: 3.0 cm measured dkqxh-ka-ratst , with postsurgical changes present STJ: 2.6 [...] right lower (more content not included)... Normal [facility] Comprehensive metabolic 2000 panelon 02-01-2023 Albumin [Mass/Vol] 4.2 g/dL Normal 3.9-4.9 [facility] Comment on above: Order Comment: Speci men Type: BLOOD SPECIMENOrdering Facility: [facility] Address: [address] [place] [address] Performed By: #### 2 4323-8, 71362-8, HSTNT ####[facility] LABCLIA [id number] [place] [address] [place] ALP [Catalytic activity/Vol] 67 U/L Normal 38-113 [facility] Comment on above: Order Comment: Speci men Type: BLOOD SPECIMENOrdering Facility: [facility] Address: [address] [place] [address] Performed By: #### 2 4323-8, 67639-3, HSTNT ####[facility] LABCLIA [id number] [place] [address] [place] ALT [Catalytic activity/Vol] 25 U/L Normal 10-54 [facility] Comment on above: Order Comment: Speci men Type: BLOOD SPECIMENOrdering Facility: [facility] Address: [address] [place] [address] Performed By: #### 2 4323-8, 87134-9, HSTNT ####[facility] LABCLIA [id number] [place] [address] [place] Anion gap [Moles/Vol] 8 mmol/L Low 9-18 [facility] Comment on above: Order Comment: Speci men Type: BLOOD SPECIMENOrdering Facility: [facility] Address: [address] [place] [address] Performed By: #### 2 4323-8, 87804-8, HSTNT ####[facility] LABCLIA [id number] [place] [address] [place] AST [Catalytic activity/Vol] 17 U/L Normal 14-40 [facility] Comment on above: Order Comment: Speci men Type: BLOOD SPECIMENOrdering Facility: [facility] Address: [address] [place] [address] Performed By: #### 2 4323-8, 23097-7, HSTNT ####[facility] LABCLIA [id number] [place] [address] [place] Bilirubin [Mass/Vol] 0.3 mg/dL Normal 0.2-1.3 [facility] Comment on above: Order Comment: Speci men Type: BLOOD SPECIMENOrdering Facility: [facility] Address: [address] [place] [address] Performed By: #### 2 4323-8, 68423-4, HSTNT ####[facility] LABCLIA [id number] [place] [address] [place] Calcium [Mass/Vol] 10.0 mg/dL Normal 8.5-10.2 [facility] Comment on above: Order Comment: Speci men Type: BLOOD SPECIMENOrdering Facility: [facility] Address: [address] [place] [address] Performed By: #### 2 4323-8, 22023-6, HSTNT ####[facility] LABCLIA [id number] [place] [address] [place] Chloride [Moles/Vol] 97 mmol/L Normal 97-105 [facility] Comment on above: Order Comment: Speci men Type: BLOOD SPECIMENOrdering Facility: [facility] Address: [address] [place] [address] Performed By: #### 2 4323-8, 03063-1, HSTNT ####[facility] LABCLIA [id number] [place] [address] [place] CO2 [Moles/Vol] 27 mmol/L Normal 22-30 [facility] Comment on above: Order Comment: Speci men Type: BLOOD SPECIMENOrdering Facility: [facility] Address: [address] [place] [address] Performed By: #### 2 4323-8, 37151-5, HSTNT ####[facility] LABCLIA [id number] [place] [address] [place] Creatinine [Mass/Vol] 0.99 mg/dL Normal 0.73-1.22 [facility] Comment on above: Order Comment: Speci men Type: BLOOD SPECIMENOrdering Facility: [facility] Address: [address] [place] [address] Performed By: #### 2 4323-8, 29477-7, HSTNT ####[facility] LABCLIA [id number] [place] [address] [place] Creatinine and Glomerular filtration rate.predicted panel (S/P/Bld) 89 mL/min/1.73m??? Normal >=60 [facility] Comment on above: Order Comment: Sylvie hammer Type: BLOOD SPECIMENOrdering Facility: [facility] Address: [address] [place] [address] Result Comment: Aditi mated Glomerular Filtration Rate [...] actual GFR. Performed By: #### 2 4323-8, 06564-1, HSTNT ####[facility] LABIA [id number] [place] [address] [place] Glucose [Mass/Vol] 120 mg/dL High 74-99 [facility] Comment on above: Order Comment: Sylvie hammer Type: BLOOD SPECIMENOrdering Facility: [facility] Address: [address] [place] [address] Result Comment: The [place] Diabetes Association (ADA) provides guidance for cutoff [...] Standards of Medical Care in Diabetes 2016, [place] [employer] Association. Diabetes Care. 2016.39(Suppl 1). Performed By: #### 2 4323-8, 27561-4, HSTNT ####[facility] LABIA [id number] [place] [address] [place] Potassium [Moles/Vol] 5.0 mmol/L Normal 3.7-5.1 [facility] Comment on above: Order Comment: Speci men Type: BLOOD SPECIMENOrdering Facility: [facility] Address: [address] [place] [address] Performed By: #### 2 4323-8, 54415-2, HSTNT ####[facility] LABCLIA [id number] [place] [address] [place] Protein [Mass/Vol] 7.0 g/dL Normal 6.3-8.0 [facility] Comment on above: Order Comment: Speci men Type: BLOOD SPECIMENOrdering Facility: [facility] Address: [address] [place] [address] Performed By: #### 2 4323-8, 03312-2, HSTNT ####[facility] LABCLIA [id number] [place] [address] [place] Sodium [Moles/Vol] 132 mmol/L Low 136-144 [facility] Comment on above: Order Comment: Speci men Type: BLOOD SPECIMENOrdering Facility: [facility] Address: [address] [place] [address] Performed By: #### 2 4323-8, 14039-2, HSTNT ####[facility] LABCLIA [id number] [place] [address] [place] Urea nitrogen [Mass/Vol] 18 mg/dL Normal 9-24 [facility] Comment on above: Order Comment: Speci men Type: BLOOD SPECIMENOrdering Facility: [facility] Address: [address] [place] [address] Performed By: #### 2 4323-8, 42053-8, HSTNT ####[facility] LABCLIA [id number] [place] [address] [place] HIGH SENSITIVITY TROPONIN To n 02-01-2023 Troponin T.cardiac High sensitivity method [Mass/Vol] 17 ng/L High <12 [facility] Comment on above: Order Comment: Speci men Type: BLOOD SPECIMENOrdering Facility: [facility] Address: [address] [place] [address] Result Comment: When assessing risk for acute [...] day MACE. Performed By: #### 2 4323-8, 99188-6, HSTNT ####[facility] LABIA [id number] [place] [address] [place] LPa SerPl-mCncon 02-01-2023 Lipoprotein a [Mass/Vol] 125 mg/dL High <30 [facility] Comment on above: Order Comment: Speci men Type: BLOOD SPECIMENOrdering Facility: [facility] Address: [address] [place] [address] Performed By: #### 1 0835-7 ####[facility] LABIA [id number] [place] [address] [place] NT-proBNP [facility] Natriuretic peptide.B prohormone N-Terminal [Mass/Vol] 1659 pg/mL High <125 [facility] Comment on above: Order Comment: Speci men Type: BLOOD SPECIMENOrdering Facility: [facility] Address: [address] [place] [address] Performed By: #### 2 4323-8, 28501-7, HSTNT ####[facility] [id number] [place] [address] [place] PT panel Coag (PPP)on 2022 INR Coag (PPP) [Relative time] {INR} Low 0.9-1.3 [facility] Comment on above: Order Comment: Speci men Type: BLOOD SPECIMENOrdering Facility: [facility] Address: [address] [place] [address] Result Comment: Resu lt rechecked. Sample checked for clot. Vitamin K Antagonist (VKA) Therapeutic Range: INR 2 to 3 (Target INR of 2.5) Note: For patients treated with VKA drugs, such as warfarin, the [place] [employer] 2012 Guideline recommends [...] Chest 2012, 141:7S-47S Pat SHAW, et al. [facility] 2017, 70: 252-289 Performed By: #### 3 4528-0 ####[facility] [id number] [place] [address] [place] PT Coag (PPP) [Time] 9.9 s Normal 9.7-13.0 [facility] Comment on above: Order Comment: Speci men Type: BLOOD SPECIMENOrdering Facility: [facility] Address: [address] [place] [address] Performed By: #### 3 4528-0 ####[facility] [id number] [place] [address] [place] XR CHEST 2V [...] soft tissues: Median sternotomy. IMPRESSION: See result Extruding Press Adjuster: PSCAnne Marie Transcribe Date/Time: Feb 02 2023 2:01P Dictated by : JOSE DIEZ MD This examination was interpreted and the report reviewed and electronically signed by: JOSE DIEZ MD on Feb 02 2023 2:04PM EST [id number] Normal [facility] CNCOon 01-31-2023 CNCO Letter Text Normal [facility] Basic metabolic 2000 panelon 01-28-2023 Anion gap [Moles/Vol] 12 mmol/L Normal 9-18 [facility] Comment on above: Order Comment: Speci men Type: BLOOD SPECIMENOrdering Facility: [facility] Address: [address] [place] [address] Performed By: #### 2 4321-2 ####[facility] LABCLIA [id number] [place] [address] Calcium [Mass/Vol] 9.7 mg/dL Normal 8.5-10.2 [facility] Comment on above: Order Comment: Speci men Type: BLOOD SPECIMENOrdering Facility: [facility] Address: [address] [place] [address] Performed By: #### 2 4321-2 ####[facility] LABCLIA [id number] [place] [address] Chloride [Moles/Vol] 93 mmol/L Low 97-105 [facility] Comment on above: Order Comment: Speci men Type: BLOOD SPECIMENOrdering Facility: [facility] Address: [address] [place] [address] Performed By: #### 2 4321-2 ####[facility] LABCLIA [id number] [place] [address] CO2 [Moles/Vol] 26 mmol/L Normal 22-30 [facility] Comment on above: Order Comment: Speci men Type: BLOOD SPECIMENOrdering Facility: [facility] Address: [address] [place] [address] Performed By: #### 2 4321-2 ####[facility] LABCLIA [id number] [place] [address] Creatinine [Mass/Vol] 1.06 mg/dL Normal 0.73-1.22 [facility] Comment on above: Order Comment: Speci men Type: BLOOD SPECIMENOrdering Facility: [facility] Address: [address] [place] [address] Performed By: #### 2 4321-2 ####[facility] LABCLIA [id number] [place] [address] Creatinine and Glomerular filtration rate.predicted panel (S/P/Bld) 82 mL/min/1.73m??? Normal >=60 [facility] Comment on above: Order Comment: Speci men Type: BLOOD SPECIMENOrdering Facility: [facility] Address: [address] [place] [address] Result Comment: Aditi mated Glomerular Filtration Rate [...] actual GFR. Performed By: #### 2 4321-2 ####[facility] LABCLIA [id number] [place] [address] Glucose [Mass/Vol] 199 mg/dL High 74-99 [facility] Comment on above: Order Comment: Speci men Type: BLOOD SPECIMENOrdering Facility: [facility] Address: [address] [place] [address] Result Comment: The [place] [employer] (ADA) provides guidance for cutoff [...] Standards of Medical Care in Diabetes 2016, [place] [employer]. Diabetes Care. 2016.39(Suppl 1). Performed By: #### 2 4321-2 ####[facility] LABCLIA [id number] [place] [address] Potassium [Moles/Vol] 4.7 mmol/L Normal 3.7-5.1 [facility] Comment on above: Order Comment: Speci men Type: BLOOD SPECIMENOrdering Facility: [facility] Address: [address] [place] [address] Performed By: #### 2 4321-2 ####[facility] LABCLIA [id number] [place] [address] Sodium [Moles/Vol] 131 mmol/L Low 136-144 [facility] Comment on above: Order Comment: Speci men Type: BLOOD SPECIMENOrdering Facility: [facility] Address: [address] [place] [address] Performed By: #### 2 4321-2 ####[facility] LABCLIA [id number] [place] [address] Urea nitrogen [Mass/Vol] 22 mg/dL Normal 9-24 [facility] Comment on above: Order Comment: Speci men Type: BLOOD SPECIMENOrdering Facility: [facility] Address: [address] [place] [address] Performed By: #### 2 4321-2 ####[facility] LABCLIA [id number] [place] [address] [facility] 01-25-[address] [facility] Case Information Case Priority: None Programs: -- Referral Source: Patternmaker Hand Referral Reason: Care coordination Case Type: High Risk Adult Risk Score: -- Case Status: Enrolled (January 22, 2023) Date Assigned: January 21, 2023 Assigned By: Andres Damico Date Enrolled: January 22, 2023 Assigned Primary Personnel: Andres Damico Assigned Secondary Personnel: -- Case Physician: Harpreet Lim MD Ongoing Acute URI Atherosclerosis of [place] artery of extremity CAD in [place] artery Carpal tunnel syndrome Chronic obstructive bronchitis [...] Goals and Interventions Care Plan Progress Note PANEL INSTALLER- wgt check- Patient reports his weight is holding at 180lbs. Reports BP 124/85 HR 80 SPO2 94-97%. Patient denies any further questions or concerns at this time. Communication Events Date: January 22, 2023 Method: Phone call Type: Outbound Duration (min): 14 Outcome: Case discussion Contact Type: mortgage coordinator Contact Name: Andres Damico Notes: PANEL INSTALLER#1- Spoke with patient for initial [facility] program call status update, see ft summary note. Created By: Andres Damico Date: January 21, 2023 Method: Phone call Type: Outbound Duration (min): 1 Outcome: Left message-voicemail Contact Type: mortgage coordinator Contact Name: Andres Damico Notes: PANEL INSTALLER#1- Attemtped to contact patient for initial [facility] call status update, no answer, left vm for return call. Created By: Andres Damico [facility] 01-23-[address] [facility] Case Information Case Priority: None Programs: -- Referral Source: Patternmaker Hand Referral Reason: Care coordination Case Type: Complex Case Management Risk Score: -- Case Status: Enrolled (January 22, 2023) Date Assigned: January 21, 2023 Assigned By: Andres Damico Date Enrolled: January 22, 2023 Assigned Primary Personnel: Andres Damico Assigned Secondary Personnel: -- Case Physician: Harpreet Lim MD Ongoing Acute URI Atherosclerosis of [place] artery of extremity CAD in [place] artery Carpal tunnel syndrome Chronic obstructive bronchitis [...] not as prescribed: decreased while inpt at [facility] to 10 mg QD, 01/17-01/20 Metoprolol [...] scheduled? yes, PCP Dr. Lim 02/05 at [facility] Did you understand your discharge instructions? yes [...] (min): 1 Outcome: Left message-voicemail Contact Type: mortgage coordinator Contact Name: Andres Damico Notes: PANEL INSTALLER#1- Attemtped to contact patient for initial PANEL INSTALLER call status update, no answer, left vm for return call. Created By: Andres Damico [facility] Admission Noteon 01-21-2023 Admission Note 104.. 2 [id number]#1 .00TIFF [facility] Admission Note 104.170.. 1 [id number]#1 .00TIFF [facility] CBC panel Auto (Bld)on 01-20 Erythrocyte distribution width (RBC) [Ratio] 13.7 % Normal 11.5-15.0 [facility] Comment on above: Order Comment: Speci men Type: BLOOD SPECIMENOrdering Facility: [facility] Address: [address] [place] [address] Performed By: #### 5 8410-2 ####[facility] LABIA [id number] [place] [address] [place] Hematocrit (Bld) [Volume fraction] 49.9 % Normal 39.0-51.0 [facility] Comment on above: Order Comment: Speci men Type: BLOOD SPECIMENOrdering Facility: [facility] Address: [address] [place] [address] Performed By: #### 5 8410-2 ####[facility] LABIA [id number] [place] [address] [place] Hemoglobin (Bld) [Mass/Vol] 17.7 g/dL High 13.0-17.0 [facility] Comment on above: Order Comment: Speci men Type: BLOOD SPECIMENOrdering Facility: [facility] Address: [address] [place] [address] Performed By: #### 5 8410-2 ####[facility] LABIA [id number] [place] [address] [place] MCH (RBC) [Entitic mass] 37.1 pg High 26.0-34.0 [facility] Comment on above: Order Comment: Speci men Type: BLOOD SPECIMENOrdering Facility: [facility] Address: [address] [place] [address] Performed By: #### 5 8410-2 ####[facility] LABIA [id number] [place] [address] [place] MCHC (RBC) [Mass/Vol] 35.5 g/dL Normal 30.5-36.0 [facility] Comment on above: Order Comment: Speci men Type: BLOOD SPECIMENOrdering Facility: [facility] Address: [address] [place] [address] Performed By: #### 5 8410-2 ####[facility] LABIA [id number] [place] [address] [place] MCV (RBC) [Entitic vol] 104.6 fL High 80.0-100.0 [facility] Comment on above: Order Comment: Speci men Type: BLOOD SPECIMENOrdering Facility: [facility] Address: [address] [place] [address] Performed By: #### 5 8410-2 ####[facility] LABIA [id number] [place] [address] [place] Nucleated RBC (Bld) [#/Vol] 10*3/uL Normal <0.01 [facility] Comment on above: Order Comment: Speci men Type: BLOOD SPECIMENOrdering Facility: [facility] Address: [address] [place] [address] Performed By: #### 5 8410-2 ####[facility] LABIA [id number] [place] [address] [place] Platelet mean volume (Bld) [Entitic vol] 11.5 fL Normal 9.0-12.7 [facility] Comment on above: Order Comment: Speci men Type: BLOOD SPECIMENOrdering Facility: [facility] Address: [address] [place] [address] Performed By: #### 5 8410-2 ####[facility] LABIA [id number] [place] [address] [place] Platelets (Bld) [#/Vol] 153 10*3/uL Normal 150-400 [facility] Comment on above: Order Comment: Speci men Type: BLOOD SPECIMENOrdering Facility: [facility] Address: [address] [place] [address] Performed By: #### 5 8410-2 ####[facility] LABCLIA [id number] [place] [address] [place] RBC (Bld) [#/Vol] 4.77 10*6/uL Normal 4.20-6.00 [facility] Comment on above: Order Comment: Speci men Type: BLOOD SPECIMENOrdering Facility: [facility] Address: [address] [place] [address] Performed By: #### 5 8410-2 ####[facility] LABCLIA [id number] [place] [address] [place] WBC (Bld) [#/Vol] 10.11 10*3/uL Normal 3.70-11.[address] [facility] Comment on above: Order Comment: Speci men Type: BLOOD SPECIMENOrdering Facility: [facility] Address: [address] [place] [address] Performed By: #### 5 8410-2 ####[facility] LABCLIA [id number] [address] [place] CNDSon 01-20-2023 CNDS HNO ID: [id number] Author: Farheen Cruz MD Service: Pulmonary Disease [...] 02/01/2023 9:45 AM Cyndi Schuster MD CATHMARLENE [facility] 02/01/2023 11:30 AM LBJ1-4 MAIN LBJ1-4 Mn [facility] 02/01/2023 11:45 AM XR CHEST MAIN J1 RADMNJ [facility] 02/01/2023 12:00 PM EKGJ1-4 MAIN EKGF16 Mn J [facility] 02/01/2023 12:[address] MAIN J (I-STAT) RCTMJ [facility] 02/01/2023 2:00 PM [facility] CATHMARLENE [facility] 02/04/2023 To Be Determined Barbra Nevarez MD [place] Az [facility] REASON FOR HOSPITALIZATION: Acute Decompensated Heart Failure [...] 12/10), 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 Sheriff at [facility]; 08/2011) c/b severe stenosis d/t prostatic [...] 10/18/22 showed severe bioprosthetic aortic valve stenosis, PRODUCTION LEAD RCA and LCX 80% stenosis. Patient following with Dr. Mckinney for consideration of aortic valve surgery. At [facility], patient was treated for COPD exacerbation with dexamethasone, solumedrol, and duonebs, and acute decompensated heart failure with lasix. Patient was diuresed to dry weight (178lbs). [facility] imaging requested for transfer to F ([facility]: [phone]). Plan: -Continue TAVR assessment outpatient -Decrease Coreg 37.5mg BID to 25mg BID -Decrease Lisinopril 20mg BID to 10mg Daily -Start Chlorthalidone 25mg, Spironolactone 25mg -ASA81 (more content not included)... Normal [facility] Renal function 2000 panelon 01-20-2023 Albumin [Mass/Vol] 4.0 g/dL Normal 3.9-4.9 [facility] Comment on above: Order Comment: Speci men Type: BLOOD SPECIMENOrdering Facility: [facility] Address: [address] [place] [address] Performed By: #### 2 4362-6 ####[facility] LABCLIA [id number] [place] [address] [place] Anion gap [Moles/Vol] 15 mmol/L Normal 9-18 [facility] Comment on above: Order Comment: Speci men Type: BLOOD SPECIMENOrdering Facility: [facility] Address: [address] [place] [address] Performed By: #### 2 4362-6 ####[facility] LABCLIA [id number] [place] [address] [place] Calcium [Mass/Vol] 9.0 mg/dL Normal 8.5-10.2 [facility] Comment on above: Order Comment: Speci men Type: BLOOD SPECIMENOrdering Facility: [facility] Address: [address] [place] [address] Performed By: #### 2 4362-6 ####[facility] LABCLIA [id number] [place] [address] [place] Chloride [Moles/Vol] 93 mmol/L Low 97-105 [facility] Comment on above: Order Comment: Speci men Type: BLOOD SPECIMENOrdering Facility: [facility] Address: [address] [place] [address] Performed By: #### 2 4362-6 ####[facility] LABCLIA [id number] [place] [address] [place] CO2 [Moles/Vol] 24 mmol/L Normal 22-30 [facility] Comment on above: Order Comment: Speci men Type: BLOOD SPECIMENOrdering Facility: [facility] Address: [address] [place] [address] Performed By: #### 2 4362-6 ####[facility] LABCLIA [id number] [place] [address] [place] Creatinine [Mass/Vol] 1.01 mg/dL Normal 0.73-1.22 [facility] Comment on above: Order Comment: Speci men Type: BLOOD SPECIMENOrdering Facility: [facility] Address: [address] [place] [address] Performed By: #### 2 4362-6 ####[facility] LABIA [id number] [place] [address] [place] Creatinine and Glomerular filtration rate.predicted panel (S/P/Bld) 87 mL/min/1.73m??? Normal >=60 [facility] Comment on above: Order Comment: Speci men Type: BLOOD SPECIMENOrdering Facility: [facility] Address: [address] [place] [address] Result Comment: Aditi mated Glomerular Filtration Rate [...] actual GFR. Performed By: #### 2 4362-6 ####[facility] LABIA [id number] [place] [address] [place] Glucose [Mass/Vol] 112 mg/dL High 74-99 [facility] Comment on above: Order Comment: Speci men Type: BLOOD SPECIMENOrdering Facility: [facility] Address: [address] [place] [address] Result Comment: The [place] Diabetes Association (ADA) provides guidance for cutoff [...] Standards of Medical Care in Diabetes 2016, [place] [employer]. Diabetes Care. 2016.39(Suppl 1). Performed By: #### 2 4362-6 ####[facility] LABCLIA [id number] [place] [address] [place] Phosphate [Mass/Vol] 4.0 mg/dL Normal 2.7-4.8 [facility] Comment on above: Order Comment: Speci men Type: BLOOD SPECIMENOrdering Facility: [facility] Address: [address] [place] [address] Performed By: #### 2 4362-6 ####[facility] LABCLIA [id number] [place] [address] [place] Potassium [Moles/Vol] 4.2 mmol/L Normal 3.7-5.1 [facility] Comment on above: Order Comment: Speci men Type: BLOOD SPECIMENOrdering Facility: [facility] Address: [address] [place] [address] Performed By: #### 2 4362-6 ####[facility] LABIA [id number] [place] [address] [place] Sodium [Moles/Vol] 132 mmol/L Low 136-144 [facility] Comment on above: Order Comment: Speci men Type: BLOOD SPECIMENOrdering Facility: [facility] Address: [address] [place] [address] Performed By: #### 2 4362-6 ####[facility] LABCLIA [id number] [place] [address] [place] Urea nitrogen [Mass/Vol] 23 mg/dL Normal 9-24 [facility] Comment on above: Order Comment: Speci men Type: BLOOD SPECIMENOrdering Facility: [facility] Address: [address] [place] [address] Performed By: #### 2 4362-6 ####[facility] LABCLIA [id number] [place] [address] [place] CBC panel Auto (Bld)on 01-19 Erythrocyte distribution width (RBC) [Ratio] 14.3 % Normal 11.5-15.0 [facility] Comment on above: Order Comment: Speci men Type: BLOOD SPECIMENOrdering Facility: [facility] Address: [address] [place] [address] Performed By: #### 5 8410-2 ####[facility] LABIA [id number] [place] [address] [place] Hematocrit (Bld) [Volume fraction] 50.2 % Normal 39.0-51.0 [facility] Comment on above: Order Comment: Speci men Type: BLOOD SPECIMENOrdering Facility: [facility] Address: [address] [place] [address] Performed By: #### 5 8410-2 ####[facility] LABIA [id number] [place] [address] [place] Hemoglobin (Bld) [Mass/Vol] 17.7 g/dL High 13.0-17.0 [facility] Comment on above: Order Comment: Speci men Type: BLOOD SPECIMENOrdering Facility: [facility] Address: [address] [place] [address] Performed By: #### 5 8410-2 ####[facility] LABCLIA [id number] [place] [address] [place] MCH (RBC) [Entitic mass] 37.3 pg High 26.0-34.0 [facility] Comment on above: Order Comment: Speci men Type: BLOOD SPECIMENOrdering Facility: [facility] Address: [address] [place] [address] Performed By: #### 5 8410-2 ####[facility] LABCLIA [id number] [place] [address] [place] MCHC (RBC) [Mass/Vol] 35.3 g/dL Normal 30.5-36.0 [facility] Comment on above: Order Comment: Speci men Type: BLOOD SPECIMENOrdering Facility: [facility] Address: [address] [place] [address] Performed By: #### 5 8410-2 ####[facility] LABIA [id number] [place] [address] [place] MCV (RBC) [Entitic vol] 105.9 fL High 80.0-100.0 [facility] Comment on above: Order Comment: Speci men Type: BLOOD SPECIMENOrdering Facility: [facility] Address: [address] [place] [address] Performed By: #### 5 8410-2 ####[facility] LABIA [id number] [place] [address] [place] Nucleated RBC (Bld) [#/Vol] 10*3/uL Normal <0.01 [facility] Comment on above: Order Comment: Speci men Type: BLOOD SPECIMENOrdering Facility: [facility] Address: [address] [place] [address] Performed By: #### 5 8410-2 ####[facility] LABIA [id number] [place] [address] [place] Platelet mean volume (Bld) [Entitic vol] 10.8 fL Normal 9.0-12.7 [facility] Comment on above: Order Comment: Speci men Type: BLOOD SPECIMENOrdering Facility: [facility] Address: [address] [place] [address] Performed By: #### 5 8410-2 ####[facility] LABIA [id number] [place] [address] [place] Platelets (Bld) [#/Vol] 147 10*3/uL Low 150-400 [facility] Comment on above: Order Comment: Speci men Type: BLOOD SPECIMENOrdering Facility: [facility] Address: [address] [place] [address] Performed By: #### 5 8410-2 ####[facility] LABCLIA [id number] [place] [address] [place] RBC (Bld) [#/Vol] 4.74 10*6/uL Normal 4.20-6.00 [facility] Comment on above: Order Comment: Speci men Type: BLOOD SPECIMENOrdering Facility: [facility] Address: [address] [place] [address] Performed By: #### 5 8410-2 ####[facility] LABCLIA [id number] [place] [address] [place] WBC (Bld) [#/Vol] 9.66 10*3/uL Normal 3.70-11.00 [facility] Comment on above: Order Comment: Speci men Type: BLOOD SPECIMENOrdering Facility: [facility] Address: [address] [place] [address] Performed By: #### 5 8410-2 ####[facility] LABCLIA [id number] [place] [address] [place] CONFIRM BLOOD TYPEon 023 ABO A Normal [facility] Comment on above: Order Comment: Speci men Type: BLOOD SPECIMENOrdering Facility: [facility] Address: [address] [place] [address] Performed By: #### C ONABO ####[facility] BLOOD BANKCLIA [id number] [place] [address] [place] Rh Nom (Bld) Positive Normal [facility] Comment on above: Order Comment: Speci men Type: BLOOD SPECIMENOrdering Facility: [facility] Address: [address] [place] [address] Performed By: #### C ONABO ####[facility] BLOOD BANKCLIA [id number] [address] [address] [place] Renal function 2000 panelon 01-19-2023 Albumin [Mass/Vol] 3.9 g/dL Normal 3.9-4.9 [facility] Comment on above: Order Comment: Speci men Type: BLOOD SPECIMENOrdering Facility: [facility] Address: [address] [place] [address] Performed By: #### 2 4362-6 ####[facility] LABCLIA [id number] [place] [address] [place] Anion gap [Moles/Vol] 16 mmol/L Normal 9-18 [facility] Comment on above: Order Comment: Speci men Type: BLOOD SPECIMENOrdering Facility: [facility] Address: [address] [place] [address] Performed By: #### 2 4362-6 ####[facility] LABCLIA [id number] [place] [address] [place] Calcium [Mass/Vol] 9.0 mg/dL Normal 8.5-10.2 [facility] Comment on above: Order Comment: Speci men Type: BLOOD SPECIMENOrdering Facility: [facility] Address: [address] [place] [address] Performed By: #### 2 4362-6 ####[facility] LABCLIA [id number] [place] [address] [place] Chloride [Moles/Vol] 90 mmol/L Low 97-105 [facility] Comment on above: Order Comment: Speci men Type: BLOOD SPECIMENOrdering Facility: [facility] Address: [address] [place] [address] Performed By: #### 2 4362-6 ####[facility] LABCLIA [id number] [place] [id number] [place] CO2 [Moles/Vol] 28 mmol/L Normal 22-30 [facility] Comment on above: Order Comment: Speci men Type: BLOOD SPECIMENOrdering Facility: [facility] Address: [address] [place] [address] Performed By: #### 2 4362-6 ####[facility] LABIA [id number] [place] [address] [place] Creatinine [Mass/Vol] 1.07 mg/dL Normal 0.73-1.22 [facility] Comment on above: Order Comment: Speci men Type: BLOOD SPECIMENOrdering Facility: [facility] Address: [address] [place] [address] Performed By: #### 2 4362-6 ####[facility] LABIA [id number] [place] [address] [place] Creatinine and Glomerular filtration rate.predicted panel (S/P/Bld) 81 mL/min/1.73m??? Normal >=60 [facility] Comment on above: Order Comment: Speci men Type: BLOOD SPECIMENOrdering Facility: [facility] Address: [address] [place] [address] Result Comment: Aditi mated Glomerular Filtration Rate [...] actual GFR. Performed By: #### 2 4362-6 ####[facility] LABIA [id number] [place] [address] [place] Glucose [Mass/Vol] 97 mg/dL Normal 74-99 [facility] Comment on above: Order Comment: Speci men Type: BLOOD SPECIMENOrdering Facility: [facility] Address: [address] [place] [address] Result Comment: The [place] [employer] (ADA) provides guidance for cutoff [...] Standards of Medical Care in Diabetes 2016, [place] [employer]. Diabetes Care. 2016.39(Suppl 1). Performed By: #### 2 4362-6 ####[facility] LABCLIA [id number] [place] [address] [place] Phosphate [Mass/Vol] 5.1 mg/dL High 2.7-4.8 [facility] Comment on above: Order Comment: Sylvie hammer Type: BLOOD SPECIMENOrdering Facility: [facility] Address: [address] [place] [address] Performed By: #### 2 4362-6 ####[facility] LABIA [id number] [place] [address] [place] Potassium [Moles/Vol] 3.9 mmol/L Normal 3.7-5.1 [facility] Comment on above: Order Comment: Sylvie hammer Type: BLOOD SPECIMENOrdering Facility: [facility] Address: [address] [place] [address] Performed By: #### 2 4362-6 ####[facility] LABIA [id number] [place] [address] [place] Sodium [Moles/Vol] 134 mmol/L Low 136-144 [facility] Comment on above: Order Comment: Sylvie hammer Type: BLOOD SPECIMENOrdering Facility: [facility] Address: [address] [place] [address] Performed By: #### 2 4362-6 ####[facility] LABCLIA [id number] [place] [address] [place] Urea nitrogen [Mass/Vol] 28 mg/dL High 9-24 [facility] Comment on above: Order Comment: Speci men Type: BLOOD SPECIMENOrdering Facility: [facility] Address: [address] [place] [address] Performed By: #### 2 4362-6 ####[facility] LABCLIA [id number] [place] [address] [place] TYPE + SCREENon 01-19-2023 ABO A Normal [facility] Comment on above: Order Comment: Speci men Type: BLOOD SPECIMENOrdering Facility: [facility] Address: [address] [place] [address] Performed By: #### T SCR ####CC MAIN BLOOD BANKCLIA [id number] [address] [place] HISTORICAL AB SCR STATUS Negative Normal [facility] Comment on above: Order Comment: Speci men Type: BLOOD SPECIMENOrdering Facility: [facility] Address: [address] [place] [address] Performed By: #### T SCR ####CC MAIN BLOOD BANKCLIA [id number] [place] [address] [place] Rh Nom (Bld) Positive Normal [facility] Comment on above: Order Comment: Speci men Type: BLOOD SPECIMENOrdering Facility: [facility] Address: [address] [place] [address] Performed By: #### T SCR ####CC MAIN BLOOD BANKCLIA [id number] [place] [address] [place] TYPE AND SCREEN EXPIRATION 01/22/2023 23:59 Normal [facility] Comment on above: Order Comment: Speci men Type: BLOOD SPECIMENOrdering Facility: [facility] Address: [address] [place] [address] Performed By: #### T SCR ####CC MAIN BLOOD BANKCLIA [id number] [place] [id number] [place] ARTERIAL BLOOD GASESon 01-18 Base excess Calc (Bld) [Moles/Vol] 5 mmol/L High 0-2 [facility] Comment on above: Order Comment: Speci men Type: ARTERIAL BLOOD SPECIMENOrdering Facility: [facility] Address: [address] [place] [address] Performed By: #### A LLBG ####[facility] LABIA [id number] [place] [address] [place] Body temperature 98.6 [degF] Normal [facility] Comment on above: Order Comment: Speci men Type: ARTERIAL BLOOD SPECIMENOrdering Facility: [facility] Address: [address] [place] [address] Performed By: #### A LLBG ####[facility] LABIA [id number] [place] [address] [place] Calcium.ionized (Bld) [Mass/Vol] 1.14 mmol/L Normal 1.08-1.30 [facility] Comment on above: Order Comment: Speci men Type: ARTERIAL BLOOD SPECIMENOrdering Facility: [facility] Address: [address] [place] [address] Performed By: #### A LLBG ####[facility] LABIA [id number] [place] [address] [place] Calcium.ionized adjusted to pH 7.4 (BldA) [Moles/Vol] 1.18 mmol/L Normal 1.08-1.30 [facility] Comment on above: Order Comment: Speci men Type: ARTERIAL BLOOD SPECIMENOrdering Facility: [facility] Address: [address] [place] [address] Performed By: #### A LLBG ####[facility] LABIA [id number] [place] [address] [place] Carboxyhemoglobin (BldA) [Mass fraction] 1.7 % Normal 0.0-2.0 [facility] Comment on above: Order Comment: Speci men Type: ARTERIAL BLOOD SPECIMENOrdering Facility: [facility] Address: [address] [place] [address] Result Comment: Carb oxyhemoglobin Reference Range for Smokers: 2.0-8.0% Performed By: #### A LLBG ####[facility] LABCLIA [id number] [place] [address] [place] CO2 (Bld) [Partial pressure] 42 mm Hg Normal 36-46 [facility] Comment on above: Order Comment: Speci men Type: ARTERIAL BLOOD SPECIMENOrdering Facility: [facility] Address: [address] [place] [address] Performed By: #### A LLBG ####[facility] LABCLIA [id number] [place] [address] [place] Glucose [Mass/Vol] 182 mg/dL High 60-105 [facility] Comment on above: Order Comment: Speci men Type: ARTERIAL BLOOD SPECIMENOrdering Facility: [facility] Address: [address] [place] [address] Performed By: #### A LLBG ####[facility] LABCLIA [id number] [place] [address] [place] HCO3 (Bld) [Moles/Vol] 29 mmol/L High 22-26 [facility] Comment on above: Order Comment: Speci men Type: ARTERIAL BLOOD SPECIMENOrdering Facility: [facility] Address: [address] [place] [address] Performed By: #### A LLBG ####[facility] LABCLIA [id number] [place] [address] [place] Hematocrit (Bld) [Volume fraction] 51.7 % High 39.0-51.0 [facility] Comment on above: Order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 Address: [address] [place] [address] Performed By: #### 5 7021-8 ####[facility] LABCLIA [id number] [place] [address] [place] Nucleated RBC/100 WBC (Bld) [Ratio] 0.0 /100 WBC Normal [facility] Comment on above: Order Comment: Speci men Type: BLOOD SPECIMENOrdering Facility: [facility] Address: [address] [place] [address] Performed By: #### 5 7021-8 ####[facility] LABIA [id number] [place] [address] [place] Platelet mean volume (Bld) [Entitic vol] 10.2 fL Normal 9.0-12.7 [facility] Comment on above: Order Comment: Speci men Type: BLOOD SPECIMENOrdering Facility: [facility] Address: [address] [place] [address] Performed By: #### 5 7021-8 ####[facility] LABCLIA [id number] [place] [address] [place] Platelets (Bld) [#/Vol] 191 10*3/uL Normal 150-400 [facility] Comment on above: Order Comment: Speci men Type: BLOOD SPECIMENOrdering Facility: [facility] Address: [address] [place] [address] Performed By: #### 5 7021-8 ####[facility] LABCLIA [id number] [place] [address] [place] RBC (Bld) [#/Vol] 4.70 10*6/uL Normal 4.20-6.00 [facility] Comment on above: Order Comment: Speci men Type: BLOOD SPECIMENOrdering Facility: [facility] Address: [address] [place] [address] Performed By: #### 5 7021-8 ####[facility] LABCLIA [id number] [place] [address] [place] WBC (Bld) [#/Vol] 11.17 10*3/uL High 3.70-11.[address] [facility] Comment on above: Order Comment: Speci men Type: BLOOD SPECIMENOrdering Facility: [facility] Address: [address] [place] [address] Performed By: #### 5 7021-8 ####[facility] LABCLIA [id number] [place] [address] [place] CNOVon 12-05-2022 CNOV Office Visit (CARCMN ) CONOR LEE ([id number]) 1965 M Date Time Provider Department 12/05/22 8:45 AM LEX ANDERSON During your visit today, we recorded the following information about you: Pulse Respiration Blood pressure Weight 67/minute 12/minute 165/96 84.8 kg Height 1.778 m Lex Anderson, MD 12/20/2022 6:54 AM Signed Heart [facility] [place] Christelle Rodriguez Department of Cardiovascular Medicine SECTION OF CLINICAL CARDIOLOGY OUTPATIENT VISIT DATE December 05, 2022 OUTPATIENT VISIT TYPE NEW PRIMARY CARE PHYSICIAN: Naomie Bermudez [address] [place] [address] REFERRING PHYSICIAN: Mimi Mckinney [address] [facility] [address] CHIEF COMPLAINT: Preopertive cardiac evaluation HISTORY OF PRESENT ILLNESS: NURSING INTAKE: Mr. Lee is a 57 year old male from [place], [place] here today for preop evaluation. Patient [...] -palpitations -lightheadedness/dizz iness Echocardiogram performed by new safe deposit clerk reported severe prosthetic AV prompting evaluation for a redo AVR. Source Note - Jessica Shook MA - 10/08/2022 9:15 AM EDT Images from the original note were not included. [facility] Cardiology Clinic Note Chief Complaint: Patient here [...] pending the above Arvin Ledesma MD, MPH, [facility], [facility], [facility] Interventional Cardiology Pager Email: [email or web address] FINAL IMPRESSIONS: Severe, bioprosthetic, aortic valve stenosis by invasive hemodynamic study Severe, two-vessel coronary artery disease including a chronic total occlusion (PRODUCTION LEAD) of the right coronary artery Normal global left ventricular systolic function by noninvasive imaging Moderately elevated right-sided heart pressures and mildly elevated pulmonary capillary wedge pressure Elevated transpulmonary gradient along with the mildly elevated wedge consistent with pre- and postcapillary pulmonary hypertensi (more content not included)... Normal [facility] Comprehensive metabolic 2000 panelon 12-05-2022 Albumin [Mass/Vol] 4.2 g/dL Normal 3.9-4.9 [facility] Comment on above: Order Comment: Speci men Type: BLOOD SPECIMENOrdering Facility: [facility] Address: [facility] [address], [place] [address] Performed By: #### 2 2703-8, 2531-0 ####[facility] LABCLIA [id number] [place] [address] [place] ALP [Catalytic activity/Vol] 72 U/L Normal 38-113 [facility] Comment on above: Order Comment: Speci men Type: BLOOD SPECIMENOrdering Facility: [facility] Address: [address] [place] [address] Performed By: #### 2 432-8, 2531-0 ####[facility] LABCLIA [id number] [place] [address] [place] ALT [Catalytic activity/Vol] 27 U/L Normal 10-54 [facility] Comment on above: Order Comment: Speci men Type: BLOOD SPECIMENOrdering Facility: [facility] Address: [address] [place] [address] Performed By: #### 2 4328, 2531-0 ####[facility] LABCLIA [id number] [place] [address] [place] Anion gap [Moles/Vol] 12 mmol/L Normal 9-18 [facility] Comment on above: Order Comment: Speci men Type: BLOOD SPECIMENOrdering Facility: [facility] Address: [address] [place] [address] Performed By: #### 2 4328, 2531-0 ####[facility] LABCLIA [id number] [place] [address] [place] AST [Catalytic activity/Vol] 20 U/L Normal 14-40 [facility] Comment on above: Order Comment: Speci men Type: BLOOD SPECIMENOrdering Facility: [facility] Address: [address] [place] [address] Performed By: #### 2 4323-8, 2531-0 ####[facility] LABCLIA [id number] [place] [address] [place] Bilirubin [Mass/Vol] 0.6 mg/dL Normal 0.2-1.3 [facility] Comment on above: Order Comment: Speci men Type: BLOOD SPECIMENOrdering Facility: [facility] Address: [address] [place] [address] Performed By: #### 2 4323-8, 0 ####[facility] LABCLIA [id number] [place] [address] [place] Calcium [Mass/Vol] 9.3 mg/dL Normal 8.5-10.2 [facility] Comment on above: Order Comment: Speci men Type: BLOOD SPECIMENOrdering Facility: [facility] Address: [address] [place] [address] Performed By: #### 2 432-8, 0 ####[facility] LABCLIA [id number] [place] [address] [place] Chloride [Moles/Vol] 98 mmol/L Normal 97-105 [facility] Comment on above: Order Comment: Speci men Type: BLOOD SPECIMENOrdering Facility: [facility] Address: [address] [place] [address] Performed By: #### 2 4328, 0 ####[facility] LABCLIA [id number] [place] [address] [place] CO2 [Moles/Vol] 28 mmol/L Normal 22-30 [facility] Comment on above: Order Comment: Speci men Type: BLOOD SPECIMENOrdering Facility: [facility] Address: [address] [place] [address] Performed By: #### 2 4323-8, 0 ####[facility] LABCLIA [id number] [place] [address] [place] Creatinine [Mass/Vol] 0.90 mg/dL Normal 0.73-1.22 [facility] Comment on above: Order Comment: Speci men Type: BLOOD SPECIMENOrdering Facility: [facility] Address: [address] [place] [address] Performed By: #### 2 4323-8, 0 ####[facility] [id number] [place] [address] [place] Creatinine and Glomerular filtration rate.predicted panel (S/P/Bld) 100 mL/min/1.73m??? Normal >=60 [facility] Comment on above: Order Comment: Sylvie hammer Type: BLOOD SPECIMENOrdering Facility: [facility] Address: [address] [place] [address] Result Comment: Aditi mated Glomerular Filtration Rate [...] GFR. Performed By: #### 2 4323-8, 0 ####[facility] LABIA [id number] [place] [address] [place] Glucose [Mass/Vol] 113 mg/dL High 74-99 [facility] Comment on above: Order Comment: Sylvie hammer Type: BLOOD SPECIMENOrdering Facility: [facility] Address: [address] [place] [address] Result Comment: The [place] Diabetes Association (ADA) provides guidance for cutoff [...] Standards of Medical Care in Diabetes 2016, [place] Diabetes Association. Diabetes Care. 2016.39(Suppl 1). Performed By: #### 2 4328, 2531-0 ####[facility] LABCLIA [id number] [place] [address] [place] Potassium [Moles/Vol] 4.6 mmol/L Normal 3.7-5.1 [facility] Comment on above: Order Comment: Speci men Type: BLOOD SPECIMENOrdering Facility: [facility] Address: [address] [place] [address] Performed By: #### 2 4328, 2531-0 ####[facility] LABCLIA [id number] [place] [address] [place] Protein [Mass/Vol] 6.8 g/dL Normal 6.3-8.0 [facility] Comment on above: Order Comment: Speci men Type: BLOOD SPECIMENOrdering Facility: [facility] Address: [address] [place] [address] Performed By: #### 2 43204-25, 0 ####[facility] LABIA [id number] [place] [address] [place] Sodium [Moles/Vol] 138 mmol/L Normal 136-144 [facility] Comment on above: Order Comment: Speci men Type: BLOOD SPECIMENOrdering Facility: [facility] Address: [address] [place] [address] Performed By: #### 2 43204-25, 2531-0 ####[facility] LABCLIA [id number] [place] [id number] [place] Urea nitrogen [Mass/Vol] 8 mg/dL Low 9-24 [facility] Comment on above: Order Comment: Speci men Type: BLOOD SPECIMENOrdering Facility: [facility] Address: [address] [place] [address] Performed By: #### 2 4328, 2531-0 ####[facility] LABCLIA [id number] [address] [address] [place] ECG COMPLETEon 10-18-2023 ECG COMPLETE Ventricular Rate : 7 2 BPM Atrial Rate : 72 BPM P-R Interval : 146 ms QRS Duration : 102 ms Q-T Interval : 404 ms QTC Calculation(Bazett) : 442 ms Calculated P [place] : 30 degrees Calculated R [place] : -9 degrees Calculated T [place] : 148 degrees NORMAL SINUS RHYTHM LEFT VENTRICULAR HYPERTROPHY WITH REPOLARIZATION ABNORMALITY ABNORMAL ECG Confirmed by MD DANIA, PhD, LUL ([id number]) on 12/14/2022 5:15:54 AM NAME : CONOR LEE PID : [id number] : 1965 Gender : Male Race : ORD : [id number] Procedure Date : Dec 05 2022 08:48:34 Edit Date : Dec 14 2022 05:15:59 Diagnosis: NORMAL SINUS RHYTHM LEFT VENTRICULAR HYPERTROPHY WITH REPOLARIZATION ABNORMALITY ABNORMAL ECG Confirmed by MD DANIA, PhD, LUL ([id number]) on 12/14/2022 5:15:54 AM Test Reason : Location : [facility] : [facility] Overread By : MD DANIA, PhD,LUL Edited By : MD DANIA, PhD,LUL Referred By : MIMI MCKINNEY Acquired by : LIANA GIPSON [facility] ECHOon 12-05-2022 Echocardiography Echocardiography Report: Transthoracic Echo [facility] J35 Date of service: 12/05/2022 12:38:16 PM 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 Ordering physician: MIMI MCKINNEY Indication: Initial [...] * * Final * * * [facility] Medical Image : [id number] micsSISUID Normal [facility] LDH SerPl-cCncon 12-05-2022 LDH [Catalytic activity/Vol] 294 U/L High 135-225 [facility] Comment on above: Order Comment: Speci men Type: BLOOD SPECIMENOrdering Facility: [facility] Address: [address] [place] [address] [place] [address] Performed By: #### 2 1403-8, 6242-0 ####[facility] LABCLIA [id number] [place] [address] [place] PT panel Coag (PPP)on 2022 INR Coag (PPP) [Relative time] 1.0 {INR} Normal 0.9-1.3 [facility] Comment on above: Order Comment: Sylvie hammer Type: BLOOD SPECIMENOrdering Facility: [facility] Address: [address] [place] [address] Result Comment: Brianna min K Antagonist (VKA) Therapeutic Range: INR 2 to 3 (Target INR of 2.5) Note: For patients treated with VKA drugs, such as warfarin, the [place] [employer] Physicians 2012 Guideline recommends [...] Chest 2012, 141:7S-47S Pat RA, et al. [facility] 2017, 70: 252-289 Performed By: #### 3 4528-0, 45472-9 ####[facility] LABCLIA [id number] [place] [address] [place] PT Coag (PPP) [Time] 10.3 s Normal 9.7-13.0 [facility] Comment on above: Order Comment: Sylvie hammer Type: BLOOD SPECIMENOrdering Facility: [facility] Address: [address] [place] [address] Performed By: #### 3 4528-0, 70127-0 ####[facility] LABCLIA [id number] [place] [address] [place] PVR ANK PRESS RADAMES VAS LABon 12-05-2022 PVR ANK PRESS RADAMES VAS LAB Non-Invasive Vascular Laboratory [facility] J35 Lower Extremity Arterial Physiology Study Bilateral/Complete Date of service/time: 12/05/2022 1:52:54 PM Name: CONRO LEE Date of : 1965 Age: 57 [...] physician: Judith Michel MD, RPVI Final CC [facility] Medical Image : [id number] [facility] SuppliesoDynamicsSISUID See Link below for Image Normal [facility] US ABDOMEN COMPLETEon 2022 US ABDOMEN [...] spleen, abdominal aorta could not be visualized. Extruding Press Adjuster: PSCB Transcribe Date/Time: Dec 05 2022 11:36A Dictated by : CHANI CASAS MD This examination was interpreted and the report reviewed and electronically signed by: DEAN CHACON MD on Dec 05 2022 11:56AM EST [id number] Normal [facility] aPTT PPPon 12-05-2022 aPTT Coag (PPP) [Time] 28.5 s Normal 23.0-32.4 [facility] Comment on above: Order Comment: Speci men Type: BLOOD SPECIMENOrdering Facility: [facility] Address: [address] [place] [address] Performed By: #### 3 4528-0, 63260-9 ####[facility] LABCLIA [id number] [address] [place] CNOVon 12-04-2022 CNOV Office Visit (VAMEAV ) CONOR LEE ([id number]) 1965 M Date Time Provider Department 12/04/22 10:45 AM SETH JENKINS During your visit today, we recorded the following information about you: Pulse Blood pressure Weight Height 76/minute 130/80 85.7 kg 1.778 m Seth Jenkins MD 12/04/2022 10:55 AM Signed Heart [facility] V[facility] [place] Christelle Rodriguez Department of Cardiovascular Medicine SECTION [...] to have extensive CAD. Work-up done at [facility]. Referred to [facility] for surgical evaluation. During his catheterization was [...] ETOH abuse, Hypertension, PAD (peripheral artery disease) ([facility]), Peripheral vascular disease ([facility]), Prosthetic aortic valve stenosis, and Smoker. Past [...] artery disease including a chronic total occlusion (PRODUCTION LEAD) of the right coronary artery Normal global [...] medical t (more content not included)... Normal [facility] ED Note-Physicianon 11-15-19 ED Note-Physician [id number] .00CD:127 Normal [facility] RAD - MISCon 11-14-2022 RAD - MISC [id number]. 00CD:127 Normal [facility] CONOR [facility] ([id number]) 1965 M Date Time Provider Department 11/07/22 MIMI MCKINNEY [facility] During your visit today, we recorded the following information about you: Maria Guadalupe Lopez 11/07/2022 11:50 AM Signed IN Allergies As of Date: 11/07/2022 (Not on File) Date Reviewed: Never Reviewed Reason for Visit: Insurance Inquiry [[id number]] Problem List As Of Date: 11/07/2022 (None) Encounter Status:Closed by MARIA GUADALUPE LOPEZ on 11/07/22 [facility] CONOR LEE ([id number]) 1965 M Date Time Provider Department 11/07/22 [...] for his review/plan of care. Conor Lee [id number] 57 year old Diagnosis: severe Prosthetic mean [...] chest. NPM to call the patient. NADEEM Olivraes [place], RN 11/20/2022 4:03 PM Signed Expedite. Evaluation only. Cards BEOFH-zkmrtff-Xcoizdz r medicine consult 12/05/22, Dr. Mckinney consult [...] for preprocedural cardiovascular examination [Z01.810] 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) [I25.118] PVD (peripheral vascular disease) (HCC) [I73.9] Hyperlipidemia, unspecified hyperlipidemia type [E78.5] S/P AVR (aortic valve replacement) [Z95.2] Essential hypertension [I10] Order(s):CONSULT TO CARDIOLOGY [9003] Order #: [id number]: 1 FUTURE CARDIOTHORACIC PREOP EVALUATION [] Order #: [id number]: 1 FUTURE CONSULT TO VASCULAR MEDICINE [19990525] Order #: [id number]: 1 FUTURE COMP METABOLIC PANEL [SQCMP] Order #: [id number] FUTURE LD LACTATE DEHYDRO [SQLD6] Order #: [id number] FUTURE CBC + DIFF [SQCBCDIF] Order #: [id number] FUTURE PROTHROMBIN TIME/PT [SQPT] Order #: [id number] FUTURE ACTIVATED PTT [SQPTT] Order #: [id number] FUTURE ECG COMPLETE [ECG01] Order #: [id number] FUTURE PVR ANK PRESS RADAMES VAS LAB [8406858] Order #: [id number] ECHO [991679] Order #: [id number]: 1 FUTURE CTA CHEST (GATED) W IVCON [4848959] Order #: [id number] FUTURE SPIROMETRY BASELINE ONLY [7663153] Order #: [id number]: 1 FUTURE LUNG DIFFUSION CAPACITY (DLCO) [7624559] Order #: [id number]: 1 FUTURE US ABDOMEN COMPLETE [3364085] Order #: [id number] FUTURE Problem List As Of Date: 11/07/2022 (None) Encounter Status:Closed by NEIL FORD on 11/20/22 Normal [facility] 36on 11-01-2022 36 Patient made aware. Normal [facility] Office Visiton 10-30-2022 Follow-up visit [id number] Conor Lee 1965 M Date Provider Department Center 10/30/2022 82257-NZJHYOZBRE LOTT HVCVASENDO [facility] Family History Problem Relation Age of Onset Diabetes Other Hypertension Other Family Status - Relation Status Age at Other Level of Service:49532 MD OFFICE/OP CONSLTJ NEW/EST PT HIGH MDM 55 MINUTES Reason for Visit and Comments: New Patient [632] - Winterizer Follow-up. Dr. Ledesma. Redo AVR, Multivessel disease. [facility] 36on 10-19-2022 36 Patient called to make you aware that his BP this morning was 123/86, HR 87. Says he's checked it several times and it's running around those same numbers. FRANCISCO. Thanks [facility] Danielle 10-18-2022 ANES - Attestation signed by Arvin Ledesma MD at 10/18/2022 11:06 AM Arvin Ledesma MD, MPH, [facility], [facility], [facility] Interventional Cardiology Pager Email: [email or web address] Patient: Conor Lee Procedure Information Date/Time: 10/18/22 1130 Procedure: Coronary angiography (Bilateral) Location: [facility] ENTRY LEVEL JAVA DEVELOPER 3 / [facility] VASCULAR LAB (Cath) Providers: Arvin Ledesma [...] consented to blood products. Additional Equipment Requests [facility] HPon 10-18-2022 HP - Attestation signed by Arvin Ledesma MD at 10/18/2022 11:05 AM Arvin Ledesma MD, MPH, [facility], [facility], [facility] Interventional Cardiology Pager Email: [email or web address] H&P reviewed. The patient was examined and there are no changes to the H&P. Normal [facility] NURSNOTEon 10-18-2022 NURSNOTE Patient states he is [...] is still elevated he is to call [facility]. states patient's BP may be elevated due [...] to the ER with any concerns. Normal [facility] NURSNOTE Head of bed raised - patient sitting up tolerating his diet. Right groin cath site without bleeding or hematoma noted with head of bed raised. Normal [facility] NURSNOTE Head of bed increase d to about 30 degrees, right groin cath site without bleeding or hematoma with head of bed elevated. Normal [facility] NURSNOTE Dr. Ledesma aware o f BP of 198/103. No order at this time. Will monitor BP and notify MD if BP remains high prior to discharge. MD would like BP to be 170/95 prior to discharge and patient needs to be instructed to check his BP 1 hour after discharge and daily. If elevated he will notify his cardiology clinic Normal [facility] Orders Onlyon 10-11-2022 Orders Only [id number] Conor Lee 1965 M Date Provider Department Center 10/11/2022 CARYN CHAVEZ [facility] VASC LAB ID HeartVAS Family History Problem Relation Age of Onset Diabetes Other Hypertension Other Family Status - Relation Status Age at Other Normal [facility] HPon 10-08-2022 [facility] Cardiology Clinic Note Chief Complaint: Patient [...] valve disease, Hypertension, PAD (peripheral artery disease) ([facility]), and PVD (peripheral vascular disease) ([facility]). Surgical History He has a past surgical [...] associated cardiova (more content not included)... Normal [facility] Office Visiton 10-08-2022 Follow-up visit [id number] Conor Lee 1965 M Date Provider Department Center 10/08/2022 Rosy-ARVIN LEDESMA Family History Problem Relation Age of Onset Diabetes Other Hypertension Other Family Status - Relation Status Age at Other Level of Service:73447 MD OFFICE/OUTPATIENT ESTABLISHED HIGH MDM 40-54 MIN Normal [facility] Orders Onlyon 10-08-2022 Orders Only [id number] Conor Lee 1965 M Date Provider Department Center 10/08/2022 DARCY [facility] Family History Problem Relation Age of Onset Diabetes Other Hypertension Other Family Status - Relation Status Age at Other Normal [facility] Family Medicine Office/Clini c Noteon 09-10-2022 Family [...] of aortic valve replacement in 2011 at [facility]. The patient smokes about a pack of cigarettes a day. He has tried quitting in the past. He quit for 8 months when he had his surgery, but then started back up again. 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 Review of Systems PHQ Score Initial Depression [...] medications, so I have reached out to [facility] to see if they can give [...] this. We will again get records from [facility] cardiology. 4. Illiteracy (Z55.0: Illiteracy and [...] with voice recognition artificial intelligence software, specifically Correlor, NETpeas and or Massive Damage. Substitutions may have occurred due to the inherent limitations of voice recognition and artificial intelligence software. ATTESTATION: Documentation services were performed after patient or guardian consented to allow Octavio Ge to record this visit. CHAN record retrieval specialist and provider reviewed before signing. CHAN: Chary Tomas Follow-up No qualifying data available Problem List/Past Medical History Ongoing Atherosclerosis of [place] artery of extremity Carpal tunnel syndrome Chronic obstructive bronchitis Disorder of diaphragm Endocarditis Essential hypertension Heart murmur Hemiparesis Illiteracy Lumbosacral spondylosis without myelopathy Neuralgia Neuritis Peripheral vascular disease Primary hypercholesterolemia PVD (pulmonary valve disease) Spasm of back muscles Thoracic spondylosis without myelopathy Historical No qualifying data Procedure/Surgical History Aortic valve replacement and replacement of ascending aorta ( (more content not included)... Normal [facility] Comment on above: Result Comment: Elec [...] EST With: Carina MOMIN, Harpreet Roland [facility] Medicine Office/Clini c Noteon 09-06-2022 Family Medicine [...] of aortic valve replacement in 2011 at [facility]. The patient smokes about a pack of cigarettes a day. He has tried quitting in the past. He quit for 8 months when he had his surgery, but then started back up again. 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 Review of Systems PHQ Score Initial Depression [...] medications, so I have reached out to [facility] to see if they can give [...] this. We will again get records from [facility] cardiology. 4. Illiteracy (Z55.0: Illiteracy and [...] with voice recognition artificial intelligence software, specifically Correlor, NETpeas and or Massive Damage. Substitutions may have occurred due to the inherent limitations of voice recognition and artificial intelligence software. ATTESTATION: Documentation services were performed after patient or guardian consented to allow Octavio Ge to record this visit. CHAN record retrieval specialist and provider reviewed before signing. CHAN: Chary Tomas Follow-up No qualifying data available Problem List/Past Medical History Ongoing Atherosclerosis of [place] artery of extremity Carpal tunnel syndrome Chronic obstructive bronchitis Disorder of diaphragm Endocarditis Essential hypertension Heart murmur Hemiparesis Illiteracy Lumbosacral spondylosis without myelopathy Neuralgia Neuritis Peripheral vascular disease Primary hypercholesterolemia PVD (pulmonary valve disease) Spasm of back muscles Thoracic spondylosis without myelopathy Historical No qualifying data Procedure/Surgical History Aortic valve replacement and replacement of ascending aorta (09/06 (more content not included)... Normal [facility] Comment on above: Result Comment: Elec tronically Signed By: Chary Tomas\.br\Date and Time Signed: 09/06/22 11:27 EDT\.br\Electronically Co-Signed By: Chary Tomas\.br\Date and Time Co-Signed: 09/06/22 12:04 EDT\.br\Electronically Co-Signed By: Harpreet Lim MD Ambulatory Visit Summaryon 0 06-13-2022 Ambulatory Visit Summary CONOR LEE :1965 Visit Date:06/13/2022 Ambulatory Visit Instructions Your Diagnosis Atherosclerosis of [place] artery of extremity Carpal tunnel syndrome Chronic [...] for for wheezing or SOB Pickup at [facility] Changed aspirin (aspirin 81 mg Oral EC Tab) 1 Tablets By Mouth Every day Pickup at [facility] Changed cilostazol (cilostazol 50 mg Tab) 1 Tablets By Mouth 2 times a day Pickup at [facility] Changed cyclobenzaprine (cyclobenzaprine 10 mg Tab) 1 Tablets By Mouth Once a day (in the evening) as needed for for spasm Pickup at [facility] Changed famotidine (famotidine 40 mg Tab) 1 Tablets By Mouth Every day Pickup at [facility] Changed lisinopril (lisinopril 10 mg Tab) 1 Tablets By Mouth 2 times a day Pickup at [facility] Changed metoprolol (Metoprolol tartrate 25 mg Tab) 1 Tablets By Mouth 2 times a day Pickup at [facility] Pharmacy Information [facility]: [address] [place], [place] [id number] [phone] What How Much When Comments Stop Taking [...] are currently receiving treatment for. Atherosclerosis of [place] artery of extremity Carpal tunnel syndrome Chronic obstructive bronchitis Disorder of diaphragm Endocarditis Essential hypertension Heart murmur Hemiparesis Illiteracy Lumbosacral spondylosis without myelopathy Neuralgia Neuritis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 SKULL BASE MID-THIGH Rima Mead MD [address] [place] [phone] Molecular & Functional Imaging [address] [place] [address] Referral ID Status Reason Start Date Expiration Date Visits Requested Visits Authorized [id number] Pending Review Auto-Generat ed Referral 3 01/16/2024 1 1 [facility] for referral (narrative)* Outpatient Procedure (Routine) - Pending Review Specialty Diagnoses / Procedures Referred By Mereac t Referred To Contact [facility] Diagnoses Stenosis of prosthetic aortic valve, subsequent encounter Encounter for preprocedural cardiovascular examination Aortic valve disorder Procedures ECG COMPLETE ECG ROUTINE ECG W/LEAST 12 LDS W/I&R Mayra Kapadia APRN.MARKETING ANALYTICS LEAD [address] [place] [address] [place] [address] Referral ID Status Reason Start Date Expiration Date Visits Requested Visits Authorized [id number] Pending Review Auto-Generat ed Referral 3 01/02/2024 1 1 * MRI/CT (Routine) - Pending Review Specialty Diagnoses / Procedures Referred By Archie higgins Referred To Contact CT IMAGING Diagnoses Stenosis of prosthetic aortic valve, subsequent encounter Encounter for preprocedural cardiovascular examination Aortic valve disorder Procedures CTA CHEST/ABD/PEL (GATED) W IVCON CT ANGIOGRAPHY CHEST W/CONTRAST/NONCONTRAST CT ANGIO ABD&PLVIS CNTRST MTRL W/WO CNTRST Mayra Flor APRN.MARKETING ANALYTICS LEAD [address] [place] [address] Ct Imaging [place] [address] Referral ID Status Reason Start Date Expiration Date Visits Requested Visits Authorized [id number] Pending Review Auto-Generat ed Referral 3 02/01/2024 1 1 [facility] for visit Narrative* Diagnostic Procedure Only (Routine) - Closed Specialty Diagnoses / Procedures Referred By Archie t Referred To Contact US IMAGING Diagnoses Encounter for preprocedural cardiovascular examination Aortic valve disorder 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) Procedures US ABDOMEN COMPLETE US ABDOMINAL REAL TIME W/IMAGE DOCUMENTATION Mimi Mckinney MD [address] [place] [address] [facility] [place] [address] Referral ID Status Reason Start Date Expiration Date V isits Requested Visits Authorized [id number] Closed Auto-Generate d Referral 11/20/2022 12/20/2023 1 1 [facility] Summary Purpose Family History No Family History [...] Procedures CONSULT TO VASCULAR SURGERY OFFICE/OUTPATIENT [facility] 60-74 MINUTES Mimi Mckinney MD [address] [place] [phone] Referral ID Status Reason Start Date Expiration Date Visits Requested Visits Authorized [id number] Authorized PCP Requested Referral 3 12/07/2023 1 1 Specialty Diagnoses / Procedures Referred By Contac t Referred To Contact Pulmonary and Critical Care Medicine Diagnoses Lung mass Procedures CONSULT TO PULM/CRITICAL CARE OFFICE/OUTPATIENT [facility] MDM 60-[place] [address] [place] [address] Referral ID Status Reason Start Date Expiration Date Visits Requested Visits Authorized [id number] Authorized PCP Requested Referral 3 12/07/2023 1 1 Specialty Diagnoses / Procedures Referred By Contac t Referred To Contact Procedures CARDIOVASCULAR MEDICINE OP FOLLOW UP APPT ORDER Lex Anderson MD [address] [place] [phone] Referral ID Status Reason Start Date Expiration Date Visits Requested Visits Authorized [id number] Ref Not Required PCP Requested Referral 12/20/2022 12/20/2023 1 1 Specialty Diagnoses / Procedures Referred By Contac t Referred To Contact Rima Mead MD [address] [place] [address] Referral ID Status Reason Start Date Expiration Date V isits Requested Visits Authorized [id number] Pending Review 1 1 Specialty Diagnoses / Procedures Referred By Contac t Referred To Contact Procedures CARDIOVASCULAR MEDICINE OP FOLLOW UP APPT ORDER Cyndi Schuster MD [address] [place] [phone] Referral ID Status Reason Start Date Expiration Date Visits Requested Visits Authorized [id number] Ref Not Required PCP Requested Referral 3 02/01/2024 1 1 Specialty Diagnoses / Procedures Referred By Contac t Referred To Contact Procedures CARDIOVASCULAR MEDICINE OP FOLLOW UP APPT ORDER Natividad Moore APRN.CNP [address] [place] [address] Referral ID Status Reason Start Date Expiration Date Visits Requested Visits Authorized [id number] Ref Not Required PCP Requested Referral 3 02/01/2024 1 1 Additional Source Comments (unrecognized sect ion and content) No Status Records FoundNo Status Records FoundNo Status Records FoundNo Status Records FoundNo Status Records FoundNo Status Records Found INFORMATION SOURCE (unrecogn ized section and content) DATE CREATED AUTHOR 12/03/2019 [facility] DATE CREATED AUTHOR AUTHOR'S ORGANIZ ATION 12/12/2021 [facility] DATE CREATED AUTHOR AUTHOR'S ORGANIZ ATION 11/04/2022 [facility] DATE CREATED AUTHOR AUTHOR[facility]S [facility]IZ ATION [facility] DATE CREATED AUTHOR AUTHOR'S ORGANIZ ATION 02/06/2023 [facility] DATE CREATED AUTHOR AUTHOR'S ORGANIZ ATION 02/07/2023 [facility] Source Comments (unrecognize d section and content) In the event this informatio n is protected by the Federal Confidentiality of Alcohol and Drug Abuse Patient Records regulations: The Federal rules restrict any use of the information to criminally investigate or prosecute any alcohol or drug abuse patient.[facility] the event this information is protected by the Federal Confidentiality of Alcohol and Drug Abuse Patient Records regulations: The Federal rules restrict any use of the information to criminally investigate or prosecute any alcohol or drug abuse patient.[facility] the event this information is protected by the Federal Confidentiality of Alcohol and Drug Abuse Patient Records regulations: The Federal rules restrict any use of the information to criminally investigate or prosecute any alcohol or drug abuse patient.[facility] the event this information is protected by the Federal Confidentiality of Alcohol and Drug Abuse Patient Records regulations: The Federal rules restrict any use of the information to criminally investigate or prosecute any alcohol or drug abuse patient.[facility] the event this information is protected by the Federal Confidentiality of Alcohol and Drug Abuse Patient Records regulations: The Federal rules restrict any use of the information to criminally investigate or prosecute any alcohol or drug abuse patient.[facility] the event this information is protected by the Federal Confidentiality of Alcohol and Drug Abuse Patient Records regulations: The Federal rules restrict any use of the information to criminally investigate or prosecute any alcohol or drug abuse patient.[facility] the event this information is protected by the Federal Confidentiality of Alcohol and Drug Abuse Patient Records regulations: The Federal rules restrict any use of the information to criminally investigate or prosecute any alcohol or drug abuse patient.[facility] the event this information is protected by the Federal Confidentiality of Alcohol and Drug Abuse Patient Records regulations: The Federal rules restrict any use of the information to criminally investigate or prosecute any alcohol or drug abuse patient.[facility] the event this information is protected by the Federal Confidentiality of Alcohol and Drug Abuse Patient Records regulations: The Federal rules restrict any use of the information to criminally investigate or prosecute any alcohol or drug abuse patient.[facility] the event this information is protected by the Federal Confidentiality of Alcohol and Drug Abuse Patient Records regulations: The Federal rules restrict any use of the information to criminally investigate or prosecute any alcohol or drug abuse patient.[facility] the event this information is protected by the Federal Confidentiality of Alcohol and Drug Abuse Patient Records regulations: The Federal rules restrict any use of the information to criminally investigate or prosecute any alcohol or drug abuse patient.[facility] the event this information is protected by the Federal Confidentiality of Alcohol and Drug Abuse Patient Records regulations: The Federal rules restrict any use of the information to criminally investigate or prosecute any alcohol or drug abuse patient.[facility] the event this information is protected by the Federal Confidentiality of Alcohol and Drug Abuse Patient Records regulations: The Federal rules restrict any use of the information to criminally investigate or prosecute any alcohol or drug abuse patient.[facility] the event this information is protected by the Federal Confidentiality of Alcohol and Drug Abuse Patient Records regulations: The Federal rules restrict any use of the information to criminally investigate or prosecute any alcohol or drug abuse patient.[facility] the event this information is protected by the Federal Confidentiality of Alcohol and Drug Abuse Patient Records regulations: The Federal rules restrict any use of the information to criminally investigate or prosecute any alcohol or drug abuse patient.[facility] the event this information is protected by the Federal Confidentiality of Alcohol and Drug Abuse Patient Records regulations: The Federal rules restrict any use of the information to criminally investigate or prosecute any alcohol or drug abuse patient.[facility] the event this information is protected by the Federal Confidentiality of Alcohol and Drug Abuse Patient Records regulations: The Federal rules restrict any use of the information to criminally investigate or prosecute any alcohol or drug abuse patient.[facility] the event this information is protected by the Federal Confidentiality of Alcohol and Drug Abuse Patient Records regulations: The Federal rules restrict any use of the information to criminally investigate or prosecute any alcohol or drug abuse patient.[facility] the event this information is protected by the Federal Confidentiality of Alcohol and Drug Abuse Patient Records regulations: The Federal rules restrict any use of the information to criminally investigate or prosecute any alcohol or drug abuse patient.[facility] Reason for Visit (unrecogniz ed section and content) Reason Comments Insurance Inquiry Reason Comments Referral Information Initial Consult Reason Comments New Patient Reason Comments Spirometry Specialty Diagnoses / Procedures Referred By Contac t Referred To Contact [facility] Diagnoses Encounter for preprocedural cardiovascular examination Aortic valve disorder 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) Procedures LUNG DIFFUSION CAPACITY (DLCO) DIFFUSING CAPACITY Mimi Mckinney MD [address] [place] [address] [place] [address] Referral ID Status Reason Start Date Expiration Date V isits Requested Visits Authorized [id number] Closed Auto-Generate d Referral 11/20/2022 12/20/2023 1 1 Specialty Diagnoses / Procedures Referred By Contac t Referred To Contact [facility] Diagnoses Encounter for preprocedural cardiovascular examination Aortic valve disorder 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) Procedures SPIROMETRY BASELINE ONLY SPMTRY W/VC EXPIRATORY HARESH W/WO MXML VOL VNTJ Mimi Mckinney MD [address] [place] [address] [place] [address] Referral ID Status Reason Start Date Expiration Date V isits Requested Visits Authorized [id number] Closed Auto-Generate d Referral 11/20/2022 12/20/2023 1 1 Reason Comments Consult Specialty Diagnoses / Procedures Referred By Archie t Referred To Contact Cardiac Surg Diagnoses Encounter for preprocedural cardiovascular examination Aortic valve disorder 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) Procedures CARDIOTHORACIC PREOP EVALUATION OFFICE/OUTPATIENT [facility] 60-[place] [address] [place], [place] [phone] Referral ID Status Reason Start Date Expiration Date V isits Requested Visits Authorized [id number] Closed PCP Requested Referral 11/20/2022 11/20/2023 1 1 Reason Comments TAVR Consult Reason Comments Consult Specialty Diagnoses / Procedures Referred By Contac t Referred To Contact Vascular Surgery Diagnoses PVD (peripheral vascular disease) (HCC) Procedures CONSULT TO VASCULAR SURGERY OFFICE/OUTPATIENT [facility] MDM 60-[place] [address] [place], [place] [address] [phone] Referral ID Status Reason Start Date Expiration Date V isits Requested Visits Authorized [id number] Closed PCP Requested Referral 12/07/2022 12/07/2023 1 1 Reason Comments Lung Mass Specialty Diagnoses / Procedures Referred By Contac t Referred To Contact Pulmonary and Critical Care Medicine Diagnoses Lung mass Procedures CONSULT TO PULM/CRITICAL CARE OFFICE/OUTPATIENT NEW HIGH MDM 60-74 MINUTES Mimi Mckinney MD [address] [place] [address] Referral ID Status Reason Start Date Expiration Date V isits Requested Visits Authorized [id number] Closed PCP Requested Referral 12/07/2022 12/07/2023 1 1 Reason Comments Chest Pain Specialty Diagnoses / Procedures Referred By Contac t Referred To Contact Diagnoses Lung mass Hypoxia Chest pain, unspecified type Referral ID Status Reason Start Date Expiration Date Visits Re quested Visits Authorized [id number] 1 1 Reason Comments Benefits Authorization Reason [...] ABD&PLVIS CNTRST MTRL W/WO CNTRST Mayra Flor, LEAD PRINCIPAL TECHNICAL ARCHITECT.MARKETING ANALYTICS LEAD [address] [place] [address] Ct Imaging [place] [address] Referral ID Status Reason Start Date Expiration Date V isits Requested Visits Authorized [id number] Closed Auto-Generate d Referral 01/04/2023 03/05/2023 1 1 Reason Comments Radio Main J1 Care Teams (unrecognized sec tion and content) Test Inspection Engineer Relationship Specialty Start Date End Date Naomie Bermudez MD [address] [place] [phone] PCP - General Family Medicine 07/18/11 Mimi Mckinney MD [facility] [place] [address] Surgeon Cardiac Surg 11/07/22 Test Inspection Engineer Relationship Specialty Start Date End Date Naomie Bermudez MD [address] [place] [address] PCP - General Family Medicine 07/18/11 Mimi Mckinney MD [address] [place] [address] Surgeon Cardiac Surg 11/07/22 Test Inspection Engineer Relationship Specialty Start Date End Date Naomie Bemrudez MD [address] [place] [phone] PCP - General Family Medicine 07/18/11 Mimi Mckinney MD [address] [place] [phone] Surgeon Cardiac Surg 11/07/22 Lex Anderson MD [address] [place] [address] [employer] Cardiology 11/22/22 Test Inspection Engineer Relationship Specialty Start Date End Date Naomie Bermudez MD [address] [place] [phone] PCP - General Family Medicine 07/18/11 Mimi Mckinney MD [address] [place] [address] Surgeon Cardiac Surg 11/07/22 Lex Anderson MD [address] [place] [address] [employer] Cardiology 11/22/22 Lex Anderson MD [address] [place] [address] Primary Staff Physician Cardiology 12/05/22 Test Inspection Engineer Relationship Specialty Start Date End Date Naomie Bermudez MD [address] [place] [phone] PCP - General Family Medicine 07/18/11 Mimi Mckinney MD [address] [place] [address] Surgeon Cardiac Surg 11/07/22 Lex Anderson MD [address] [place] [address] [employer] Cardiology 11/22/22 Lex Anderson MD [address] [place] [address] Primary Staff Physician Cardiology 12/05/22 Test Inspection Engineer Relationship Specialty Start Date End Date Naomie Bermudez MD [address] [place] [address] PCP - General Family Medicine 07/18/11 Mimi Mckinney MD [address] [place] [place], [place] [address] Surgeon Cardiac Surg 11/07/22 Lex Anderson MD [address] [place] [place] [id number] [facility] 11/22/22 Lex Anderson MD [address] [place] [address] Primary Staff Physician Cardiology 12/05/22 Test Inspection Engineer Relationship Specialty Start Date End Date Naomie Bermudez MD [address] [place] [address] PCP - General Family Medicine 07/18/11 Mimi Mckinney MD [address] [place] [address] Surgeon Cardiac Surg 11/07/22 Lex Anderson MD [address] [place] [address] [facility] 11/22/22 Lex Anderson MD [address] [place] [address] Primary Staff Physician Cardiology 12/05/22 Test Inspection Engineer Relationship Specialty Start Date End Date Naomie Bermudez MD [address] [place] [id number] PCP - General Family Medicine 07/18/11 Mimi Mckinney MD [address] [place] [address] Surgeon Cardiac Surg 11/07/22 Lex Anderson MD [address] [place], [place] [id number] [facility] 11/22/22 Lex Anderson MD [address] [place] [address] Primary Staff Physician Cardiology 12/05/22 Test Inspection Engineer Relationship Specialty Start Date End Date Naomie Bermudez MD [address] [place] [address] PCP - General Family Medicine 07/18/11 Mimi Mckinney MD [address] [place] [address] Surgeon Cardiac Surg 11/07/22 Lex Anderson MD [address] [place] [address] [facility] 11/22/22 Lex Anderson MD [address] [place] [address] Primary Staff Physician Cardiology 12/05/22 Test Inspection Engineer Relationship Specialty Start Date End Date Naomie Bermudez MD [address] [place] [address] PCP - General Family Medicine 07/18/11 Mimi Mckinney MD [address] [place], [place] [id number] Surgeon Cardiac Surg 11/07/22 Lex Anderson MD [address] [place] [address] [facility] 11/22/22 Lex Anderson MD [address] [place] [address] Primary Staff Physician Cardiology 12/05/22 Test Inspection Engineer Relationship Specialty Start Date End Date Harpreet Lim MD [address] [place] [address] PCP - General Family Medicine 01/01/23 Mimi Mckinney MD [address] [place] [address] Surgeon Cardiac Surg 11/07/22 Lex Anderson MD [address] [place] [address] [facility] 11/22/22 Lex Anderson MD [address] [place] [address] Primary Staff Physician Cardiology 12/05/22 Test Inspection Engineer Relationship Specialty Start Date End Date Harpreet Lim MD [address] [place] [address] PCP - General Family Medicine 01/01/23 Mimi Mckinney MD [address] [place], [place] [id number] Surgeon Cardiac Surg 11/07/22 Lex Anderson MD [address] [place], [place] [id number] [facility] 11/22/22 Lex Anderson MD [address] [place] [address] Primary Staff Physician Cardiology 12/05/22 Test Inspection Engineer Relationship Specialty Start Date End Date Harpreet Lim MD [address] [id number] PCP - General Family Medicine 01/01/23 Mimi Mckinney MD [address] [place], [place] [id number] Surgeon Cardiac Surg 11/07/22 Lex Anderson MD [address] [place] [address] [facility] 11/22/22 Lex Anderson MD [address] [place], [place] [id number] Primary Staff Physician Cardiology 12/05/22 Test Inspection Engineer Relationship Specialty Start Date End Date No, Physician [facility] PCP - General 01/15/23 Test Inspection Engineer Relationship Specialty Start Date End Date Harpreet Lim MD [address] [id number] PCP - General Family Medicine 01/01/23 Mimi Mckinney MD [address] [place] [address] Surgeon Cardiac Surg 11/07/22 Lex Anderson MD [address] [place], [place] [id number] [facility] 11/22/22 Lex Anderson MD [address] [place] [address] Primary Staff Physician Cardiology 12/05/22 Test Inspection Engineer Relationship Specialty Start Date End Date Harpreet Lim MD [address] [place] [address] PCP - General Family Medicine 01/01/23 Mimi Mckinney MD [address] [place] [address] Surgeon Cardiac Surg 11/07/22 Lex Anderson MD [address] [place] [address] [facility] 11/22/22 Lex Anderson MD [address] [place] [address] Primary Staff Physician Cardiology 12/05/22 Test Inspection Engineer Relationship Specialty Start Date End Date Harpreet Lim MD [address] [id number] PCP - General Family Medicine 01/01/23 Mimi Mckinney MD [address] [place] [address] Surgeon Cardiac Surg 11/07/22 Lex Anderson MD [address] [place] [address] [facility] 11/22/22 Lex Anderson MD [address] [place], [place] [id number] Primary Staff Physician Cardiology 12/05/22 Test Inspection Engineer Relationship Specialty Start Date End Date Harpreet Lim MD [address] [place] [address] PCP - General Family Medicine 01/01/23 Mimi Mckinney MD [address] [place], [place] [id number] Surgeon Cardiac Surg 11/07/22 Lex Anderson MD [address] [place], [place] [id number] [facility] 11/22/22 Lex Anderson MD [address] [place], [place] [id number] Primary Staff Physician Cardiology 12/05/22 Scheduled Active [...] mL, Intravenous, Once in imaging, contrast, Per pump servicer (Radiology) for line patency check prior to contrast administration, Starting on Sat01/15/23 at 192, For 1 dose 1941 (Given - Provider: Maria Elena Hammer, TECHNOLOGIST) sodium chloride (PF) (NS) 0.9 % contrast line flush 80 mL (COMPLETED)(Linked Group 4) 80 mL, Intravenous, Once in imaging, contrast, Per pump servicer (Radiology), Starting on Sat01/15/23 at 192, For [...] mL, Intravenous, Once in imaging, contrast, Per pump servicer (Radiology) for line patency check prior to contrast administration, Starting on Sat01/15/23 at 1923, For 1 dose And sodium chloride (PF) (NS) 0.9 % contrast line flush 80 mL (COMPLETED)Jump to med 80 mL, Intravenous, Once in imaging, contrast, Per pump servicer (Radiology), Starting on Sat01/15/23 at 1923, For [...] BE BASED ON THE PRIMARY CLINICAL RECORDS. [facility] [facility]. provides no warranty or guarantee of the accuracy or completeness of information in this document.
--- NOTE | 2023-02-08 01:49 | P.PN_ITS ---
Progress Note: Subjective Subjective Interval history: The patient is a 57yo man with a PMHx of Hypertension, aortic valve replacement, CAD, and a newly diagnosed right lung mass who presented to the ED with chest pain and shortness of breath. Exam Constitutional Vital Signs, click to edit/add: Last Vital Signs Temp 97.7 F 02/08/23 00:43 Pulse 87 02/08/23 00:45 Resp 18 02/08/23 00:45 BP 143/78 H 02/08/23 00:43 Pulse Ox 99 02/08/23 00:45 O2 Del Method Nasal Cannula 02/08/23 00:45 O2 Flow Rate 2 02/08/23 00:45 Progress Note: Objective Labs Labs: Short CBC 02/07/23 Range/Units 22:40 WBC 12.4 H (4.0-11.0) 10^3/uL Hgb 14.5 (14.0-18.0) g/dL Hct 41.7 L (42.0-54.0) % Plt Count 296 (150-450) 10^3/uL BMP 02/07/23 22:40 Sodium 127 L Potassium 4.5 Chloride 94 L Carbon Dioxide 26.5 BUN 25.0 H Creatinine 1.18 Glucose 296 H Calcium 9.5 Telemedicine Attestation Telemedicine Attestation I conducted this encounter from [] via secure live, [id number] video conference with the patient, located at [facility] with []. Prior to the interview, the risks and benefits of telemedicine were discussed with the patient and verbal consent was obtained.
--- NOTE | 2023-02-08 01:49 | W.PM.TELEPN ---
Progress Note: Subjective Subjective Interval history: The patient is a 57yo man with a PMHx of Hypertension, aortic valve replacement, CAD, and a newly diagnosed right lung mass who presented to the ED with chest pain and shortness of breath. He states that he was diagnosed with a right lung mass about 3 weeks ago, but he has not yet undergone any diagnostic testing for it yet because he needs to have some cardiac procedures done. He states that his aortic valve replacement needs to be replaced again and he also has blockages in two coronary arteries. Three weeks ago, he also had some swelling in his legs and after being tested, he was told that he had congestive heart failure. He was given two doses of furosemide which seemed to have improved his symptoms and he has not needed it since. For the last week, he has episodes of chest heaviness, SOB and discomfort radiating to his left arm. He notes that it occurs with exertion or when he lies down flat in bed and is only alleviated when he sits up. He denies any swelling in his legs, palpitations, N/V/D/C, abdominal pain. He does have headaches, but no fevers or chills. He notes that he started to have a rash across his arms, trunk and upper thighs that started a few days ago and he was given some prednisone yesterday morning. ED Course: He was given 500ml of NS and some lasix in the ED. He has put out approximately 1L of urine and is feeling symptomatically better. Social: Smokes 3/4 ppd (done from 2ppd). Former EtOH abuse - Used to drink 750ml of liquor daily, but stopped 3 weeks ago. Never used any recreational drugs. Family History: Denies any family history of CAD, NM, Strokes, or autoimmune disorders ROS: 12 systems were reviewed and were negative except as noted in the HPI. Exam Constitutional Vital Signs, click to edit/add: Last Vital Signs Temp 97.7 F 02/08/23 00:43 Pulse 87 02/08/23 00:45 Resp 18 02/08/23 00:45 BP 143/78 H 02/08/23 00:43 Pulse Ox 99 02/08/23 00:45 O2 Del Method Nasal Cannula 02/08/23 00:45 O2 Flow Rate 2 02/08/23 00:45 Documenting provider has reviewed patient's vital signs: yes Common normals: no apparent distress, average body habitus, oriented x3, no limitations, healthy appearing, alert and well nourished [facility] Common normals: normocephalic, head/scalp atraumatic, hearing grossly normal bilaterally and external ears normal Eye Common normals: PERRL, EOMs intact bilaterally, conjunctivae normal and no scleral icterus Neck & C-Spine Common normals: full ROM, no lymphadenopathy and supple Lymph Lymphatic: no lymphadenopathy noted Chest Common normals: inspection of chest normal and palpation of chest normal Respiratory Common normals: normal respiratory effort, no retractions and no use of accessory muscles Cardio Common normals: no JVD, regular rate, regular rhythm, S1 normal heart sound and S2 normal heart sound GI Common normals: Normal to inspection, nondistended, normoactive bowel sounds present Extremity Common normals: normal to inspection, full ROM and normal capillary refill Neuro Common normals: oriented x3, CN's II-XII intact bilaterally, moves all extremities, no focal motor deficits, no sensory deficits noted and gait normal Psych Common normals: mental status grossly normal, thought process normal, cooperative, affect normal, speech normal, activity/motor behavior normal, denies hallucinations, denies homicidal ideation and denies suicidal ideation Progress Note: Objective Labs Labs: Short CBC 02/07/23 Range/Units 22:40 WBC 12.4 H (4.0-11.0) 10^3/uL Hgb 14.5 (14.0-18.0) g/dL Hct 41.7 L (42.0-54.0) % Plt Count 296 (150-450) 10^3/uL BMP 02/07/23 22:40 Sodium 127 L Potassium 4.5 Chloride 94 L Carbon Dioxide 26.5 BUN 25.0 H Creatinine 1.18 Glucose 296 H Calcium 9.5 Progress Note: A&P Assessment and Plan (1) Chest pain: Assessment and Plan: He presented with chest pain several times in the last week and it seems to be both exertional and worse with position. His EKG show some ST depressions and a RBBB. His troponin is normal, his PRoBNP is elevated and he has no LE edema or crackles on lung exam. He was given furosemide in the ED, so he may be symptomatically better after being diuresed. He states that he has known 2 vessel disease and needs to have a cardiac catheterization. - admit to hospitalist service - c/w telemetry - c/w aspirin - start on statin - trend troponin - echocardiogram to rule out pericardial pathology for positional pain - c/w carvedilol - nitro SL prn (2) CHF (congestive heart failure): Assessment and Plan: He states that he was diagnosed with CHF 3 weeks ago but he is not on daily furosemide. He feels symptomatically better after disuresis, however. - I/O, daily weights - c/w furosemide 20mg IV daily - check echocardiogram - keep K >4 and Mg >2 - c/w carvedilol (3) Hyponatremia: Assessment and Plan: His sodium is acutely lower than normal at 127. He is not on any medications that should cause this. He adheres to a low sodium diet and he admits to drinking a lot of water , so potentially he might have diluted himself down. - trend sodium - fluid restriction to 1L daily (4) CAP (community acquired pneumonia): Assessment and Plan: On his chest X-ray he has a possible consolidation in his LLL. It, alternatively, could be atelectasis. - c/w ceftriaxone and azithromyicn for now - check sputum cultures - c/w supplemental oxygen (5) COPD (chronic obstructive pulmonary disease): Assessment and Plan: He has baseline COPD from smoking. - nicotine patch - albuterol as needed - supplemental oxygen as needed (6) HTN (hypertension): Assessment and Plan: - c/w carvedilol and lisinopril (7) Rash: Assessment and Plan: He has a new rash across his arms, torso and upper legs. unclear what is causing it, possibly contact dermatitis. He was given steroids by his PCP. - stop steroids - start on diphenhydramine (8) Hyperglycemia: Assessment and Plan: BG was 296, but he was started on steroids yesterday, so most likely this is secondary to that. - stop steroids for now Telemedicine Attestation Telemedicine Attestation I conducted this encounter from [] via secure live, [id number] video conference with the patient, located at [facility] with Ольга. Prior to the interview, the risks and benefits of telemedicine were discussed with the patient and verbal consent was obtained.
[2023-02-08 04:24] LABS: Basophils Absolute Auto 0.1 10^3/uL (0.0-0.1); Basophils Percent Auto 0.8 % (0.2-2.0); Eosinophils Absolute Auto 0.3 10^3/uL (0.0-0.7); Eosinophils Percent Auto 2.5 % (0.9-7.0); Hematocrit 39.9 % (42.0-54.0); Hemoglobin 13.8 g/dL (14.0-18.0); Immature Granulocytes Abs Auto 0.04 10^3/uL (0.00-0.03); Immature Granulocytes Pct Auto 0.3 % (0.0-0.5); Lymphocytes Absolute Auto 2.3 10^3/uL (1.2-3.8); Lymphocytes Percent Auto 18.1 % (20.5-60.0); Mean Corpuscular HGB Conc 34.6 g/dL (29.9-35.2); Mean Corpuscular Hemoglobin 36.3 pg (25.9-34.0); Monocytes Absolute Auto 0.8 10^3/uL (0.3-0.8); Monocytes Percent Auto 6.5 % (1.7-12.0); Neutrophils Absolute Auto 9.3 10^3/uL (1.4-6.5); Neutrophils Percent Auto 71.8 % (43.0-75.0); Platelet Count 275 10^3/uL (150-450); Red Cell Distribution Width 13.2 % (11.0-15.0); White Blood Count 12.9 10^3/uL (4.0-11.0)
[2023-02-08 04:53] LABS: Anion Gap 11.1; BUN Creatinine Ratio 26.5; Carbon Dioxide 27.3 mmol/L (21.0-32.0); Chloride 98 mmol/L (98-107); Estimated GFR (African America >60 (>=60); Estimated GFR (Non-African Ame >60 (>=60); Glucose 111 mg/dL (74-106); Potassium 4.4 mmol/L (3.5-5.1); Sodium 132 mmol/L (136-145)
[2023-02-08 05:00] LABS: Chol HDL Ratio 7.1; Cholesterol 293 mg/dL (<=200); HDL Cholesterol 41 mg/dL (40-60); Thyroid Stimulating Hormone 1.124 uIU/mL (0.358-3.740); Triglycerides 177 mg/dL (<=150); Troponin I High Sensitivity 29.7 pg/mL (4.0-76.1); VLDL CHOLESTEROL 35.4 mg/dL
[2023-02-08] MEDS: AZITHROMYCIN 500 MG in 0.9 % SODIUM CHLORIDE 250 ML 250 MG IV (05:22)
[2023-02-08] MEDS: ENOXAPARIN SODIUM 40 MG/0.4 ML SYRINGE SUBQ (05:23)
[2023-02-08] MEDS: DIPHENHYDRAMINE HCL 25 MG CAPSULE PO (05:31)
--- NOTE | 2023-02-08 06:02 | CA_ITS ---
Patient Name: CONOR LEE MR#: [id number] : 1965 Exam Date: 02/08/2023 Ordering Doctor: DR MAMI ROBERSON . ECHOCARDIOGRAM REPORT PROCEDURE: CA ECHO DOPPLER COMPLETE INDICATIONS: Congestive heart failure, BNP > 3500, aortic valve replacement, COPD, hypertension, h/o [place] COMPARISON: None. DESCRIPTION: COMPLETE ECHOCARDIOGRAM Real-time transthoracic echocardiography with 2D, M-mode, spectral and color flow Doppler performed. QUALITY: Technical quality was good. 70 , 186#, BSA 2.02 m2 LEFT VENTRICLE: Normal chamber size. Moderate to severe concentric left ventricular hypertrophy. LV EF: Global left ventricular systolic function is difficult to assess but appears preserved; visually estimated ejection fraction is 50 to 55%. Unable to assess regional wall motion abnormality; suggest contrast study for better delineation of endocardial borders. DIASTOLIC: Grade II diastolic dysfunction. ATRIAL SEPTUM: Inadequately seen. LEFT ATRIUM: Mild dilatation. RIGHT ATRIUM: Normal chamber size. RIGHT VENTRICLE: Normal chamber size. Normal right ventricular systolic function. TRICUSPID VALVE: Normal mobility and thickness. No stenosis with trivial regurgitation. Unable to assess right-sided pressures due to lack of measurable tricuspid regurgitation. MITRAL VALVE: Normal mobility and thickness. No evidence of mitral valve stenosis. Mild mitral annular calcification. Mild mitral regurgitation. AORTIC VALVE: Prosthetic valve appears well seated in the aortic position with abnormal Doppler flow. DVI 0.24. Acceleration time is not provided however appears to be less than 100 ms; this would suggest patient prosthesis mismatch. The aortic valve leaflets appear thickened with calcification. No aortic regurgitation. AORTIC ROOT: Normal diameter and appearance. PULMONIC VALVE: Normal thickness and mobility. No stenosis. Trivial regurgitation. PERICARDIUM: Anterior free space; trivial effusion versus fat pad. Possible left pleural effusion. IVC: Collapses with inspirations. IVC is dilated (2.2 cm) CONCLUSION: 1. Global left ventricular systolic function is difficult to assess but appears preserved; visually estimated ejection fraction is 50 to 55% 2. Normal right ventricular size and systolic function 3. Moderate to severe left ventricular hypertrophy 4. Grade 2 diastolic dysfunction 5. The left atrium is mildly dilated 6. Mild mitral regurgitation 7. A Prosthetic aortic valve is seen, type and size unknown. Doppler flows are abnormally high. Recommend transesophageal echocardiography for further evaluation if clinically warranted. 8. Anterior free space; trivial effusion versus fat pad 9. Possible left pleural effusion Adult Echocardiography Procedure Report Left Ventricle LVEDD (3.7 - 5.6 cm): 4.65 cm LVESD (2.2 - 4.0 cm): 3.16 cm LVIVS thickness (0.6 - 1.2 cm): 2.10 cm LVPW thickness (0.5 - 1.0 cm): 1.35 cm e': 0.08 m/s E - e': 10.58 LVOT Max Gradient: 3.07 mm[Hg] LVOT Area (cm2): 0.88 m/s Peak Velocity (LVOT): 0.88 m/s Mean Velocity (LVOT): 0.60 m/s LVOT Diameter 2.19 cm Left Atrium LA Volume Index (2D A2C): 37.85 ml/m2 Left Atrium Systolic Dimension: 4.43 cm Mitral Valve MV E to A Ratio: 1.10 Mitral Valve A-Wave Peak Velocity: 0.79 m/s Mitral Valve E-Wave Peak Velocity: 0.87 m/s Right Ventricle Aorta AO Root Diam: 3.34 cm Aortic Valve AoV Area (Peak Jairo): 0.91 cm2, 0.91 cm2 AoV Area (VTI): 0.92 cm2, 0.92 cm2 Peak Velocity(Antegrade Flow): 3.63 m/s Peak Gradient(Antegrade Flow): 52.79 mm[Hg] Mean Velocity(Antegrade Flow): 2.84 m/s Mean Gradient(Antegrade Flow): 35.96 mm[Hg] Velocity Time Integral: 87.60 cm Tricuspid Valve Pulmonic Valve Mean Gradient: 2.15 mm[Hg] Mean Velocity: 0.69 m/s Peak Velocity: 1.00 m/s, 0.90 m/s Peak Gradient: 3.98 mm[Hg], 3.22 mm[Hg] Right Atrium Right Atrium Systolic Pressure: 38.97 ml, 38.97 ml Dictated by: Arvin Ledesma M.D. on 02/08/2023 at 13:14 Approved by: Arvin Ledesma M.D. on 02/08/2023 at 13:21
[2023-02-08 06:57] LABS: SARS-CoV-2 Ag NEGATIVE (NEGATIVE)
--- NOTE | 2023-02-08 07:40 | CM.NOTE ---
Rounds made with Dr. Godinez, discussed with pt elevated BNP and need for diuretics. Dr. Godinez also discussed possible transfer to [facility]. Pt verbalizes understanding, pt does have procedure scheduled for valve replacement Mar 25 [facility] with Dr. Parmar.
--- OUTSIDE RECORDS SUMMARY | 2023-02-08 07:43 | XMS_ITS | CCD ---
Author Name Unknown Address [address] [place] [address] Organization [facility] Care Team Providers Care Media Operator Name Role Phone Naomie Bermudez Primary Care Provider AIDAN, DR NAOMIE Hanna Admitting Unavailable AIDAN, DR NAOMIE Hanna Attending Unavailable AIDAN, DR NAOMIE Hanna Consulting Unavailable ALDIE, DR FÉLIX Garcia Consulting Unavailable ELTAHAWY, DR MILLIGAN Admitting Unavailable ELTAHAWY, DR MILLIGAN Attending Unavailable IADAN, DR NAOMIE Hanna Primary Care Unavailable ELTAHAWY, [...] Anderson MD Unavailable Monica MOMIN, Lex Unavailable [phone] Harpreet Lim MD Primary Care Provider [phone] No, Physician Primary Care Provider UnavailCHANDA Anderson Attending Unavailable [facility] Consulting [place] NO, PHYSICIAN [...] BERMUDEZ, NAOMIE EDWARD Primary Care Unavailable MIMI CMKINNEY Referring Unavailable BERMUDEZ, NAOMIE EDWARD Primary Care [...] disease (10 sources) Atherosclerotic heart disease of robinson coronary artery with other forms of angina [...] AM EST With: Harpreet Lim MD Where: [facility] Office[facility]Clini c Noteon 02-07-2023 Family Medicine Office/Clinic Note HPI Staff Conor is a 57 year old male presenting for medication check htn At [facility] ER yesterday morning, sent home and went [...] lung) Patient should continue to follow-up with [facility]. Concerned that this rash may be caused by the cancer as patient states he has no other contacts or associations that he believes because this rash. Patient states he has a fluid jet cutter operator that is helping him through the cancer process. Reviewed records from [facility] and the patient's recent visit to the [place] [facility]. Ordered: Body Mass Index (BMI) documented [...] pressure is (more content not included)... Normal [facility] Comment on above: Result Comment: Elec tronically [...] numbers. This can be done either in Dutch ([place].S.) or metric measurements. Note that charts and online BMI calculators are available to help you find your BMI quickly and easily without having to do these calculations yourself. To calculate your BMI in Dutch (U.S.) measurements: 1. Measure your weight in [...] for Disease Control and Prevention: www.cdc.gov ? British Heart Association: www.heart.org ? National Heart, Lung, [place]: www.nhlbi.nih.gov Summary ? Body mass index (BMI) is a number that is calculated from a person's weight and height. ? BMI may help estimate how much of a person's weight is composed of fat. BMI can help identify those who may be at higher risk for certain medical problems. ? BMI can be measured using Dutch measurements or metric measurements. ? BMI charts are used to identify whether you are underweight, normal weight, overweight, or obese. This information is not intended to replace advice given to you by your health care provider. Make sure you discuss any questions you have with your health care provider. Document Revised: 10/28/2019 Document Reviewed: 09/04/2019 [employer] Patient Education ? 2022 [employer]. Pulmonary Medicine Steps to Quit Smoking Smoking [...] date to quit. (more content not included)... [facility] Consultation Noteon 02-07-20 Consultation Note [id number] .00TIFF [facility] ED Note-Physicianon 02-07-20 ED Note-Physician [id number] .00TIFF [facility] Case Information Case Priority: None Programs: -- Referral Source: Research Methods Instructor Referral Reason: Care coordination Case Type: High Risk Adult Risk Score: -- Case Status: Enrolled (January 22, 2023) Date Assigned: January 21, 2023 Assigned By: Andres Damico Date Enrolled: January 22, 2023 Assigned Primary Personnel: Andres Damico Assigned Secondary Personnel: -- Case Physician: Harpreet Lim MD Problems Ongoing Acute URI Atherosclerosis of robinson artery of extremity CAD in robinson artery Carpal tunnel syndrome Chronic obstructive bronchitis [...] Goals and Interventions Care Plan Progress Note ASPHALT PAVER OPERATOR#4- spoke with patient states he was seen in [facility] ED today for SOB. Patient states his [...] (min): 7 Outcome: Case discussion Contact Type: patient services coordinator Contact Name: Andres Damico Notes: ASPHALT PAVER OPERATOR#4- Returned patient call for ASPHALT PAVER OPERATOR status update, see ft summary note. Created By: Andres Damico Date: February 01, 2023 Method: Phone call Type: Outbound Duration (min): 1 Outcome: Left message-voicemail Contact Type: patient services coordinator Contact Name: Andres Damico Notes: ASPHALT PAVER OPERATOR#3-wgt- Attemtped to reach pt no answer, left vm for return call. Created By: Andres Damico Date: January 29, 2023 Method: Phone call Type: Outbound Duration (min): 1 Outcome: Left message-voicemail Contact Type: patient services coordinator Contact Name: Andres Damico Notes: ASPHALT PAVER OPERATOR#2 and wgt- Attempted to reach pt for ASPHALT PAVER OPERATOR program call status update and wgt check, no answer, left vm for return call. Created By: Andres Damico Date: January 22, 2023 Method: Phone call Type: Outbound Duration (min): 14 Outcome: Case discussion Contact Type: patient services coordinator Contact Name: Andres Damico Notes: ASPHALT PAVER OPERATOR#1- Spoke with patient for initial ASPHALT PAVER OPERATOR program call status update, see ft summary note. Created By: Andres Damico Date: January 21, 2023 Method: Phone call Type: Outbound Duration (min): 1 Outcome: Left message-voicemail Contact Type: patient services coordinator Contact Name: Andres Damico Notes: ASPHALT PAVER OPERATOR#1- Attemtped to contact patient for initial ASPHALT PAVER OPERATOR call status update, no answer, left vm for return call. Created By: Andres Damico Normal [facility] RAD - CT Reporton 02-06-2023 RAD - CT Report [id number] .00TIFF Normal [facility] CBC W Auto Differential pane l (Bld)on 02-01-2023 Basophils (Bld) [#/Vol] 0.17 10*3/uL High <0.11 [facility] Comment on above: Order Comment: Speci men Type: BLOOD SPECIMENOrdering Facility: [facility] Address: [address] [place] [address] Performed By: #### 5 7021-8 ####[facility] LABCLIA [id number] [place] [address] [place] Basophils/100 WBC (Bld) 1.4 % Normal [facility] Comment on above: Order Comment: Speci men Type: BLOOD SPECIMENOrdering Facility: [facility] Address: [address] [place] [address] Performed By: #### 5 7021-8 ####[facility] LABCLIA [id number] [place] [address] [place] Differential cell count method Nom (Bld) Auto Normal [facility] Comment on above: Order Comment: Speci men Type: BLOOD SPECIMENOrdering Facility: [facility] Address: [address] [place] [address] Performed By: #### 5 7021-8 ####[facility] LABCLIA [id number] [place] [address] [place] Eosinophils (Bld) [#/Vol] 0.35 10*3/uL Normal <0.46 [facility] Comment on above: Order Comment: Speci men Type: BLOOD SPECIMENOrdering Facility: [facility] Address: [address] [place] [address] Performed By: #### 5 7021-8 ####[facility] LABCLIA [id number] [place] [address] [place] Eosinophils/100 WBC (Bld) 3.0 % Normal [facility] Comment on above: Order Comment: Speci men Type: BLOOD SPECIMENOrdering Facility: [facility] Address: [address] [place] [address] Performed By: #### 5 7021-8 ####[facility] LABCLIA [id number] [place] [address] [place] Erythrocyte distribution width (RBC) [Ratio] 13.6 % Normal 11.5-15.0 [facility] Comment on above: Order Comment: Speci men Type: BLOOD SPECIMENOrdering Facility: [facility] Address: [address] [place] [address] Performed By: #### 5 7021-8 ####[facility] LABCLIA [id number] [place] [address] [place] Hematocrit (Bld) [Volume fraction] 46.1 % Normal 39.0-51.0 [facility] Comment on above: Order Comment: Speci men Type: BLOOD SPECIMENOrdering Facility: [facility] Address: [address] [place] [address] Performed By: #### 5 7021-8 ####[facility]CLIA [id number] [place] [address] [place] Hemoglobin (Bld) [Mass/Vol] 15.9 g/dL Normal 13.0-17.0 [facility] Comment on above: Order Comment: Speci men Type: BLOOD SPECIMENOrdering Facility: [facility] Address: [address] [place] [address] Performed By: #### 5 7021-8 ####[facility]CLIA [id number] [place] [address] [place] Immature granulocytes (Bld) [#/Vol] 0.04 10*3/uL Normal <0.10 [facility] Comment on above: Order Comment: Speci men Type: BLOOD SPECIMENOrdering Facility: [facility] Address: [address] [place] [address] Performed By: #### 5 7021-8 ####[facility] LABIA [id number] [place] [address] [place] Immature granulocytes/100 WBC (Bld) 0.3 % Normal [facility] Comment on above: Order Comment: Speci men Type: BLOOD SPECIMENOrdering Facility: [facility] Address: [address] [place] [address] Performed By: #### 5 7021-8 ####[facility] LABIA [id number] [place] [address] [place] Lymphocytes (Bld) [#/Vol] 2.28 10*3/uL Normal 1.00-4.00 [facility] Comment on above: Order Comment: Speci men Type: BLOOD SPECIMENOrdering Facility: [facility] Address: [address] [place] [address] Performed By: #### 5 7021-8 ####[facility] LABIA [id number] [place] [address] [place] Lymphocytes/100 WBC (Bld) 19.4 % Normal [facility] Comment on above: Order Comment: Speci men Type: BLOOD SPECIMENOrdering Facility: [facility] Address: [address] [place] [address] Performed By: #### 5 7021-8 ####[facility] LABIA [id number] [place] [address] [place] MCH (RBC) [Entitic mass] 37.0 pg High 26.0-34.0 [facility] Comment on above: Order Comment: Speci men Type: BLOOD SPECIMENOrdering Facility: [facility] Address: [address] [place] [address] Performed By: #### 5 7021-8 ####[facility] LABIA [id number] [place] [address] [place] MCHC (RBC) [Mass/Vol] 34.5 g/dL Normal 30.5-36.0 [facility] Comment on above: Order Comment: Speci men Type: BLOOD SPECIMENOrdering Facility: [facility] Address: [address] [place] [address] Performed By: #### 5 7021-8 ####[facility] LABCLIA [id number] [place] [address] [place] MCV (RBC) [Entitic vol] 107.2 fL High 80.0-100.0 [facility] Comment on above: Order Comment: Speci men Type: BLOOD SPECIMENOrdering Facility: [facility] Address: [address] [place] [address] Performed By: #### 5 7021-8 ####[facility] LABCLIA [id number] [place] [address] [place] Monocytes (Bld) [#/Vol] 0.62 10*3/uL Normal <0.87 [facility] Comment on above: Order Comment: Speci men Type: BLOOD SPECIMENOrdering Facility: [facility] Address: [address] [place] [address] Performed By: #### 5 7021-8 ####[facility] LABCLIA [id number] [place] [address] [place] Monocytes/100 WBC (Bld) 5.3 % Normal [facility] Comment on above: Order Comment: Speci men Type: BLOOD SPECIMENOrdering Facility: [facility] Address: [address] [place] [address] Performed By: #### 5 7021-8 ####[facility] LABCLIA [id number] [place] [address] [place] Neutrophils (Bld) [#/Vol] 8.27 10*3/uL High 1.45-7.50 [facility] Comment on above: Order Comment: Speci men Type: BLOOD SPECIMENOrdering Facility: [facility] Address: [address] [place] [address] Performed By: #### 5 7021-8 ####[facility] LABIA [id number] [place] [address] [place] Neutrophils/100 WBC (Bld) 70.6 % Normal [facility] Comment on above: Order Comment: Speci men Type: BLOOD SPECIMENOrdering Facility: [facility] Address: [address] [place] [address] Performed By: #### 5 7021-8 ####[facility] LABCLIA [id number] [place] [address] [place] Nucleated RBC (Bld) [#/Vol] 10*3/uL Normal <0.01 [facility] Comment on above: Order Comment: Speci men Type: BLOOD SPECIMENOrdering Facility: [facility] Address: [address] [place] [address] Performed By: #### 5 7021-8 ####[facility] LABIA [id number] [place] [address] [place] Nucleated RBC/100 WBC (Bld) [Ratio] 0.0 /100 WBC Normal [facility] Comment on above: Order Comment: Speci men Type: BLOOD SPECIMENOrdering Facility: [facility] Address: [address] [place] [address] Performed By: #### 5 7021-8 ####[facility] LABIA [id number] [place] [address] [place] Platelet mean volume (Bld) [Entitic vol] 10.0 fL Normal 9.0-12.7 [facility] Comment on above: Order Comment: Speci men Type: BLOOD SPECIMENOrdering Facility: [facility] Address: [address] [place] [address] Performed By: #### 5 7021-8 ####[facility] LABIA [id number] [place] [address] [place] Platelets (Bld) [#/Vol] 277 10*3/uL Normal 150-400 [facility] Comment on above: Order Comment: Speci men Type: BLOOD SPECIMENOrdering Facility: [facility] Address: [address] [place] [address] Performed By: #### 5 7021-8 ####[facility] LABCLIA [id number] [place] [address] [place] RBC (Bld) [#/Vol] 4.30 10*6/uL Normal 4.20-6.00 [facility] Comment on above: Order Comment: Speci men Type: BLOOD SPECIMENOrdering Facility: [facility] Address: [address] [place] [address] Performed By: #### 5 7021-8 ####[facility] LABCLIA [id number] [place] [address] [place] WBC (Bld) [#/Vol] 11.73 10*3/uL High 3.70-11.00 [facility] Comment on above: Order Comment: Speci men Type: BLOOD SPECIMENOrdering Facility: [facility] Address: [address] [place] [address] Performed By: #### 5 7021-8 ####[facility] LABCLIA [id number] [place] [address] [place] CNOVon 02-01-2023 CNOV Office Visit (CATHMN ) CONOR LEE ([id number]) 1965 M Date Time Provider Department 02/01/23 2:00 PM [facility] CATHMN During your visit today, we recorded the following information about you: Natividad Moore APRN.AISSATOU 02/01/2023 3:44 PM Signed [facility] Christ[facility] Rodriguez Department of Cardiovascular Medicine SECTION [...] back in November. Conor Lee is from [place] where he lives with his significant other. [...] cm/s. The dimensionless valve index is 0.21. 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 [place] CARDIOMYOPATHY QUESTIONNAIRE (KCCQ-12) Activity: A. Showering/bathing: Extremely [...] weeks, ho (more content not included)... Normal [facility] CNOV Office Visit (CATHMN ) CONOR LEE ([id number]) 1965 M Date Time Provider Department 02/01/23 9:45 AM Cyndi SCHUSTER CATHMN During your visit today, we recorded the following information about you: Pulse Respiration Blood pressure Weight 72/minute 18/minute 143/97 83.9 kg Height 1.778 m Cyndi Schuster MD 02/01/2023 11:41 AM Signed [facility] Christ[facility] Rodriguez Department of Cardiovascular Medicine SECTION OF INTERVENTIONAL CARDIOLOGY OUTPATIENT VISIT DATE February 01, 2023 OUTPATIENT VISIT TYPE NEW PRIMARY CARE PHYSICIAN: Harpreet Lim [facility] [place] [facility] [place] [address] REFERRING PHYSICIAN: No referring provider defined for this encounter. CHIEF COMPLAINT: No chief complaint on file. HISTORY OF PRESENT ILLNESS: Mr. Lee is a 57 year-old male who was referred by Dr. Dr. 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 He was admitted on 01/15/2023 with acute respiratory distress and decompensated heart failure and R hilar mass and discharged on 01/17. PMH is significant for Bicuspid aortic valve s/p AVR (Magna prosthetic valve size #23; Dr. Sheriff at [facility]; 08/2011), CAD 10/18/2022 cath at [facility] showed 100% occluded moderate size RCA with [...] Lee is an 57 year old male ([place]) with pmhx of: bicuspid valve s/p AVR (#23 magna pericardial valve, 2011) [facility] HTN PAD s/p right SFA [...] to doing biopsy. He was admitted to [facility] on 01/17 for COPD exacerbation. [...] It show (more content not included)... Normal [facility] CTA C/A/P (GATED) W IVCONon 02-01-2023 CTA [...] the proximal common iliacs segments. AORTIC DIMENSIONS: robinson AORTIC ROOT: 3.0 cm measured udjsb-zx-ouylb , with postsurgical changes present STJ: 2.6 [...] right lower (more content not included)... Normal [facility] Comprehensive metabolic 2000 panelon 02-01-2023 Albumin [Mass/Vol] 4.2 g/dL Normal 3.9-4.9 [facility] Comment on above: Order Comment: Speci men Type: BLOOD SPECIMENOrdering Facility: [facility] Address: [address] [place] [address] Performed By: #### 2 4323-8, 72495-0, HSTNT ####[facility] LABCLIA [id number] [place] [address] [place] ALP [Catalytic activity/Vol] 67 U/L Normal 38-113 [facility] Comment on above: Order Comment: Speci men Type: BLOOD SPECIMENOrdering Facility: [facility] Address: [address] [place] [address] Performed By: #### 2 4323-8, 36563-4, HSTNT ####[facility] LABCLIA [id number] [place] [address] [place] ALT [Catalytic activity/Vol] 25 U/L Normal 10-54 [facility] Comment on above: Order Comment: Speci men Type: BLOOD SPECIMENOrdering Facility: [facility] Address: [address] [place] [address] Performed By: #### 2 4323-8, 84661-9, HSTNT ####[facility] LABCLIA [id number] [place] [address] [place] Anion gap [Moles/Vol] 8 mmol/L Low 9-18 [facility] Comment on above: Order Comment: Speci men Type: BLOOD SPECIMENOrdering Facility: [facility] Address: [address] [place] [address] Performed By: #### 2 4323-8, 49706-6, HSTNT ####[facility] LABCLIA [id number] [place] [address] [place] AST [Catalytic activity/Vol] 17 U/L Normal 14-40 [facility] Comment on above: Order Comment: Speci men Type: BLOOD SPECIMENOrdering Facility: [facility] Address: [address] [place] [address] Performed By: #### 2 4323-8, 31536-8, HSTNT ####[facility] LABCLIA [id number] [place] [id number] [place] Bilirubin [Mass/Vol] 0.3 mg/dL Normal 0.2-1.3 [facility] Comment on above: Order Comment: Speci men Type: BLOOD SPECIMENOrdering Facility: [facility] Address: [address] [place] [address] Performed By: #### 2 4323-8, 26661-5, HSTNT ####[facility] LABCLIA [id number] [place] [address] [place] Calcium [Mass/Vol] 10.0 mg/dL Normal 8.5-10.2 [facility] Comment on above: Order Comment: Speci men Type: BLOOD SPECIMENOrdering Facility: [facility] Address: [address] [place] [address] Performed By: #### 2 4323-8, 43665-9, HSTNT ####[facility] LABCLIA [id number] [place] [address] [place] Chloride [Moles/Vol] 97 mmol/L Normal 97-105 [facility] Comment on above: Order Comment: Speci men Type: BLOOD SPECIMENOrdering Facility: [facility] Address: [address] [place] [address] Performed By: #### 2 4323-8, 18142-4, HSTNT ####[facility] LABCLIA [id number] [place] [address] [place] CO2 [Moles/Vol] 27 mmol/L Normal 22-30 [facility] Comment on above: Order Comment: Speci men Type: BLOOD SPECIMENOrdering Facility: [facility] Address: [address] [place] [address] Performed By: #### 2 4323-8, 17380-9, HSTNT ####[facility] LABCLIA [id number] [place] [address] [place] Creatinine [Mass/Vol] 0.99 mg/dL Normal 0.73-1.22 [facility] Comment on above: Order Comment: Speci men Type: BLOOD SPECIMENOrdering Facility: [facility] Address: [address] [place] [address] Performed By: #### 2 4323-8, 60074-0, HSTNT ####[facility] LABCLIA [id number] [place] [address] [place] Creatinine and Glomerular filtration rate.predicted panel (S/P/Bld) 89 mL/min/1.73m??? Normal >=60 [facility] Comment on above: Order Comment: Sylvie hammer Type: BLOOD SPECIMENOrdering Facility: [facility] Address: [address] [place] [address] Result Comment: Aditi mated Glomerular Filtration Rate [...] actual GFR. Performed By: #### 2 4323-8, 17022-7, HSTNT ####[facility] LABIA [id number] [place] [address] [place] Glucose [Mass/Vol] 120 mg/dL High 74-99 [facility] Comment on above: Order Comment: Sylvie hammer Type: BLOOD SPECIMENOrdering Facility: [facility] Address: [address] [place] [address] Result Comment: The British Diabetes Association (ADA) provides guidance for cutoff [...] Standards of Medical Care in Diabetes 2016, British Diabetes Association. Diabetes Care. 2016.39(Suppl 1). Performed By: #### 2 4323-8, 00415-2, HSTNT ####[facility] LABIA [id number] [place] [address] [place] Potassium [Moles/Vol] 5.0 mmol/L Normal 3.7-5.1 [facility] Comment on above: Order Comment: Speci men Type: BLOOD SPECIMENOrdering Facility: [facility] Address: [address] [place] [address] Performed By: #### 2 4323-8, 11181-4, HSTNT ####[facility] LABCLIA [id number] [place] [address] [place] Protein [Mass/Vol] 7.0 g/dL Normal 6.3-8.0 [facility] Comment on above: Order Comment: Speci men Type: BLOOD SPECIMENOrdering Facility: [facility] Address: [address] [place] [address] Performed By: #### 2 4323-8, 24902-0, HSTNT ####[facility] LABCLIA [id number] [place] [address] [place] Sodium [Moles/Vol] 132 mmol/L Low 136-144 [facility] Comment on above: Order Comment: Speci men Type: BLOOD SPECIMENOrdering Facility: [facility] Address: [address] [place] [address] Performed By: #### 2 4323-8, 54097-9, HSTNT ####[facility] LABCLIA [id number] [place] [address] [place] Urea nitrogen [Mass/Vol] 18 mg/dL Normal 9-24 [facility] Comment on above: Order Comment: Speci men Type: BLOOD SPECIMENOrdering Facility: [facility] Address: [address] [place] [address] Performed By: #### 2 4323-8, 47447-0, HSTNT ####[facility] LABCLIA [id number] [place] [address] [place] HIGH SENSITIVITY TROPONIN To n 02-01-2023 Troponin T.cardiac High sensitivity method [Mass/Vol] 17 ng/L High <12 [facility] Comment on above: Order Comment: Speci men Type: BLOOD SPECIMENOrdering Facility: [facility] Address: [address] [place] [address] Result Comment: When assessing risk for acute [...] day MACE. Performed By: #### 2 4323-8, 30009-8, HSTNT ####[facility] LABIA [id number] [place] [address] [place] LPa SerPl-mCncon 02-01-2023 Lipoprotein a [Mass/Vol] 125 mg/dL High <30 [facility] Comment on above: Order Comment: Speci men Type: BLOOD SPECIMENOrdering Facility: [facility] Address: [address] [place] [address] Performed By: #### 1 0835-7 ####[facility] LABIA [id number] [place] [address] [place] [facility] Natriuretic peptide.B prohormone N-Terminal [Mass/Vol] 1659 pg/mL High <125 [facility] Comment on above: Order Comment: Speci men Type: BLOOD SPECIMENOrdering Facility: [facility] Address: [address] [place] [address] Performed By: #### 2 4323-8, 16255-4, HSTNT ####[facility] [id number] [place] [address] [place] PT panel Coag (PPP)on 2022 INR Coag (PPP) [Relative time] {INR} Low 0.9-1.3 [facility] Comment on above: Order Comment: Speci men Type: BLOOD SPECIMENOrdering Facility: [facility] Address: [address] [place] [address] Result Comment: Resu lt rechecked. Sample checked for clot. Vitamin K Antagonist (VKA) Therapeutic Range: INR 2 to 3 (Target INR of 2.5) Note: For patients treated with VKA drugs, such as warfarin, the [employer] 2012 Guideline recommends [...] Chest 2012, 141:7S-47S Pat SHAW, et al. [facility] 2017, 70: 252-289 Performed By: #### 3 4528-0 ####[facility] [id number] [place] [address] [place] PT Coag (PPP) [Time] 9.9 s Normal 9.7-13.0 [facility] Comment on above: Order Comment: Speci men Type: BLOOD SPECIMENOrdering Facility: [facility] Address: [address] [place] [address] Performed By: #### 3 4528-0 ####[facility] [id number] [place] [address] [place] XR CHEST 2V [...] soft tissues: Median sternotomy. IMPRESSION: See result Teaching Artist: PSCAnne Marie Transcribe Date/Time: Feb 02 2023 2:01P Dictated by : JOSE DIEZ MD This examination was interpreted and the report reviewed and electronically signed by: JOSE DIEZ MD on Feb 02 2023 2:04PM EST [id number] Normal [facility] CNCOon 01-31-2023 CNCO Letter Text Normal [facility] Basic metabolic 2000 panelon 01-28-2023 Anion gap [Moles/Vol] 12 mmol/L Normal 9-18 [facility] Comment on above: Order Comment: Speci men Type: BLOOD SPECIMENOrdering Facility: [facility] Address: [address] [place] [address] Performed By: #### 2 4321-2 ####[facility] LABCLIA [id number] [place] [address] Calcium [Mass/Vol] 9.7 mg/dL Normal 8.5-10.2 [facility] Comment on above: Order Comment: Speci men Type: BLOOD SPECIMENOrdering Facility: [facility] Address: [address] [place] [address] Performed By: #### 2 4321-2 ####[facility] LABCLIA [id number] [place] [address] Chloride [Moles/Vol] 93 mmol/L Low 97-105 [facility] Comment on above: Order Comment: Speci men Type: BLOOD SPECIMENOrdering Facility: [facility] Address: [address] [place] [address] Performed By: #### 2 4321-2 ####[facility] LABCLIA [id number] [place] [address] CO2 [Moles/Vol] 26 mmol/L Normal 22-30 [facility] Comment on above: Order Comment: Speci men Type: BLOOD SPECIMENOrdering Facility: [facility] Address: [address] [place] [address] Performed By: #### 2 4321-2 ####[facility] LABCLIA [id number] [place] [address] Creatinine [Mass/Vol] 1.06 mg/dL Normal 0.73-1.22 [facility] Comment on above: Order Comment: Speci men Type: BLOOD SPECIMENOrdering Facility: [facility] Address: [address] [place] [address] Performed By: #### 2 4321-2 ####[facility] LABCLIA [id number] [place] [address] Creatinine and Glomerular filtration rate.predicted panel (S/P/Bld) 82 mL/min/1.73m??? Normal >=60 [facility] Comment on above: Order Comment: Speci men Type: BLOOD SPECIMENOrdering Facility: [facility] Address: [address] [place] [address] Result Comment: Aditi mated Glomerular Filtration Rate [...] actual GFR. Performed By: #### 2 4321-2 ####[facility] LABCLIA [id number] [place] [address] Glucose [Mass/Vol] 199 mg/dL High 74-99 [facility] Comment on above: Order Comment: Speci men Type: BLOOD SPECIMENOrdering Facility: [facility] Address: [address] [place] [address] Result Comment: The [employer] Diabetes Association (ADA) provides guidance for cutoff [...] Standards of Medical Care in Diabetes 2016, [employer] Diabetes [employer]. Diabetes Care. 2016.39(Suppl 1). Performed By: #### 2 4321-2 ####[facility] LABCLIA [id number] [place] [address] Potassium [Moles/Vol] 4.7 mmol/L Normal 3.7-5.1 [facility] Comment on above: Order Comment: Speci men Type: BLOOD SPECIMENOrdering Facility: [facility] Address: [address] [place] [address] Performed By: #### 2 4321-2 ####[facility] LABCLIA [id number] [place] [address] Sodium [Moles/Vol] 131 mmol/L Low 136-144 [facility] Comment on above: Order Comment: Speci men Type: BLOOD SPECIMENOrdering Facility: [facility] Address: [address] [place] [address] Performed By: #### 2 4321-2 ####[facility] LABCLIA [id number] [place] [address] Urea nitrogen [Mass/Vol] 22 mg/dL Normal 9-24 [facility] Comment on above: Order Comment: Speci men Type: BLOOD SPECIMENOrdering Facility: [facility] Address: [address] [place] [address] Performed By: #### 2 4321-2 ####[facility] LABCLIA [id number] [place] [address] 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 Reports BP 124/85 HR 80 SPO2 94-97%. Patient denies any further questions or concerns at this time. Communication Events Date: January 22, 2023 Method: Phone call Type: Outbound Duration (min): 14 Outcome: Case discussion Contact Type: patient services coordinator Contact Name: Andres Damico Notes: ASPHALT PAVER OPERATOR#1- Spoke with patient for initial [facility] program call status update, see ft summary note. Created By: Andres Damico Date: January 21, 2023 Method: Phone call Type: Outbound Duration (min): 1 Outcome: Left message-voicemail Contact Type: patient services coordinator Contact Name: Andres Damico Notes: ASPHALT PAVER OPERATOR#1- Attemtped to contact patient for initial [facility] call status update, no answer, left vm for return call. 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 yes, PCP Dr. Lim 02/05 at [facility] Did you understand your discharge instructions? [...] (min): 1 Outcome: Left message-voicemail Contact Type: patient services coordinator Contact Name: Andres Damico Notes: ASPHALT PAVER OPERATOR#1- Attemtped to contact patient for initial ASPHALT PAVER OPERATOR call status update, no answer, left vm for return call. Created By: Andres Damico [facility] Admission Noteon 01-21-2023 Admission Note 104.. 2 [id number]#1 .00TIFF [facility] Admission Note 104.170.. 1 [id number]#1 .00TIFF [facility] CBC panel Auto (Bld)on 01-20 Erythrocyte distribution width (RBC) [Ratio] 13.7 % Normal 11.5-15.0 [facility] Comment on above: Order Comment: Speci men Type: BLOOD SPECIMENOrdering Facility: [facility] Address: [address] [place] [address] Performed By: #### 5 8410-2 ####[facility] LABIA [id number] [place] [address] [place] Hematocrit (Bld) [Volume fraction] 49.9 % Normal 39.0-51.0 [facility] Comment on above: Order Comment: Speci men Type: BLOOD SPECIMENOrdering Facility: [facility] Address: [address] [place] [address] Performed By: #### 5 8410-2 ####[facility] LABIA [id number] [place] [address] [place] Hemoglobin (Bld) [Mass/Vol] 17.7 g/dL High 13.0-17.0 [facility] Comment on above: Order Comment: Speci men Type: BLOOD SPECIMENOrdering Facility: [facility] Address: [address] [place] [address] Performed By: #### 5 8410-2 ####[facility] LABIA [id number] [place] [address] [place] MCH (RBC) [Entitic mass] 37.1 pg High 26.0-34.0 [facility] Comment on above: Order Comment: Speci men Type: BLOOD SPECIMENOrdering Facility: [facility] Address: [address] [place] [address] Performed By: #### 5 8410-2 ####[facility] LABIA [id number] [place] [address] [place] MCHC (RBC) [Mass/Vol] 35.5 g/dL Normal 30.5-36.0 [facility] Comment on above: Order Comment: Speci men Type: BLOOD SPECIMENOrdering Facility: [facility] Address: [address] [place] [address] Performed By: #### 5 8410-2 ####[facility] LABIA [id number] [place] [address] [place] MCV (RBC) [Entitic vol] 104.6 fL High 80.0-100.0 [facility] Comment on above: Order Comment: Speci men Type: BLOOD SPECIMENOrdering Facility: [facility] Address: [address] [place] [address] Performed By: #### 5 8410-2 ####[facility] LABIA [id number] [place] [address] [place] Nucleated RBC (Bld) [#/Vol] 10*3/uL Normal <0.01 [facility] Comment on above: Order Comment: Speci men Type: BLOOD SPECIMENOrdering Facility: [facility] Address: [address] [place] [address] Performed By: #### 5 8410-2 ####[facility] LABIA [id number] [place] [address] [place] Platelet mean volume (Bld) [Entitic vol] 11.5 fL Normal 9.0-12.7 [facility] Comment on above: Order Comment: Speci men Type: BLOOD SPECIMENOrdering Facility: [facility] Address: [address] [place] [address] Performed By: #### 5 8410-2 ####[facility] LABIA [id number] [place] [address] [place] Platelets (Bld) [#/Vol] 153 10*3/uL Normal 150-400 [facility] Comment on above: Order Comment: Speci men Type: BLOOD SPECIMENOrdering Facility: [facility] Address: [address] [place] [address] Performed By: #### 5 8410-2 ####[facility] LABCLIA [id number] [place] [address] [place] RBC (Bld) [#/Vol] 4.77 10*6/uL Normal 4.20-6.00 [facility] Comment on above: Order Comment: Speci men Type: BLOOD SPECIMENOrdering Facility: [facility] Address: [address] [place] [address] Performed By: #### 5 8410-2 ####[facility] LABCLIA [id number] [place] [address] [place] WBC (Bld) [#/Vol] 10.11 10*3/uL Normal 3.70-11.00 [facility] Comment on above: Order Comment: Speci men Type: BLOOD SPECIMENOrdering Facility: [facility] Address: [address] [place] [address] Performed By: #### 5 8410-2 ####[facility] LABCLIA [id number] [address] [place] CNDSon 01-20-2023 CNDS HNO ID: [id number] Author: Farheen Cruz MD Service: Pulmonary Disease [...] AM Cyndi Schuster MD CATHMARLENE [facility] 02/01/2023 11:30 AM LBJ1-4 MAIN LBJ1-4 Mn [facility] 02/01/2023 11:45 AM XR CHEST MAIN J1 RADMNJ [facility] 02/01/2023 12:00 PM EKGJ1-4 MAIN EKGF16 [facility] 02/01/2023 12:[address] MAIN J (I-STAT) RCTMJ [facility] 02/01/2023 2:00 PM [facility] CATHMARLENE [facility] 02/04/2023 To Be Determined Barbra Nevarez MD [place] [facility] REASON FOR HOSPITALIZATION: Acute Decompensated [...] 12/10), 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 Patient following with Dr. Mckinney for consideration of aortic valve surgery. At [facility], patient was treated for COPD exacerbation with dexamethasone, solumedrol, and duonebs, and acute decompensated heart failure with lasix. Patient was diuresed to dry weight (178lbs). [facility] imaging requested for transfer to F ([facility]: [phone]). Plan: -Continue TAVR assessment outpatient -Decrease Coreg 37.5mg BID to 25mg BID -Decrease Lisinopril 20mg BID to 10mg Daily -Start Chlorthalidone 25mg, Spironolactone 25mg -ASA81 (more content not included)... Normal [facility] Renal function 2000 panelon 01-20-2023 Albumin [Mass/Vol] 4.0 g/dL Normal 3.9-4.9 [facility] Comment on above: Order Comment: Speci men Type: BLOOD SPECIMENOrdering Facility: [facility] Address: [address] [place] [address] Performed By: #### 2 4362-6 ####[facility] LABCLIA [id number] [place] [address] [place] Anion gap [Moles/Vol] 15 mmol/L Normal 9-18 [facility] Comment on above: Order Comment: Speci men Type: BLOOD SPECIMENOrdering Facility: [facility] Address: [address] [place] [address] Performed By: #### 2 4362-6 ####[facility] LABCLIA [id number] [place] [address] [place] Calcium [Mass/Vol] 9.0 mg/dL Normal 8.5-10.2 [facility] Comment on above: Order Comment: Speci men Type: BLOOD SPECIMENOrdering Facility: [facility] Address: [address] [place] [address] Performed By: #### 2 4362-6 ####[facility] LABCLIA [id number] [place] [address] [place] Chloride [Moles/Vol] 93 mmol/L Low 97-105 [facility] Comment on above: Order Comment: Speci men Type: BLOOD SPECIMENOrdering Facility: [facility] Address: [address] [place] [address] Performed By: #### 2 4362-6 ####[facility] LABCLIA [id number] [place] [address] [place] CO2 [Moles/Vol] 24 mmol/L Normal 22-30 [facility] Comment on above: Order Comment: Speci men Type: BLOOD SPECIMENOrdering Facility: [facility] Address: [address] [place] [address] Performed By: #### 2 4362-6 ####[facility] LABCLIA [id number] [place] [address] [place] Creatinine [Mass/Vol] 1.01 mg/dL Normal 0.73-1.22 [facility] Comment on above: Order Comment: Speci men Type: BLOOD SPECIMENOrdering Facility: [facility] Address: [address] [place] [address] Performed By: #### 2 4362-6 ####[facility] LABIA [id number] [place] [address] [place] Creatinine and Glomerular filtration rate.predicted panel (S/P/Bld) 87 mL/min/1.73m??? Normal >=60 [facility] Comment on above: Order Comment: Speci men Type: BLOOD SPECIMENOrdering Facility: [facility] Address: [address] [place] [address] Result Comment: Aditi mated Glomerular Filtration Rate [...] actual GFR. Performed By: #### 2 4362-6 ####[facility] LABIA [id number] [place] [address] [place] Glucose [Mass/Vol] 112 mg/dL High 74-99 [facility] Comment on above: Order Comment: Speci men Type: BLOOD SPECIMENOrdering Facility: [facility] Address: [address] [place] [address] Result Comment: The British Diabetes Association (ADA) provides guidance for cutoff [...] Standards of Medical Care in Diabetes 2016, [employer] Diabetes Association. Diabetes Care. 2016.39(Suppl 1). Performed By: #### 2 4362-6 ####[facility] LABCLIA [id number] [place] [address] [place] Phosphate [Mass/Vol] 4.0 mg/dL Normal 2.7-4.8 [facility] Comment on above: Order Comment: Speci men Type: BLOOD SPECIMENOrdering Facility: [facility] Address: [address] [place] [address] Performed By: #### 2 4362-6 ####[facility] LABCLIA [id number] [place] [address] [place] Potassium [Moles/Vol] 4.2 mmol/L Normal 3.7-5.1 [facility] Comment on above: Order Comment: Speci men Type: BLOOD SPECIMENOrdering Facility: [facility] Address: [address] [place] [address] Performed By: #### 2 4362-6 ####[facility] LABIA [id number] [place] [address] [place] Sodium [Moles/Vol] 132 mmol/L Low 136-144 [facility] Comment on above: Order Comment: Speci men Type: BLOOD SPECIMENOrdering Facility: [facility] Address: [address] [place] [address] Performed By: #### 2 4362-6 ####[facility] LABCLIA [id number] [place] [address] [place] Urea nitrogen [Mass/Vol] 23 mg/dL Normal 9-24 [facility] Comment on above: Order Comment: Speci men Type: BLOOD SPECIMENOrdering Facility: [facility] Address: [address] [place] [address] Performed By: #### 2 4362-6 ####[facility] LABCLIA [id number] [place] [address] [place] CBC panel Auto (Bld)on 01-19 Erythrocyte distribution width (RBC) [Ratio] 14.3 % Normal 11.5-15.0 [facility] Comment on above: Order Comment: Speci men Type: BLOOD SPECIMENOrdering Facility: [facility] Address: [address] [place] [address] Performed By: #### 5 8410-2 ####[facility] LABIA [id number] [place] [address] [place] Hematocrit (Bld) [Volume fraction] 50.2 % Normal 39.0-51.0 [facility] Comment on above: Order Comment: Speci men Type: BLOOD SPECIMENOrdering Facility: [facility] Address: [address] [place] [address] Performed By: #### 5 8410-2 ####[facility] LABIA [id number] [place] [address] [place] Hemoglobin (Bld) [Mass/Vol] 17.7 g/dL High 13.0-17.0 [facility] Comment on above: Order Comment: Speci men Type: BLOOD SPECIMENOrdering Facility: [facility] Address: [address] [place] [address] Performed By: #### 5 8410-2 ####[facility] LABCLIA [id number] [place] [address] [place] MCH (RBC) [Entitic mass] 37.3 pg High 26.0-34.0 [facility] Comment on above: Order Comment: Speci men Type: BLOOD SPECIMENOrdering Facility: [facility] Address: [address] [place] [address] Performed By: #### 5 8410-2 ####[facility] LABCLIA [id number] [place] [address] [place] MCHC (RBC) [Mass/Vol] 35.3 g/dL Normal 30.5-36.0 [facility] Comment on above: Order Comment: Speci men Type: BLOOD SPECIMENOrdering Facility: [facility] Address: [address] [place] [address] Performed By: #### 5 8410-2 ####[facility] LABIA [id number] [place] [address] [place] MCV (RBC) [Entitic vol] 105.9 fL High 80.0-100.0 [facility] Comment on above: Order Comment: Speci men Type: BLOOD SPECIMENOrdering Facility: [facility] Address: [address] [place] [address] Performed By: #### 5 8410-2 ####[facility] LABIA [id number] [place] [address] [place] Nucleated RBC (Bld) [#/Vol] 10*3/uL Normal <0.01 [facility] Comment on above: Order Comment: Speci men Type: BLOOD SPECIMENOrdering Facility: [facility] Address: [address] [place] [address] Performed By: #### 5 8410-2 ####[facility] LABIA [id number] [place] [address] [place] Platelet mean volume (Bld) [Entitic vol] 10.8 fL Normal 9.0-12.7 [facility] Comment on above: Order Comment: Speci men Type: BLOOD SPECIMENOrdering Facility: [facility] Address: [address] [place] [address] Performed By: #### 5 8410-2 ####[facility] LABIA [id number] [place] [address] [place] Platelets (Bld) [#/Vol] 147 10*3/uL Low 150-400 [facility] Comment on above: Order Comment: Speci men Type: BLOOD SPECIMENOrdering Facility: [facility] Address: [address] [place] [address] Performed By: #### 5 8410-2 ####[facility] LABCLIA [id number] [place] [address] [place] RBC (Bld) [#/Vol] 4.74 10*6/uL Normal 4.20-6.00 [facility] Comment on above: Order Comment: Speci men Type: BLOOD SPECIMENOrdering Facility: [facility] Address: [address] [place] [address] Performed By: #### 5 8410-2 ####[facility] LABCLIA [id number] [place] [address] [place] WBC (Bld) [#/Vol] 9.66 10*3/uL Normal 3.70-11.00 [facility] Comment on above: Order Comment: Speci men Type: BLOOD SPECIMENOrdering Facility: [facility] Address: [address] [place] [address] Performed By: #### 5 8410-2 ####[facility] LABCLIA [id number] [place] [address] [place] CONFIRM BLOOD TYPEon 023 ABO A Normal [facility] Comment on above: Order Comment: Speci men Type: BLOOD SPECIMENOrdering Facility: [facility] Address: [address] [place] [address] Performed By: #### C ONABO ####[facility] BLOOD BANKCLIA [id number] [place] [address] [place] Rh Nom (Bld) Positive Normal [facility] Comment on above: Order Comment: Speci men Type: BLOOD SPECIMENOrdering Facility: [facility] Address: [address] [place] [address] Performed By: #### C ONABO ####[facility] BLOOD BANKCLIA [id number] [address] [address] [place] Renal function 2000 panelon 01-19-2023 Albumin [Mass/Vol] 3.9 g/dL Normal 3.9-4.9 [facility] Comment on above: Order Comment: Speci men Type: BLOOD SPECIMENOrdering Facility: [facility] Address: [address] [place] [address] Performed By: #### 2 4362-6 ####[facility] LABCLIA [id number] [place] [address] [place] Anion gap [Moles/Vol] 16 mmol/L Normal 9-18 [facility] Comment on above: Order Comment: Speci men Type: BLOOD SPECIMENOrdering Facility: [facility] Address: [address] [place] [address] Performed By: #### 2 4362-6 ####[facility] LABCLIA [id number] [place] [address] [place] Calcium [Mass/Vol] 9.0 mg/dL Normal 8.5-10.2 [facility] Comment on above: Order Comment: Speci men Type: BLOOD SPECIMENOrdering Facility: [facility] Address: [address] [place] [address] Performed By: #### 2 4362-6 ####[facility] LABCLIA [id number] [place] [address] [place] Chloride [Moles/Vol] 90 mmol/L Low 97-105 [facility] Comment on above: Order Comment: Speci men Type: BLOOD SPECIMENOrdering Facility: [facility] Address: [address] [place] [address] Performed By: #### 2 4362-6 ####[facility] LABCLIA [id number] [place] [id number] [place] CO2 [Moles/Vol] 28 mmol/L Normal 22-30 [facility] Comment on above: Order Comment: Speci men Type: BLOOD SPECIMENOrdering Facility: [facility] [facility] Address: [address] [place] [address] Performed By: #### 2 4362-6 ####[facility] LABIA [id number] [place] [address] [place] Creatinine [Mass/Vol] 1.07 mg/dL Normal 0.73-1.22 [facility] Comment on above: Order Comment: Speci men Type: BLOOD SPECIMENOrdering Facility: [facility] Address: [address] [place] [address] Performed By: #### 2 4362-6 ####[facility] LABIA [id number] [place] [address] [place] Creatinine and Glomerular filtration rate.predicted panel (S/P/Bld) 81 mL/min/1.73m??? Normal >=60 [facility] Comment on above: Order Comment: Speci men Type: BLOOD SPECIMENOrdering Facility: [facility] Address: [address] [place] [address] Result Comment: Aditi mated Glomerular Filtration Rate [...] actual GFR. Performed By: #### 2 4362-6 ####[facility]IA [id number] [place] [address] [place] Glucose [Mass/Vol] 97 mg/dL Normal 74-99 [facility] Comment on above: Order Comment: Speci men Type: BLOOD SPECIMENOrdering Facility: [facility] Address: [address] [place] [address] Result Comment: The British Diabetes Association (ADA) provides guidance for cutoff [...] Standards of Medical Care in Diabetes 2016, British Diabetes Association. Diabetes Care. 2016.39(Suppl 1). Performed By: #### 2 4362-6 ####[facility] LABCLIA [id number] [place] [address] [place] Phosphate [Mass/Vol] 5.1 mg/dL High 2.7-4.8 [facility] Comment on above: Order Comment: Sylvie hammer Type: BLOOD SPECIMENOrdering Facility: [facility] Address: [address] [place] [address] Performed By: #### 2 4362-6 ####[facility] LABIA [id number] [place] [address] [place] Potassium [Moles/Vol] 3.9 mmol/L Normal 3.7-5.1 [facility] Comment on above: Order Comment: Sylvie hammer Type: BLOOD SPECIMENOrdering Facility: [facility] Address: [address] [place] [address] Performed By: #### 2 4362-6 ####[facility] LABIA [id number] [place] [address] [place] Sodium [Moles/Vol] 134 mmol/L Low 136-144 [facility] Comment on above: Order Comment: Sylvie hammer Type: BLOOD SPECIMENOrdering Facility: [facility] Address: [address] [place] [address] Performed By: #### 2 4362-6 ####[facility] LABCLIA [id number] [place] [address] [place] Urea nitrogen [Mass/Vol] 28 mg/dL High 9-24 [facility] Comment on above: Order Comment: Speci men Type: BLOOD SPECIMENOrdering Facility: [facility] Address: [address] [place] [address] Performed By: #### 2 4362-6 ####[facility] LABCLIA [id number] [place] [address] [place] TYPE + SCREENon 01-19-2023 ABO A Normal [facility] Comment on above: Order Comment: Speci men Type: BLOOD SPECIMENOrdering Facility: [facility] Address: [address] [place] [address] Performed By: #### T SCR ####[facility]CL[facility] [id number] [address] [place] HISTORICAL AB SCR STATUS Negative Normal [facility] Comment on above: Order Comment: Speci men Type: BLOOD SPECIMENOrdering Facility: [facility] Address: [address] [place] [address] Performed By: #### T SCR ####[facility] BANKCLIA [id number] [place] [address] [place] Rh Nom (Bld) Positive Normal [facility] Comment on above: Order Comment: Speci men Type: BLOOD SPECIMENOrdering Facility: [facility] Address: [address] [place] [address] Performed By: #### T SCR ####[facility] BANKCLIA [id number] [place] [address] [place] TYPE AND SCREEN EXPIRATION 01/22/2023 23:59 Normal [facility] Comment on above: Order Comment: Speci men Type: BLOOD SPECIMENOrdering Facility: [facility] Address: [address] [place] [address] Performed By: #### T SCR ####[facility] BANKCLIA [id number] [place] [id number] [place] ARTERIAL BLOOD GASESon 01-18 Base excess Calc (Bld) [Moles/Vol] 5 mmol/L High 0-2 [facility] Comment on above: Order Comment: Speci men Type: ARTERIAL BLOOD SPECIMENOrdering Facility: [facility] Address: [address] [place] [address] Performed By: #### A LLBG ####[facility] LABIA [id number] [place] [address] [place] Body temperature 98.6 [degF] Normal [facility] Comment on above: Order Comment: Speci men Type: ARTERIAL BLOOD SPECIMENOrdering Facility: [facility] Address: [address] [place] [address] Performed By: #### A LLBG ####[facility]IA [id number] [place] [address] [place] Calcium.ionized (Bld) [Mass/Vol] 1.14 mmol/L Normal 1.08-1.30 [facility] Comment on above: Order Comment: Speci men Type: ARTERIAL BLOOD SPECIMENOrdering Facility: [facility] Address: [address] [place] [address] Performed By: #### A LLBG ####[facility]IA [id number] [place] [address] [place] Calcium.ionized adjusted to pH 7.4 (BldA) [Moles/Vol] 1.18 mmol/L Normal 1.08-1.30 [facility] Comment on above: Order Comment: Speci men Type: ARTERIAL BLOOD SPECIMENOrdering Facility: [facility] Address: [address] [place] [address] Performed By: #### A LLBG ####[facility] LABIA [id number] [place] [address] [place] Carboxyhemoglobin (BldA) [Mass fraction] 1.7 % Normal 0.0-2.0 [facility] Comment on above: Order Comment: Speci men Type: ARTERIAL BLOOD SPECIMENOrdering Facility: [facility] Address: [address] [place] [address] Result Comment: Carb oxyhemoglobin Reference Range for Smokers: 2.0-8.0% Performed By: #### A LLBG ####[facility] LABCLIA [id number] [place] [address] [place] CO2 (Bld) [Partial pressure] 42 mm Hg Normal 36-46 [facility] Comment on above: Order Comment: Speci men Type: ARTERIAL BLOOD SPECIMENOrdering Facility: [facility] Address: [address] [place] [address] Performed By: #### A LLBG ####[facility] LABCLIA [id number] [place] [address] [place] Glucose [Mass/Vol] 182 mg/dL High 60-105 [facility] Comment on above: Order Comment: Speci men Type: ARTERIAL BLOOD SPECIMENOrdering Facility: [facility] Address: [address] [place] [address] Performed By: #### A LLBG ####[facility] LABCLIA [id number]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 [id number] [place] [address] [place] Neutrophils/100 WBC (Bld) 68.3 % Normal [facility] Comment on above: Order Comment: Speci men Type: BLOOD SPECIMENOrdering Facility: [facility] Address: [address] [place] [address] Performed By: #### 5 7021-8 ####[facility]CLIA [id number] [place] [address] [place] Nucleated RBC (Bld) [#/Vol] 10*3/uL Normal <0.01 [facility] Comment on above: Order Comment: Speci men Type: BLOOD SPECIMENOrdering Facility: [facility] Address: [address] [place] [address] Performed By: #### 5 7021-8 ####[facility]CLIA [id number] [place] [address] [place] Nucleated RBC/100 WBC (Bld) [Ratio] 0.0 /100 WBC Normal [facility] Comment on above: Order Comment: Speci men Type: BLOOD SPECIMENOrdering Facility: [facility] Address: [address] [place] [address] Performed By: #### 5 7021-8 ####[facility] LABIA [id number] [place] [address] [place] Platelet mean volume (Bld) [Entitic vol] 10.2 fL Normal 9.0-12.7 [facility] Comment on above: Order Comment: Speci men Type: BLOOD SPECIMENOrdering Facility: [facility] Address: [address] [place] [address] Performed By: #### 5 7021-8 ####[facility]CLIA [id number] [place] [address] [place] Platelets (Bld) [#/Vol] 191 10*3/uL Normal 150-400 [facility] Comment on above: Order Comment: Speci men Type: BLOOD SPECIMENOrdering Facility: [facility] Address: [address] [place] [address] Performed By: #### 5 7021-8 ####[facility] LABCLIA [id number] [place] [address] [place] RBC (Bld) [#/Vol] 4.70 10*6/uL Normal 4.20-6.00 [facility] Comment on above: Order Comment: Speci men Type: BLOOD SPECIMENOrdering Facility: [facility] Address: [address] [place] [address] Performed By: #### 5 7021-8 ####[facility] LABCLIA [id number] [place] [address] [place] WBC (Bld) [#/Vol] 11.17 10*3/uL High 3.70-11.00 [facility] Comment on above: Order Comment: Speci men Type: BLOOD SPECIMENOrdering Facility: [facility] Address: [address] [place] [address] Performed By: #### 5 7021-8 ####[facility] LABCLIA [id number] [place] [address] [place] CNOVon 12-05-2022 CNOV Office Visit (CARCMN ) CONOR LEE ([id number]) 1965 M Date Time Provider Department 12/05/22 8:45 AM LEX ANDERSON During your visit today, we recorded the following information about you: Pulse Respiration Blood pressure Weight 67/minute 12/minute 165/96 84.8 kg Height 1.778 m Lex Anderson, MD 12/20/2022 6:54 AM Signed [facility] Christelle Rodriguez Department of Cardiovascular Medicine SECTION OF CLINICAL CARDIOLOGY OUTPATIENT VISIT DATE December 05, 2022 OUTPATIENT VISIT TYPE NEW PRIMARY CARE PHYSICIAN: Naomie Bermudez [address] [place] [address] REFERRING PHYSICIAN: Mimi Mckinney [address] [facility] [address] CHIEF COMPLAINT: Preopertive cardiac evaluation HISTORY OF PRESENT ILLNESS: NURSING INTAKE: Mr. Lee is a 57 year old male from [place], [place] here today for preop evaluation. Patient [...] -palpitations -lightheadedness/dizz iness Echocardiogram performed by new powder truck driver reported severe prosthetic AV prompting evaluation for a redo AVR. Source Note - Jessica Shook MA - 10/08/2022 9:15 AM EDT Images from the original note were not included. 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 Normal [facility] Comprehensive metabolic 2000 panelon 12-05-2022 Albumin [Mass/Vol] 4.2 g/dL Normal 3.9-4.9 [facility] Comment on above: Order Comment: Speci men Type: BLOOD SPECIMENOrdering Facility: [facility] Address: [facility] [address], [place] [address] Performed By: #### 2 2833-8, 2531-0 ####[facility] LABCLIA [id number] [place] [address] [place] ALP [Catalytic activity/Vol] 72 U/L Normal 38-113 [facility] Comment on above: Order Comment: Speci men Type: BLOOD SPECIMENOrdering Facility: [facility] Address: [address] [place] [address] Performed By: #### 2 432-8, 2531-0 ####[facility] LABCLIA [id number] [place] [address] [place] ALT [Catalytic activity/Vol] 27 U/L Normal 10-54 [facility] Comment on above: Order Comment: Speci men Type: BLOOD SPECIMENOrdering Facility: [facility] Address: [address] [place] [address] Performed By: #### 2 4328, 2531-0 ####[facility] LABCLIA [id number] [place] [address] [place] Anion gap [Moles/Vol] 12 mmol/L Normal 9-18 [facility] Comment on above: Order Comment: Speci men Type: BLOOD SPECIMENOrdering Facility: [facility] Address: [address] [place] [address] Performed By: #### 2 4328, 2531-0 ####[facility] LABCLIA [id number] [place] [address] [place] AST [Catalytic activity/Vol] 20 U/L Normal 14-40 [facility] Comment on above: Order Comment: Speci men Type: BLOOD SPECIMENOrdering Facility: [facility] Address: [address] [place] [address] Performed By: #### 2 4323-8, 2531-0 ####[facility] LABCLIA [id number] [place] [id number] [place] Bilirubin [Mass/Vol] 0.6 mg/dL Normal 0.2-1.3 [facility] Comment on above: Order Comment: Speci men Type: BLOOD SPECIMENOrdering Facility: [facility] Address: [address] [place] [address] Performed By: #### 2 4323-8, 0 ####[facility] LABCLIA [id number] [place] [address] [place] Calcium [Mass/Vol] 9.3 mg/dL Normal 8.5-10.2 [facility] Comment on above: Order Comment: Speci men Type: BLOOD SPECIMENOrdering Facility: [facility] Address: [address] [place] [address] Performed By: #### 2 432-8, 0 ####[facility] LABCLIA [id number] [place] [address] [place] Chloride [Moles/Vol] 98 mmol/L Normal 97-105 [facility] Comment on above: Order Comment: Speci men Type: BLOOD SPECIMENOrdering Facility: [facility] Address: [address] [place] [address] Performed By: #### 2 4328, 0 ####[facility]CLIA [id number] [place] [address] [place] CO2 [Moles/Vol] 28 mmol/L Normal 22-30 [facility] Comment on above: Order Comment: Speci men Type: BLOOD SPECIMENOrdering Facility: [facility] Address: [address] [place] [address] Performed By: #### 2 4323-8, 0 ####[facility] LABCLIA [id number] [place] [address] [place] Creatinine [Mass/Vol] 0.90 mg/dL Normal 0.73-1.22 [facility] Comment on above: Order Comment: Speci men Type: BLOOD SPECIMENOrdering Facility: [facility] Address: [address] [place] [address] Performed By: #### 2 4323-8, 0 ####[facility] [id number] [place] [address] [place] Creatinine and Glomerular filtration rate.predicted panel (S/P/Bld) 100 mL/min/1.73m??? Normal >=60 [facility] Comment on above: Order Comment: Sylvie hammer Type: BLOOD SPECIMENOrdering Facility: [facility] Address: [address] [place] [address] Result Comment: Aditi mated Glomerular Filtration Rate [...] GFR. Performed By: #### 2 4323-8, 0 ####[facility] LABIA [id number] [place] [address] [place] Glucose [Mass/Vol] 113 mg/dL High 74-99 [facility] Comment on above: Order Comment: Sylvie hammer Type: BLOOD SPECIMENOrdering Facility: [facility] Address: [address] [place] [address] Result Comment: The [employer] Diabetes Association (ADA) provides guidance for cutoff [...] Standards of Medical Care in Diabetes 2016, British Diabetes Association. Diabetes Care. 2016.39(Suppl 1). Performed By: #### 2 4328, 2531-0 ####[facility] LABCLIA [id number] [place] [address] [place] Potassium [Moles/Vol] 4.6 mmol/L Normal 3.7-5.1 [facility] Comment on above: Order Comment: Speci men Type: BLOOD SPECIMENOrdering Facility: [facility] Address: [address] [place] [address] Performed By: #### 2 4328, 2531-0 ####[facility] LABCLIA [id number] [place] [address] [place] Protein [Mass/Vol] 6.8 g/dL Normal 6.3-8.0 [facility] Comment on above: Order Comment: Speci men Type: BLOOD SPECIMENOrdering Facility: [facility] Address: [address] [place] [address] Performed By: #### 2 43204-25, 0 ####[facility] LABIA [id number] [place] [address] [place] Sodium [Moles/Vol] 138 mmol/L Normal 136-144 [facility] Comment on above: Order Comment: Speci men Type: BLOOD SPECIMENOrdering Facility: [facility] Address: [address] [place] [address] Performed By: #### 2 43204-25, 2531-0 ####[facility] LABCLIA [id number] [place] [id number] [place] Urea nitrogen [Mass/Vol] 8 mg/dL Low 9-24 [facility] Comment on above: Order Comment: Speci men Type: BLOOD SPECIMENOrdering Facility: [facility] Address: [address] [place] [address] Performed By: #### 2 4328, 2531-0 ####[facility] LABCLIA [id number] [address] [address] [place] ECG COMPLETEon 10-18-2023 ECG COMPLETE Ventricular Rate : 7 2 BPM Atrial Rate : 72 BPM P-R Interval : 146 ms QRS Duration : 102 ms Q-T Interval : 404 ms QTC Calculation(Bazett) : 442 ms Calculated P [place] : 30 degrees Calculated R [place] : -9 degrees Calculated T [place] : 148 degrees NORMAL SINUS RHYTHM LEFT VENTRICULAR HYPERTROPHY WITH REPOLARIZATION ABNORMALITY ABNORMAL ECG Confirmed by MD DANIA, PhD, LUL ([id number]) on 12/14/2022 5:15:54 AM NAME : CONOR LEE PID : [id number] : 1965 Gender : Male Race : ORD : [id number] Procedure Date : Dec 05 2022 08:48:34 Edit Date : Dec 14 2022 05:15:59 Diagnosis: NORMAL SINUS RHYTHM LEFT VENTRICULAR HYPERTROPHY WITH REPOLARIZATION ABNORMALITY ABNORMAL ECG Confirmed by MD DANIA, PhD, LUL ([id number]) on 12/14/2022 5:15:54 AM Test Reason : Location : [facility] : [facility] Overread By : MD DANIA, PhD,LUL Edited By : MD DANIA, PhD,LUL Referred By : MIMI MCKINNEY Acquired by : LIANA GIPSON [facility] ECHOon 12-05-2022 Echocardiography Echocardiography Report: Transthoracic Echo [facility] J35 Date of service: 12/05/2022 12:38:16 PM PROCESSOR Ordering physician: MIMI MCKINNEY Indication: Initial postoperative [...] * * Final * * * CC [employer] Image : [id number] micsSISUID Normal [facility] LDH SerPl-cCncon 12-05-2022 LDH [Catalytic activity/Vol] 294 U/L High 135-225 [facility] Comment on above: Order Comment: Speci men Type: BLOOD SPECIMENOrdering Facility: [facility] Address: [address] [place] [address] [place] [address] Performed By: #### 2 6703-8, 3232-0 ####[facility] LABCLIA [id number] [place] [address] [place] PT panel Coag (PPP)on 2022 INR Coag (PPP) [Relative time] 1.0 {INR} Normal 0.9-1.3 [facility] Comment on above: Order Comment: Sylvie hammer Type: BLOOD SPECIMENOrdering Facility: [facility] Address: [address] [place] [address] Result Comment: Brianna min K Antagonist (VKA) Therapeutic Range: INR 2 to 3 (Target INR of 2.5) Note: For patients treated with VKA drugs, such as warfarin, the [employer] 2012 Guideline recommends [...] Chest 2012, 141:7S-47S Pat RA, et al. [facility] 2017, 70: 252-289 Performed By: #### 3 4528-0, 65623-6 ####[facility] LABCLIA [id number] [place] [address] [place] PT Coag (PPP) [Time] 10.3 s Normal 9.7-13.0 [facility] Comment on above: Order Comment: Sylvie hammer Type: BLOOD SPECIMENOrdering Facility: [facility] Address: [address] [place] [address] Performed By: #### 3 4528-0, 28832-0 ####[facility] LABCLIA [id number] [place] [address] [place] PVR ANK PRESS RADAMES VAS LABon 12-05-2022 PVR ANK PRESS RADAMES VAS LAB Non-Invasive Vascular Laboratory [facility] J35 Lower Extremity Arterial Physiology Study [...] physician: Judith Michel MD, RPVI Final CC [employer] Image : [id number] [employer]Life[employer]DynamicsSISUID See Link below for Image Normal [facility] US ABDOMEN COMPLETEon 2022 US ABDOMEN COMPLETE [...] spleen, abdominal aorta could not be visualized. Teaching Artist: PSCB Transcribe Date/Time: Dec 05 2022 11:36A Dictated by : CHANI CASAS MD This examination was interpreted and the report reviewed and electronically signed by: DEAN CHACON MD on Dec 05 2022 11:56AM EST [id number] Normal [facility] aPTT PPPon 12-05-2022 aPTT Coag (PPP) [Time] 28.5 s Normal 23.0-32.4 [facility] Comment on above: Order Comment: Speci men Type: BLOOD SPECIMENOrdering Facility: [facility] Address: [address] [place] [address] Performed By: #### 3 4528-0, 66493-9 ####[facility] LABCLIA [id number] [address] [place] CNOVon 12-04-2022 CNOV Office Visit (VAMEAV ) CONOR LEE ([id number]) 1965 M Date Time Provider Department 12/04/22 10:45 AM SETH JENKINS During your visit today, we recorded the following information about you: Pulse Blood pressure Weight Height 76/minute 130/80 85.7 kg 1.778 m Seth Jenkins MD 12/04/2022 10:55 AM Signed [facility] [place] Christelle Rodriguez Department of Cardiovascular Medicine SECTION [...] to have extensive CAD. Work-up done at [facility]. Referred to [facility] for surgical evaluation. During his catheterization [...] ETOH abuse, Hypertension, PAD (peripheral artery disease) ([facility]), Peripheral vascular disease ([facility]), Prosthetic aortic valve stenosis, and Smoker. Past [...] artery disease including a chronic total occlusion (CASTING MACHINE SERVICE OPERATOR) of the right coronary artery Normal global [...] medical t (more content not included)... Normal [facility] ED Note-Physicianon 11-15-19 ED Note-Physician [id number] .00CD:127 Normal [facility] RAD - MISCon 11-14-2022 RAD - MISC [id number]. 00CD:127 Normal [facility]Non [facility] CONOR [facility] ([id number]) 1965 M Date Time Provider Department 11/07/22 MIMI MCKINNEY [facility] During your visit today, we recorded the following information about you: Maria Guadalupe Lopez 11/07/2022 11:50 AM Signed IN Allergies As of Date: 11/07/2022 (Not on File) Date Reviewed: Never Reviewed Reason for Visit: Insurance Inquiry [1462] Problem List As Of Date: 11/07/2022 (None) Encounter Status:Closed by MARIA GUADALUPE LOPEZ on [facility]07[facility]22 [facility] CONOR LEE ([id number]) 1965 M Date Time Provider Department 11/07/22 [...] for his review/plan of care. Conor Lee [id number] 57 year old Diagnosis: severe Prosthetic mean [...] 4:03 PM Signed Expedite. Evaluation only. Cards EUFSO-cqigswd-Iqpgusb r medicine consult 12/05/22, Dr. Mckinney consult [...] for preprocedural cardiovascular examination [Z01.810] 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) [I25.118] PVD (peripheral vascular disease) (HCC) [I73.9] Hyperlipidemia, unspecified hyperlipidemia type [E78.5] S/P AVR (aortic valve replacement) [Z95.2] Essential hypertension [I10] Order(s):CONSULT TO CARDIOLOGY [9003] Order #: [id number]: 1 FUTURE CARDIOTHORACIC PREOP EVALUATION [] Order #: [id number]: 1 FUTURE CONSULT TO VASCULAR MEDICINE [19990525] Order #: [id number]: 1 FUTURE COMP METABOLIC PANEL [SQCMP] Order #: [id number] FUTURE LD LACTATE DEHYDRO [SQLD6] Order #: [id number] FUTURE CBC + DIFF [SQCBCDIF] Order #: [id number] FUTURE PROTHROMBIN TIME/PT [SQPT] Order #: [id number] FUTURE ACTIVATED PTT [SQPTT] Order #: [id number] FUTURE ECG COMPLETE [ECG01] Order #: [id number] FUTURE PVR ANK PRESS RADAMES VAS LAB [7369435] Order #: [id number] ECHO [521459] Order #: [id number]: 1 FUTURE CTA CHEST (GATED) W IVCON [4092148] Order #: [id number] FUTURE SPIROMETRY BASELINE ONLY [3802211] Order #: [id number]: 1 FUTURE LUNG DIFFUSION CAPACITY (DLCO) [7369203] Order #: [id number]: 1 FUTURE US ABDOMEN COMPLETE [5424525] Order #: [id number] FUTURE Problem List As Of Date: 11/07/2022 (None) Encounter Status:Closed by NEIL FORD on 11/20/22 Normal [facility] 36on 11-01-2022 36 Patient made aware. 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 Dr. Ledesma. Redo AVR, Multivessel disease. [facility] 36on 10-19-2022 36 Patient called to make you aware that his BP this morning was 123/86, HR 87. Says he's checked it several times and it's running around those same numbers. FRANCISCO. Thanks [facility] Danielle 10-18-2022 ANES - Attestation signed by Arvin Ledesma MD at 10/18/2022 11:06 AM Arvin Ledesma MD, MPH, [facility], [facility], [facility] Interventional Cardiology Pager Email: [email or web address] Patient: Conor Lee Procedure Information Date/Time: 10/18/22 1130 Procedure: Coronary angiography (Bilateral) Location: [facility] BATCH MAKER 3 / [facility] (Cath) Providers: Arvin Ledesma MD [...] consented to blood products. Additional Equipment Requests [facility] HPon 10-18-2022 HP - Attestation signed by Arvin Ledesma MD at 10/18/2022 11:05 AM Arvin Ledesma MD, MPH, [facility], [facility], [facility] Interventional Cardiology Pager Email: [email or web address] H&P reviewed. The patient was examined and there are no changes to the H&P. Normal [facility] NURSNOTEon 10-18-2022 NURSNOTE Patient states he is [...] is still elevated he is to call [facility]. states patient's BP may be [...] to the ER with any concerns. Normal [facility] NURSNOTE Head of bed raised - patient sitting up tolerating his diet. Right groin cath site without bleeding or hematoma noted with head of bed raised. Normal [facility] NURSNOTE Head of bed increase d to about 30 degrees, right groin cath site without bleeding or hematoma with head of bed elevated. Normal [facility] NURSNOTE Dr. Ledesma aware o f BP of 198/103. No order at this time. Will monitor BP and notify MD if BP remains high prior to discharge. MD would like BP to be 170/95 prior to discharge and patient needs to be instructed to check his BP 1 hour after discharge and daily. If elevated he will notify his cardiology clinic Normal [facility] Orders Onlyon 10-11-2022 Orders Only [id number] Conor Lee 1965 M Date Provider Department Center 10/11/2022 CARYN CHAVEZ [facility] RI HeartVAS Family History Problem Relation Age of Onset Diabetes Other Hypertension Other Family Status - Relation Status Age at Other Normal [facility] HPon 10-08-2022 [facility] Cardiology Clinic Note Chief Complaint: Patient [...] valve disease, Hypertension, PAD (peripheral artery disease) ([facility]), and PVD (peripheral vascular disease) ([facility]). Surgical History He has a past surgical [...] associated cardiova (more content not included)... Normal [facility] Office Visiton 10-08-2022 Follow-up visit [id number] Conor Lee 1965 M Date Provider Department Center 10/08/2022 Rosy-ARVIN LEDESMA Family History Problem Relation Age of Onset Diabetes Other Hypertension Other Family Status - Relation Status Age at Other Level of Service:45167 SC OFFICE/OUTPATIENT ESTABLISHED HIGH MDM 40-54 MIN Normal [facility] Orders Onlyon 10-08-2022 Orders Only [id number] Conor Lee 1965 M Date Provider Department Center 10/08/2022 DARCY SULLIVAN [facility] Family History Problem Relation Age of Onset Diabetes Other Hypertension Other Family Status - Relation Status Age at Other Normal [facility] Family Medicine Office/Clini c Noteon 09-10-2022 Family [...] of aortic valve replacement in 2011 at [facility]. The patient smokes about a pack of cigarettes a day. He has tried quitting in the past. He quit for 8 months when he had his surgery, but then started back up again. He does not have a pickle solution maker. Review of Systems PHQ Score Initial Depression [...] medications, so I have reached out to [facility] to see if they can give me [...] this. We will again get records from [facility] cardiology. 4. Illiteracy (Z55.0: Illiteracy and low-level [...] with voice recognition artificial intelligence software, specifically [employer], [employer] and or [employer]. Substitutions may have occurred due to the inherent limitations of voice recognition and artificial intelligence software. ATTESTATION: Documentation services were performed after patient or guardian consented to allow Octavio Ge to record this visit. CHAN residential lawn specialist and provider reviewed before signing. CHAN: Chary Tomas Follow-up No qualifying data available Problem List/Past Medical History Ongoing Atherosclerosis of robinson artery of extremity Carpal tunnel syndrome Chronic obstructive bronchitis Disorder of diaphragm Endocarditis Essential hypertension Heart murmur Hemiparesis Illiteracy Lumbosacral spondylosis without myelopathy Neuralgia Neuritis Peripheral vascular disease Primary hypercholesterolemia PVD (pulmonary valve disease) Spasm of back muscles Thoracic spondylosis without myelopathy Historical No qualifying data Procedure/Surgical History Aortic valve replacement and replacement of ascending aorta ( (more content not included)... Normal [facility] Comment on above: Result Comment: Elec tronically [...] Your Care Team Attending Physician - Harpreet Lmi MD Primary Care Physician - Harpreet Lim [...] EST With: Carina MOMIN, Harpreet Roland Where: [facility] Medicine Office/Clini c Noteon 09-06-2022 Family Medicine [...] of aortic valve replacement in 2011 at [facility]. The patient smokes about a pack of cigarettes a day. He has tried quitting in the past. He quit for 8 months when he had his surgery, but then started back up again. He does not have a pickle solution maker. Review of Systems PHQ Score Initial Depression [...] medications, so I have reached out to [facility] to see if they can give me [...] this. We will again get records from [facility] cardiology. 4. Illiteracy (Z55.0: Illiteracy and low-level [...] with voice recognition artificial intelligence software, specifically [employer], [employer] and or [employer]. Substitutions may have occurred due to the inherent limitations of voice recognition and artificial intelligence software. ATTESTATION: Documentation services were performed after patient or guardian consented to allow Oct[employer] Ge to record this visit. CHAN residential lawn specialist and provider reviewed before signing. CHAN: Chary Tomas Follow-up No qualifying data available Problem List/Past Medical History Ongoing Atherosclerosis of robinson artery of extremity Carpal tunnel syndrome Chronic obstructive bronchitis Disorder of diaphragm Endocarditis Essential hypertension Heart murmur Hemiparesis Illiteracy Lumbosacral spondylosis without myelopathy Neuralgia Neuritis Peripheral vascular disease Primary hypercholesterolemia PVD (pulmonary valve disease) Spasm of back muscles Thoracic spondylosis without myelopathy Historical No qualifying data Procedure/Surgical History Aortic valve replacement and replacement of ascending aorta (09/06 (more content not included)... Normal [facility] Comment on above: Result Comment: Elec tronically Signed By: Chary Tomas\.br\Date and Time Signed: 09/06/22 11:27 EDT\.br\Electronically Co-Signed By: Chary Tomas\.br\Date and Time Co-Signed: 09/06/22 12:04 EDT\.br\Electronically Co-Signed By: Harpreet Lim MD Ambulatory Visit Summaryon 0 06-13-2022 Ambulatory Visit Summary CONOR LEE :1965 Visit Date:06/13/2022 Ambulatory Visit Instructions Your Diagnosis Atherosclerosis of robinson artery of extremity Carpal tunnel syndrome Chronic [...] for for wheezing or SOB Pickup at [facility] Changed aspirin (aspirin 81 mg Oral EC Tab) 1 Tablets By Mouth Every day Pickup at [facility] Changed cilostazol (cilostazol 50 mg Tab) 1 Tablets By Mouth 2 times a day Pickup at [facility] Changed cyclobenzaprine (cyclobenzaprine 10 mg Tab) 1 Tablets By Mouth Once a day (in the evening) as needed for for spasm Pickup at [facility] Changed famotidine (famotidine 40 mg Tab) 1 Tablets By Mouth Every day Pickup at [facility] Changed lisinopril (lisinopril 10 mg Tab) 1 Tablets By Mouth 2 times a day Pickup at [facility] Changed metoprolol (Metoprolol tartrate 25 mg Tab) 1 Tablets By Mouth 2 times a day Pickup at [facility] Pharmacy Information [facility]: [address]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 MOLECULAR & FUNCTIONAL IMAGING Diagnoses Lung mass Mediastinal adenopathy Procedures NM PET/CT SKULL-THIGH INITIAL PET IMAGING CT ATTENUATION SKULL BASE MID-THIGH Rima Mead MD [address] [place] [address] [phone] Molecular & Functional Imaging [address] [place] [address] Referral ID Status Reason Start Date Expiration Date Visits Requested Visits Authorized [id number] Pending Review Auto-Generat ed Referral 3 01/16/2024 1 1 [facility] for referral (narrative)* Outpatient Procedure (Routine) - Pending Review Specialty Diagnoses / Procedures Referred By Mereac t Referred To Contact [facility] Diagnoses Stenosis of prosthetic aortic valve, subsequent encounter Encounter for preprocedural cardiovascular examination Aortic valve disorder Procedures ECG COMPLETE ECG ROUTINE ECG W/LEAST 12 LDS W/I&R Mayra Kapadia APRN.AIRBRUSH ARTIST TECHNICAL [address] [place] [address] [place] [address] Referral ID Status Reason Start Date Expiration Date Visits Requested Visits Authorized [id number] Pending Review Auto-Generat ed Referral 3 01/02/2024 1 1 * MRI/CT (Routine) - Pending Review Specialty Diagnoses / Procedures Referred By Archie higgins Referred To Contact CT IMAGING Diagnoses Stenosis of prosthetic aortic valve, subsequent encounter Encounter for preprocedural cardiovascular examination Aortic valve disorder Procedures CTA CHEST/ABD/PEL (GATED) W IVCON CT ANGIOGRAPHY CHEST W/CONTRAST/NONCONTRAST CT ANGIO ABD&PLVIS CNTRST MTRL W/WO CNTRST Mayra Flor APRN.AIRBRUSH ARTIST TECHNICAL [address] [place] [address] [address] [facility] [place] [address] Referral ID Status Reason Start Date Expiration Date Visits Requested Visits Authorized [id number] Pending Review Auto-Generat ed Referral 3 02/01/2024 1 1 [facility] for visit Narrative* Diagnostic Procedure Only (Routine) - Closed Specialty Diagnoses / Procedures Referred By Archie t Referred To Contact US IMAGING Diagnoses Encounter for preprocedural cardiovascular examination Aortic valve disorder 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) Procedures US ABDOMEN COMPLETE US ABDOMINAL REAL TIME W/IMAGE DOCUMENTATION Mimi Mckinney MD [address] [place] [address] [facility] [place] [address] Referral ID Status Reason Start Date Expiration Date V isits Requested Visits Authorized [id number] Closed Auto-Generate d Referral 11/20/2022 12/20/2023 1 1 [facility] Summary Purpose Family History No Family [...] Procedures CONSULT TO VASCULAR SURGERY OFFICE/OUTPATIENT [facility] 60-74 MINUTES Mimi Mckinney MD [address] [phone] Referral ID Status Reason Start Date Expiration Date Visits Requested Visits Authorized [id number] Authorized PCP Requested Referral 3 12/07/2023 1 1 Specialty Diagnoses / Procedures Referred By Contac t Referred To Contact Pulmonary and Critical Care Medicine Diagnoses Lung mass Procedures CONSULT TO PULM/CRITICAL CARE OFFICE/OUTPATIENT [facility] MDM 60-[place] [address] [place] [address] Referral ID Status Reason Start Date Expiration Date Visits Requested Visits Authorized [id number] Authorized PCP Requested Referral 3 12/07/2023 1 1 Specialty Diagnoses / Procedures Referred By Contac t Referred To Contact Procedures CARDIOVASCULAR MEDICINE OP FOLLOW UP APPT ORDER Lex Anderson MD [address] [phone] Referral ID Status Reason Start Date Expiration Date Visits Requested Visits Authorized [id number] Ref Not Required PCP Requested Referral 12/20/2022 12/20/2023 1 1 Specialty Diagnoses / Procedures Referred By Contac t Referred To Contact Rima Mead MD [address] [place] [address] Referral ID Status Reason Start Date Expiration Date V isits Requested Visits Authorized [id number] Pending Review 1 1 Specialty Diagnoses / Procedures Referred By Contac t Referred To Contact Procedures CARDIOVASCULAR MEDICINE OP FOLLOW UP APPT ORDER Cyndi Schuster MD [address] [place] [phone] Referral ID Status Reason Start Date Expiration Date Visits Requested Visits Authorized [id number] Ref Not Required PCP Requested Referral 3 02/01/2024 1 1 Specialty Diagnoses / Procedures Referred By Contac t Referred To Contact Procedures CARDIOVASCULAR MEDICINE OP FOLLOW UP APPT ORDER Natividad Moore APRN.CNP [address] [place] [address] Referral ID Status Reason Start Date Expiration Date Visits Requested Visits Authorized [id number] Ref Not Required PCP Requested Referral 3 02/01/2024 1 1 Additional Source Comments (unrecognized sect ion and content) No Status Records FoundNo Status Records FoundNo Status Records FoundNo Status Records FoundNo Status Records FoundNo Status Records Found INFORMATION SOURCE (unrecogn ized section and content) DATE CREATED AUTHOR 12/03/2019 [facility] DATE CREATED AUTHOR AUTHOR'S ORGANIZ ATION 12/12/2021 [facility] DATE CREATED AUTHOR AUTHOR'S ORGANIZ ATION 11/04/2022 [facility] DATE CREATED AUTHOR AUTHOR'S ORGANIZ ATION 01/17/2023 [facility] DATE CREATED AUTHOR AUTHOR'S ORGANIZ ATION 02/06/2023 [facility] DATE CREATED AUTHOR AUTHOR'S ORGANIZ ATION 02/07/2023 [facility] Source Comments (unrecognize d section and content) In the event this informatio n is protected by the Federal Confidentiality of Alcohol and Drug Abuse Patient Records regulations: The Federal rules restrict any use of the information to criminally investigate or prosecute any alcohol or drug abuse patient.[facility] the event this information is protected by the Federal Confidentiality of Alcohol and Drug Abuse Patient Records regulations: The Federal rules restrict any use of the information to criminally investigate or prosecute any alcohol or drug abuse patient.[facility] the event this information is protected by the Federal Confidentiality of Alcohol and Drug Abuse Patient Records regulations: The Federal rules restrict any use of the information to criminally investigate or prosecute any alcohol or drug abuse patient.[facility] the event this information is protected by the Federal Confidentiality of Alcohol and Drug Abuse Patient Records regulations: The Federal rules restrict any use of the information to criminally investigate or prosecute any alcohol or drug abuse patient.[facility] the event this information is protected by the Federal Confidentiality of Alcohol and Drug Abuse Patient Records regulations: The Federal rules restrict any use of the information to criminally investigate or prosecute any alcohol or drug abuse patient.[facility] the event this information is protected by the Federal Confidentiality of Alcohol and Drug Abuse Patient Records regulations: The Federal rules restrict any use of the information to criminally investigate or prosecute any alcohol or drug abuse patient.[facility] the event this information is protected by the Federal Confidentiality of Alcohol and Drug Abuse Patient Records regulations: The Federal rules restrict any use of the information to criminally investigate or prosecute any alcohol or drug abuse patient.[facility] the event this information is protected by the Federal Confidentiality of Alcohol and Drug Abuse Patient Records regulations: The Federal rules restrict any use of the information to criminally investigate or prosecute any alcohol or drug abuse patient.[facility] the event this information is protected by the Federal Confidentiality of Alcohol and Drug Abuse Patient Records regulations: The Federal rules restrict any use of the information to criminally investigate or prosecute any alcohol or drug abuse patient.[facility] the event this information is protected by the Federal Confidentiality of Alcohol and Drug Abuse Patient Records regulations: The Federal rules restrict any use of the information to criminally investigate or prosecute any alcohol or drug abuse patient.[facility] the event this information is protected by the Federal Confidentiality of Alcohol and Drug Abuse Patient Records regulations: The Federal rules restrict any use of the information to criminally investigate or prosecute any alcohol or drug abuse patient.[facility] the event this information is protected by the Federal Confidentiality of Alcohol and Drug Abuse Patient Records regulations: The Federal rules restrict any use of the information to criminally investigate or prosecute any alcohol or drug abuse patient.[facility] the event this information is protected by the Federal Confidentiality of Alcohol and Drug Abuse Patient Records regulations: The Federal rules restrict any use of the information to criminally investigate or prosecute any alcohol or drug abuse patient.[facility] the event this information is protected by the Federal Confidentiality of Alcohol and Drug Abuse Patient Records regulations: The Federal rules restrict any use of the information to criminally investigate or prosecute any alcohol or drug abuse patient.[facility] the event this information is protected by the Federal Confidentiality of Alcohol and Drug Abuse Patient Records regulations: The Federal rules restrict any use of the information to criminally investigate or prosecute any alcohol or drug abuse patient.[facility] the event this information is protected by the Federal Confidentiality of Alcohol and Drug Abuse Patient Records regulations: The Federal rules restrict any use of the information to criminally investigate or prosecute any alcohol or drug abuse patient.[facility] the event this information is protected by the Federal Confidentiality of Alcohol and Drug Abuse Patient Records regulations: The Federal rules restrict any use of the information to criminally investigate or prosecute any alcohol or drug abuse patient.[facility] the event this information is protected by the Federal Confidentiality of Alcohol and Drug Abuse Patient Records regulations: The Federal rules restrict any use of the information to criminally investigate or prosecute any alcohol or drug abuse patient.[facility] the event this information is protected by the Federal Confidentiality of Alcohol and Drug Abuse Patient Records regulations: The Federal rules restrict any use of the information to criminally investigate or prosecute any alcohol or drug abuse patient.[facility] Reason for Visit (unrecogniz ed section and content) Reason Comments Insurance Inquiry Reason Comments Referral Information Initial Consult Reason Comments New Patient Reason Comments Spirometry Specialty Diagnoses / Procedures Referred By Contac t Referred To Contact [facility] Diagnoses Encounter for preprocedural cardiovascular examination Aortic valve disorder 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) Procedures LUNG DIFFUSION CAPACITY (DLCO) DIFFUSING CAPACITY Mimi Mckinney MD [address] [place] [address] [place] [address] Referral ID Status Reason Start Date Expiration Date V isits Requested Visits Authorized [id number] Closed Auto-Generate d Referral 11/20/2022 12/20/2023 1 1 Specialty Diagnoses / Procedures Referred By Contac t Referred To Contact [facility] Diagnoses Encounter for preprocedural cardiovascular examination Aortic valve disorder 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) Procedures SPIROMETRY BASELINE ONLY SPMTRY W/VC EXPIRATORY HARESH W/WO MXML VOL VNTJ Mimi Mckinney MD [address] [place] [address] [place] [address] Referral ID Status Reason Start Date Expiration Date V isits Requested Visits Authorized [id number] Closed Auto-Generate d Referral 11/20/2022 12/20/2023 1 1 Reason Comments Consult Specialty Diagnoses / Procedures Referred By Archie t Referred To Contact Cardiac Surg Diagnoses Encounter for preprocedural cardiovascular examination Aortic valve disorder 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) Procedures CARDIOTHORACIC PREOP EVALUATION OFFICE/OUTPATIENT [facility] 60-[place] [address] [place], [place] [id number] Referral ID Status Reason Start Date Expiration Date V isits Requested Visits Authorized [id number] Closed PCP Requested Referral 11/20/2022 11/20/2023 1 1 Reason Comments TAVR Consult Reason Comments Consult Specialty Diagnoses / Procedures Referred By Contac t Referred To Contact Vascular Surgery Diagnoses PVD (peripheral vascular disease) (HCC) Procedures CONSULT TO VASCULAR SURGERY OFFICE/OUTPATIENT [facility] MDM 60-[place] [address] [place], [place] [address] [place] [phone] Referral ID Status Reason Start Date Expiration Date V isits Requested Visits Authorized [id number] Closed PCP Requested Referral 12/07/2022 12/07/2023 1 1 Reason Comments Lung Mass Specialty Diagnoses / Procedures Referred By Contac t Referred To Contact Pulmonary and Critical Care Medicine Diagnoses Lung mass Procedures CONSULT TO PULM/CRITICAL CARE OFFICE/OUTPATIENT [facility]DM 60-74 MINUTES Mimi Mckinney MD [address] [place] [address] Referral ID Status Reason Start Date Expiration Date V isits Requested Visits Authorized [id number] Closed PCP Requested Referral 12/07/2022 12/07/2023 1 1 Reason Comments Chest Pain Specialty Diagnoses / Procedures Referred By Contac t Referred To Contact Diagnoses Lung mass Hypoxia Chest pain, unspecified type Referral ID Status Reason Start Date Expiration Date Visits Re quested Visits Authorized [id number] 1 1 Reason Comments Benefits Authorization Reason [...] ABD&PLVIS CNTRST MTRL W/WO CNTRST Mayra Flor, MACHINE CUTTER.AIRBRUSH ARTIST TECHNICAL [address] [place] [address] [address] [facility] [place] [address] Referral ID Status Reason Start Date Expiration Date V isits Requested Visits Authorized [id number] Closed Auto-Generate d Referral 01/04/2023 03/05/2023 1 1 Reason Comments Radio Main J1 Care Teams (unrecognized sec tion and content) Media Operator Relationship Specialty Start Date End Date Naomie Bermudez MD [address] [phone] PCP - General Family Medicine 07/18/11 Mimi Mckinney MD [facility] [place] [address] Surgeon Cardiac Surg 11/07/22 Media Operator Relationship Specialty Start Date End Date Naomie Bermudez MD [address] [place] [address] PCP - General Family Medicine 07/18/11 Mimi Mckinney MD [address] [place] [address] Surgeon Cardiac Surg 11/07/22 Media Operator Relationship Specialty Start Date End Date Namoie Bermudez MD [address] [place] [phone] PCP - General Family Medicine 07/18/11 Mimi Mckinney MD [address] [place] [phone] Surgeon Cardiac Surg 11/07/22 Lex Anderson MD [address] [place] [address] Education Program Associate Cardiology 11/22/22 Media Operator Relationship Specialty Start Date End Date Naomie Bermudez MD [address] [place] [phone] PCP - General Family Medicine 07/18/11 Mimi Mckinney MD [address] [place] [address] Surgeon Cardiac Surg 11/07/22 Lex Anderson MD [address] [place] [address] Education Program Associate Cardiology 11/22/22 Lex Anderson MD [address] [place] [address] Primary Staff Physician Cardiology 12/05/22 Media Operator Relationship Specialty Start Date End Date Naomie Bermudez MD [address] [place] [phone] PCP - General Family Medicine 07/18/11 Mimi Mckinney MD [address] [place] [address] Surgeon Cardiac Surg 11/07/22 Lex Anderson MD [address] [place] [address] Education Program Associate Cardiology 11/22/22 Lex Anderson MD [address] [place] [address] Primary Staff Physician Cardiology 12/05/22 Media Operator Relationship Specialty Start Date End Date Naomie Bermudez MD [address] [place] [address] PCP - General Family Medicine 07/18/11 Mimi Mckinney MD [address] [place], [place] [id number] Surgeon Cardiac Surg 11/07/22 Lex Anderson MD [address] [place], [place] [id number] Education Program Associate Cardiology 11/22/22 Lex Anderson MD [address] [place] [address] Primary Staff Physician Cardiology 12/05/22 Media Operator Relationship Specialty Start Date End Date Naomie Bermudez MD [address] [place] [address] PCP - General Family Medicine 07/18/11 Mimi Mckinney MD [address] [place] [address] Surgeon Cardiac Surg 11/07/22 Lex Anderson MD [address] [place] [address] Education Program Associate Cardiology 11/22/22 Lex Anderson MD [address] [place] [address] Primary Staff Physician Cardiology 12/05/22 Media Operator Relationship Specialty Start Date End Date Naomie Bermudez MD [address] [place] [phone] PCP - General Family Medicine 07/18/11 Mimi Mckinney MD [address] [place] [address] Surgeon Cardiac Surg 11/07/22 Lex Anderson MD [address] [place], [place] [id number] Education Program Associate Cardiology 11/22/22 Lex Anderson MD [address] [place] [address] Primary Staff Physician Cardiology 12/05/22 Media Operator Relationship Specialty Start Date End Date Naomie Bermudez MD [address] [place] [address] PCP - General Family Medicine 07/18/11 Mimi Mckinney MD [address] [place] [address] Surgeon Cardiac Surg 11/07/22 Lex Anderson MD [address] [place] [address] Education Program Associate Cardiology 11/22/22 Lex Anderson MD [address] [place] [address] Primary Staff Physician Cardiology 12/05/22 Media Operator Relationship Specialty Start Date End Date Naomie Bermudez MD [address] [place] [address] PCP - General Family Medicine 07/18/11 Mimi Mckinney MD [address] [place], [place] [id number] Surgeon Cardiac Surg 11/07/22 Lex Anderson MD [address] [place] [address] Education Program Associate Cardiology 11/22/22 Lex Anderson MD [address] [place] [address] Primary Staff Physician Cardiology 12/05/22 Media Operator Relationship Specialty Start Date End Date Harpreet Lim MD [address] [place] [address] PCP - General Family Medicine 01/01/23 Mimi Mckinney MD [address] [place] [address] Surgeon Cardiac Surg 11/07/22 Lex Anderson MD [address] [place] [address] Education Program Associate Cardiology 11/22/22 Lex Anderson MD [address] [place] [address] Primary Staff Physician Cardiology 12/05/22 Media Operator Relationship Specialty Start Date End Date Harpreet Lim MD [address] [place] [address] PCP - General Family Medicine 01/01/23 Mimi Mckinney MD [address] [place], [place] [phone] Surgeon Cardiac Surg 11/07/22 Lex Anderson MD [address] [place], [place] [phone] Education Program Associate Cardiology 11/22/22 Lex Anderson MD [address] [place] [address] Primary Staff Physician Cardiology 12/05/22 Media Operator Relationship Specialty Start Date End Date Harpreet Lim MD [address] [place] [phone] PCP - General Family Medicine 01/01/23 Mimi Mckinney MD [address] [place], [place] [id number] Surgeon Cardiac Surg 11/07/22 Lex Anderson MD [address] [place] [address] Education Program Associate Cardiology 11/22/22 Lex Anderson MD [address] [place], [place] [id number] Primary Staff Physician Cardiology 12/05/22 Media Operator Relationship Specialty Start Date End Date No, Physician [facility] PCP - General 01/15/23 Media Operator Relationship Specialty Start Date End Date Harpreet Lim MD [address] [place] [phone] PCP - General Family Medicine 01/01/23 Mimi Mckinney MD [address] [place] [address] Surgeon Cardiac Surg 11/07/22 Lex Anderson MD [address] [place], [place] [id number] Education Program Associate Cardiology 11/22/22 Lex Anderson MD [address] [place] [address] Primary Staff Physician Cardiology 12/05/22 Media Operator Relationship Specialty Start Date End Date Harpreet Lim MD [address] [place] [address] PCP - General Family Medicine 01/01/23 Mimi Mckinney MD [address] [place] [address] Surgeon Cardiac Surg 11/07/22 Lex Anderson MD [address] [place] [address] Education Program Associate Cardiology 11/22/22 Lex Anderson MD [address] [place] [address] Primary Staff Physician Cardiology 12/05/22 Media Operator Relationship Specialty Start Date End Date Harpreet Lim MD [address] [place] [phone] PCP - General Family Medicine 01/01/23 Mimi Mckinney MD [address] [place] [address] Surgeon Cardiac Surg 11/07/22 Lex Anderson MD [address] [place] [address] Education Program Associate Cardiology 11/22/22 Lex Anderson MD [address] [place], [place] [id number] Primary Staff Physician Cardiology 12/05/22 Media Operator Relationship Specialty Start Date End Date Harpreet Lim MD [address] [place] [address] PCP - General Family Medicine 01/01/23 Mimi Mckinney MD [address] [place], [place] [id number] Surgeon Cardiac Surg 11/07/22 Lex Anderson MD [address] [place], [place] 8029995 Education Program Associate Cardiology 11/22/22 Lex Anderson MD [address] [place], [place] [id number] Primary Staff Physician Cardiology 12/05/22 Scheduled Active [...] mL, Intravenous, Once in imaging, contrast, Per construction teacher (Radiology) for line patency check prior to contrast administration, Starting on Sat01/15/23 at 192, For 1 dose 1941 (Given - Provider: Maria Elena Hammer, TECHNOLOGIST) sodium chloride (PF) (NS) 0.9 % contrast line flush 80 mL (COMPLETED)(Linked [employer] 4) 80 mL, Intravenous, Once in imaging, contrast, Per construction teacher (Radiology), Starting on Sat01/15/23 at 192, For [...] mL, Intravenous, Once in imaging, contrast, Per construction teacher (Radiology) for line patency check prior to contrast administration, Starting on Sat01/15/23 at 1923, For 1 dose And sodium chloride (PF) (NS) 0.9 % contrast line flush 80 mL (COMPLETED)Jump to med 80 mL, Intravenous, Once in imaging, contrast, Per construction teacher (Radiology), Starting on Sat01/15/23 at 1923, For [...] BE BASED ON THE PRIMARY CLINICAL RECORDS. [facility]. provides no warranty or guarantee of the accuracy or completeness of information in this document.
[2023-02-08 07:48] LABS: Bilirubin Urine NEGATIVE (NEGATIVE); Blood Urine NEGATIVE (NEGATIVE); Clarity Urine CLEAR (CLEAR); Color Urine LT. YELLOW (YELLOW); Glucose Urine UA NEGATIVE (NEGATIVE); Ketones Urine NEGATIVE (NEGATIVE); Leukocyte Esterase Urine NEGATIVE (NEGATIVE); Nitrite Urine NEGATIVE (NEGATIVE); Protein Urine NEGATIVE (NEG/TRACE); Urobilinogen Urine 0.2 EU/dL (0.2-1.0); pH Urine 5.5 (5.0-9.0)
[2023-02-08 08:00] LABS: Bacteria Urine NONE SEEN #/HPF (NONE SEEN); Cast Seen? NONE SEEN #/LPF (NONE SEEN); Crystals Seen? None Seen #/HPF (None Seen); Mucus Urine NONE SEEN (NONE SEEN); RBC Urine NONE SEEN #/HPF (0-2); Squamous Epithelial Cell Urine RARE #/LPF (NONE/RARE); WBC Urine NONE SEEN #/HPF (NONE SEEN)
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
[2023-02-08] MEDS: ASPIRIN 81 MG TABLET.DR PO (08:13)
[2023-02-08] MEDS: LISINOPRIL 20 MG TABLET PO (08:13)
[2023-02-08] MEDS: CARVEDILOL 25 MG TABLET 37.5 MG PO (08:13)
[2023-02-08] MEDS: FUROSEMIDE 20 MG/2 ML VIAL 40 MG IVP (08:19)
[2023-02-08 10:34] LABS: Troponin I High Sensitivity 28.6 pg/mL (4.0-76.1)
[2023-02-08 11:25] LABS: SARS-CoV-2 NAA NOT DETECTED (NOT DETECTE)
[2023-02-08 11:43] LABS: Glucometer 123 mg/dL (74-106)
[2023-02-08] MEDS: CEFTRIAXONE 1 MG in 0.9 % SODIUM CHLORIDE 50 ML 100 MG IV (12:36)
--- NOTE | 2023-03-08 07:55 | PM.DS1 ---
DS: Providers Provider Date of admission: 02/08/23 00:33 Primary care physician: HARPREET LIM DS: Diagnosis Discharge Diagnosis (1) Chest pain: (2) CHF (congestive heart failure): (3) Hyponatremia: (4) CAP (community acquired pneumonia): (5) COPD (chronic obstructive pulmonary disease): (6) HTN (hypertension): (7) Rash: (8) Hyperglycemia: DS: Summary Hospital Course Hospital Course: Patient mated to the ICU with pneumonia and acute combined congestive heart failure with Sinus tachycardia, acute hypoxia, leukocytosis, elevated BNP secondary to left lower lobe pneumonia-demand ischemia resulting in sepsis with acute combined congestive heart failure. Patient diuresed well with over 2 L urine output. Patient was no longer hypoxic. Arrangements were made for transfer to the [facility] and that was accomplished. Patient will be discharged for transfer to [facility]. Time Spent with Patient Time attestation: Total time spent providing and/or coordinating discharge services: Exam Constitutional Vital Signs, click to edit/add: Last Vital Signs Temp 97.7 F 02/08/23 19:45 Pulse 69 02/08/23 19:45 Resp 16 02/08/23 19:45 BP 127/53 02/08/23 19:45 Pulse Ox 93 L 02/08/23 20:10 O2 Del Method Room Air 02/08/23 20:10 O2 Flow Rate 2.5 02/08/23 05:03 Documenting provider has reviewed patient's vital signs: yes Common normals: no apparent distress HENMT Common normals: normocephalic Chest Common normals: inspection of chest normal and palpation of chest normal Respiratory Common normals: normal respiratory effort and no retractions Auscultation: rhonchi left lower Cardio Common normals: regular rate and regular rhythm Heart sounds: murmur GI Common normals: Normal to inspection, nondistended, normoactive bowel sounds present Extremity Common normals: normal to inspection (1 + edema) Discharge Plan Discharge Disposition: [facility] Hospital Condition: Fair Discharge Date/Time: 02/08/23 21:05 Discharge Location: [facility]
== END 2023-02-08 21:05 | disposition short-term general hospital (02) | DRG 720 ==
LOC: ER 02-08 00:15 → ICU 02-08 00:37
PROVIDERS: Family Medicine; Internal Medicine; Admitting Provider Internal Medicine; Emergency Provider Emergency Medicine; PCP Family Medicine; Visit Provider Internal Medicine
DX: A41.9 Sepsis, unspecified organism (principal); J18.9 Pneumonia, unspecified organism; R09.02 Hypoxemia; I11.0 Hypertensive heart disease with heart failure; I50.41 Acute combined systolic (congestive) and diastolic (congestive) heart failure; I35.8 Other nonrheumatic aortic valve disorders; I24.89 Other forms of acute ischemic heart disease; I25.10 Atherosclerotic heart disease of native coronary artery without angina pectoris; E87.1 Hypo-osmolality and hyponatremia; E11.65 Type 2 diabetes mellitus with hyperglycemia; E78.00 Pure hypercholesterolemia, unspecified; J44.0 Chronic obstructive pulmonary disease with (acute) lower respiratory infection; F17.210 Nicotine dependence, cigarettes, uncomplicated; R91.8 Other nonspecific abnormal finding of lung field; R21 Rash and other nonspecific skin eruption; Z79.82 Long term (current) use of aspirin; Z79.899 Other long term (current) drug therapy; Z95.2 Presence of prosthetic heart valve; Z90.81 Acquired absence of spleen; Z83.3 Family history of diabetes mellitus; Z82.49 Family history of ischemic heart disease and other diseases of the circulatory system
CPT/HCPCS: 36415; 71045; 71275; 80048; 80053; 80061; 81001; 83735; 83880; 84443; 84484; 85025; 87070; 87635; 87811; 93005; 93306; 93356; 94761; 96365; 96366; 96367; 96372; 96375; 96376; 99283; 99285; J0456; Q3014; Q9967

== ENCOUNTER 2023-02-13 00:50 | Emergency (ER) | payer OTHER, SELFPAY ==
[2023-02-13] VITALS (10 sets, daily range): BP systolic 92; BP diastolic 54; PULSE 67–77; RESP 18–29; TEMP 36.5; O2SAT 96–99; BMI 26.1
--- NOTE | 2023-02-13 01:07 | ECG_ITS ---
[facility] Test Date: 2023-02-13 Pat Name: CONOR LEE Department: Room: - Gender: Male [employer]: : 1965 Requested By: HARPREET LIM Order Number: [id number] Reading MD: TUYET SURESH Measurements Intervals [place] Rate: 72 P: 48 OK: 138 QRS: 4 QRSD: 98 T: 185 QT: 416 QTc: 441 Interpretive Statements 1100 Sinus rhythm 5234 Left ventricular hypertrophy with repolarization abnormality 9150 abnormal ECG Compared to ECG 02/07/2023 22:35:01 No significant changes Electronically Signed On 02-13-2023 7:10:13 EST by TUYET SURESH
--- NOTE | 2023-02-13 01:07 | XR_ITS ---
The [address] [address] Patient Name: CONOR LEE MRN: [id number] date: 1965 Sex: M Assigned Patient Location: ER Current Patient Location: ER Accession/Order Number: [id number] Exam Date: 02/13/2023 01:20 Report Date: 02/13/2023 03:14 At the request of: KARLA BECKER Procedure: XR chest 1V EXAM: XR chest 1V HISTORY: SOB COMPARISON: Chest x-ray, 02/07/2023. TECHNIQUE: AP upright portable chest x-ray. FINDINGS: Sternotomy wires are unchanged. The heart, mediastinum and pulmonary vascularity are within normal limits. There is stable moderate asymmetric elevation of the left diaphragm. The lungs appear clear. XR/XR chest 1V IMPRESSION: Nonacute chest. No interval change. Electronically authenticated by: TANIA LEVI Date: 02/13/2023 03:14
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
--- NOTE | 2023-02-13 01:08 | PC.NURSE ---
patient feeling anxious like he cant breath. given 1 liter of o2 for comfort. oxygen increased from 96 to 98%
--- NOTE | 2023-02-13 01:09 | PC.NURSE ---
patient c/o SOB, states it feels like he just cant catch his breath. patient 96% on room air but would like oxygen. patient placed on 1 liter for comfort. states he was discharged from [facility] Saturday and is scheduled for heart valve replacement. patient states he has hx of COPD, and anxiety continues to smoke. patient lungs sound clear bilaterally. denies chest pains but states he has blockages in his heart. patient finger nails bluish tint, this is common for him. pulses present.
--- NOTE | 2023-02-13 02:08 | PC.NURSE ---
patient taken off o2. tolerating well at 96%
== END 2023-02-13 03:30 | disposition home or self-care (01) ==
PROVIDERS: Emergency Provider Emergency Medicine; PCP Family Medicine
DX: F41.9 Anxiety disorder, unspecified (principal); R06.02 Shortness of breath; Z79.82 Long term (current) use of aspirin; Z79.899 Other long term (current) drug therapy; I25.2 Old myocardial infarction; Z87.01 Personal history of pneumonia (recurrent); F10.10 Alcohol abuse, uncomplicated; I50.9 Heart failure, unspecified; Z95.2 Presence of prosthetic heart valve; Z90.81 Acquired absence of spleen; F17.210 Nicotine dependence, cigarettes, uncomplicated
CPT/HCPCS: 71045; 93005; 99284

== ENCOUNTER 2023-02-17 23:02 | Emergency (ER) | payer OTHER, SELFPAY ==
[2023-02-17] VITALS (9 sets, daily range): BP systolic 109–121; BP diastolic 76–77; PULSE 76–86; RESP 14–22; TEMP 37.1; O2SAT 97–99; BMI 26.8
--- OUTSIDE RECORDS SUMMARY | 2023-02-17 23:08 | XMS_ITS | CCD ---
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 HISTORY Problem Relation Age of Onset Hypertension Mother Hyperlipidemia Mother Diabetes Mother Hypertension Father Hyperlipidemia Father Diabetes Father SOCIAL HISTORY Social History Tobacco Use Smoking [...] drinking 3 weeks ago Drug use: Never HOME MEDICATIONS famotidine (PEPCID) 40 mg tabletTake 40 mg by mouth once daily.Disp: Rfl: cyclobenzaprine HCl (CYCLOBENZAPRINE ORAL)Take 10 mg by mouth once daily.Disp: Rfl: cilostazol (PLETAL) 50 mg tabletTake 50 mg by mouth once daily.Disp: Rfl: carvedilol (COREG) 25 mg tablet1 tablet by ORAL/FEEDING TUBE route two times a day with meals.Disp: 60 tabletRfl: 0 lisinopril (ZESTRIL) 10 mg tablet1 tablet by ORAL/FEEDING TUBE route once daily.Disp: 30 tabletRfl: 0 spironolactone (ALDACTONE) 25 mg tabletTake 1 tablet by mouth every morning.Disp: 30 tabletRfl: 0 chlorthalidone (HYGROTON) 25 mg tabletTake 1 tablet by mouth once daily.Disp: 30 tabletRfl: 0 calcium carb/magnesium hydrox (ROLAIDS ORAL)Take by mouth as needed (heartburn).Disp: Rfl: aspirin, enteric coated (ASPIRIN, ENTERIC COATED) 81 mg EC tabletTake 1 tablet by mouth once daily.Disp: Rfl: ALLERGIES ALLERGIES No Known Allergies COMPLETE REVIEW OF SYSTEMS Review of Systems: (Positive items in bold) GEN: No fevers, chills/night sweats, weight loss HEENT: No congestion, headaches, oral lesions, vision change CV: As per HPI PULM: No cough, shortness of breath, wheezing GI: No nausea, vomiting, diarrhea, change in appetite : No dysuria, hematuria, change in frequency MSK: No swelling, weakness NEURO: No numbness, tingling, focal weakness SKIN: No rash, skin breakdown Heme/Lymph: No new lymph nodes, easy bruising, e (more content not included)... Normal [facility] HbA1c (Bld)on 02-09-2023 Average glucose Estimated from glycated hemoglobin (Bld) [Mass/Vol] 134 mg/dL Normal [facility] Comment on above: Order Comment: Sylvie hammer Type: SWAB OF INTERNAL NOSE Ordering Facility: [facility] Address: [address] [place] [address] Result Comment: eAG: (Estimated average glucose) is a calculated value from HgbA1c and is representative personal service of the average blood glucose level in the last 2-3 month period. Performed By: #### S APCR #### [facility] CLIA [id number] [address] [place] [address] [place] HbA1c (Bld) [Mass fraction] 6.3 % High 4.3-5.6 [facility] Comment on above: Order Comment: Sylvie hammer Type: SWAB OF INTERNAL NOSE Ordering Facility: [facility] Address: [address] [place] [address] Result Comment: Amer ican Diabetes Association guidelines indicate that patients with HgbA1c in the range 5.7-6.4% are at increased risk for development of diabetes, and intervention by lifestyle modification may be beneficial. HgbA1c greater or equal to 6.5% is considered diagnostic of diabetes. Performed By: #### S APCR #### [facility] CLIA [id number] [address] [place] [address] [place] Magnesium SerPl-mCncon 02-09 Magnesium [Mass/Vol] 2.3 mg/dL Normal 1.7-2.3 [facility] Comment on above: Order Comment: Speci men Type: BLOOD SPECIMEN Ordering Facility: [facility] Address: [address] [place] [address] Performed By: #### 3 4528-0 #### [facility] [place] [id number] [address] [place] [address] [place] NT-proBNP SerPl-mCncon 02-09 Natriuretic peptide.B prohormone N-Terminal [Mass/Vol] 853 pg/mL High <125 [facility] Comment on above: Order Comment: Speci men Type: BLOOD SPECIMEN Ordering Facility: [facility] Address: [address] [place] [address] Performed By: #### 3 4528-0 #### [facility] [place] [id number] [address] [place] [address] [place] NURSING PROGon 02-09-2023 NURSING PROG HNO ID: [id number] Author: Cristine Gagnon RN Service: Nursing Author Type: Registered Nurse Type: Nursing Progress Note Filed: 02/09/2023 1:10 AM Note Text: Transfer Note: PATIENT NAME: Conor Lee Patient Location: [place] [address] Room: [place] [address] Patient transferred from outside hospital into [facility] room 20 in stable condition. Actions taken: vital signs AND orthostatics obtained, admission questions asked, head-to-toe assessment completed. Skin check done with Kristen RN. No signs/symptoms of skin breakdown. See integumentary AND LDA documentation. Patient oriented to unit, educated on use of call light AND falls precautions. No further actions taken at this time. Normal [facility] TSH SerPl-aCncon 02-09-2023 TSH Qn 3.350 m[IU]/L Normal 0.270-4.200 [facility] Comment on above: Order Comment: Speci men Type: BLOOD SPECIMEN Ordering Facility: [facility] Address: [address] [place] [address] Performed By: #### 3 4528-0 #### [facility] CLIA [id number] [address] [facility] DESK [id number] [id number] [place] Ambulatory Visit Summaryon 1 04-10-2022 Ambulatory Visit [...] AM EST With: Harpreet Lim MD Where: [facility] Family Medicine [facility] ED Note-Physicianon 02-08-20 ED Note-Physician [id number] .00TIFF [facility] Family Medicine Office/Clini c Noteon 02-07-2023 [facility] Medicine Office/Clinic Note HPI Staff Conor is a 57 year old male presenting for medication check htn At [facility] ER yesterday morning, sent home and went [...] lung) Patient should continue to follow-up with [facility]. Concerned that this rash may be caused by the cancer as patient states he has no other contacts or associations that he believes because this rash. Patient states he has a glass wool blanket machine feeder that is helping him through the cancer process. Reviewed records from [facility] and the patient's recent visit to the [facility]. Ordered: Body Mass Index (BMI) documented [...] pressure is (more content not included)... Normal [facility] Comment on above: Result Comment: Elec tronically Signed By: Brandon MOMIN, Harpreet Roland\.br\Date and Time Signed: 02/07/23 08:14 EST Lab Reportson 02-07-2023 Lab Reports [id number] .00TIFF Normal [facility] Patient Educationon 02-08-20 Patient Education Nutrition BMI [...] numbers. This can be done either in [place] ([place] or metric measurements. Note that charts and online BMI calculators are available to help you find your BMI quickly and easily without having to do these calculations yourself. To calculate your BMI in [place] ([place] measurements: 1. Measure your weight in [...] for Disease Control and Prevention: www.cdc.gov ? [place] Heart Association: www.heart.org ? National Heart, Lung, and Blood [place]: www.nhlbi.nih.gov Summary ? Body mass index (BMI) is a number that is calculated from a person's weight and height. ? BMI may help estimate how much of a person's weight is composed of fat. BMI can help identify those who may be at higher risk for certain medical problems. ? BMI can be measured using [place] measurements or metric measurements. ? BMI charts are used to identify whether you are underweight, normal weight, overweight, or obese. This information is not intended to replace advice given to you by your health care provider. Make sure you discuss any questions you have with your health care provider. Document Revised: 10/28/2019 Document Reviewed: 09/04/2019 [employer] Patient Education ? 2022 [place]. Pulmonary Medicine Steps to Quit Smoking Smoking [...] date to quit. (more content not included)... [facility] Consultation Noteon 02-07-20 Consultation Note [id number] .00TIFF [facility] ED Note-Physicianon 02-07-20 ED Note-Physician [id number] .00TIFF [facility] Population Healthon 02-07-20 Population Health Case Information Case Priority: None Programs: -- Referral Source: [employer]airy [employer] Supervisor Referral Reason: Care coordination Case Type: High Risk Adult Risk Score: -- Case Status: Enrolled (January 22, 2023) Date Assigned: January 21, 2023 Assigned By: Andres Damico Date Enrolled: January 22, 2023 Assigned Primary Personnel: Andres Damico Assigned Secondary Personnel: -- Case Physician: Ross MD, Harpreet E. 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 Patient states his [...] (min): 7 Outcome: Case discussion Contact Type: health and safety coordinator Contact Name: Andres Damico Notes: CASTING ROOM OPERATOR#4- Returned patient call for CASTING ROOM OPERATOR status update, see ft summary note. Created By: Andres Damico Date: February 01, 2023 Method: Phone call Type: Outbound Duration (min): 1 Outcome: Left message-voicemail Contact Type: health and safety coordinator Contact Name: Andres Damico Notes: CASTING ROOM OPERATOR#3-wgt- Attemtped to reach pt no answer, left vm for return call. Created By: Andres Damico Date: January 29, 2023 Method: Phone call Type: Outbound Duration (min): 1 Outcome: Left message-voicemail Contact Type: health and safety coordinator Contact Name: Andres Damico Notes: CASTING ROOM OPERATOR#2 and wgt- Attempted to reach pt for CASTING ROOM OPERATOR program call status update and wgt check, no answer, left vm for return call. Created By: Andres Damico Date: January 22, 2023 Method: Phone call Type: Outbound Duration (min): 14 Outcome: Case discussion Contact Type: health and safety coordinator Contact Name: Andres Damico Notes: CASTING ROOM OPERATOR#1- Spoke with patient for initial CASTING ROOM OPERATOR program call status update, see ft summary note. Created By: Andres Damico Date: January 21, 2023 Method: Phone call Type: Outbound Duration (min): 1 Outcome: Left message-voicemail Contact Type: health and safety coordinator Contact Name: Andres Damico Notes: CASTING ROOM OPERATOR#1- Attemtped to contact patient for initial CASTING ROOM OPERATOR call status update, no answer, left vm for return call. Created By: Andres Damico Normal [facility] RAD - CT Reporton 02-06-2023 RAD - CT Report [id number] .00TIFF Normal [facility] CBC W Auto Differential pane l (Bld)on 02-01-2023 Basophils (Bld) [#/Vol] 0.17 10*3/uL High <0.11 [facility] Comment on above: Order Comment: Speci men Type: SWAB OF INTERNAL NOSE Ordering Facility: [facility] Address: [address] [place] [address] Performed By: #### S APCR #### [facility] CLIA [id number] [address] [place] [address] [place] Basophils/100 WBC (Bld) 1.4 % Normal [facility] Comment on above: Order Comment: Speci men Type: SWAB OF INTERNAL NOSE Ordering Facility: [facility] Address: [address] [place] [address] Performed By: #### S APCR #### [facility] CLIA [id number] [address] [place] [address] [place] Differential cell count method Nom (Bld) Auto Normal [facility] Comment on above: Order Comment: Speci men Type: SWAB OF INTERNAL NOSE Ordering Facility: [facility] Address: [address] [place] [address] Performed By: #### S APCR #### [facility] CLIA [id number] [address] [place] [address] [place] Eosinophils (Bld) [#/Vol] 0.35 10*3/uL Normal <0.46 [facility] Comment on above: Order Comment: Speci men Type: SWAB OF INTERNAL NOSE Ordering Facility: [facility] Address: [address] [place] [address] Performed By: #### S APCR #### [facility] CLIA [id number] [address] [place] [address] [place] Eosinophils/100 WBC (Bld) 3.0 % Normal [facility] Comment on above: Order Comment: Speci men Type: SWAB OF INTERNAL NOSE Ordering Facility: [facility] Address: [address] [place] [address] Performed By: #### S APCR #### [facility] CLIA [id number] [address] [place] [address] [place] Erythrocyte distribution width (RBC) [Ratio] 13.6 % Normal 11.5-15.0 [facility] Comment on above: Order Comment: Speci men Type: SWAB OF INTERNAL NOSE Ordering Facility: [facility] Address: [address] [place] [address] Performed By: #### S APCR #### [facility] CLIA [id number] [address] [place] [address] [place] Hematocrit (Bld) [Volume fraction] 46.1 % Normal 39.0-51.0 [facility] Comment on above: Order Comment: Speci men Type: SWAB OF INTERNAL NOSE Ordering Facility: [facility] Address: [address] [place] [address] Performed By: #### S APCR #### [facility] CLIA [id number] [address] [place] [address] [place] Hemoglobin (Bld) [Mass/Vol] 15.9 g/dL Normal 13.0-17.0 [facility] Comment on above: Order Comment: Speci men Type: SWAB OF INTERNAL NOSE Ordering Facility: [facility] Address: [address] [place] [address] Performed By: #### S APCR #### [facility] CLIA [id number] [address] [place] [address] [place] Immature granulocytes (Bld) [#/Vol] 0.04 10*3/uL Normal <0.10 [facility] Comment on above: Order Comment: Speci men Type: SWAB OF INTERNAL NOSE Ordering Facility: [facility] Address: [address] [place] [address] Performed By: #### S APCR #### [facility] CLIA [id number] [address] [place] [address] [place] Immature granulocytes/100 WBC (Bld) 0.3 % Normal [facility] Comment on above: Order Comment: Speci men Type: SWAB OF INTERNAL NOSE Ordering Facility: [facility] Address: [address] [place] [address] Performed By: #### S APCR #### [facility] CLIA [id number] [address] [place] [address] [place] Lymphocytes (Bld) [#/Vol] 2.28 10*3/uL Normal 1.00-4.00 [facility] Comment on above: Order Comment: Speci men Type: SWAB OF INTERNAL NOSE Ordering Facility: [facility] Address: [address] [place] [address] Performed By: #### S APCR #### [facility] CLIA [id number] [address] [place] [address] [place] Lymphocytes/100 WBC (Bld) 19.4 % Normal [facility] Comment on above: Order Comment: Speci men Type: SWAB OF INTERNAL NOSE Ordering Facility: [facility] Address: [address] [place] [address] Performed By: #### S APCR #### [facility] CLIA [id number] [address] [place] [address] [place] MCH (RBC) [Entitic mass] 37.0 pg High 26.0-34.0 [facility] Comment on above: Order Comment: Speci men Type: SWAB OF INTERNAL NOSE Ordering Facility: [facility] Address: [address] [place] [address] Performed By: #### S APCR #### [facility] CLIA [id number] [address] [place] [address] [place] MCHC (RBC) [Mass/Vol] 34.5 g/dL Normal 30.5-36.0 [facility] Comment on above: Order Comment: Speci men Type: SWAB OF INTERNAL NOSE Ordering Facility: [facility] Address: [address] [place] [address] Performed By: #### S APCR #### [facility] CLIA [id number] [address] [place] [address] [place] MCV (RBC) [Entitic vol] 107.2 fL High 80.0-100.0 [facility] Comment on above: Order Comment: Speci men Type: SWAB OF INTERNAL NOSE Ordering Facility: [facility] Address: [address] [place] [address] Performed By: #### S APCR #### [facility] CLIA [id number] [address] [place] [address] [place] Monocytes (Bld) [#/Vol] 0.62 10*3/uL Normal <0.87 [facility] Comment on above: Order Comment: Speci men Type: SWAB OF INTERNAL NOSE Ordering Facility: [facility] Address: [address] [place] [address] Performed By: #### S APCR #### [facility] CLIA [id number] [address] [place] [address] [place] Monocytes/100 WBC (Bld) 5.3 % Normal [facility] Comment on above: Order Comment: Speci men Type: SWAB OF INTERNAL NOSE Ordering Facility: [facility] Address: [address] [place] [address] Performed By: #### S APCR #### [facility] CLIA [id number] [address] [place] [address] [place] Neutrophils (Bld) [#/Vol] 8.27 10*3/uL High 1.45-7.50 [facility] Comment on above: Order Comment: Speci men Type: SWAB OF INTERNAL NOSE Ordering Facility: [facility] Address: [address] [place] [address] Performed By: #### S APCR #### [facility] CLIA [id number] [address] [place] [address] [place] Neutrophils/100 WBC (Bld) 70.6 % Normal [facility] Comment on above: Order Comment: Speci men Type: SWAB OF INTERNAL NOSE Ordering Facility: [facility] Address: [address] [place] [address] Performed By: #### S APCR #### [facility] CLIA [id number] [address] [place] [address] [place] Nucleated RBC (Bld) [#/Vol] 10*3/uL Normal <0.01 [facility] Comment on above: Order Comment: Speci men Type: SWAB OF INTERNAL NOSE Ordering Facility: [facility] Address: [address] [place] [address] Performed By: #### S APCR #### [facility] CLIA [id number] [address] [place] [address] [place] Nucleated RBC/100 WBC (Bld) [Ratio] 0.0 /100 WBC Normal [facility] Comment on above: Order Comment: Speci men Type: SWAB OF INTERNAL NOSE Ordering Facility: [facility] Address: [address] [place] [address] Performed By: #### S APCR #### [facility] CLIA [id number] [address] [place] [address] [place] Platelet mean volume (Bld) [Entitic vol] 10.0 fL Normal 9.0-12.7 [facility] Comment on above: Order Comment: Speci men Type: SWAB OF INTERNAL NOSE Ordering Facility: [facility] Address: [address] [place] [address] Performed By: #### S APCR #### [facility] CLIA [id number] [address] [place] [address] [place] Platelets (Bld) [#/Vol] 277 10*3/uL Normal 150-400 [facility] Comment on above: Order Comment: Speci men Type: SWAB OF INTERNAL NOSE Ordering Facility: [facility] Address: [address] [place] [address] Performed By: #### S APCR #### [facility] CLIA [id number] [address] [place] [address] [place] RBC (Bld) [#/Vol] 4.30 10*6/uL Normal 4.20-6.00 [facility] Comment on above: Order Comment: Speci men Type: SWAB OF INTERNAL NOSE Ordering Facility: [facility] Address: [address] [place] [address] Performed By: #### S APCR #### [facility] CLIA [id number] [facility] [place] [address] [place] WBC (Bld) [#/Vol] 11.73 10*3/uL High 3.70-11.00 [facility] Comment on above: Order Comment: Speci men Type: SWAB OF INTERNAL NOSE Ordering Facility: [facility] Address: [address] [place] [address] Performed By: #### S APCR #### [facility] CLIA [id number] [address] [place] [address] [place] CNOVon 02-01-2023 CNOV Office Visit (CATHMN ) CONOR LEE ([id number]) 1965 M Date Time Provider Department 02/01/23 2:00 PM [employer] [facility] CATHMN During your visit today, we recorded the following information about you: Natividad Moore APRN.CNP 02/01/2023 3:44 PM Signed [facility] [place] [facility] Rodriguez Department of Cardiovascular Medicine SECTION [...] back in November. Conor Lee is from [place] where he lives with his significant other. [...] cm/s. The dimensionless valve index is 0.21. 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 [place] CARDIOMYOPATHY QUESTIONNAIRE (KCCQ-12) Activity: A. Showering/bathing: Extremely [...] weeks, ho (more content not included)... Normal [facility] CNOV Office Visit (CATHMN ) CONOR LEE ([id number]) 1965 M Date Time Provider Department 02/01/23 9:45 AM Cyndi SCHUSTER CATHMN During your visit today, we recorded the following information about you: Pulse Respiration Blood pressure Weight 72/minute 18/minute 143/97 83.9 kg Height 1.778 m Cyndi Schuster MD 02/01/2023 11:41 AM Signed [facility] [place] Christ[facility] Rodriguez Department of Cardiovascular Medicine SECTION OF INTERVENTIONAL CARDIOLOGY OUTPATIENT VISIT DATE February 01, 2023 OUTPATIENT VISIT TYPE NEW PRIMARY CARE PHYSICIAN: Harpreet Lim [address] [place] [address] REFERRING PHYSICIAN: No referring provider defined for this encounter. CHIEF COMPLAINT: No chief complaint on file. HISTORY OF PRESENT ILLNESS: Mr. Lee is a 57 year-old male who was referred by Dr. Dr. 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 He was admitted on 01/15/2023 with acute respiratory distress and decompensated heart failure and R hilar mass and discharged on 01/17. PMH is significant for Bicuspid aortic valve s/p AVR (Magna prosthetic valve size #23; Dr. Sheriff at [facility]; 08/2011), CAD 10/18/2022 cath at [facility] showed 100% occluded moderate size [...] Lee is an 57 year old male ([place]) with pmhx of: bicuspid valve s/p AVR (#23 magna pericardial valve, 2011) [facility] HTN PAD s/p right SFA bypass [...] to doing biopsy. He was admitted to [facility] on 01/17 for COPD exacerbation. He [...] It show (more content not included)... Normal [facility] CTA C/A/P (GATED) W IVCONon 02-01-2023 [...] the proximal common iliacs segments. AORTIC DIMENSIONS: curyung AORTIC ROOT: 3.0 cm measured baiod-ry-zorwk , with postsurgical changes present STJ: 2.6 [...] right lower (more content not included)... Normal [facility] Comprehensive metabolic 2000 panelon 02-01-2023 Albumin [Mass/Vol] 4.2 g/dL Normal 3.9-4.9 [facility] Comment on above: Order Comment: Speci men Type: BLOOD SPECIMEN Ordering Facility: [facility] Address: [address] [place] [address] Performed By: #### 3 4528-0 #### [facility] CLIA [id number] [address] [facility] [id number] [place] [address] [place] ALP [Catalytic activity/Vol] 67 U/L Normal 38-113 [facility] Comment on above: Order Comment: Speci men Type: BLOOD SPECIMEN Ordering Facility: [facility] Address: [address] [place] [address] Performed By: #### 3 4528-0 #### [facility] CLIA [id number] [address] [place] [address] [place] ALT [Catalytic activity/Vol] 25 U/L Normal 10-54 [facility] Comment on above: Order Comment: Speci men Type: BLOOD SPECIMEN Ordering Facility: [facility] Address: [address] [place] [address] Performed By: #### 3 4528-0 #### [facility] CLIA [id number] [address] [place] [address] [place] Anion gap [Moles/Vol] 8 mmol/L Low 9-18 [facility] Comment on above: Order Comment: Speci men Type: BLOOD SPECIMEN Ordering Facility: [facility] Address: [address] [place] [address] Performed By: #### 3 4528-0 #### [facility] CLIA [id number] [address] [place] [address] [place] AST [Catalytic activity/Vol] 17 U/L Normal 14-40 [facility] Comment on above: Order Comment: Speci men Type: BLOOD SPECIMEN Ordering Facility: [facility] Address: [address] [place] [address] Performed By: #### 3 4528-0 #### [facility] CLIA [id number] [address] [place] [address] [place] Bilirubin [Mass/Vol] 0.3 mg/dL Normal 0.2-1.3 [facility] Comment on above: Order Comment: Speci men Type: BLOOD SPECIMEN Ordering Facility: [facility] Address: [address] [place] [address] Performed By: #### 3 4528-0 #### [facility] CLIA [id number] [address] [place] [address] [place] Calcium [Mass/Vol] 10.0 mg/dL Normal 8.5-10.2 [facility] Comment on above: Order Comment: Speci men Type: BLOOD SPECIMEN Ordering Facility: [facility] Address: [address] [place] [address] Performed By: #### 3 4528-0 #### [facility] CLIA [id number] [address] [place] [address] [place] Chloride [Moles/Vol] 97 mmol/L Normal 97-105 [facility] Comment on above: Order Comment: Speci men Type: BLOOD SPECIMEN Ordering Facility: [facility] Address: [address] [place] [address] Performed By: #### 3 4528-0 #### [facility] CLIA [id number] [address] [place] [address] [place] CO2 [Moles/Vol] 27 mmol/L Normal 22-30 [facility] Comment on above: Order Comment: Speci men Type: BLOOD SPECIMEN Ordering Facility: [facility] Address: [address] [place] [address] Performed By: #### 3 4528-0 #### [facility] CLIA [id number] [address] [place] [address] [place] Creatinine [Mass/Vol] 0.99 mg/dL Normal 0.73-1.22 [facility] Comment on above: Order Comment: Speci men Type: BLOOD SPECIMEN Ordering Facility: [facility] Address: [address] [place] [address] Performed By: #### 3 4528-0 #### [facility] CLIA [id number] [address] [place] [address] [place] Creatinine and Glomerular filtration rate.predicted panel (S/P/Bld) 89 mL/min/1.73m??? Normal >=60 [facility] Comment on above: Order Comment: Speci men Type: BLOOD SPECIMEN Ordering Facility: [facility] Address: [address] [place] [address] Result Comment: Aditi mated Glomerular Filtration Rate [...] accurately reflect actual GFR. Performed By: #### 3 4528-0 #### [facility] CLIA [id number] [address] [place] [address] [place] Glucose [Mass/Vol] 120 mg/dL High 74-99 [facility] Comment on above: Order Comment: Sylvie hammer Type: BLOOD SPECIMEN Ordering Facility: [facility] Address: [address] [place] [address] Result Comment: The [place] Diabetes Association (ADA) provides guidance for cutoff [...] Standards of Medical Care in Diabetes 2016, [place] [employer] Association. Diabetes Care. 2016.39(Suppl 1). Performed By: #### 3 4528-0 #### [facility] CLIA [id number] [address] [place] [address] [place] Potassium [Moles/Vol] 5.0 mmol/L Normal 3.7-5.1 [facility] Comment on above: Order Comment: Sylvie hammer Type: BLOOD SPECIMEN Ordering Facility: [facility] Address: [address] [place] [address] Performed By: #### 3 4528-0 #### [facility] CLIA [id number] [address] [place] [address] [place] Protein [Mass/Vol] 7.0 g/dL Normal 6.3-8.0 [facility] Comment on above: Order Comment: Speci men Type: BLOOD SPECIMEN Ordering Facility: [facility] Address: [address] [place] [address] Performed By: #### 3 4528-0 #### [facility] CLIA [id number] [address] [place] [address] [place] Sodium [Moles/Vol] 132 mmol/L Low 136-144 [facility] Comment on above: Order Comment: Speci men Type: BLOOD SPECIMEN Ordering Facility: [facility] Address: [address] [place] [address] Performed By: #### 3 4528-0 #### [facility] CLIA [id number] [facility] [place] [address] [place] Urea nitrogen [Mass/Vol] 18 mg/dL Normal 9-24 [facility] Comment on above: Order Comment: Speci men Type: BLOOD SPECIMEN Ordering Facility: [facility] Address: [address] [place] [address] Performed By: #### 3 4528-0 #### [facility] CLIA [id number] [facility] [place] [address] [place] HIGH SENSITIVITY TROPONIN To n 02-01-2023 Troponin T.cardiac High sensitivity method [Mass/Vol] 17 ng/L High <12 [facility] Comment on above: Order Comment: Speci men Type: BLOOD SPECIMEN Ordering Facility: [facility] Address: [address] [place] [address] Result Comment: When assessing risk for acute [...] for 30 day MACE. Performed By: #### 3 4528-0 #### [facility] CLIA [id number] [address] [place] [address] [place] [facility] Lipoprotein a [Mass/Vol] 125 mg/dL High <30 [facility] Comment on above: Order Comment: Sylvie hammer Type: BLOOD SPECIMENOrdering Facility: [facility] Address: [address] [place] [address] Performed By: #### 1 0835-7 ####[facility] [id number] [place] [address] [place] NT-proBNP [facility] 02-01 Natriuretic peptide.B prohormone N-Terminal [Mass/Vol] 1659 pg/mL High <125 [facility] Comment on above: Order Comment: Sylvie hammer Type: BLOOD SPECIMEN Ordering Facility: [facility] Address: [address] [place] [address] Performed By: #### 3 4528-0 #### [facility] CLIA [id number] [address] [place] [address] [place] PT panel Coag (PPP)on 2022 INR Coag (PPP) [Relative time] {INR} Low 0.9-1.3 [facility] Comment on above: Order Comment: Sylvie hammer Type: BLOOD SPECIMEN Ordering Facility: [facility] Address: [address] [place] [address] Result Comment: Resu lt rechecked. Sample checked for clot. Vitamin K Antagonist (VKA) Therapeutic Range: INR 2 to 3 (Target INR of 2.5) Note: For patients treated with VKA drugs, such as warfarin, the [place] College [employer]icians 2012 Guideline recommends [...] GH, et al. Chest 2012, 141:7S-47S Pat SHAW et al. [facility] 2017, 70: 252-289 Performed By: #### 5 8410-2 #### [facility] IA [id number] [facility] [place] [address] [place] PT Coag (PPP) [Time] 9.9 s Normal 9.7-13.0 [facility] Comment on above: Order Comment: Speci men Type: BLOOD SPECIMEN Ordering Facility: [facility] Address: [address] [place] [address] Performed By: #### 5 8410-2 #### [facility] IA [id number] [address] [place] [address] [place] XR CHEST 2V [...] soft tissues: Median sternotomy. IMPRESSION: See result Diesel Power Mechanic: NAVEEN Transcribe Date/Time: Feb 02 2023 2:01P Dictated by : JOSE DIEZ MD This examination was interpreted and the report reviewed and electronically signed by: JOSE DIEZ MD on Feb 02 2023 2:04PM EST [id number] Normal [facility] CNCOon 01-31-2023 CNCO Letter Text Normal [facility] Basic metabolic 2000 panelon 01-28-2023 Anion gap [Moles/Vol] 12 mmol/L Normal 9-18 [facility] Comment on above: Order Comment: Speci men Type: BLOOD SPECIMENOrdering Facility: [facility] Address: [address] [place] [address] Performed By: #### 2 4321-2 ####[facility] [id number] [place] [address] Calcium [Mass/Vol] 9.7 mg/dL Normal 8.5-10.2 [facility] Comment on above: Order Comment: Speci men Type: BLOOD SPECIMENOrdering Facility: [facility] Address: [address] [place] [address] Performed By: #### 2 4321-2 ####[facility] LABCLIA [id number] [place] [address] Chloride [Moles/Vol] 93 mmol/L Low 97-105 [facility] Comment on above: Order Comment: Speci men Type: BLOOD SPECIMENOrdering Facility: [facility] Address: [address] [place] [address] Performed By: #### 2 4321-2 ####[facility] LABCLIA [id number] [place] [address] CO2 [Moles/Vol] 26 mmol/L Normal 22-30 [facility] Comment on above: Order Comment: Speci men Type: BLOOD SPECIMENOrdering Facility: [facility] Address: [address] [place] [address] Performed By: #### 2 4321-2 ####[facility] LABCLIA [id number] [place] [address] Creatinine [Mass/Vol] 1.06 mg/dL Normal 0.73-1.22 [facility] Comment on above: Order Comment: Sylvie hammer Type: BLOOD SPECIMENOrdering Facility: [facility] Address: [address] [place] [address] Performed By: #### 2 4321-2 ####[facility] LABCLIA [id number] [place] [address] Creatinine and Glomerular filtration rate.predicted panel (S/P/Bld) 82 mL/min/1.73m??? Normal >=60 [facility] Comment on above: Order Comment: Sylvie hammer Type: BLOOD SPECIMENOrdering Facility: [facility] Address: [address] [place] [address] Result Comment: Aditi mated Glomerular Filtration Rate [...] actual GFR. Performed By: #### 2 4321-2 ####[facility] LABCLIA [id number] [place] [address] Glucose [Mass/Vol] 199 mg/dL High 74-99 [facility] Comment on above: Order Comment: Sylvie hammer Type: BLOOD SPECIMENOrdering Facility: [facility] Address: [address] [place] [address] Result Comment: The [place] Diabetes Association (ADA) provides guidance for cutoff [...] Standards of Medical Care in Diabetes 2016, [place] Diabetes Association. Diabetes Care. 2016.39(Suppl 1). Performed By: #### 2 4321-2 ####[facility] LABCLIA [id number] [place] [address] Potassium [Moles/Vol] 4.7 mmol/L Normal 3.7-5.1 [facility] Comment on above: Order Comment: Speci men Type: BLOOD SPECIMENOrdering Facility: [facility] Address: [address] [place] [address] Performed By: #### 2 4321-2 ####[facility] LABCLIA [id number] [place] [address] Sodium [Moles/Vol] 131 mmol/L Low 136-144 [facility] Comment on above: Order Comment: Speci men Type: BLOOD SPECIMENOrdering Facility: [facility] Address: [address] [place] [address] Performed By: #### 2 4321-2 ####[facility] LABCLIA [id number] [place] [address] Urea nitrogen [Mass/Vol] 22 mg/dL Normal 9-24 [facility] Comment on above: Order Comment: Speci men Type: BLOOD SPECIMENOrdering Facility: [facility] Address: [address] [place] [address] Performed By: #### 2 4321-2 ####[facility] LABCLIA [id number] [place] [address] [facility] 01-25-[address] 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 Reports BP 124/85 HR 80 SPO2 94-97%. Patient denies any further questions or concerns at this time. Communication Events Date: January 22, 2023 Method: Phone call Type: Outbound Duration (min): 14 Outcome: Case discussion Contact Type: health and safety coordinator Contact Name: Andres Damico Notes: CASTING ROOM OPERATOR#1- Spoke with patient for initial [facility] program call status update, see ft summary note. Created By: Andres Damico Date: January 21, 2023 Method: Phone call Type: Outbound Duration (min): 1 Outcome: Left message-voicemail Contact Type: health and safety coordinator Contact Name: Andres Damico Notes: CASTING ROOM OPERATOR#1- Attemtped to contact patient for initial CASTING ROOM OPERATOR call status update, no answer, left vm for return call. Created By: Andres Damico [facility] 01-23-[address] 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 yes, PCP Dr. Lim 02/05 at [facility] Did you understand your discharge [...] (min): 1 Outcome: Left message-voicemail Contact Type: health and safety coordinator Contact Name: Andres Damico Notes: [facility]#1- Attemtped to contact patient for initial CASTING ROOM OPERATOR call status update, no answer, left vm for return call. Created By: Andres Damico Normal [facility] Admission Noteon 01-21-2023 Admission Note [id number] .00TIFF Normal [facility] Admission Note [id number]#1 .00TIFF Normal [facility] CBC panel Auto (Bld)on 01-20 Erythrocyte distribution width (RBC) [Ratio] 13.7 % Normal 11.5-15.0 [facility] Comment on above: Order Comment: Speci men Type: BLOOD SPECIMENOrdering Facility: [facility] Address: [address] [place] [address] Performed By: #### 5 8410-2 ####[facility]IA [id number] [place] [address] [place] Hematocrit (Bld) [Volume fraction] 49.9 % Normal 39.0-51.0 [facility] Comment on above: Order Comment: Speci men Type: BLOOD SPECIMENOrdering Facility: [facility] Address: [address] [place] [address] Performed By: #### 5 8410-2 ####[facility]IA [id number] [place] [address] [place] Hemoglobin (Bld) [Mass/Vol] 17.7 g/dL High 13.0-17.0 [facility] Comment on above: Order Comment: Speci men Type: BLOOD SPECIMENOrdering Facility: [facility] Address: [address] [place] [address] Performed By: #### 5 8410-2 ####[facility] [id number] [place] [address] [place] MCH (RBC) [Entitic mass] 37.1 pg High 26.0-34.0 [facility] Comment on above: Order Comment: Speci men Type: BLOOD SPECIMENOrdering Facility: [facility] Address: [address] [place] [address] Performed By: #### 5 8410-2 ####[facility] [id number] [place] [address] [place] MCHC (RBC) [Mass/Vol] 35.5 g/dL Normal 30.5-36.0 [facility] Comment on above: Order Comment: Speci men Type: BLOOD SPECIMENOrdering Facility: [facility] Address: [address] [place] [address] Performed By: #### 5 8410-2 ####[facility] [id number] [place] [address] [place] MCV (RBC) [Entitic vol] 104.6 fL High 80.0-100.0 [facility] Comment on above: Order Comment: Speci men Type: BLOOD SPECIMENOrdering Facility: [facility] Address: [address] [place] [address] Performed By: #### 5 8410-2 ####[facility]CLIA [id number] [place] [address] [place] Nucleated RBC (Bld) [#/Vol] 10*3/uL Normal <0.01 [facility] Comment on above: Order Comment: Speci men Type: BLOOD SPECIMENOrdering Facility: [facility] Address: [address] [place] [address] Performed By: #### 5 8410-2 ####[facility]CLIA [id number] [place] [address] [place] Platelet mean volume (Bld) [Entitic vol] 11.5 fL Normal 9.0-12.7 [facility] Comment on above: Order Comment: Speci men Type: BLOOD SPECIMENOrdering Facility: [facility] Address: [address] [place] [address] Performed By: #### 5 8410-2 ####[facility]IA [id number] [place] [address] [place] Platelets (Bld) [#/Vol] 153 10*3/uL Normal 150-400 [facility] Comment on above: Order Comment: Speci men Type: BLOOD SPECIMENOrdering Facility: [facility] Address: [address] [place] [address] Performed By: #### 5 8410-2 ####[facility] LABCLIA [id number] [place] [address] [place] RBC (Bld) [#/Vol] 4.77 10*6/uL Normal 4.20-6.00 [facility] Comment on above: Order Comment: Speci men Type: BLOOD SPECIMENOrdering Facility: [facility] Address: [address] [place] [address] Performed By: #### 5 8410-2 ####[facility]IA [id number] [place] [address] [place] WBC (Bld) [#/Vol] 10.11 10*3/uL Normal 3.70-11.00 [facility] Comment on above: Order Comment: Speci men Type: BLOOD SPECIMENOrdering Facility: [facility] Address: [address] [place] [address] Performed By: #### 5 8410-2 ####[facility] LABCLIA [id number] [facility] [place] [id number] [facility] [place] CNDSon 01-20-2023 CNDS HNO ID: [id number] Author: Farheen Cruz MD Service: Pulmonary Disease [...] the summary. TRANSITIONS OF CARE CRITICAL ISSUES: MARIE MEDICATION CHANGES: START: -Chlorthalidone 25mg daily -Spironolactone [...] 02/01/2023 9:45 AM Cyndi Schuster MD CATHMN Mn J [facility] 02/01/2023 11:30 AM LBJ1-4 MAIN LBJ1-4 Mn John [facility] 02/01/2023 11:45 AM XR CHEST MAIN J1 RADMNJ Berta Lopez [facility] 02/01/2023 12:00 PM EKGJ1-4 MAIN EKGF16 [facility] 02/01/2023 12:[address] MAIN J (I-STAT) RCTMJ [facility] 02/01/2023 2:00 PM [facility] CATHMN [facility] 02/04/2023 To Be Determined Barbra Nevarez MD CATLMN [facility] REASON FOR HOSPITALIZATION: Acute Decompensated Heart Failure [...] 12/10), 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 Sheriff at [facility]; 08/2011) c/b severe stenosis d/t [...] 10/18/22 showed severe bioprosthetic aortic valve stenosis, OCCUPATIONAL NURSE RCA and LCX 80% stenosis. Patient following with Dr. Mckinney for consideration of aortic valve surgery. At [facility], patient was treated for COPD exacerbation with dexamethasone, solumedrol, and duonebs, and acute decompensated heart failure with lasix. Patient was diuresed to dry weight (178lbs). [facility] imaging requested for transfer to [facility] ([facility]: [phone]). Plan: -Continue TAVR assessment outpatient -Decrease Coreg 37.5mg BID to 25mg BID -Decrease Lisinopril 20mg BID to 10mg Daily -Start Chlorthalidone 25mg, Spironolactone 25mg -ASA81 (more content not included)... Normal [facility] Renal function 2000 panelon 01-20-2023 Albumin [Mass/Vol] 4.0 g/dL Normal 3.9-4.9 [facility] Comment on above: Order Comment: Speci men Type: BLOOD SPECIMEN Ordering Facility: [facility] Address: [address] [place] [address] Performed By: #### 2 4362-6 #### [facility] CLIA [id number] [address] [facility] [id number] [id number] [place] Anion gap [Moles/Vol] 15 mmol/L Normal 9-18 [facility] Comment on above: Order Comment: Speci men Type: BLOOD SPECIMEN Ordering Facility: [facility] Address: [address] [place] [address] Performed By: #### 2 4362-6 #### [facility] CLIA [id number] [address] [place] [address] [place] Calcium [Mass/Vol] 9.0 mg/dL Normal 8.5-10.2 [facility] Comment on above: Order Comment: Speci men Type: BLOOD SPECIMEN Ordering Facility: [facility] Address: [address] [place] [address] Performed By: #### 2 4362-6 #### [facility] CLIA [id number] [address] [place] [address] [place] Chloride [Moles/Vol] 93 mmol/L Low 97-105 [facility] Comment on above: Order Comment: Speci men Type: BLOOD SPECIMEN Ordering Facility: [facility] Address: [address] [place] [address] Performed By: #### 2 4362-6 #### [facility] CLIA [id number] [address] [place] [address] [place] CO2 [Moles/Vol] 24 mmol/L Normal 22-30 [facility] Comment on above: Order Comment: Speci men Type: BLOOD SPECIMEN Ordering Facility: [facility] Address: [address] [place] [address] Performed By: #### 2 4362-6 #### [facility] CLIA [id number] [address] [place] [address] [place] Creatinine [Mass/Vol] 1.01 mg/dL Normal 0.73-1.22 [facility] Comment on above: Order Comment: Speci men Type: BLOOD SPECIMEN Ordering Facility: [facility] Address: [address] [place] [address] Performed By: #### 2 4362-6 #### [facility] CLIA [id number] [facility] [place] [address] [place] Creatinine and Glomerular filtration rate.predicted panel (S/P/Bld) 87 mL/min/1.73m??? Normal >=60 [facility] Comment on above: Order Comment: Sylvie hammer Type: BLOOD SPECIMEN Ordering Facility: [facility] Address: [address] [place] [address] Result Comment: Aditi mated Glomerular Filtration Rate [...] actual GFR. Performed By: #### 2 4362-6 #### [facility] CLIA [id number] [address] [place] [address] [place] Glucose [Mass/Vol] 112 mg/dL High 74-99 [facility] Comment on above: Order Comment: Sylvie hammer Type: BLOOD SPECIMEN Ordering Facility: [facility] Address: [address] [place] [address] Result Comment: The [place] [employer] Association (ADA) provides guidance for cutoff [...] Standards of Medical Care in Diabetes 2016, [place] [employer]. Diabetes Care. 2016.39(Suppl 1). Performed By: #### 2 4362-6 #### [facility] CLIA [id number] [facility] [place] [address] [place] Phosphate [Mass/Vol] 4.0 mg/dL Normal 2.7-4.8 [facility] Comment on above: Order Comment: Speci men Type: BLOOD SPECIMEN Ordering Facility: [facility] Address: [address] [place] [address] Performed By: #### 2 4362-6 #### [facility] CLIA [id number] [address] [place] [address] [place] Potassium [Moles/Vol] 4.2 mmol/L Normal 3.7-5.1 [facility] Comment on above: Order Comment: Speci men Type: BLOOD SPECIMEN Ordering Facility: [facility] Address: [address] [place] [address] Performed By: #### 2 4362-6 #### [facility] CLIA [id number] [address] [place] [address] [place] Sodium [Moles/Vol] 132 mmol/L Low 136-144 [facility] Comment on above: Order Comment: Speci men Type: BLOOD SPECIMEN Ordering Facility: [facility] Address: [address] [place] [address] Performed By: #### 2 4362-6 #### [facility] CLIA [id number] [facility] [place] [address] [place] Urea nitrogen [Mass/Vol] 23 mg/dL Normal 9-24 [facility] Comment on above: Order Comment: Speci men Type: BLOOD SPECIMEN Ordering Facility: [facility] Address: [address] [place] [address] Performed By: #### 2 4362-6 #### [facility] CLIA [id number] [address] [place] [address] [place] CBC panel Auto (Bld)on 01-19 Erythrocyte distribution width (RBC) [Ratio] 14.3 % Normal 11.5-15.0 [facility] Comment on above: Order Comment: Speci men Type: BLOOD SPECIMENOrdering Facility: [facility] Address: [facility] [place] [address] Performed By: #### 5 8410-2 ####[facility] [id number] [place] [address] [place] Hematocrit (Bld) [Volume fraction] 50.2 % Normal 39.0-51.0 [facility] Comment on above: Order Comment: Speci men Type: BLOOD SPECIMENOrdering Facility: [facility] Address: [address] [place] [address] Performed By: #### 5 8410-2 ####[facility] [id number] [place] [address] [place] Hemoglobin (Bld) [Mass/Vol] 17.7 g/dL High 13.0-17.0 [facility] Comment on above: Order Comment: Speci men Type: BLOOD SPECIMENOrdering Facility: [facility] Address: [address] [place] [address] Performed By: #### 5 8410-2 ####[facility] [id number] [place] [address] [place] MCH (RBC) [Entitic mass] 37.3 pg High 26.0-34.0 [facility] Comment on above: Order Comment: Speci men Type: BLOOD SPECIMENOrdering Facility: [facility] Address: [address] [place] [address] Performed By: #### 5 8410-2 ####[facility] [id number] [place] [address] [place] MCHC (RBC) [Mass/Vol] 35.3 g/dL Normal 30.5-36.0 [facility] Comment on above: Order Comment: Speci men Type: BLOOD SPECIMENOrdering Facility: [facility] Address: [address] [place] [address] Performed By: #### 5 8410-2 ####[facility] [id number] [place] [address] [place] MCV (RBC) [Entitic vol] 105.9 fL High 80.0-100.0 [facility] Comment on above: Order Comment: Speci men Type: BLOOD SPECIMENOrdering Facility: [facility] Address: [address] [place] [address] Performed By: #### 5 8410-2 ####[facility] [id number] [place] [address] [place] Nucleated RBC (Bld) [#/Vol] 10*3/uL Normal <0.01 [facility] Comment on above: Order Comment: Speci men Type: BLOOD SPECIMENOrdering Facility: [facility] Address: [address] [place] [address] Performed By: #### 5 8410-2 ####[facility] [id number] [place] [address] [place] Platelet mean volume (Bld) [Entitic vol] 10.8 fL Normal 9.0-12.7 [facility] Comment on above: Order Comment: Speci men Type: BLOOD SPECIMENOrdering Facility: [facility] Address: [address] [place] [address] Performed By: #### 5 8410-2 ####[facility] [id number] [place] [address] [place] Platelets (Bld) [#/Vol] 147 10*3/uL Low 150-400 [facility] Comment on above: Order Comment: Speci men Type: BLOOD SPECIMENOrdering Facility: [facility] Address: [address] [place] [address] Performed By: #### 5 8410-2 ####[facility] [id number] [place] [address] [place] RBC (Bld) [#/Vol] 4.74 10*6/uL Normal 4.20-6.00 [facility] Comment on above: Order Comment: Speci men Type: BLOOD SPECIMENOrdering Facility: [facility] Address: [address] [place] [address] Performed By: #### 5 8410-2 ####[facility] [id number] [address] [address] [place] WBC (Bld) [#/Vol] 9.66 10*3/uL Normal 3.70-11.00 [facility] Comment on above: Order Comment: Speci men Type: BLOOD SPECIMENOrdering Facility: [facility] Address: [address] [place] [address] Performed By: #### 5 8410-2 ####[facility] [id number] [place] [address] [place] CONFIRM BLOOD TYPEon 023 ABO A Normal [facility] Comment on above: Order Comment: Speci men Type: BLOOD SPECIMENOrdering Facility: [facility] Address: [address] [place] [address] Performed By: #### C ONABO ####[facility]ANKCL[facility] [id number] [place] [address] [place] Rh Nom (Bld) Positive Normal [facility] Comment on above: Order Comment: Speci men Type: BLOOD SPECIMENOrdering Facility: [facility] Address: [address] [place] [address] Performed By: #### C ONABO ####[facility] BLO[facility] BANKCLIA [id number] [place] [address] [place] Renal function 2000 panelon 01-19-2023 Albumin [Mass/Vol] 3.9 g/dL Normal 3.9-4.9 [facility] Comment on above: Order Comment: Speci men Type: SWAB OF INTERNAL NOSE Ordering Facility: [facility] Address: [address] [place] [address] Performed By: #### S APCR #### [facility] CLIA [id number] [address] [place] [address] [place] Anion gap [Moles/Vol] 16 mmol/L Normal 9-18 [facility] Comment on above: Order Comment: Speci men Type: SWAB OF INTERNAL NOSE Ordering Facility: [facility] Address: [address] [place] [address] Performed By: #### S APCR #### [facility] CLIA [id number] [address] [place] [address] [place] Calcium [Mass/Vol] 9.0 mg/dL Normal 8.5-10.2 [facility] Comment on above: Order Comment: Speci men Type: SWAB OF INTERNAL NOSE Ordering Facility: [facility] Address: [address] [place] [address] Performed By: #### S APCR #### [facility] CLIA [id number] [address] [place] [address] [place] Chloride [Moles/Vol] 90 mmol/L Low 97-105 [facility] Comment on above: Order Comment: Speci men Type: SWAB OF INTERNAL NOSE Ordering Facility: [facility] Address: [address] [place] [address] Performed By: #### S APCR #### [facility] CLIA [id number] [address] [place] [address] [place] CO2 [Moles/Vol] 28 mmol/L Normal 22-30 [facility] Comment on above: Order Comment: Speci men Type: SWAB OF INTERNAL NOSE Ordering Facility: [facility] Address: [address] [place] [address] Performed By: #### S APCR #### [facility] CLIA [id number] [address] [place] [address] [place] Creatinine [Mass/Vol] 1.07 mg/dL Normal 0.73-1.22 [facility] Comment on above: Order Comment: Speci men Type: SWAB OF INTERNAL NOSE Ordering Facility: [facility] Address: [address] [place] [address] Performed By: #### S APCR #### [facility] CLIA [id number] [address] [place] [address] [place] Creatinine and Glomerular filtration rate.predicted panel (S/P/Bld) 81 mL/min/1.73m??? Normal >=60 [facility] Comment on above: Order Comment: Speci men Type: SWAB INTERNAL NOSE Ordering Facility: [facility] Address: [address] [place] [address] Result Comment: Aditi mated Glomerular Filtration Rate [...] accurately reflect actual GFR. Performed By: #### S APCR #### [facility] CLIA [id number] [address] [place] [address] [place] Glucose [Mass/Vol] 97 mg/dL Normal 74-99 [facility] Comment on above: Order Comment: Speci men Type: SWAB INTERNAL NOSE Ordering Facility: [facility] Address: [address] [place] [address] Result Comment: The [place] Diabetes Association (ADA) provides guidance for cutoff [...] Standards of Medical Care in Diabetes 2016, [place] [employer]. Diabetes Care. 2016.39(Suppl 1). Performed By: #### S APCR #### [facility] CLIA [id number] [address] [place]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 Type: BLOOD SPECIMEN Ordering Facility: [facility] Address: [address] [place] [address] Performed By: #### 3 4528-0 #### [facility] CLIA [id number] [address] [place] [address] [place] Differential cell count method Nom (Bld) Auto Normal [facility] Comment on above: Order Comment: Speci men Type: BLOOD SPECIMEN Ordering Facility: [facility] Address: [address] [place] [address] Performed By: #### 3 4528-0 #### [facility] CLIA [id number] [address] [place] [address] [place] Eosinophils (Bld) [#/Vol] 0.69 10*3/uL High <0.46 [facility] Comment on above: Order Comment: Speci men Type: BLOOD SPECIMEN Ordering Facility: [facility] Address: [address] [place] [address] Performed By: #### 3 4528-0 #### [facility] CLIA [id number] [address] [place] [address] [place] Eosinophils/100 WBC (Bld) 6.2 % Normal [facility] Comment on above: Order Comment: Speci men Type: BLOOD SPECIMEN Ordering Facility: [facility] Address: [address] [place] [address] Performed By: #### 3 4528-0 #### [facility] CLIA [id number] [address] [place] [address] [place] Erythrocyte distribution width (RBC) [Ratio] 11.7 % Normal 11.5-15.0 [facility] Comment on above: Order Comment: Speci men Type: BLOOD SPECIMEN Ordering Facility: [facility] Address: [address] [place] [address] Performed By: #### 3 4528-0 #### [facility] CLIA [id number] [address] [place] [address] [place] Hematocrit (Bld) [Volume fraction] 49.3 % Normal 39.0-51.0 [facility] Comment on above: Order Comment: Speci men Type: BLOOD SPECIMEN Ordering Facility: [facility] Address: [address] [place] [address] Performed By: #### 3 4528-0 #### [facility] CLIA [id number] [address] [place] [address] [place] Hemoglobin (Bld) [Mass/Vol] 17.3 g/dL High 13.0-17.0 [facility] Comment on above: Order Comment: Speci men Type: BLOOD SPECIMEN [facility] [facility] Address: [address] [place] [address] Performed By: #### 3 4528-0 #### [facility] CLIA [id number] [address] [place] [address] [place] Immature granulocytes (Bld) [#/Vol] 0.05 10*3/uL Normal <0.10 [facility] Comment on above: Order Comment: Speci men Type: BLOOD SPECIMEN Ordering Facility: [facility] Address: [address] [place] [address] Performed By: #### 3 4528-0 #### [facility] CLIA [id number] [address] [place] [address] [place] Immature granulocytes/100 WBC (Bld) 0.4 % Normal [facility] Comment on above: Order Comment: Speci men Type: BLOOD SPECIMEN Ordering Facility: [facility] Address: [address] [place] [address] Performed By: #### 3 4528-0 #### [facility] CLIA [id number] [address] [place] [address] [place] Lymphocytes (Bld) [#/Vol] 1.97 10*3/uL Normal 1.00-4.00 [facility] Comment on above: Order Comment: Speci men Type: BLOOD SPECIMEN Ordering Facility: [facility] Address: [address] [place] [address] Performed By: #### 3 4528-0 #### [facility] CLIA [id number] [address] [place] [address] [place] Lymphocytes/100 WBC (Bld) 17.6 % Normal [facility] Comment on above: Order Comment: Speci men Type: BLOOD SPECIMEN Ordering Facility: [facility] Address: [address] [place] [address] Performed By: #### 3 4528-0 #### [facility] CLIA [id number] [address] [place] [address] [place] MCH (RBC) [Entitic mass] 36.8 pg High 26.0-34.0 [facility] Comment on above: Order Comment: Speci men Type: BLOOD SPECIMEN Ordering Facility: [facility] Address: [address] [place] [address] Performed By: #### 3 4528-0 #### [facility] CLIA [id number] [address] [place] [address] [place] MCHC (RBC) [Mass/Vol] 35.1 g/dL Normal 30.5-36.0 [facility] Comment on above: Order Comment: Speci men Type: BLOOD SPECIMEN Ordering Facility: [facility] Address: [address] [place] [address] Performed By: #### 3 4528-0 #### [facility] CLIA [id number] [address] [place] [address] [place] MCV (RBC) [Entitic vol] 104.9 fL High 80.0-100.0 [facility] Comment on above: Order Comment: Speci men Type: BLOOD SPECIMEN Ordering Facility: [facility] Address: [address] [place] [address] Performed By: #### 3 4528-0 #### [facility] CLIA [id number] [address] [place] [address] [place] Monocytes (Bld) [#/Vol] 0.70 10*3/uL Normal <0.87 [facility] Comment on above: Order Comment: Speci men Type: BLOOD SPECIMEN Ordering Facility: [facility] Address: [address] [place] [address] Performed By: #### 3 4528-0 #### [facility] CLIA [id number] [address] [place] [address] [place] Monocytes/100 WBC (Bld) 6.3 % Normal [facility] Comment on above: Order Comment: Speci men Type: BLOOD SPECIMEN Ordering Facility: [facility] Address: [address] [place] [address] Performed By: #### 3 4528-0 #### [facility] CLIA [id number] [address] [place] [address] [place] Neutrophils (Bld) [#/Vol] 7.63 10*3/uL High 1.45-7.50 [facility] Comment on above: Order Comment: Speci men Type: BLOOD SPECIMEN Ordering Facility: [facility] Address: [address] [place] [address] Performed By: #### 3 4528-0 #### [facility] CLIA [id number] [address] [place] [address] [place] Neutrophils/100 WBC (Bld) 68.3 % Normal [facility] Comment on above: Order Comment: Speci men Type: BLOOD SPECIMEN Ordering Facility: [facility] Address: [address] [place] [address] Performed By: #### 3 4528-0 #### [facility] CLIA [id number] [address] [place] [address] [place] Nucleated RBC (Bld) [#/Vol] 10*3/uL Normal <0.01 [facility] Comment on above: Order Comment: Speci men Type: BLOOD SPECIMEN Ordering Facility: [facility] Address: [address] [place] [address] Performed By: #### 3 4528-0 #### [facility] CLIA [id number] [address] [place] [address] [place] Nucleated RBC/100 WBC (Bld) [Ratio] 0.0 /100 WBC Normal [facility] Comment on above: Order Comment: Speci men Type: BLOOD SPECIMEN Ordering Facility: [facility] Address: [address] [place] [address] Performed By: #### 3 4528-0 #### [facility] CLIA [id number] [address] [place] [address] [place] Platelet mean volume (Bld) [Entitic vol] 10.2 fL Normal 9.0-12.7 [facility] Comment on above: Order Comment: Speci men Type: BLOOD SPECIMEN Ordering Facility: [facility] Address: [address] [place] [address] Performed By: #### 3 4528-0 #### [facility] CLIA [id number] [address] [place] [address] [place] Platelets (Bld) [#/Vol] 191 10*3/uL Normal 150-400 [facility] Comment on above: Order Comment: Speci men Type: BLOOD SPECIMEN Ordering Facility: [facility] Address: [address] [place] [address] Performed By: #### 3 4528-0 #### [facility] CLIA [id number] [address] [place] [address] [place] RBC (Bld) [#/Vol] 4.70 10*6/uL Normal 4.20-6.00 [facility] Comment on above: Order Comment: Speci men Type: BLOOD SPECIMEN Ordering Facility: [facility] Address: [place] [address] Performed By: #### 3 4528-0 #### [facility] CLIA [id number] [facility] [place] [address] [place] WBC (Bld) [#/Vol] 11.17 10*3/uL High 3.70-11.00 [facility] Comment on above: Order Comment: Speci men Type: BLOOD SPECIMEN Ordering Facility: [facility] Address: [place] [address] Performed By: #### 3 4528-0 #### [facility] CLIA [id number] [facility] [address] [place] CNOVon 12-05-2022 CNOV Office Visit (CARCMN ) CONOR LEE ([id number]) 1965 M Date Time Provider Department 12/05/22 8:45 AM LEX ANDERSON CARCMN During your visit today, we recorded the following information about you: Pulse Respiration Blood pressure Weight 67/minute 12/minute 165/96 84.8 kg Height 1.778 m Lex Anderson MD 12/20/2022 6:54 AM Signed [facility] [place] Christelle Rodriguez Department of Cardiovascular Medicine SECTION OF CLINICAL CARDIOLOGY OUTPATIENT VISIT DATE December 05, 2022 OUTPATIENT VISIT TYPE NEW PRIMARY CARE PHYSICIAN: Naomie Bermudez [address] [place] [address] REFERRING PHYSICIAN: iMmi Mckinney [address] [facility] [address] CHIEF COMPLAINT: Preopertive cardiac evaluation HISTORY OF PRESENT ILLNESS: NURSING INTAKE: Mr. Lee is a 57 year old male from [place], [place] here today for preop evaluation. Patient [...] -palpitations -lightheadedness/dizz iness Echocardiogram performed by new motorboat operator reported severe prosthetic AV prompting evaluation for a redo AVR. Source Note - Jessica Shook MA - 10/08/2022 9:15 AM EDT Images from the original note were not included. [facility] Cardiology Clinic Note Chief Complaint: Patient [...] the above Arvin Ledesma MD, MPH, FACC, [facility] Interventional Cardiology Pager Email: [email or web address] [email or web address] IMPRESSIONS: Severe, bioprosthetic, aortic valve stenosis by invasive hemodynamic study Severe, two-vessel coronary artery disease including a chronic total occlusion (OCCUPATIONAL NURSE) of the right coronary artery Normal global left ventricular systolic function by noninvasive imaging Moderately elevated right-sided heart pressures and mildly elevated pulmonary capillary wedge pressure Elevated transpulmonary gradient along with the mildly elevated wedge consistent with pre- and postcapillary pulmonary hypertensi (more content not included)... Normal [facility] Comprehensive metabolic 2000 panelon 12-05-2022 Albumin [Mass/Vol] 4.2 g/dL Normal 3.9-4.9 [facility] Comment on above: Order Comment: Speci men Type: SWAB OF INTERNAL NOSE Ordering Facility: [facility] Address: [address] [place] [address] Performed By: #### S APCR #### [facility] CLIA [id number] [address] [place] [address] [place] ALP [Catalytic activity/Vol] 72 U/L Normal 38-113 [facility] Comment on above: Order Comment: Speci men Type: SWAB OF INTERNAL NOSE Ordering Facility: [facility] Address: [address] [place] [address] Performed By: #### S APCR #### [facility] CLIA [id number] [address] [place] [address] [place] ALT [Catalytic activity/Vol] 27 U/L Normal 10-54 [facility] Comment on above: Order Comment: Speci men Type: SWAB OF INTERNAL NOSE Ordering Facility: [facility] Address: [address] [place] [address] Performed By: #### S APCR #### [facility] CLIA [id number] [address] [place] [address] [place] Anion gap [Moles/Vol] 12 mmol/L Normal 9-18 [facility] Comment on above: Order Comment: Speci men Type: SWAB OF INTERNAL NOSE Ordering Facility: [facility] Address: [address] [place] [address] Performed By: #### S APCR #### [facility] CLIA [id number] [address] [place] [address] [place] AST [Catalytic activity/Vol] 20 U/L Normal 14-40 [facility] Comment on above: Order Comment: Speci men Type: SWAB OF INTERNAL NOSE Ordering Facility: [facility] Address: [address] [place] [address] Performed By: #### S APCR #### [facility] CLIA [id number] [address] [place] [address] [place] Bilirubin [Mass/Vol] 0.6 mg/dL Normal 0.2-1.3 [facility] Comment on above: Order Comment: Speci men Type: SWAB OF INTERNAL NOSE Ordering Facility: [facility] Address: [address] [place] [address] Performed By: #### S APCR #### [facility] CLIA [id number] [address] [place] [address] [place] Calcium [Mass/Vol] 9.3 mg/dL Normal 8.5-10.2 [facility] Comment on above: Order Comment: Speci men Type: SWAB OF INTERNAL NOSE Ordering Facility: [facility] Address: [address] [place] [address] Performed By: #### S APCR #### [facility] CLIA [id number] [address] [place] [address] [place] Chloride [Moles/Vol] 98 mmol/L Normal 97-105 [facility] Comment on above: Order Comment: Speci men Type: SWAB OF INTERNAL NOSE Ordering Facility: [facility] Address: [address] [place] [address] Performed By: #### S APCR #### [facility] CLIA [id number] [address] [place] [address] [place] CO2 [Moles/Vol] 28 mmol/L Normal 22-30 [facility] Comment on above: Order Comment: Speci men Type: SWAB OF INTERNAL NOSE Ordering Facility: [facility] Address: [address] [place] [address] Performed By: #### S APCR #### [facility] CLIA [id number] [address] [place] [address] [place] Creatinine [Mass/Vol] 0.90 mg/dL Normal 0.73-1.22 [facility] Comment on above: Order Comment: Speci men Type: SWAB OF INTERNAL NOSE Ordering Facility: [facility] Address: [address] [place] [address] Performed By: #### S APCR #### [facility] CLIA [id number] [address] [place] [address] [place] Creatinine and Glomerular filtration rate.predicted panel (S/P/Bld) 100 mL/min/1.73m??? Normal >=60 [facility] Comment on above: Order Comment: Speci men Type: SWAB OF INTERNAL NOSE Ordering Facility: [facility] Address: [address] [place] [address] Result Comment: Aditi mated Glomerular Filtration Rate [...] accurately reflect actual GFR. Performed By: #### S APCR #### [facility] CLIA [id number] [address] [place] [address] [place] Glucose [Mass/Vol] 113 mg/dL High 74-99 [facility] Comment on above: Order Comment: Speci men Type: SWAB OF INTERNAL NOSE Ordering Facility: [facility] Address: [address] [place] [address] Result Comment: The [place] Diabetes Association (ADA) provides guidance for cutoff [...] Standards of Medical Care in Diabetes 2016, [place] [employer] Association. Diabetes Care. 2016.39(Suppl 1). Performed By: #### S APCR #### [facility] CLIA [id number] [address] [place] [address] [place] Potassium [Moles/Vol] 4.6 mmol/L Normal 3.7-5.1 [facility] Comment on above: Order Comment: Renzoi men Type: SWAB OF INTERNAL NOSE Ordering Facility: [facility] Address: [address] [place] [address] Performed By: #### S APCR #### [facility] CLIA [id number] [address] [place] [address] [place] Protein [Mass/Vol] 6.8 g/dL Normal 6.3-8.0 [facility] Comment on above: Order Comment: Speci men Type: SWAB OF INTERNAL NOSE Ordering Facility: [facility] Address: [address] [place] [address] Performed By: #### S APCR #### [facility] CLIA [id number] [address] [place] [address] [place] Sodium [Moles/Vol] 138 mmol/L Normal 136-144 [facility] Comment on above: Order Comment: Speci men Type: SWAB OF INTERNAL NOSE Ordering Facility: [facility] Address: [address] [place] [address] Performed By: #### S APCR #### [facility] CLIA [id number] [address] [place] [address] [place] Urea nitrogen [Mass/Vol] 8 mg/dL Low 9-24 [facility] Comment on above: Order Comment: Speci men Type: SWAB OF INTERNAL NOSE Ordering Facility: [facility] Address: [address] [place] [address] Performed By: #### S APCR #### [facility] CLIA [id number] [address] [place] [address] [place] ECG COMPLETEon 12-05-2022 ECG COMPLETE Ventricular Rate : 7 2 BPM Atrial Rate : 72 BPM P-R Interval : 146 ms QRS Duration : 102 ms Q-T Interval : 404 ms QTC Calculation(Bazett) : 442 ms Calculated P [place] : 30 degrees Calculated R [place] : -9 degrees Calculated T [place] : 148 degrees NORMAL SINUS RHYTHM LEFT VENTRICULAR HYPERTROPHY WITH REPOLARIZATION ABNORMALITY ABNORMAL ECG Confirmed by MD DANIA, PhD, LUL ([id number]) on 12/14/2022 5:15:54 AM NAME : CONOR LEE PID : [id number] : 1965 Gender : Male Race : ORD : [id number] Procedure Date : Dec 05 2022 08:48:34 Edit Date : Dec 14 2022 05:15:59 Diagnosis: NORMAL SINUS RHYTHM LEFT VENTRICULAR HYPERTROPHY WITH REPOLARIZATION ABNORMALITY ABNORMAL ECG Confirmed by MD DANIA, PhD, LUL ([id number]) on 12/14/2022 5:15:54 AM Test Reason : Location : 314 : J14 Overread By : MD DANIA, PhD,LUL Edited By : MD DANIA, PhD,LUL Referred By : MIMI MCKINNEY Acquired by : LIANA GIPSON [facility] ECHOon 12-05-2022 Echocardiography Echocardiography Report: Transthoracic Echo [facility] J35 Date of service: 12/05/2022 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 Ordering physician: MIMI MCKINNEY Indication: Initial postoperative [...] * * Final * * * CC [employer] Image : [id number] micsSISUID Normal [facility] LDH SerPl-cCncon 12-05-2022 LDH [Catalytic activity/Vol] 294 U/L High 135-225 [facility] Comment on above: Order Comment: Sylvie hammer Type: SWAB OF INTERNAL NOSE Ordering Facility: [facility] Address: [address] [place] [address] Performed By: #### S APCR #### [facility] CLIA [id number] [address] [facility] [id number] [place] [address] [place] PT panel Coag (PPP)on 2022 INR Coag (PPP) [Relative time] 1.0 {INR} Normal 0.9-1.3 [facility] Comment on above: Order Comment: Sylvie hammer Type: BLOOD SPECIMEN Ordering Facility: [facility] Address: [address] [place] [address] Result Comment: Brianna min K Antagonist (VKA) Therapeutic Range: INR 2 to 3 (Target INR of 2.5) Note: For patients treated with VKA drugs, such as warfarin, the [place] [employer]icians 2012 Guideline recommends [...] Chest 2012, 141:7S-47S Pat RA, et al. [facility] 2017, 70: 252-289 Performed By: #### 3 4528-0 #### [facility] CLIA [id number] [address] [place] [address] [place] PT Coag (PPP) [Time] 10.3 s Normal 9.7-13.0 [facility] Comment on above: Order Comment: Speci men Type: BLOOD SPECIMEN Ordering Facility: [facility] Address: [address] [place] [address] Performed By: #### 3 4528-0 #### [facility] CLIA [id number] [address] [place] PVR ANK PRESS RADAMES VAS LABon 12-05-2022 PVR ANK PRESS [facility] LAB Non-Invasive Vascular Laboratory [facility] J35 Lower Extremity Arterial Physiology Study [...] physician: Judith Michel MD, RPVI Final CC [employer] [facility] Image : [id number] Oh My Green!oDynamicsSISUID See Link below for Image Normal [facility] US ABDOMEN COMPLETEon 2022 US ABDOMEN COMPLETE * * *Final Report* * * DATE OF EXAM: Dec 05 2022 11:34AM [facility] 1040 - US ABDOMEN COMPLETE / PROCEDURE [...] spleen, abdominal aorta could not be visualized. Diesel Power Mechanic: NAVEEN Transcribe Date/Time: Dec 05 2022 11:36A Dictated by : CHANI CASAS MD This examination was interpreted and the report reviewed and electronically signed by: DEAN CHACON MD on Dec 05 2022 11:56AM EST [id number] Normal [facility] aPTT PPPon 12-05-2022 aPTT Coag (PPP) [Time] 28.5 s Normal 23.0-32.4 [facility] Comment on above: Order Comment: Speci men Type: BLOOD SPECIMEN Ordering Facility: [facility] Address: [address] [place] [address] Performed By: #### 3 4528-0 #### [facility] CLIA [id number] [address] [place] [address] [facility] CNOVon 12-04-2022 CNOV Office Visit (VAMEAV ) CONOR LEE ([id number]) 1965 M Date Time Provider Department 12/04/22 10:45 AM SETH JENKINS V[facility]AV During your visit today, we recorded the following information about you: Pulse Blood pressure Weight Height 76/minute 130/80 85.7 kg 1.778 m Seth Jenkins MD 12/04/2022 10:55 AM Signed [facility] [place] Christelle Rodriguez Department of Cardiovascular Medicine SECTION [...] to have extensive CAD. Work-up done at [facility]. Referred to [facility] for surgical evaluation. During his catheterization was [...] ETOH abuse, Hypertension, PAD (peripheral artery disease) ([facility]), Peripheral vascular disease (HCC), Prosthetic aortic valve [...] artery disease including a chronic total occlusion (OCCUPATIONAL NURSE) of the right coronary artery Normal global [...] medical t (more content not included)... Normal [facility] ED Note-Physicianon 11-15-19 ED Note-Physician [id number] .00CD:127 Normal [facility] RAD - MISCon 11-14-2022 RAD - MISC [id number]. 00CD:127 Normal [facility] CNPNon 11-07-2022 CNPN Telephone (TOMN) CONOR LEE ([id number]) 1965 M Date Time Provider Department 11/07/22 MIMI MCKINNEY [facility] During your visit today, we [...] for his review/plan of care. Conor Lee [id number] 57 year old Diagnosis: severe Prosthetic mean [...] 4:03 PM Signed Expedite. Evaluation only. Cards NAGAL-efmvhxc-Lprgvlg r medicine consult 12/05/22, Dr. Mckinney consult [...] for preprocedural cardiovascular examination [Z01.810] Atherosclerosis 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 (HCC) [I25.118] PVD (peripheral vascular disease) (HCC) [I73.9] Hyperlipidemia, unspecified hyperlipidemia type [E78.5] S/P AVR (aortic valve replacement) [Z95.2] Essential hypertension [I10] Order(s):CONSULT TO CARDIOLOGY [9003] Order #: [id number]: 1 FUTURE CARDIOTHORACIC PREOP EVALUATION [] Order #: [id number]: 1 FUTURE CONSULT TO VASCULAR MEDICINE [19990525] Order #: [id number]: 1 FUTURE COMP METABOLIC PANEL [SQCMP] Order #: [id number] FUTURE LD LACTATE DEHYDRO [LD6] Order #: [id number] FUTURE CBC + DIFF [SQCBCDIF] Order #: [id number] FUTURE PROTHROMBIN TIME/PT [SQPT] Order #: [id number] FUTURE ACTIVATED PTT [SQPTT] Order #: [id number] FUTURE ECG COMPLETE [ECG01] Order #: [id number] FUTURE PVR ANK PRESS RADAMES VAS LAB [9250716] Order #: [id number] ECHO [567640] Order #: [id number]: 1 FUTURE CTA CHEST (GATED) W IVCON [4129768] Order #: [id number] FUTURE SPIROMETRY BASELINE ONLY [0747621] Order #: [id number]: 1 FUTURE LUNG DIFFUSION CAPACITY (DLCO) [7353462] Order #: [id number]: 1 FUTURE US ABDOMEN COMPLETE [5343005] Order #: [id number] FUTURE Problem List As Of Date: 11/07/2022 (None) Encounter Status:Closed by NEIL FORD on 11/20/22 [facility] CNPN Telephone ([facility]) CONOR LEE ([id number]) 1965 M Date Time Provider Department 11/07/22 MIMI MCKINNEY [facility] During your visit today, we recorded the following information about you: Maria Guadalupe Lopez 11/07/2022 11:50 AM Signed [place] Allergies As of Date: 11/07/2022 (Not on File) Date Reviewed: Never Reviewed Reason for Visit: Insurance Inquiry [1462] Problem List As Of Date: 11/07/2022 (None) Encounter Status:Closed by MARIA GUADALUPE LOPEZ on 11/07/22 [facility] 36on 11-01-2022 36 Patient made aware. 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 Dr. Ledesma. Redo AVR, Multivessel disease. [facility] 3610-19-2022 36 Patient called to make you aware that his BP this morning was 123/86, HR 87. Says he's checked it several times and it's running around those same numbers. CHANI. Thanks [facility] Danielle 10-18-2022 GABRIELE - Attestation signed by Arvin Ledesma MD at 10/18/2022 11:06 AM Arvin Ledesma MD, MPH, FACC, [facility] Interventional Cardiology Pager Email: [email or web address] Patient: Conor Lee Procedure Information Date/Time: 10/18/22 1130 Procedure: Coronary angiography (Bilateral) Location: [facility] RIDES ATTENDANT 3 / [facility] (Cath) Providers: Arvin Ledesma MD [...] to blood products. Additional Equipment Requests Normal [facility] HP 10-18-2022 - Attestation signed by Arvin Ledesma MD at 10/18/2022 11:05 AM Arvin Ledesma MD, MPH, FACC, [facility] Interventional Cardiology Pager Email: [email or web address] H&P reviewed. The patient was examined and there are no changes to the H&P. Normal [facility] NURSNOTEon 10-18-2022 NURSNOTE Patient states he is leaving and will sign papers to leave because he is getting inpatient and anxious sitting here. Dr. Ledesma made aware that patient wants to leave. Made aware of BP of 174/107. No orders received. MD states patient can be discharged but needs to check his BP when he gets home. If it is still elevated he is to call [facility]. MD states patient's BP may be elevated due [...] to the ER with any concerns. Normal [facility] NURSNOTE Head of bed raised - patient sitting up tolerating his diet. Right groin cath site without bleeding or hematoma noted with head of bed raised. Normal [facility] NURSNOTE Head of bed increase d to about 30 degrees, right groin cath site without bleeding or hematoma with head of bed elevated. Normal [facility] NURSNOTE Dr. Ledesma aware o f BP of 198/103. No order at this time. Will monitor BP and notify MD if BP remains high prior to discharge. MD would like BP to be 170/95 prior to discharge and patient needs to be instructed to check his BP 1 hour after discharge and daily. If elevated he will notify his cardiology clinic [facility] Orders Onlyon 10-11-2022 Orders Only [id number] Conor Lee 1965 M Date Provider Department Center 10/11/2022 CARYN CHAVEZ [facility] LAB ID HeartVAS Family History Problem Relation Age of Onset Diabetes Other Hypertension Other Family Status - Relation Status Age at Other Normal [facility] HPon 10-08-2022 [facility] Cardiology Clinic Note Chief Complaint: Patient here [...] valve disease, Hypertension, PAD (peripheral artery disease) ([facility]), and PVD (peripheral vascular disease) ([facility]). Surgical History He has a [...] associated cardiova (more content not included)... Normal [facility] Office Visiton 10-08-2022 Follow-up visit [id number] Conor Lee Cyndi 1965 [facility] Provider Department Center 10/08/2022 Rosy-ARVIN LEDESMA DAVID Bender Family History Problem Relation Age of Onset Diabetes Other Hypertension Other Family Status - Relation Status Age at Other Level of Service:65502 ME OFFICE/OUTPATIENT ESTABLISHED HIGH MDM 40-54 MIN Normal [facility] Orders Onlyon 10-08-2022 Orders Only [id number] Conor Lee Cyndi 1965 [facility] Provider Department Center 10/08/2022 DARCY SULLIVAN DAVID Bender Family History Problem Relation Age of Onset Diabetes Other Hypertension Other Family Status - Relation Status Age at Other Normal [facility] Family Medicine Office/Clini c Noteon 09-10-2022 Family [...] of aortic valve replacement in 2011 at [facility]. The patient smokes about a pack of cigarettes a day. He has tried quitting in the past. He quit for 8 months when he had his surgery, but then started back up again. He does not have a investigator operator. Review of Systems PHQ Score Initial Depression [...] medications, so I have reached out to [facility] to see if they can [...] this. We will again get records from [facility] cardiology. 4. Illiteracy (Z55.0: Illiteracy [...] with voice recognition artificial intelligence software, specifically [employer], [employer] and or [employer]. Substitutions may have occurred due to the inherent limitations of voice recognition and artificial intelligence software. ATTESTATION: Documentation services were performed after patient or guardian consented to allow [employer] to record this visit. CHAN reconciliation specialist and provider reviewed before signing. CHAN: Chary Tomas Follow-up No qualifying data available Problem List/Past Medical History Ongoing Atherosclerosis of curyung artery of extremity Carpal tunnel syndrome Chronic obstructive bronchitis Disorder of diaphragm Endocarditis Essential hypertension Heart murmur Hemiparesis Illiteracy Lumbosacral spondylosis without myelopathy Neuralgia Neuritis Peripheral vascular disease Primary hypercholesterolemia PVD (pulmonary valve disease) Spasm of back muscles Thoracic spondylosis without myelopathy Historical No qualifying data Procedure/Surgical History Aortic valve replacement and replacement of ascending aorta ( (more content not included)... Normal [facility] Comment on above: Result Comment: Elec tronically Signed By: Harpreet Lim MD\.br\Date and Time Signed: 09/10/22 11:15 EDT\.br\Electronically Co-Signed By: Chary Tomas\Date and Time Co-Signed: 09/06/22 14:37 EDT Ambulatory [...] Follow-Up Appointments 2022 7:40 AM EST With: Harpreet Lim MD Where: [facility] Family Medicine Office/Clini c Noteon 09-06-2022 [...] of aortic valve replacement in 2011 at [facility]. The patient smokes about a pack of cigarettes a day. He has tried quitting in the past. He quit for 8 months when he had his surgery, but then started back up again. He does not have a investigator operator. Review of Systems PHQ Score Initial Depression [...] medications, so I have reached out to [facility] to see if they can [...] this. We will again get records from [facility] cardiology. 4. Illiteracy (Z55.0: Illiteracy [...] with voice recognition artificial intelligence software, specifically [employer], [employer] and or [employer]. Substitutions may have occurred due to the inherent limitations of voice recognition and artificial intelligence software. ATTESTATION: Documentation services were performed after patient or guardian consented to allow [employer] to record this visit. CHAN reconciliation specialist and provider reviewed before signing. CHAN: Chray Tomas Follow-up No qualifying data available Problem List/Past Medical History Ongoing Atherosclerosis of curyung artery of extremity Carpal tunnel syndrome Chronic obstructive bronchitis Disorder of diaphragm Endocarditis Essential hypertension Heart murmur Hemiparesis Illiteracy Lumbosacral spondylosis without myelopathy Neuralgia Neuritis Peripheral vascular disease Primary hypercholesterolemia PVD (pulmonary valve disease) Spasm of back muscles Thoracic spondylosis without myelopathy Historical No qualifying data Procedure/Surgical History Aortic valve replacement and replacement of ascending aorta (09/06 (more content not included)... Normal [facility] Comment on above: Result Comment: Elec tronically Signed By: Chary Tomas\.br\Date and Time Signed: 09/06/22 11:27 EDT\.br\Electronically Co-Signed By: Chary Tomas\.br\Date and Time Co-Signed: 09/06/22 12:04 EDT\.br\Electronically Co-Signed By: Hrapreet Lim MD Ambulatory Visit Summaryon 0 06-13-2022 Ambulatory Visit Summary CONOR LEE :1965 Visit Date:06/13/2022 Ambulatory Visit Instructions Your Diagnosis Atherosclerosis of curyung artery of extremity Carpal tunnel syndrome Chronic [...] for for wheezing or SOB Pickup at [facility] Changed aspirin (aspirin 81 mg Oral EC Tab) 1 Tablets By Mouth Every day Pickup at [facility] Changed cilostazol (cilostazol 50 mg Tab) 1 Tablets By Mouth 2 times a day Pickup at [facility] Changed cyclobenzaprine (cyclobenzaprine 10 mg Tab) 1 Tablets By Mouth Once a day (in the evening) as needed for for spasm Pickup at [facility] Changed famotidine (famotidine 40 mg Tab) 1 Tablets By Mouth Every [facility] Changed lisinopril (lisinopril 10 mg Tab) 1 Tablets By Mouth 2 times a [facility] Changed metoprolol (Metoprolol tartrate 25 mg Tab) 1 Tablets By Mouth 2 times a day Pickup at [facility] Pharmacy Information [facility]: [address] [place], [place] [id number] [phone] What How Much When Comments Stop Taking [...] are currently receiving treatment for. Atherosclerosis of curyung artery of extremity Carpal tunnel syndrome Chronic obstructive bronchitis Disorder of diaphragm Endocarditis Essential hypertension Heart murmur Hemiparesis Illiteracy Lumbosacral spondylosis without myelopathy Neuralgia Neuritis Peripheral vascular disease Primary hypercholesterolemia PVD (pulmonary valve disease) Spasm of back muscles Thoracic spondylosis without myelopathy Normal [facility] Family Medicine Office/Clini c Noteon 06-13-2022 Family Medicine [...] EXPLAINED RTO PRN EXPLAINED. 1. Atherosclerosis of curyung artery of extremity (I70.209: Unspecified atherosclerosis of curyung arteries of extremities, unspecified extremity) 2. Carpal [...] wheezing or SOB, 1 EA, Refill(s) 11, [facility], 175.2, cm, 06/13/22 14:44:00 EDT, Height/Length Dosing, 91.6, kg, 06/13/22 14:44:00 EDT, Weight Dosing aspirin, 81 mg = 1 tab(s), Oral, Daily, # 90 tab(s), Refills(s) 3, Pharmacy: [facility], 175.2, cm, 06/13/22 14:44:00 EDT, Height/Length Dosing, 91.6, kg, 06/13/22 14:44:00 EDT, Weight Dosing cilostazol, 50 mg = 1 tab(s), Oral, BID, # 180 tab(s), Refills(s) 3, Pharmacy: [facility], 175.2, cm, 06/13/22 14:44:00 EDT, Height/Length Dosing, 91.6, kg, 06/13/22 14:44:00 EDT, Weight Dosing cyclobenzaprine, 10 mg = 1 tab(s), Oral, qPM, PRN for spasm, # 30 tab(s), Refills(s) 11, Pharmacy: [facility], 175.2, cm, 06/13/22 14:44:00 EDT, Height/Length Dosing, 91.6, kg, 06/13/22 14:44:00 EDT, Weight Dosing famotidine, 40 mg = 1 tab(s), Oral, Daily, # 9 tab(s), Refills(s) 3, Pharmacy: [facility], 175.2, cm, 06/13/22 14:44:00 EDT, Height/Length Dosing, 91.6, kg, 06/13/22 14:44:00 EDT, Weight Dosing lisinopril, 10 mg = 1 tab(s), Oral, BID, # 180 tab(s), Refills(s) 3, Pharmacy: [facility], 175.2, cm, 06/13/22 14:44:00 EDT, Height/Length Dosing, 91.6, kg, 06/13/22 14:44:00 EDT, Weight Dosing metoprolol, 25 mg = 1 tab(s), Oral, BID, # 180 tab(s), Refills(s) 3, Pharmacy: [facility], 175.2, cm, 06/13/22 14:44:00 EDT, Height/Length Dosing, 91.6, kg, 06/13/22 14:44:00 EDT, Weight Dosing Follow- (more content not included)... Normal [facility] Comment on above: Result Comment: Elec tronically Signed By: AIDAN MOMIN, NAOMIE Hanna\.br\Date and Time Signed: 06/13/22 15:13 EDT 37on 04-13-2022 37 Increase Coreg/Carvedilol to 37.5 mg twice daily for blood pressure Normal [facility] Office Visiton 04-13-2022 Follow-up visit [id number] Conor Lee 1965 M Date Provider Department Center 04/13/2022 JESSICA CHOU Hos Family History Problem Relation Age of Onset Diabetes Other Hypertension Other Family Status - Relation Status Age at Other Level of Service:79140 ME OFFICE/OUTPATIENT ESTABLISHED MOD MDM 30-39 MIN Reason for Visit and Comments: Valve Disorder [3372] Hypertension [882834] Peripheral Vascular Disease [458] Normal [facility] ECHOCARDIO M/2D COMPLETEon 1 ECHOCARDIO M/2D COMPLETE Patient: CONOR LEE Exam Date: 12/06/2021 : 1965 Gender:M Ordering : DR ARVIN LEDESMA M.D. Admission #: [id number] Family : DR NAOMIE BERMUDEZ . Order #: [id number] CLICK HERE TO VIEW EXAM ECHOCARDIOGRAM REPORT [...] M.D. on 12/11/2021 at 11:58 Normal [facility] PROF CHEM 8 (BAS METB)on Anion gap [Moles/Vol] 9.7 mmol/L Normal [facility] Comment on above: Performed By: #### B MP #### [facility] [address] [address] [address] Flavio Horn Calcium [Mass/Vol] 8.7 mg/dL Normal 8.5-10.1 [facility] Comment on above: Performed By: #### B MP #### [facility] [address] [address] [address] Flavio Horn Chloride [Moles/Vol] 103 mmol/L Normal 98-107 [facility] Comment on above: Performed By: #### B MP #### [facility] [address] [address] [address] Flavio Horn CO2 [Moles/Vol] 31.3 mmol/L Normal 21.0-32.0 [facility] Comment on above: Performed By: #### B MP #### [facility] [address] [address] [address] Flavio Horn Creatinine [Mass/Vol] 0.97 mg/dL Normal 0.70-1.30 [facility] Comment on above: Performed By: #### B MP #### [facility] [address] [address] [address] Flavio Horn EGFR-AF BELGIAN >60 Normal >=60 [facility] Comment on above: Performed By: #### B MP #### [facility] [address] [address] [address] Flavio Horn EGFR-NON AF BELGIAN >60 Normal >=60 [facility] Comment on above: Performed By: #### B MP #### [facility] [address] [address] [address] Flavio Horn Glucose [Mass/Vol] 112 mg/dL Critically high 74-106 T [facility] Comment on above: Performed By: #### B MP #### [facility] [address] [address] [address] Flavio Horn Potassium [Moles/Vol] 3.6 mmol/L Normal 3.5-5.1 [facility] Comment on above: Performed By: #### B MP #### [facility] [address] [address] [address] Flavio Horn Sodium [Moles/Vol] 141 mmol/L Normal 136-145 [facility] Comment on above: Performed By: #### B MP #### [facility] [address] [place] [address] Dr. Flavio Horn Urea nitrogen [Mass/Vol] 10.0 mg/dL Normal 7.0-18.0 [facility] Comment on above: Performed By: #### B MP #### [facility] [address] [place] [address] Dr. Flavio Horn Urea nitrogen/Creatinine [Mass ratio] 10.3 mg/mg Normal [facility] Comment on above: Performed By: #### B MP #### [facility] [address] [place] [address] Dr. Flavio Horn PROF CHEM 8 (BAS METB)on Anion gap [Moles/Vol] 10.7 mmol/L Normal [facility] Comment on above: Performed By: #### B MP #### [facility] [address] [place] [address] Dr. Flavio Horn Calcium [Mass/Vol] 9.3 mg/dL Normal 8.5-10.1 [facility] Comment on above: Performed By: #### B MP #### [facility] [address] [place] [address] Dr. Flavio Horn Chloride [Moles/Vol] 101 mmol/L Normal 98-107 [facility] Comment on above: Performed By: #### B MP #### [facility] [address] [address] [address] Flavio Horn CO2 [Moles/Vol] 31.8 mmol/L Normal 21.0-32.0 [facility] Comment on above: Performed By: #### B MP #### [facility] [address] [place] [address] Dr. Flavio Horn Creatinine [Mass/Vol] 1.03 mg/dL Normal 0.70-1.30 [facility] Comment on above: Performed By: #### B MP #### [facility] [address] [place] [address] Dr. Flavio Horn EGFR-AF BELGIAN >60 Normal >=60 [facility] Comment on above: Performed By: #### B MP #### [facility] [address] [place] [address] Dr. Flavio Horn EGFR-NON AF BELGIAN >60 Normal >=60 [facility] Comment on above: Performed By: #### B MP #### [facility] [address] [place] [address] Dr. Flavio Horn Glucose [Mass/Vol] 132 mg/dL Critically high 74-106 T [facility] Comment on above: Performed By: #### B MP #### [facility] [address] [place] [address] Dr. Flavio Horn Potassium [Moles/Vol] 4.5 mmol/L Normal 3.5-5.1 [facility] Comment on above: Performed By: #### B MP #### [facility] [address] [place] [address] Dr. Flavio Horn Sodium [Moles/Vol] 139 mmol/L Normal 136-145 [facility] Comment on above: Performed By: #### B MP #### [facility] [address] [place] [address] Dr. Flavio Horn Urea nitrogen [Mass/Vol] 11.0 mg/dL Normal 7.0-18.0 [facility] Comment on above: Performed By: #### B MP #### [facility] [address] [place] [address] Dr. Flavio Horn Urea nitrogen/Creatinine [Mass ratio] 10.7 mg/mg Normal [facility] Comment on above: Performed By: #### B MP #### [facility] [address] [id number] Flavio Horn XR CHEST 2 Von [...] FÉLIX ALBERT Date: 2021-05-22 15:17 Normal [facility] Covid-19 PCR (CVDTB)on SARS-CoV-2 (COVID-19) RNA JARROD+probe Ql (Unsp spec) Not detected Normal NOT DETECTED [facility] Comment on above: Result Comment: This test is not yet approved or cleared by the [place] FDA. When there are no FDA-approved or cleared tests available, and other criteria are met, FDA can make tests available under an emergency access mechanism called an Emergency Use Authorization (EUA). The EUA for this test is supported by the [place] of Health and Human Service's (HHS's) declaration [...] consistent with SARS-CoV-2. Performed By: #### C VDTBH #### [facility] [address], [place] [address] Dr. Flavio Horn Cardiovascular Lab Reporton 04-06-2019 Cardiovascular Lab Report [facility] Patient Name: Conor Lee [facility] E MR #: [id number] Department of Physician: Judi Pemberton M.D. Division of Service Date: 04/06/2019 Cardiology Birthdate: 1965 Adult Cardiovascular Room #: [id number] [facility] [address] [facility] [address] [facility] [address] [place] [address] Cardiovascular Laboratory Report FINAL IMPRESSIONS: 1. Severe, discrete stenoses in the left superficial femoral artery in the setting of lifestyle limiting claudication successfully treated by balloon angioplasty. 2. 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 3. [id number] disease of the bilateral iliac arteries. RECOMMENDATIONS: [...] performed. This was exchanged out for a 5-Palestinian sheath. Angiography of the right lower extremity was performed via hand injection via the side arm of the sheath. Angiography of the iliac system on the right side was performed under digital subtraction. A 5-Palestinian Uni-Flush catheter was advanced in and positioned in the abdominal aorta. Abdominal aortography was performed using 20 mL at a concentrate of 10 mL/second. Angiography of the left iliac system was also performed under digital subtraction and power injection. The aortic bifurcation was crossed using a combination of the 5-Palestinian Uni-Flush catheter and a stiff angled Glidewire. The Uni- Flush was placed at the level of the left femoral head. Angiography of the left lower extremity was performed. At this juncture, it was elected to proceed with an interventional procedure. The 5-Palestinian sheath was upsized to a 6-Palestinian Alfredo sheath. A Supracore wire was used to cross the suspect stenoses and positioned distally. Balloon angioplasty was performed using a 4 x 20 mm military science teacher balloon. This was repeated over the proximal of the two lesions. Repeat angiography revealed a satisfactory result. The wire was removed. Final angiography showed no evidence of dissection, thrombosis, or dye extravasation. At this point, it was elected to conclude the procedure. The 6-Palestinian Alfredo was exchanged out for a 7-Palestinian 11 cm sheath. This was to be [...] balloon angioplasty using a 4 x 20 military science teacher balloon. Post angioplasty, no evidence of dye extravasation, vessel trauma, or thrombosis is seen. Popliteal artery: This is widely patent. Below-knee vessels; there is three-vessel runoff to the foot. INDICATIONS: Bilateral lifestyle limiting claudication. Electronically Signed by: Arvin Ledesma M.D. 04/08/2019 10:45 A Arvin Ledesma M.D. Date Dict: 04/06/2019/10:57 Jie/Arvin Ledesma M.D. Date Trans: 04/06/2019 01:02 P/juan [id number] cc: Arvin Ledesma M.D. [address] [place] [id number] Naomie Bermudez M.D. [address] [place] [id number] [facility] Vital Signs Date Time Vital Sign Value Performing Clinician Facility 02-01-2023 10:10-0500 Diastolic blood pressure 97 mm[Hg] BISHOP Schuster MD Work Phone: [facility] 02-01-2023 10:10-0500 Systolic blood pressure 143 mm[Hg] BISHOP Schuster MD Work Phone: [facility] 02-01-2023 10:06-0500 Body height 177.8 cm BISHOP Schuster MD Work Phone: [facility] 02-01-2023 10:06-0500 Body weight 83.92 kg BISHOP Schuster MD Work Phone: [facility] 02-01-2023 10:06-0500 Heart rate 72 /min BISHOP Schuster MD Work Phone: [facility] 02-01-2023 10:06-0500 Respiratory rate 18 /min BISHOP Schuster MD Work Phone: [facility] 02-01-2023 10:06-0500 SaO2% (BldA) [Mass fraction] 99 % BISHOP Schuster MD Work Phone: [facility] 01-18-2023 11:26-0500 SaO2% (BldA) [Mass fraction] 94 % MIMI MCKINNEY [facility] Comment on above: Order Comment: Specimen Type: BLOOD SPEC IMEN Ordering Facility: [facility] Address: [address] [place] [address] Performed By: #### 5 [id number] #### [facility] CLIA [id number] [address] [facility] DESK [address] [facility] 01-17-2023 11:11-0500 Body temperature 97.11 [degF] Chanda Alonzo MD Work Phone: [facility] 01-17-2023 11:11-0500 Diastolic blood pressure 66 mm[Hg] Chanda Alonzo MD Work Phone: [facility] 01-17-2023 11:11-0500 Heart rate 62 /min Chanda Alonzo MD Work Phone: [facility] 01-17-2023 11:11-0500 Respiratory rate 17 /min Chanda Alonzo MD Work Phone: [facility] 01-17-2023 11:11-0500 SaO2% (BldA) [Mass fraction] 96 % Chanda Alonzo MD Work Phone: [facility] 01-17-2023 11:11-0500 Systolic blood pressure 118 mm[Hg] Chanda Alonzo MD Work Phone: [facility] 01-16-2023 17:05-0500 Body height 177.8 cm Chanda Alonzo MD Work Phone: [facility] 01-16-2023 17:05-0500 Body mass index (BMI) [Ratio] 27.71 kg/m2 Chanda Alonzo MD Work Phone: [facility] 01-16-2023 17:05-0500 Body weight 87.6 kg Chanda Alonzo MD Work Phone: [facility] 01-03-2023 12:46-0500 Body height 177.8 cm Rima Mead MD Work Phone: [facility] 01-03-2023 12:46-0500 Body temperature 97.2 [degF] Rima Mead MD Work Phone: [facility] 01-03-2023 12:46-0500 Body weight 86.18 kg Rima Mead MD Work Phone: [facility] 01-03-2023 12:46-0500 Diastolic blood pressure 83 mm[Hg] Rima Mead MD Work Phone: [facility] 01-03-2023 12:46-0500 Heart rate 67 /min Rima Mead MD Work Phone: [facility] 01-03-2023 12:46-0500 Respiratory rate 18 /min Rima Mead MD Work Phone: [facility] 01-03-2023 12:46-0500 SaO2% (BldA) [Mass fraction] 95 % Rima Mead MD Work Phone: [facility] 01-03-2023 12:46-0500 Systolic blood pressure 170 mm[Hg] Rima Mead MD Work Phone: [facility] 01-03-2023 08:16-0500 Body height 177.8 cm Ana August MD Work Phone: [facility] 01-03-2023 08:16-0500 Body temperature 98.49 [degF] Ana August MD Work Phone: [facility] 01-03-2023 08:16-0500 Body weight 84.87 kg Ana August MD Work Phone: [facility] 01-03-2023 08:16-0500 Diastolic blood pressure 70 mm[Hg] Ana August MD Work Phone: [facility] 01-03-2023 08:16-0500 Heart rate 61 /min Ana August MD Work Phone: [facility] 01-03-2023 08:16-0500 Respiratory rate 18 /min Ana August MD Work Phone: [facility] 01-03-2023 08:16-0500 SaO2% (BldA) [Mass fraction] 95 % Ana August MD Work Phone: [facility] 01-03-2023 08:16-0500 Systolic blood pressure 158 mm[Hg] Ana August MD Work Phone: [facility] 12-05-2022 10:36-0400 Diastolic blood pressure 96 mm[Hg] Lex Anderson MD Work Phone: [facility] 12-05-2022 10:36-0400 Systolic blood pressure 165 mm[Hg] Lex Anderson MD Work Phone: [facility] 12-05-2022 10:33-0400 Body height 177.8 cm Lex Anderson MD Work Phone: [facility] 12-05-2022 10:33-0400 Body weight 84.82 kg Lex Anderson MD Work Phone: [facility] 12-05-2022 10:33-0400 Heart rate 67 /min Lex Anderson MD Work Phone: [facility] 12-05-2022 10:33-0400 Respiratory rate 12 /min Lex Anderson MD Work Phone: [facility] 12-05-2022 10:33-0400 SaO2% (BldA) [Mass fraction] 97 % Lex Anderson MD Work Phone: [facility] 12-04-2022 10:18-0400 Body height 177.8 cm Seth Jenkins MD Work Phone: [facility] 12-04-2022 10:18-0400 Body weight 85.73 kg Seth Jenkins MD Work Phone: [facility] 12-04-2022 10:18-0400 Diastolic blood pressure 80 mm[Hg] Seth Jenkins MD Work Phone: [facility] 12-04-2022 10:18-0400 Heart rate 76 /min Seth Jenkins MD Work Phone: [facility] 12-04-2022 10:18-0400 SaO2% (BldA) [Mass fraction] 96 % Seth Jenkins MD Work Phone: [facility] 12-04-2022 10:18-0400 Systolic blood pressure 130 mm[Hg] Seth Jenkins MD Work Phone: [facility] Encounters Encounter Date Encounter Type Care Provider Facility Start: 03-14-2023 ambulatory Harpreet Lim Facility :[facility] Hillary Start: 02-15-2023 ambulatory Brigitte [facility] Start: 02-12-2023 ambulatory Harpreet Lim Facility :[id number] Start: 02-09-2023 End: 02-10-2023 Evaluation and management of inpatient MAMI Perry ROBERSON Facility:[facility] Start: 02-07-2023 End: 02-08-2023 ambulatory Harpreet Lim Facility:[facility] Marci veliz Start: 02-05-2023 End: 02-06-2023 ambulatory Harpreet Lim Facility:[facility] Marci veliz Start: 02-01-2023 End: 02-01-2023 ambulatory MAYRA KAPADIA Facility:[facility] Start: 02-01-2023 End: 02-02-2023 ambulatory HARPREET LIM Facility:[facility] Start: 02-01-2023 End: 02-01-2023 ambulatory HARPREET LIM Facility:[facility] Start: 02-01-2023 End: 02-01-[address] (I-Stat) Work Phone: [facility] Start: 02-01-2023 End: 02-01-2023 Subsequent hospital visit by physician Renetta Lopez (I-Stat) Work Phone: Radiology Comment on above: Stenosis of prosthet ic aortic valve, subsequent encounter [T82.857D] Start: 02-01-2023 End: 02-01-2023 Patient encounter procedure E Anglea Schuster MD Work Phone: Cardiology Comment on above: Stenosis of prosthet ic aortic valve, initial encounter (Primary Dx); Hyperlipidemia LDL goal <70; Hypertension goal BP (blood pressure) < 140/80; 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 ([facility]); PAD (peripheral artery disease) ([facility]); Chronic obstructive pulmonary disease, unspecified COPD type ([facility]) Stenosis of prosthet ic aortic valve, initial encounter (Primary Dx) Start: 01-28-2023 End: 01-28-2023 ambulatory HARPREET LIM Facility:[facility] Start: 01-21-2023 End: 02-12-2023 ambulatory Harpreet Lim Facility:[id number] Start: 01-21-2023 End: 01-22-2023 ambulatory Harpreet Lim Facility:[facility] Start: 01-17-2023 End: 01-20-2023 Evaluation and management of inpatient SHARON MADRID Facility:[facility] Start: 01-15-2023 End: 01-17-2023 [facility] Start: 01-15-2023 End: 01-17-2023 Evaluation and management of inpatient Sharon Madrid MD Work Phone: [facility]mediate Start: 01-08-2023 Telephone encounter Rima Salinas MD Work Phone: Pulmonary Medicine Comment on above: Benefits Authorizati on Start: 01-03-2023 End: 01-03-2023 ambulatory MIMI MCKINNEY Facility:[facility] Start: 01-03-2023 End: 01-03-2023 Patient encounter procedure Ana August MD Work Phone: Vascular Surg Dept Comment on above: PVD (peripheral vasc ular disease) (HCC) (Primary Dx); Tobacco abuse; Simple chronic bronchitis (HCC) Adenopathy (Primary Dx); Lung mass; Chronic obstructive pulmonary disease, unspecified COPD type (HCC) Start: 01-02-2023 ambulatory Mayra Kapadia UNDERWRITING [employer]ERKS SUPERVISOR.DIRECTOR TRANSLATIONAL Work Phone: [facility] Start: 01-02-2023 Patient encounter procedure Mayra Kapadia UNDERWRITING [employer]ERKS SUPERVISOR.DIRECTOR TRANSLATIONAL Work Phone: Cardiology Comment on above: TAVR Consult Start: 01-02-2023 Patient encounter status Ileana Kapadia UNDERWRITING [employer]ERKS SUPERVISOR.DIRECTOR TRANSLATIONAL Work Phone: [facility] Work Phone: Start: 01-01-2023 End: 01-01-2023 ambulatory NAOMIE BERMUDEZ Facility:[facility] Start: 12-17-2022 Orders Only Rima Mead MD Work Phone: Pulmonary Medicine Comment on above: Lung mass (Primary D x); Neoplasm of lung; Mediastinal adenopathy Start: 12-11-2022 End: 12-12-2022 ambulatory Harpreet Lim Facility:[facility] Start: 12-07-2022 Telephone encounter Mimi Mckinney MD Work Phone: Cardiothoracic Comment on above: Consult PVD (peripheral vasc ular disease) (HCC) (Primary Dx) Start: 12-06-2022 End: 12-06-2022 Patient encounter procedure Mimi Mckinney MD Work Phone: Cardiothoracic Comment on above: Encounter for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 [facility] [address] Referral ID Status Reason Start Date Expiration Date V isits Requested Visits Authorized [id number] Closed PCP Requested Referral 12/07/2022 12/07/2023 1 1 Reason Comments Lung Mass Specialty Diagnoses / Procedures Referred By Contac t Referred To Contact Pulmonary and Critical Care Medicine Diagnoses Lung mass Procedures CONSULT TO PULM/CRITICAL CARE OFFICE/OUTPATIENT [facility] 60-74 MINUTES Mimi Mckinney MD [address] [place] [address] Referral ID Status Reason Start Date Expiration Date V isits Requested Visits Authorized [id number] Closed PCP Requested Referral 12/07/2022 12/07/2023 1 1 Reason Comments Chest Pain Specialty Diagnoses / Procedures Referred By Contac t Referred To Contact Diagnoses Lung mass Hypoxia Chest pain, unspecified type Referral ID Status Reason Start Date Expiration Date Visits Re quested Visits Authorized [id number] 1 1 Reason Comments Benefits Authorization Reason [...] CNTRST MTRL W/WO CNTRST Mayra Flor APRN.DIRECTOR TRANSLATIONAL [facility] [place] [address] Ct Imaging [place] [address] Referral ID Status Reason Start Date Expiration Date V isits Requested Visits Authorized [id number] Closed Auto-Generate d Referral 01/04/2023 03/05/2023 1 1 Reason Comments Radio Main J1 Care Teams (unrecognized sec tion and content) 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 Start Date End Date Naomie Bermudez MD [address] [place] [address] PCP - General Family Medicine 07/18/11 Mimi Mckinney MD [facility] [place] [id number] Surgeon Cardiac Surg 11/07/22 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 Start Date End Date Naomie Bermudez MD [address] [place] [id number] PCP - General Family Medicine 07/18/11 Mimi Mckinney MD [address] [place] [address] Surgeon Cardiac Surg 11/07/22 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 Start Date End Date Naoime Bermudez MD [address] [place] [address] PCP - General Family Medicine 07/18/11 Mimi Mckinney MD [address] [place] [address] Surgeon Cardiac Surg 11/07/22 Lex Anderson MD [address] [place] [address] Wire Tester Cardiology 11/22/22 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 Start Date End Date Naomie Bermudez MD [address] [place] [id number] PCP - General [facility] Medicine 07/18/11 Mimi Mckinney MD [address] [place] [address] Surgeon Cardiac Surg 11/07/22 Lex Anderson MD [address] [place] [address] Wire Tester Cardiology 11/22/22 Lex Anderson MD [address] [place] [address] Primary Staff Physician Cardiology 12/05/22 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 Start Date End Date Naomie Bermudez MD [address] [place] [address] PCP - General Family Medicine 07/18/11 Mimi Mckinney MD [address] [place] [address] Surgeon Cardiac Surg 11/07/22 Lex Anderson MD [address] [place] [address] Wire Tester Cardiology 11/22/22 Lex Anderson MD [address] [place] [address] Primary Staff Physician Cardiology 12/05/22 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 Start Date End Date Naomie Bermudez MD [address] [place] [address] PCP - General Family Medicine 07/18/11 Mimi Mckinney MD [address] [place] [address] Surgeon Cardiac Surg 11/07/22 Lex Anderson MD [address] [place] [address] Wire Tester Cardiology 11/22/22 Lex Anderson MD [address] [place] [address] Primary Staff Physician Cardiology 12/05/22 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 Start Date End Date Naomie Bermudez MD [address] [place] [address] PCP - General Family Medicine 07/18/11 Mimi Mckinney MD [address] [place] [address] Surgeon Cardiac Surg 11/07/22 Lex Anderson MD [address] [place] [address] Wire Tester Cardiology 11/22/22 Lex Anderson MD [address] [place] [address] Primary Staff Physician Cardiology 12/05/22 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 Start Date End Date Naomie Bermudez MD [address] [place] [address] PCP - General Family Medicine 07/18/11 Mimi Mckinney MD [address] [place] [address] Surgeon Cardiac Surg 11/07/22 Lex Anderson MD [address] [place] [address] Wire Tester Cardiology 11/22/22 Lex Anderson MD [address] [place] [address] Primary Staff Physician Cardiology 12/05/22 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 Start Date End Date Naomie Bermudez MD [address] [place] [address] PCP - General Family Medicine 07/18/11 Mimi Mckinney MD [address] [place] [address] Surgeon Cardiac Surg 11/07/22 Lex Anderson MD [address] [place] [address] Wire Tester Cardiology 11/22/22 Lex Anderson MD [address] [place] [address] Primary Staff Physician Cardiology 12/05/22 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 Start Date End Date Naomie Bermudez MD [address] [place] [address] PCP - General Family Medicine 07/18/11 Mimi Mckinney MD [address] [place] [address] Surgeon Cardiac Surg 11/07/22 Lex Anderson MD [address] [place] [address] Wire Tester Cardiology 11/22/22 Lex Anderson MD [address] [place] [address] Primary Staff Physician Cardiology 12/05/22 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 Start Date End Date Harpreet Lim MD [address] [place] [address] PCP - General Family Medicine 01/01/23 Mimi Mckinney MD [address] [place] [address] Surgeon Cardiac Surg 11/07/22 Lex Anderson MD [address] [place] [address] Wire Tester Cardiology 11/22/22 Lex Anderson MD [address] [place] [address] Primary Staff Physician Cardiology 12/05/22 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 Start Date End Date Harpreet Lim MD [address] [place] [id number] PCP - General Family Medicine 01/01/23 Mimi Mckinney MD [address] [place] [address] Surgeon Cardiac Surg 11/07/22 Lex Anderson MD [address] [place] [address] Wire Tester Cardiology 11/22/22 Lex Anderson MD [address] [place] [address] Primary Staff Physician Cardiology 12/05/22 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 Start Date End Date Harpreet Lim MD [address] [place] [address] PCP - General Family Medicine 01/01/23 Mimi Mckinney MD [address] [place] [address] Surgeon Cardiac Surg 11/07/22 Lex Anderson MD [address] [place] [address] Wire Tester Cardiology 11/22/22 Lex Anderson MD [address] [place] [address] Primary Staff Physician Cardiology 12/05/22 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 Start Date End Date No, Physician [facility] PCP - General 01/15/23 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 Start Date End Date Harpreet Lim MD [address] [place] [id number] PCP - General Family Medicine 01/01/23 Mimi Mckinney MD [address] [place] [address] Surgeon Cardiac Surg 11/07/22 Lex Anderson MD [address] [place] [address] Wire Tester Cardiology 11/22/22 Lex Anderson MD [address] [place] [address] Primary Staff Physician Cardiology 12/05/22 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 Start Date End Date Harpreet Lim MD [address] [place] [address] PCP - General Family Medicine 01/01/23 Mimi Mckinney MD [address] [place] [address] Surgeon Cardiac Surg 11/07/22 Lex Anderson MD [address] [place] [address] Wire Tester Cardiology 11/22/22 Lex Anderson MD [address] [place] [address] Primary Staff Physician Cardiology 12/05/22 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 Start Date End Date Harpreet Lim MD [address] [place] [id number] PCP - General Family Medicine 01/01/23 Mimi Mckinney MD [address] [place], [place] [address] Surgeon Cardiac Surg 11/07/22 Lex Anderson MD [address] [place] [address] Wire Tester Cardiology 11/22/22 Lex Anderson MD [address] [place] [address] Primary Staff Physician Cardiology 12/05/22 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 Start Date End Date Harpreet Lim MD [address] [place] [phone] PCP - General Family Medicine 01/01/23 Mimi Mckinney MD [address] [place] [address] Surgeon Cardiac Surg 11/07/22 Lex Anderson MD [address] [place] [address] Wire Tester Cardiology 11/22/22 Lex Anderson MD [address] [place] [address] Primary Staff Physician Cardiology 12/05/22 Scheduled Active and Recently Administ ered Medications (unrecognized section and content) Medication Order 01/15/2023 01/16/2023 01/17/2023 aspirin EC tablet 81 mg 81 mg, Oral, Daily, First dose on Sat01/17/23 at 0900, DO NOT CRUSH OR CHEW. 902 (Given - Provider: Wendy Culp, NADEEM) carvediloL (COREG) tablet 37.5 mg (CANCELED) 37.5 mg, Oral, 2 times daily with meals, First dose on Sat01/15/23 at 2040, Give carvedilol with food to reduce risk of hypotension / dizziness. Separate from admin of SAMANTHA inhibitors by two hours. 2047 (Given - Provider: Danielle Werner RN) 1111 (Given - Provider: Indy Nicolas RN)170 (Canceled Entry - Provider: Wendy Culp RN) carvediloL (COREG) tablet 37.5 mg 37.5 mg, Oral, 2 times daily, First dose on Sat01/16/23 at 2100, Give carvedilol with food to reduce risk of hypotension / dizziness. Separate from admin of SAMANTHA inhibitors by two hours. 2100 (Given - Provider: Salud Rasmussen RN) 0903 (Given - Provider: Wendy Culp, RN) chlorthalidone (HYGROTON) tablet 25 mg 25 mg, Oral, Daily, First dose on Sat01/16/23 at 1900 195 (Given - Provider: Salud Rasmussen RN) 0903 (Given - Provider: Wendy Culp, RN) dexAMETHasone [...] at 2200, Notify physician if patient refuses. 210 (Given - Provider: Salud Rasmussen RN) 0548 (Given - Provider: Salud Rasmussen RN) ipratropium-albuteroL (DUO-NEB) 0.5-2.5 mg/3 ml nebulizer solution 3 mL 3 mL, Inhalation, Every 4 hours scheduled (RT), First dose on Sat01/16/23 at 1600 1626 (Given - Provider: Tahira Larkin, CORDUROY CUTTING SUPERVISOR)1958 (Given - Provider: Sonia Madrid RRT) 0000 [...] at 2100 2048 (Given - Provider: Danielle Werner, NADEEM) 1111 (Given - Provider: Indy Nicolas RN)2100 (Given - Provider: Salud Rasmussen RN) 09 (Given - Provider: Wendy Culp, RN) methylPREDNISolone sod suc(PF) (SOLU-medrol) 40 mg 40 mg, Intravenous, Every 6 hours, First dose on Sat01/16/23 at 1530 1550 (Given - Provider: Carmel Murphy, RN)2100 (Given - Provider: Salud Rasmussen RN) 334 (Given - Provider: Salud Rasmussen RN)902 (Given - Provider: Wendy Culp, RN) racEPINEPHrine [...] on Sat01/15/23 at 1923, For 1 dose 194 (Contrast Administered - Provider: Maria Elena Hammer, [...] mL, Intravenous, Once in imaging, contrast, Per kosher butcher (Radiology) for line patency check prior to contrast administration, Starting on Sat01/15/23 at 1923, For 1 dose 1941 (Given - Provider: Maria Elena Hammer, TECHNOLOGIST) sodium chloride (PF) (NS) 0.9 % contrast line flush 80 mL (COMPLETED)(Linked Group 4) 80 mL, Intravenous, Once in imaging, contrast, Per kosher butcher (Radiology), Starting on Sat01/15/23 at 1923, For [...] mL, Intravenous, Once in imaging, contrast, Per kosher butcher (Radiology) for line patency check prior to contrast administration, Starting on Sat01/15/23 at 1923, For 1 dose And sodium chloride (PF) (NS) 0.9 % contrast line flush 80 mL (COMPLETED)Jump to med 80 mL, Intravenous, Once in imaging, contrast, Per kosher butcher (Radiology), Starting on Sat01/15/23 at 1923, For [...] BE BASED ON THE PRIMARY CLINICAL RECORDS. [facility]. provides no warranty or guarantee of the accuracy or completeness of information in this document.
--- NOTE | 2023-02-17 23:17 | XR_ITS ---
The [address] [address] Patient Name: CONOR LEE MRN: [id number] date: 1965 Sex: M Assigned Patient Location: ER Current Patient Location: Accession/Order Number: [id number] Exam Date: 02/17/2023 23:25 Report Date: 02/18/2023 00:24 At the request of: EVENS STEWART Procedure: XR chest 2V CXR- 2 VIEW HISTORY: Chest pain COMPARISON: None. TECHNIQUE: 2 views of the chest are submitted for review. FINDINGS: The lungs are adequately expanded without evidence of infiltrate and/or effusion. The cardiac silhouette measures within normal. Pulmonary vascularity is unremarkable. Osseous structures demonstrate mediastinal wires are aligned and intact. XR/XR chest 2V IMPRESSION: No plain film evidence for acute cardiopulmonary disease. Electronically authenticated by: SAMIRA TINOCO Date: 02/18/2023 00:24
--- NOTE | 2023-02-17 23:17 | ECG_ITS ---
[facility] Test Date: 2023-02-17 Pat Name: CONOR LEE Department: Room: - Gender: Male Travel Med Surg Rn: : 1965 Requested By: HARPREET LIM Order Number: [id number] Reading MD: TUYET SURESH Measurements Intervals [place] Rate: 82 P: 42 [place]: 142 QRS: 7 QRSD: 102 T: 137 QT: 392 QTc: 430 Interpretive Statements 1100 Sinus rhythm 5234 Left ventricular hypertrophy with repolarization abnormality 9150 abnormal ECG Compared to ECG 02/13/2023 01:14:15 No significant changes Electronically Signed On 02-18-2023 17:41:37 EST by TUYET SURESH
--- NOTE | 2023-02-17 23:30 | PC.NURSE ---
patient states he was home watching TV when he started to fell SOB and have chest pains. patient was here for similar episode last Saturday. states he has hx of anxiety. took his antianxiety medication around 9pm with no resolve. chest pain gone upon arrival. patient given oxygen in route for comfort at patients request. ems states patient was 99% o room air. patient has appointment at [facility] for 2 blocked heart valves he will be having surgery on in the near future. patient recently seen his family physician and was placed on steroid herrera and given the antianxity medications. patient has completed steroid.
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
== END 2023-02-17 23:59 | disposition home or self-care (01) ==
PROVIDERS: Emergency Provider Emergency Medicine; PCP Family Medicine
DX: F41.9 Anxiety disorder, unspecified (principal); I11.0 Hypertensive heart disease with heart failure; I50.9 Heart failure, unspecified; J44.9 Chronic obstructive pulmonary disease, unspecified; Z95.2 Presence of prosthetic heart valve; Z79.82 Long term (current) use of aspirin; Z79.899 Other long term (current) drug therapy; Z87.01 Personal history of pneumonia (recurrent); Z87.81 Personal history of (healed) traumatic fracture; Z90.81 Acquired absence of spleen; Z98.890 Other specified postprocedural states; F17.210 Nicotine dependence, cigarettes, uncomplicated
CPT/HCPCS: 71046; 93005; 99284